=== PATIENT | female | born 1960 | race Caucasian/White ===

== ENCOUNTER 2017-12-23 07:37 | Inpatient (IN) | payer BC ==
[~2017-12-23] VITALS: Ht 172.7 cm; Wt 234.1 kg
[2017-12-23] VITALS (24 sets, daily range): BP systolic 99–158; BP diastolic 46–93
--- NOTE | 2017-12-23 07:40 | NUR ---
AWILDA FROM HOME DT SEVERE RESPIRATORY DISTRESS. PATIENT RECIEVED ON CPAP SATING 95%, PT IS SATING 70S ON ROOM AIR. PATIENT IS AWAKE AND ALERT. SKIN IS WARM TO TOUCH AND NON DIAPHORETIC. PATIENT IS AFEBRILE. MD MOHAN AT BEDSIDE.
[2017-12-23] MEDS ORDERED: FUROSEMIDE 20 MG/2 ML VIAL ONE (07:46)
--- NOTE | 2017-12-23 07:50 | NUR ---
RT NOTE: LATE ENTRY-PATIENT RECEIVED IN ER AND PLACED ON BIPAP PER DR. MOHAN'S ORDERS. SETTINGS NOTED. PATIENT TOLERATING WELL. ALARMS VERIFIED AND AUDIBLE. AMBU BAG AT [facility].
[2017-12-23 07:57] LABS: BASOPHILS # (AUTO) 0.1 /CMM (0.0-0.2); BASOPHILS % (AUTO) 1.2 % (0.0-2.0); EOSINOPHILS % (AUTO) 1.1 % (0.0-6.0); HEMATOCRIT 49 % (33-45); HEMOGLOBIN 15.4 g/dL (11.5-14.8); LYMPHOCYTES # (AUTO) 1.8 /CMM (0.8-4.8); MEAN CORPUSCULAR HGB CONC 32 g/dl (31.0-36.0); MEAN CORPUSCULAR VOLUME 95 fL (82-100); MONOCYTES # (AUTO) 0.8 /CMM (0.1-1.30); MONOCYTES % (AUTO) 6.8 % (2.0-12.0); NEUTROPHILS # (AUTO) 8.2 /CMM (1.8-8.9); NEUTROPHILS % (AUTO) 74.9 % (43.0-81.0); PLATELET COUNT (AUTO) 175 /CMM (150-450); RDW COEFFICIENT OF VARIATION 15.6 (11.5-15.0); RED BLOOD CELL COUNT(AUTO) 5.13 MIL/uL (4.0-5.2); WHITE BLOOD COUNT (AUTO) 11.1 K/uL (4.3-11.0)
[2017-12-23] MEDS ORDERED: FUROSEMIDE 40 MG/4 ML VIAL IV ONE (08:00)
--- NOTE | 2017-12-23 08:03 | NUR ---
URINE SAMPLE COLLECTED AND SENT TO LAB
[2017-12-23 08:07] LABS: INR 0.95 (0.87-1.13)
[2017-12-23 08:10] LABS: TROPONIN I 0.019 ng/mL (0.00-0.056)
[2017-12-23 08:14] LABS: ALBUMIN 3.4 g/dL (3.4-5.0); BILIRUBIN,DIRECT 0.3 mg/dL (0.0-0.2); BILIRUBIN,TOTAL 0.9 mg/dL (0.2-1.0); CALCIUM, SERUM 8.7 mg/dL (8.5-10.1); CREATININE 1.1 mg/dL (0.6-1.3); POTASSIUM 4.5 mmol/L (3.5-5.1); TOTAL PROTEIN, SERUM 7.8 g/dL (6.4-8.2)
[2017-12-23 08:28] LABS: ABG BASE EXCESS 3.8 mmol/L; ABG OXYGEN SATURATION 98.4 % (92.0-98.5); ABG PCO2 62.2 mmHg (35.0-45.0); ABG PH 7.327 (7.350-7.450); ABG PO2 145.3 mmHg (75.0-100.0); AaDO2 505.5 mmHg; COHb 1.8 % (0.5-1.5); MetHb 0.5 % (0.0-1.5); O2Hb 96.1 % (94.0-97.0); SITE, ABG Left Radial; VENT MODE, BG BIPAP 15/5
--- NOTE | 2017-12-23 08:45 | NUR ---
PANEL ON-CALL PAGED
[2017-12-23] MEDS ORDERED: NITROGLYCERIN PACKET 1 GM PACKET ONE (08:58)
[2017-12-23] MEDS ORDERED: MAGNESIUM HYDROXIDE 30 ML UDC PO PRN (09:00)
[2017-12-23] MEDS ORDERED: Z GUARD REMEDY 2 OZ OINT TP PRN (09:00)
[2017-12-23] MEDS ORDERED: ZOLPIDEM TARTRATE 5 MG TABLET PO PRN (09:00)
[2017-12-23] MEDS ORDERED: ONDANSETRON HCL/PF 4 MG/2 ML VIAL IVP PRN (09:00)
[2017-12-23] MEDS ORDERED: NITROGLYCERIN PACKET 1 GM PACKET TD ONE (09:00)
[2017-12-23 11:03] LABS: THYROID STIMULATING HORMONE 0.761 uIU/mL (0.358-3.74)
[2017-12-23] MEDS: FUROSEMIDE 40 MG/4 ML VIAL IV SCH ×3 (12:22→23:58)
[2017-12-23] MEDS: ENOXAPARIN SODIUM 40 MG/0.4 ML DISP.SYRIN SQ SCH (12:23)
--- NOTE | 2017-12-23 12:23 | NUR ---
PATIENT TRANSPORTED TO ICU VIA ACLS PROTOCOL. VSS
--- NOTE | 2017-12-23 15:09 | NUR ---
TEACHER [employer]. ADMISSION. PT BEING ADMITTED IN THE ICU ROOM 262. RESPIRATORY FAILURE, BIPAP SETTING 15/. RATE IS 16, FIO2 80%. SAT 96%. NO ACUTE DISTRESS NOTED. OVERHAULER SHOWING NSR. IV RT WRIST 20G, LT WRIST 20G. SALINE LOCK. FC PATENT HOB ELEVATED. NPO. WILL CONTINUE TO MONITOR VITALS.
[2017-12-23] MEDS ORDERED: DEXTROSE 50%-WATER 50 ML DISP.SYRIN IV PRN (15:30)
--- NOTE | 2017-12-23 15:53 | NUR ---
MUD LOGGER. ,ABG DONE. DR MCCRAY BIPAP SETTINGS CHANGED, 30/08, RATE IS 16, FIO2 80%. REPEAT ABG 1700.
--- NOTE | 2017-12-23 16:00 | NUR ---
RT NOTE: BIPAP CHANGES MADE PER 'S ORDER. MASK READJUSTED AND RESPIRATORY TREATMENT DONE.
[2017-12-23 16:02] LABS: ABG BASE EXCESS 13.2 mmol/L; ABG OXYGEN SATURATION 95.1 % (92.0-98.5); ABG PCO2 102.4 mmHg (35.0-45.0); ABG PH 7.266 (7.350-7.450); ABG PO2 82.9 mmHg (75.0-100.0); COHb 1.1 % (0.5-1.5); MetHb 0.5 % (0.0-1.5); O2Hb 93.6 % (94.0-97.0); SITE, ABG Left Radial; VENT MODE, BG BIPAP 15/5
[2017-12-23] MEDS: IPRATROPIUM NEB FS 0.5 MG/2.5 ML AMPUL.NEB NEB SCH ×3 (16:23→23:41)
[2017-12-23] MEDS: ALBUTEROL HALF STRENGTH 1.25 MG/3 ML VIAL.NEB NEB SCH ×3 (16:23→23:41)
[2017-12-23] MEDS: BLOOD SUGAR DIAGNOSTIC 1 EACH STRIP IN SCH ×2 (17:20→23:58)
[2017-12-23 17:29] LABS: ABG BASE EXCESS 11.7 mmol/L; ABG OXYGEN SATURATION 94.2 % (92.0-98.5); ABG PCO2 86.7 mmHg (35.0-45.0); ABG PH 7.306 (7.350-7.450); ABG PO2 74.2 mmHg (75.0-100.0); AaDO2 331.7 mmHg; MetHb 0.5 % (0.0-1.5); O2Hb 92.8 % (94.0-97.0); SITE, ABG Left Radial; VENT MODE, BG BIPAP 25/5
--- NOTE | 2017-12-23 18:28 | NUR ---
THERAPEUTIC STRATEGY LEAD. DR MCCRAY MADE AWARE 1700 ABG RESULT. REPEAT ABG TOMORROW AM.
--- NOTE | 2017-12-23 18:30 | NUR ---
UG DESIGNER. PM CARE.. ORAL CARE, BED BATH GIVEN. LINEN CHANGED. REMAINING SAME BIPAP SETTINGS TOLERATED WELL. SAT 96%. NO ACUTE DISTRESS NOTED. AUDIOVISUAL LEAD TECHNICIAN SHOWING NSR. IV RT ANDLT HAND 20G. SALINE LOCK. HOB ELEVATED. PT IS NPO. FC PATENT. URINE DRAINING. WILL CONTINUE TO MONITOR VITALS.
--- NOTE | 2017-12-23 19:32 | NUR ---
RCVD PT ON BIPAP 25/5,RATE 16,70%. BIPAP PLUGGED INTO RED OUTLET, ALARMS ON AND AUDIBLE. Q4 BREATHING TX GIVEN ORDERED. NO ADVERSE REACTION NOTED. SKIN INTACT. NO RESPIRATORY DISTRESS NOTED AT THIS TIME. WILL CONTINUE TO MONITOR THE PT.
[2017-12-23] MEDS: ACETAMINOPHEN 325 MG TABLET PO PRN (20:57)
[2017-12-24] VITALS (38 sets, daily range): BP systolic 84–124; BP diastolic 39–95
--- NOTE | 2017-12-24 03:00 | NUR ---
RN NOTE WHITE PLACED WITH GOOD URINE OUTPUT. URINE YELLOW WITH SOME HEMATURIA DUE TO INSERTION OF WHITE. WILL CONTINUE TO MONITOR.
[2017-12-24] MEDS: ALBUTEROL HALF STRENGTH 1.25 MG/3 ML VIAL.NEB NEB SCH ×6 (03:10→23:13)
[2017-12-24] MEDS: IPRATROPIUM NEB FS 0.5 MG/2.5 ML AMPUL.NEB NEB SCH ×6 (03:10→23:13)
[2017-12-24 04:54] LABS: BASOPHILS % (AUTO) 0.2 % (0.0-2.0); EOSINOPHILS % (AUTO) 1.1 % (0.0-6.0); HEMATOCRIT 42 % (33-45); HEMOGLOBIN 13.7 g/dL (11.5-14.8); LYMPHOCYTES # (AUTO) 1.2 /CMM (0.8-4.8); MEAN CORPUSCULAR HGB CONC 33 g/dl (31.0-36.0); MEAN CORPUSCULAR VOLUME 95 fL (82-100); MONOCYTES # (AUTO) 0.5 /CMM (0.1-1.30); MONOCYTES % (AUTO) 6.6 % (2.0-12.0); NEUTROPHILS # (AUTO) 5.5 /CMM (1.8-8.9); NEUTROPHILS % (AUTO) 76.1 % (43.0-81.0); PLATELET COUNT (AUTO) 155 /CMM (150-450); RDW COEFFICIENT OF VARIATION 15.6 (11.5-15.0); RED BLOOD CELL COUNT(AUTO) 4.42 MIL/uL (4.0-5.2); WHITE BLOOD COUNT (AUTO) 7.4 K/uL (4.3-11.0)
[2017-12-24 05:25] LABS: THYROID STIMULATING HORMONE 0.95 uIU/mL (0.358-3.74)
[2017-12-24 05:29] LABS: CALCIUM, SERUM 8.2 mg/dL (8.5-10.1); CREATININE 0.9 mg/dL (0.6-1.3); MAGNESIUM 1.6 mg/dL (1.8-2.4); POTASSIUM 3.6 mmol/L (3.5-5.1)
[2017-12-24] MEDS: FUROSEMIDE 40 MG/4 ML VIAL IV SCH ×3 (06:15→18:26)
[2017-12-24] MEDS: BLOOD SUGAR DIAGNOSTIC 1 EACH STRIP IN SCH ×3 (06:15→18:29)
[2017-12-24] MEDS ORDERED: TELM1TAB2 PO (07:47)
[2017-12-24] MEDS ORDERED: INSU100I14 SQ (07:47)
[2017-12-24] MEDS ORDERED: AMLO2.5T3 PO (07:47)
[2017-12-24] MEDS ORDERED: INSU100V7 SQ (07:47)
[2017-12-24] MEDS ORDERED: acetaZOLAMIDE SODIUM 500 MG/VIAL VIAL IV ONE (09:00)
[2017-12-24 09:13] LABS: ABG BASE EXCESS 16.4 mmol/L; ABG OXYGEN SATURATION 96.8 % (92.0-98.5); ABG PCO2 65.3 mmHg (35.0-45.0); ABG PH 7.447 (7.350-7.450); ABG PO2 85.1 mmHg (75.0-100.0); AaDO2 343.8 mmHg; COHb 0.9 % (0.5-1.5); MetHb 0.3 % (0.0-1.5); O2Hb 95.6 % (94.0-97.0); SITE, ABG Left Radial; VENT MODE, BG IPAP 25/ EPAP 5. PS 20
[2017-12-24] MEDS: Magnesium 1GM/D5W 100ML PREMIX 100 ML IV SCH ×2 (10:09→12:56)
[2017-12-24] MEDS: ENOXAPARIN SODIUM 40 MG/0.4 ML DISP.SYRIN SQ SCH (10:24)
--- NOTE | 2017-12-24 17:12 | NUR ---
Patient alert and oriented, remains on continuous bipap- saturation >95%. Patient removing bipap to have ice chips and oxygen saturation drops down as low as 70's. patient to remain NPO and on Bipap. ABG obtained and improving. Hemodynamically stable. Amaral catheter clogged, flushed a couple times but continued to leak. Attempted to change it twice but no success. Umm Peralta notified. Patient incontinent, frequent incontinent care and linen changes. Skin and safety precautions maintained.
--- NOTE | 2017-12-24 18:24 | NUR ---
RT END OF THE SHIFT REPORT: PT. 57 Y OLD FEMALE REC. @ 0700 AM ALERT AND RESPONSIVE. ON BIPAP WITH NOTED SETTINGS, ALARMS ARE SET AND FUNCTIONAL, B/S DIMINISHED. EQUAL CHEST RISE NOTED. INLINE TX'S GIVEN NO ADVERSE REACTION NOTED. BUT POST TX'S SHE COMPLAIN OF THE MASK SIZE AND REFUSED FOR THE NEXT TREATMENTS DUE TO MEDICINE GOING TO HER EYES. READJUST MASK MANY TIMES AND SHE STILL NOT HAPPY WITH THE MASK. I WENT TO [employer] AND ORDER SPECIAL LARGE BIPAP FOR HER AND WILL BE DELIVER ASHKAN. MORNING (X2 MASKED ORDERED BY MRS. ORTIZ). I TOOK MY TIME TO CUT SOME FOAM TO MINIMIZED THE LEAK AND ALSO ULCER PRESSURE. SOME REDNESS NOTICED ON HER NOSE. ELECTRIC PLATER AT TH BEDSIDE, T/O DAY AND COMPLAIN SHE COULDN'T SLEEP DUE TO HOLDING THE MASK. I HELP AND SEAL THE MASK AND ADJUST HER MASK TO MAKE HER COMFORTABLE. SHE WAS ABLE TO MAINTAIN THE MASK WELL AND TOOK A GOOD SLEEPING, AND REST TIME. BIPAP SETTINGS CHANGES T/O DAY PER ORDER BIPAP PLUGGED INTO RED OUT LET.CONTINUE FOR CARE AND MONITOR. AMBU BAG REMAIN AT THE BEDSIDE,. REPORT WILL PASS TO PM SHIFT. X2 LARGER MASK WILL BE DELIVER IN BY TOMORROW, SO SHE CAN USE IT. Addendum: 12/24/17 at 1833 by REJI DUTTON RT Amended: Links added.
--- NOTE | 2017-12-24 19:30 | NUR ---
RN NOTE RECEIVED PT IN NO ACUTE DISTRESS IN BED. PT IS A/O X 3 AND ABLE TO MAKE NEEDS KNOWN. PT IS ON O2 VIA BIPAP AND TOLERATING WELL. PT NOT C/O ANY SOB, DIFFICULTY BREATHING OR PAIN AT THIS TIME. BED IN LOW LOCK POSITION WITH RIALS UP X 2. CALL LIGHT WITHIN REACH AND ALL SAFET MEASURE ENSURED AND CARRIED OUT. WILL CONTINUE TO MONITOR.
--- NOTE | 2017-12-24 19:53 | NUR ---
pt received on bipap via mask with charted settings. pt alert. alarms set and audible, disconnect alarms checked plugged into red outlet pt receiving breathing tx q6 at this time. pt hob at 30 degrees. Addendum: 12/24/17 at 1955 by MIGUEL PERRY RT Amended: Links added.
[2017-12-24] MEDS: HYDROCODONE/APAP 5/325MG 1 EACH TABLET PO PRN (21:33)
[2017-12-25] VITALS (38 sets, daily range): BP systolic 96–124; BP diastolic 32–65
[2017-12-25] MEDS: BLOOD SUGAR DIAGNOSTIC 1 EACH STRIP IN SCH ×4 (00:43→18:00)
[2017-12-25] MEDS: ALBUTEROL HALF STRENGTH 1.25 MG/3 ML VIAL.NEB NEB SCH ×6 (02:17→23:02)
[2017-12-25] MEDS: IPRATROPIUM NEB FS 0.5 MG/2.5 ML AMPUL.NEB NEB SCH ×6 (02:17→23:02)
[2017-12-25] MEDS: HYDROCODONE/APAP 5/325MG 1 EACH TABLET PO PRN (03:17)
--- NOTE | 2017-12-25 03:30 | NUR ---
RN NOTE REASSESSED URINE. NO HEMATURIA NOTED. URINE YELLOW WITH SOME SEDIMENT. WILL CONTINUE TO MONITOR.
--- NOTE | 2017-12-25 04:41 | NUR ---
RN NOTE BED BATH GIVEN AND PT TOLERATED WELL. WILL CONTINUE TO MONITOR.
--- NOTE | 2017-12-25 07:50 | NUR ---
RT PT RECEIVED TOLERATING BiPAP WELL AT THIS TIME. PT IS AWAKE AND ALERT. CHECKED PT NOSE FOR SKIN INTEGRITY AND NO REDNESS NOTICED OR SKIN BREAKDOWN, MEPILEX IN PLACE. BiPAP ALARMS ARE SET AND AUDIBLE WITH BVM BY BEDSIDE. BiPAP IS PLUGGED INTO RED OUTLET. NO RESPIRATORY DISTRESS NOTED AT THIS TIME, WILL CONTINUE TO MONITOR.
--- NOTE | 2017-12-25 07:50 | NUR ---
RT PT RECEIVED TOLERATING BiPAP WELL AT THIS TIME. PT IS AWAKE AND ALERT. CHECKED PT NOSE FOR SKIN INTEGRITY AND NO REDNESS NOTICED OR SKIN BREAKDOWN, MEPILEX IN PLACE. BiPAP ALARMS ARE SET AND AUDIBLE WITH BVM BY BEDSIDE. HHN TX GIVEN INLINE WITH NO ADVERSE REACTIONS. BiPAP IS PLUGGED INTO RED OUTLET. NO RESPIRATORY DISTRESS NOTED AT THIS TIME, WILL CONTINUE TO MONITOR. Addendum: 12/25/17 at 1019 by STEFANO BOWLES RT Amended: Links added.
[2017-12-25 09:07] LABS: CALCIUM, SERUM 8.4 mg/dL (8.5-10.1); CREATININE 0.9 mg/dL (0.6-1.3); MAGNESIUM 2.1 mg/dL (1.8-2.4); PHOSPHORUS 4.3 mg/dL (2.5-4.9); POTASSIUM 3.4 mmol/L (3.5-5.1)
[2017-12-25 09:20] LABS: ABG BASE EXCESS 18.7 mmol/L; ABG OXYGEN SATURATION 92.8 % (92.0-98.5); ABG PCO2 91.5 mmHg (35.0-45.0); ABG PH 7.352 (7.350-7.450); ABG PO2 70.5 mmHg (75.0-100.0); AaDO2 330.2 mmHg; COHb 0.6 % (0.5-1.5); MetHb 0.7 % (0.0-1.5); O2Hb 91.6 % (94.0-97.0); SITE, ABG Left Radial
[2017-12-25 09:23] LABS: BASOPHILS % (AUTO) 0.4 % (0.0-2.0); EOSINOPHILS % (AUTO) 2.7 % (0.0-6.0); HEMATOCRIT 45 % (33-45); HEMOGLOBIN 13.9 g/dL (11.5-14.8); LYMPHOCYTES # (AUTO) 1.2 /CMM (0.8-4.8); LYMPHOCYTES % (AUTO) 17.8 % (20.0-44.0); MEAN CORPUSCULAR HGB CONC 31 g/dl (31.0-36.0); MEAN CORPUSCULAR VOLUME 96 fL (82-100); MONOCYTES # (AUTO) 0.5 /CMM (0.1-1.30); MONOCYTES % (AUTO) 7.5 % (2.0-12.0); NEUTROPHILS # (AUTO) 4.6 /CMM (1.8-8.9); NEUTROPHILS % (AUTO) 71.6 % (43.0-81.0); PLATELET COUNT (AUTO) 149 /CMM (150-450); RDW COEFFICIENT OF VARIATION 15.9 (11.5-15.0); RED BLOOD CELL COUNT(AUTO) 4.71 MIL/uL (4.0-5.2); WHITE BLOOD COUNT (AUTO) 6.5 K/uL (4.3-11.0)
[2017-12-25] MEDS: FUROSEMIDE 100 MG/10 ML VIAL IV SCH ×3 (10:43→19:28)
[2017-12-25] MEDS: ENOXAPARIN SODIUM 40 MG/0.4 ML DISP.SYRIN SQ SCH (10:44)
--- NOTE | 2017-12-25 17:24 | NUR ---
Patient remains on Bipap- ABG obtained by RT. Weaned Fi02 down to 60%, Oxygen saturation at 92-93%. (at baseline patient on oxygen and cpap). LAsix increased by Dr. Huggins, tolerating well, sbp >90 with map>65. Denies pain, but c/o discomfort from bipap mask. Ok'd to have sips of clear liquids and ice chips per Dr. Stephenson, but no food at this time. Patient remains at high risk of aspiration and with high oxygen requirement. Amaral catheter intact and patent- light vaginal bleed noted, per homecare patient has had vaginal bleed for over a year.
--- NOTE | 2017-12-25 19:00 | NUR ---
RN NOTE RECEIVED PT IN NO ACUTE DISTRESS IN BED. PT IS A/O X 3 AND ABLE TO MAKE NEEDS KNOWN. PT IS ON O2 VIA BIPAP AND TOLERATING WELL. PT NOT C/O ANY SOB, DIFFICULTY BREATHING OR PAIN AT THIS TIME. PT HAS RIGHT WRIST 18G AND LEFT HAND 20G THAT IS CLEAN DRY INTACT AND PATENT WITH SALINE FLUSH. IVS ARE SALINE LOCKED. BED IN LOW LOCK POSITION WITH RIALS UP X 2. CALL LIGHT WITHIN REACH AND ALL SAFETY MEASURE ENSURED AND CARRIED OUT. WILL CONTINUE TO MONITOR.
[2017-12-26] VITALS (33 sets, daily range): BP systolic 91–129; BP diastolic 44–74
[2017-12-26] MEDS: BLOOD SUGAR DIAGNOSTIC 1 EACH STRIP IN SCH ×5 (00:06→23:54)
[2017-12-26] MEDS: HYDROCODONE/APAP 5/325MG 1 EACH TABLET PO PRN ×4 (00:06→22:13)
[2017-12-26] MEDS: ALBUTEROL HALF STRENGTH 1.25 MG/3 ML VIAL.NEB NEB SCH ×5 (03:33→20:22)
[2017-12-26] MEDS: IPRATROPIUM NEB FS 0.5 MG/2.5 ML AMPUL.NEB NEB SCH ×5 (03:33→20:22)
--- NOTE | 2017-12-26 03:55 | NUR ---
RT Pt remains on BiPAP during the night on ordered settings. Pt awake and alert w/ no resp distress noted. svn treatment given via inline. Addendum: 12/26/17 at 0356 by ROSINA BELL RT Amended: Links added.
[2017-12-26 05:07] LABS: BASOPHILS % (AUTO) 0.1 % (0.0-2.0); EOSINOPHILS % (AUTO) 2.3 % (0.0-6.0); LYMPHOCYTES % (AUTO) 16.8 % (20.0-44.0)
[2017-12-26 05:15] LABS: HEMATOCRIT 43 % (33-45); HEMOGLOBIN 13.9 g/dL (11.5-14.8); LYMPHOCYTES # (AUTO) 1.2 /CMM (0.8-4.8); MEAN CORPUSCULAR HGB CONC 32 g/dl (31.0-36.0); MEAN CORPUSCULAR VOLUME 96 fL (82-100); MONOCYTES # (AUTO) 0.5 /CMM (0.1-1.30); MONOCYTES % (AUTO) 7.4 % (2.0-12.0); NEUTROPHILS # (AUTO) 5.3 /CMM (1.8-8.9); NEUTROPHILS % (AUTO) 73.4 % (43.0-81.0); PLATELET COUNT (AUTO) 154 /CMM (150-450); RDW COEFFICIENT OF VARIATION 16.6 (11.5-15.0); RED BLOOD CELL COUNT(AUTO) 4.49 MIL/uL (4.0-5.2); WHITE BLOOD COUNT (AUTO) 7.2 K/uL (4.3-11.0)
[2017-12-26 05:25] LABS: ALBUMIN 2.9 g/dL (3.4-5.0); BILIRUBIN,TOTAL 1.2 mg/dL (0.2-1.0); CALCIUM, SERUM 8.1 mg/dL (8.5-10.1); CREATININE 0.9 mg/dL (0.6-1.3); MAGNESIUM 1.8 mg/dL (1.8-2.4); PHOSPHORUS 3.4 mg/dL (2.5-4.9); POTASSIUM 3.1 mmol/L (3.5-5.1); TOTAL PROTEIN, SERUM 7.1 g/dL (6.4-8.2)
--- NOTE | 2017-12-26 06:51 | NUR ---
RN NOTE PT REMAINS IN NO ACUTE DISTRESS IN BED. PT DID NOT HAVE ANY SIGNIFICANT CHANGE IN CONDITION DURING SHIFT. PT TOLERATING BIPAP SETTING WELL. ALL NEEDS MET, ALL ORDERS CARRIED OUT. WILL ENDORSE CARE TO AM RN FOR CONTINUITY OF CARE.
[2017-12-26] MEDS ORDERED: POTASSIUM CHLORIDE 20 MEQ TAB.PRT.SR PO ONE (09:00)
[2017-12-26] MEDS: POTASSIUM CHLORIDE 20 MEQ TAB.PRT.SR PO SCH ×4 (09:50→14:10)
[2017-12-26] MEDS: ENOXAPARIN SODIUM 40 MG/0.4 ML DISP.SYRIN SQ SCH (09:58)
[2017-12-26 11:01] LABS: ABG OXYGEN SATURATION 94.8 % (92.0-98.5); ABG PCO2 54.5 mmHg (35.0-45.0); ABG PH 7.493 (7.350-7.450); ABG PO2 70.8 mmHg (75.0-100.0); AaDO2 224.4 mmHg; COHb 0.9 % (0.5-1.5); MetHb 0.6 % (0.0-1.5); O2Hb 93.4 % (94.0-97.0); SITE, ABG Right Radial; VENT MODE, BG VENTI MASK
[2017-12-26] MEDS: FUROSEMIDE 100 MG/10 ML VIAL IV SCH ×3 (13:57→21:01)
--- NOTE | 2017-12-26 16:09 | NUR ---
patient alert and oriented, denies sob or discomfort. Weaned off bipap, ABG obtained by RT. Patient on a venti mask at 50% tolerating well. Oxygen saturation at 90-93%. Diet advanced by Dr. Huggins to clear liquids, patient tolerating po intake. Will continue to monitor.
--- NOTE | 2017-12-26 18:35 | NUR ---
RN NOTE: PATIENT CONTINUES W/O DISTRESS-TOLERATING VENTI MASK AT 50% fI02 OXYGEN SATURATION REMAINS AT 91-92%. TOLERATING CLEAR LIQUIDS.
--- NOTE | 2017-12-26 20:00 | NUR ---
Received patient form day shift awake alert and oriented x 4.VS stable.SR per monitor. On 50% Venti mask SPO2 90%-92%.No acute distress noted.Patient with morbid obesity maintained on [facility] [id number] bed.Incontinent of loose stool.Perineal care done.Remedy Z guard oint applied as protective measures.Linens changed.Turned and repositioned offloading pressure points.
--- NOTE | 2017-12-26 22:25 | NUR ---
BIPAP applied by RT,Vee per patient request. Rate 18,20/10,FIO2 50%.SPO2 95%.No acute distress noted.
[2017-12-26] MEDS: INSULIN REGULAR, HUMAN 100 UNIT/ML 3 ML VIAL SQ PRN (23:56)
[2017-12-27] VITALS (25 sets, daily range): BP systolic 89–131; BP diastolic 37–76
--- NOTE | 2017-12-27 | NUR ---
Patient was medicated with [place] for bilateral knee pain with relief.FBS checked with coverage per SS.
[2017-12-27] MEDS: IPRATROPIUM NEB FS 0.5 MG/2.5 ML AMPUL.NEB NEB SCH ×7 (00:19→23:30)
[2017-12-27] MEDS: ALBUTEROL HALF STRENGTH 1.25 MG/3 ML VIAL.NEB NEB SCH ×7 (00:19→23:30)
--- NOTE | 2017-12-27 02:15 | NUR ---
Patient awake vs stable.Bed bath rendered.Complete linens changed.Turned and repositioned.
[2017-12-27 04:33] LABS: BASOPHILS % (AUTO) 0.4 % (0.0-2.0); EOSINOPHILS % (AUTO) 2.9 % (0.0-6.0); HEMATOCRIT 43 % (33-45); HEMOGLOBIN 13.6 g/dL (11.5-14.8); LYMPHOCYTES # (AUTO) 1.1 /CMM (0.8-4.8); LYMPHOCYTES % (AUTO) 16.5 % (20.0-44.0); MEAN CORPUSCULAR HGB CONC 31 g/dl (31.0-36.0); MEAN CORPUSCULAR VOLUME 96 fL (82-100); MONOCYTES # (AUTO) 0.5 /CMM (0.1-1.30); MONOCYTES % (AUTO) 8.4 % (2.0-12.0); NEUTROPHILS # (AUTO) 4.6 /CMM (1.8-8.9); NEUTROPHILS % (AUTO) 71.8 % (43.0-81.0); PLATELET COUNT (AUTO) 168 /CMM (150-450); RDW COEFFICIENT OF VARIATION 16.8 (11.5-15.0); WHITE BLOOD COUNT (AUTO) 6.4 K/uL (4.3-11.0)
[2017-12-27 04:48] LABS: ALBUMIN 2.9 g/dL (3.4-5.0); CREATININE 1.1 mg/dL (0.6-1.3); MAGNESIUM 1.6 mg/dL (1.8-2.4); PHOSPHORUS 3.6 mg/dL (2.5-4.9); POTASSIUM 3.4 mmol/L (3.5-5.1); TOTAL PROTEIN, SERUM 6.9 g/dL (6.4-8.2)
[2017-12-27] MEDS: BLOOD SUGAR DIAGNOSTIC 1 EACH STRIP IN SCH ×3 (05:56→17:36)
[2017-12-27] MEDS: HYDROCODONE/APAP 5/325MG 1 EACH TABLET PO PRN (05:56)
--- NOTE | 2017-12-27 06:38 | NUR ---
Patient resting VS remains stable.Diuresing well from lasix.No significant change noted during the shift. Managed knee pain with [place].All needs anticipated and met.
--- NOTE | 2017-12-27 09:00 | NUR ---
PT PLACED OFF BIPAP ONTO VENTI-MASK
[2017-12-27] MEDS: POTASSIUM CHLORIDE 20 MEQ TAB.PRT.SR PO SCH ×2 (09:07→10:19)
[2017-12-27] MEDS: ENOXAPARIN SODIUM 40 MG/0.4 ML DISP.SYRIN SQ SCH (09:08)
--- NOTE | 2017-12-27 09:33 | NUR ---
LABORATORY AIDE Recieved report from BLAINE Arellano, Pt asleep, VS stables, on bipap sating 97%, no sob noted. will continue monitoring for SOB and will switch to Venti mask when awake fro breakfast.
[2017-12-27] MEDS ORDERED: Magnesium 1GM/D5W 100ML PREMIX PIGGYBACK IV ONE (10:00)
[2017-12-27] MEDS: SIMETHICONE 80 MG TAB.CHEW PO PRN (10:19)
[2017-12-27] MEDS: INSULIN REGULAR, HUMAN 100 UNIT/ML 3 ML VIAL SQ PRN ×2 (12:00→17:41)
[2017-12-27 12:45] LABS: ABG BASE EXCESS 17.9 mmol/L; ABG OXYGEN SATURATION 89.6 % (92.0-98.5); ABG PCO2 76.4 mmHg (35.0-45.0); ABG PH 7.407 (7.350-7.450); ABG PO2 56.4 mmHg (75.0-100.0); AaDO2 140.9 mmHg; COHb 0.8 % (0.5-1.5); MetHb 0.7 % (0.0-1.5); O2Hb 88.3 % (94.0-97.0); SITE, ABG Right Radial
[2017-12-27] MEDS: ACETAMINOPHEN 325 MG TABLET PO PRN (20:37)
--- NOTE | 2017-12-27 20:40 | NUR ---
ICU/SALES COORDINATOR PT COMPLAIN ABOUT BEING UNCOMFORTABLE AND NOT FEELING WELL, OFFERED TYLENOL 650 MG WAS GIVEN PO FOR THIS. CALL LIGHT WITHIN REACH. WILL MONITOR PT'S PAIN
[2017-12-28] VITALS (13 sets, daily range): BP systolic 97–130; BP diastolic 37–80
[2017-12-28] MEDS: SIMETHICONE 80 MG TAB.CHEW PO PRN ×4 (00:30→20:45)
--- NOTE | 2017-12-28 00:30 | NUR ---
ICU/OIL WELL ENGINEER PT COMPLAINED ABOUT PAIN AND GAS, PT WAS OFFERED NORCO 1 TAB FOR THIS. PAIN WAS RATED 7/10. WITH PAIN TO LOWER EXTREMITIES AND GENERALIZED ALL OVER. ALSO PT COMPLAINED ABOUT HAVING GAS PAIN TO ABDOMINAL AREA, MYLICON TAB WAS GIVEN FOR THIS. WILL CONTINUE TO MONITOR PT'S PAIN.
[2017-12-28] MEDS: HYDROCODONE/APAP 5/325MG 1 EACH TABLET PO PRN (00:31)
--- NOTE | 2017-12-28 00:40 | NUR ---
ICU/NOVELTY BALLOON ASSEMBLER AND PACKER PT'S BLOOD SUGAR IS 131, THIS WAS COVERED WITH 2 UNITS REGULAR INSULIN, WILL CONTINUE TO MONITOR PT'S BLOOD SUGAR WAS ORDERED BY .
[2017-12-28] MEDS: BLOOD SUGAR DIAGNOSTIC 1 EACH STRIP IN SCH ×4 (01:00→18:19)
[2017-12-28] MEDS: INSULIN REGULAR, HUMAN 100 UNIT/ML 3 ML VIAL SQ PRN ×3 (01:03→18:19)
--- NOTE | 2017-12-28 01:49 | NUR ---
PT PLACED ON BIPAP PER MD ORDERS. NO RESP DISTRESS OR SOB NOTED. PT ALERT AND AWAKE. NO REDNESS OR SKIN TEAR NOTED. ALARMS ARE SET AND AUDIBLE. VENT PLUGGED INTO RED OUTLET. AMBU BAG BEDSIDE. WILL CONTINUE TO MONITOR. Addendum: 12/28/17 at 0535 by THOMAS BUTTS RT Amended: Links added.
--- NOTE | 2017-12-28 02:05 | NUR ---
ICU/PHYSICIAN OFFICE NURSE PT PLACED ON BIPAP WITH SETTINGS OF 20/10, RATE OF 18, AND FIO2 50%. PT WAS CHANGED OVER FROM EARLIER MASK OF VENTURI. WILL CONTINUE TO MONITOR THIS PT'S SATURATION, WHILE ON BIPAP.
[2017-12-28] MEDS: IPRATROPIUM NEB FS 0.5 MG/2.5 ML AMPUL.NEB NEB SCH ×6 (03:30→23:47)
[2017-12-28] MEDS: ALBUTEROL HALF STRENGTH 1.25 MG/3 ML VIAL.NEB NEB SCH ×6 (03:30→23:47)
--- NOTE | 2017-12-28 04:20 | NUR ---
ICU/TRANSITIONS MANAGER PT REFUSED TO HAVE A BATH, AND ASKED TO SLEEP INSTEAD. PT STATED THAT SHE WAS CLEANED EARLIER IN THE DAY.
[2017-12-28 04:23] LABS: BASOPHILS % (AUTO) 0.3 % (0.0-2.0); EOSINOPHILS % (AUTO) 4.5 % (0.0-6.0); HEMATOCRIT 45 % (33-45); LYMPHOCYTES % (AUTO) 17.8 % (20.0-44.0); MEAN CORPUSCULAR HGB CONC 31 g/dl (31.0-36.0); MEAN CORPUSCULAR VOLUME 96 fL (82-100); MONOCYTES # (AUTO) 0.4 /CMM (0.1-1.30); MONOCYTES % (AUTO) 7.4 % (2.0-12.0); NEUTROPHILS # (AUTO) 3.8 /CMM (1.8-8.9); PLATELET COUNT (AUTO) 170 /CMM (150-450); RDW COEFFICIENT OF VARIATION 16.6 (11.5-15.0); RED BLOOD CELL COUNT(AUTO) 4.69 MIL/uL (4.0-5.2); WHITE BLOOD COUNT (AUTO) 5.4 K/uL (4.3-11.0)
[2017-12-28 04:25] LABS: APPEARANCE,URINE CLOUDY (CLEAR); BILIRUBIN,URINE NEGATIVE (NEGATIVE); BLOOD, URINE 3+ Ery/uL (NEGATIVE); COLOR,URINE AMBER (YELLOW); KETONES,URINE NEGATIVE (NEGATIVE); LEUKOCYTE ESTERASE ,URINE 3+ (NEGATIVE); NITRITE, URINE POSITIVE (NEGATIVE); PROTEIN,URINE 2+ mg/dl (NEGATIVE); UGLUCOSE NEGATIVE (NEGATIVE)
[2017-12-28 04:30] LABS: PH,URINE >9.0 (5.0-8.0)
[2017-12-28 04:37] LABS: BACTERIA,URINE Many /HPF (None Seen); RBC,URINE 21-50 /HPF (0-2); SQUAMOUS EPITHELIAL CELL,UR Few /HPF (None Seen); TRIPLE PHOSPHATE CRYSTAL,UR Moderate /HPF (None Seen); URINE AMORPHOUS PHOSPHATES Many /HPF (None Seen); WBC,URINE 21-50 /HPF (0-3)
[2017-12-28 04:50] LABS: CALCIUM, SERUM 8.4 mg/dL (8.5-10.1); MAGNESIUM 1.9 mg/dL (1.8-2.4); PHOSPHORUS 3.5 mg/dL (2.5-4.9); POTASSIUM 3.6 mmol/L (3.5-5.1)
--- NOTE | 2017-12-28 05:10 | NUR ---
ICU/FOOD MIXER REPAIRER AM LABS DONE AWAIT ANY ABNORMAL RESULTS.
--- NOTE | 2017-12-28 06:45 | NUR ---
ICU/THREAD PULLING MACHINE ATTENDANT BLOOD SUGAR IS 123, THERE IS NO COVERAGE FOR THIS. WILL CONTINUE TO MONITOR PT'S BLOOD SUGAR
--- NOTE | 2017-12-28 07:30 | NUR ---
INITIAL RECEIVED PT ON BIPAP SATURATION 97% NO SOB NOTED ALERT AND ORIENTED X4 WO PIV 20 G IN RIGHT HAND H/L WHITE DRAINS TEA COLORED URINE SR AT 81, Pt aWAKE ASKING TO DRINK WATER. , RT GIVING BREATHING TREATMENT BED IN LOW POSITION LOCKED CALL SAMSON NEXT TO PT WILL CONTINUE TO MONITOR.
[2017-12-28] MEDS: ENOXAPARIN SODIUM 40 MG/0.4 ML DISP.SYRIN SQ SCH (09:15)
[2017-12-28] MEDS: ACETAMINOPHEN 325 MG TABLET PO PRN (10:30)
[2017-12-28] MEDS: FLUTICASONE PROPIONATE 16 GM BOTTLE NS SCH (18:31)
--- NOTE | 2017-12-28 19:15 | NUR ---
TELE - TD/ SUPERINTENDENT GENERATING PLANT RECEIVED PT ACCOMPANIED BY ICU STAFF. PT TRANSFFERED TO ROOM 104. VSS. SPOKE WITH FLORY FINANCIAL SALES PROFESSIONAL REGARDING PT COMPLAINT OF PAINFUL URINATION. NEW ORDERS RECEIVED AND CARRIED OUT. WILL CONTINUE TO MONITOR CLOSELY.
[2017-12-28] MEDS ORDERED: CEFTRIAXONE 1 G VIAL ONE (20:29)
[2017-12-28] MEDS ORDERED: CEFTRIAXONE 1 G in IV D5W 50 ML IV SCH (20:30)
[2017-12-29] VITALS: BP 121/41
[2017-12-29] MEDS: BLOOD SUGAR DIAGNOSTIC 1 EACH STRIP IN SCH ×5 (00:46→23:38)
[2017-12-29] MEDS: HYDROCODONE/APAP 5/325MG 1 EACH TABLET PO PRN (00:47)
[2017-12-29 04:00] VITALS: BP 139/52
[2017-12-29] MEDS: IPRATROPIUM NEB FS 0.5 MG/2.5 ML AMPUL.NEB NEB SCH ×6 (04:10→22:37)
[2017-12-29] MEDS: ALBUTEROL HALF STRENGTH 1.25 MG/3 ML VIAL.NEB NEB SCH ×6 (04:10→22:37)
--- NOTE | 2017-12-29 05:53 | NUR ---
pt removed from bipap per pt request Addendum: 12/29/17 at 0555 by MIGUEL PERRY RT Amended: Links added.
[2017-12-29 06:35] LABS: BASOPHILS % (AUTO) 0.2 % (0.0-2.0); HEMATOCRIT 43 % (33-45); HEMOGLOBIN 13.6 g/dL (11.5-14.8); LYMPHOCYTES # (AUTO) 1.2 /CMM (0.8-4.8); LYMPHOCYTES % (AUTO) 22.1 % (20.0-44.0); MEAN CORPUSCULAR HGB CONC 32 g/dl (31.0-36.0); MEAN CORPUSCULAR VOLUME 96 fL (82-100); MONOCYTES # (AUTO) 0.6 /CMM (0.1-1.30); MONOCYTES % (AUTO) 10.9 % (2.0-12.0); NEUTROPHILS # (AUTO) 3.4 /CMM (1.8-8.9); NEUTROPHILS % (AUTO) 62.8 % (43.0-81.0); PLATELET COUNT (AUTO) 156 /CMM (150-450); RDW COEFFICIENT OF VARIATION 16.2 (11.5-15.0); RED BLOOD CELL COUNT(AUTO) 4.43 MIL/uL (4.0-5.2); WHITE BLOOD COUNT (AUTO) 5.4 K/uL (4.3-11.0)
[2017-12-29] MEDS: SIMETHICONE 80 MG TAB.CHEW PO PRN ×3 (06:46→14:19)
[2017-12-29 07:04] LABS: CALCIUM, SERUM 8.5 mg/dL (8.5-10.1); CREATININE 0.9 mg/dL (0.6-1.3); PHOSPHORUS 2.8 mg/dL (2.5-4.9); POTASSIUM 3.6 mmol/L (3.5-5.1)
--- NOTE | 2017-12-29 07:30 | NUR ---
AISHA RN NOTES RECEIVED PT IN NO ACUTE DISTRESS IN BED. PT IS A/O X 3 AND ABLE TO MAKE NEEDS KNOWN. PT IS ON O2 VIA N/C AND TOLERATING WELL. PT NOT C/O ANY SOB, DIFFICULTY BREATHING OR PAIN AT THIS TIME. LEFT HAND 20G THAT IS CLEAN DRY INTACT AND PATENT WITH SALINE FLUSH. IVS ARE SALINE LOCKED. BED IN LOW LOCK POSITION WITH RIALS UP X 2. CALL LIGHT WITHIN REACH AND ALL SAFETY MEASURE ENSURED AND CARRIED OUT. WILL CONTINUE TO MONITOR.
[2017-12-29] MEDS: ENOXAPARIN SODIUM 40 MG/0.4 ML DISP.SYRIN SQ SCH (09:08)
[2017-12-29] MEDS: FLUTICASONE PROPIONATE 16 GM BOTTLE NS SCH ×2 (09:12→17:38)
[2017-12-29 09:31] VITALS: BP 124/62
[2017-12-29 12:00] VITALS: BP 114/66
[2017-12-29 12:01] LABS: ABG BASE EXCESS 16.9 mmol/L; ABG OXYGEN SATURATION 89.2 % (92.0-98.5); ABG PCO2 76.7 mmHg (35.0-45.0); ABG PH 7.397 (7.350-7.450); ABG PO2 53.7 mmHg (75.0-100.0); AaDO2 121.3 mmHg; COHb 1.1 % (0.5-1.5); MetHb 0.7 % (0.0-1.5); O2Hb 87.6 % (94.0-97.0); SITE, ABG Left Radial; VENT MODE, BG NASAL CANNULA
--- NOTE | 2017-12-29 12:05 | NUR ---
AISHA RN NOTE: RECEIVED THE ABG RESULT FROM RT YOGESH. PER RT YOGESH HE ALREADY SHOWED TO DR. MCCRAY THE ABG RESULT AND MD WITH NO NEW ORDER. PATIENT CURRENTLY ON O2 4L/MIN VIA NC SATURATING 90%. ABG RESULT FILED ON THE PATIENT'S CHART.
[2017-12-29] MEDS: INSULIN REGULAR, HUMAN 100 UNIT/ML 3 ML VIAL SQ PRN ×2 (12:26→23:46)
[2017-12-29] MEDS ORDERED: POLYETHYLENE GLYCOL 3350 17 GM POWD.PACK PO ONE (15:30)
--- NOTE | 2017-12-29 15:31 | NUR ---
AISHA RN NOTE: PATIENT REQUESTED TO GET A MEDICATION TO MAKE HER BOWEL MOVE. DR. CAROLINA WAS INFORMED AND PATIENT HAD HER LAST BOWEL MOVEMENT ON 12/27. MD WITH NEW ORDER, NOTED AND CARRIED OUT. PATIENT MADE AWARE.
--- NOTE | 2017-12-29 17:45 | NUR ---
RT PT PLACED ON 35% VENTURI MASK AT 9L DUE TO DESATURATION. PT SpO2 WAS 83% ON 4L NASAL CANNULA. BLAINE WYNN NOTIFIED AND AWARE. PT SpO2 INCREASED TO 90% MINUTES AFTER PT WAS PLACED ON VENTURI MASK. Addendum: 12/29/17 at 1812 by STEFANO BOWLES RT Amended: Links added.
[2017-12-29 18:03] VITALS: BP 136/66
--- NOTE | 2017-12-29 18:31 | NUR ---
AISHA RN NOTE: INFORMED DR. MCCRAY RE: THE PATIENT BEING PLACED BACK TO VENTURI MASK W/ 35% O2 DUE TO SATURATION OF 83% WITH THE NC 4L/MIN VIA. REQUESTED TO MD FOR A PRN BREATHING TREATMENT, MD WITH NEW ORDER, NOTED AND CARRIED OUT. PATIENT AWARE.
--- NOTE | 2017-12-29 19:25 | NUR ---
BUSINESS BANKING MANAGER CLOSING PATIENT AWAKE IN BED EATING AND TALKING WITH FRIEND. NO NEW EPISODES DESATURATION OR CRAMPS. NO RESULTS FROM MIRALAX REPORT GIVEN TO PM NURSE. ALL NEW ALL ORDERS INDORSED
[2017-12-29 20:00] VITALS: BP 125/72
[2017-12-29] MEDS: ZOSYN IVPB 3.375 G in IV D5W 50ml IV SCH (20:44)
[2017-12-29] MEDS: CEFTRIAXONE 1 G in IV D5W 50 ML IV SCH (21:48)
[2017-12-30] VITALS: BP 140/66
[2017-12-30] MEDS: ZOSYN IVPB 3.375 G in IV D5W 50ml IV SCH ×2 (02:55→08:29)
[2017-12-30] MEDS: ALBUTEROL HALF STRENGTH 1.25 MG/3 ML VIAL.NEB NEB SCH ×6 (03:25→23:05)
[2017-12-30] MEDS: IPRATROPIUM NEB FS 0.5 MG/2.5 ML AMPUL.NEB NEB SCH ×6 (03:25→23:06)
[2017-12-30 04:00] VITALS: BP 117/51
[2017-12-30] MEDS: BLOOD SUGAR DIAGNOSTIC 1 EACH STRIP IN SCH ×4 (05:36→23:36)
[2017-12-30] MEDS: INSULIN REGULAR, HUMAN 100 UNIT/ML 3 ML VIAL SQ PRN ×3 (05:37→23:43)
[2017-12-30 06:39] LABS: BASOPHILS % (AUTO) 0.4 % (0.0-2.0); EOSINOPHILS % (AUTO) 4.3 % (0.0-6.0); HEMATOCRIT 44 % (33-45); HEMOGLOBIN 13.8 g/dL (11.5-14.8); LYMPHOCYTES # (AUTO) 1.2 /CMM (0.8-4.8); LYMPHOCYTES % (AUTO) 21.3 % (20.0-44.0); MEAN CORPUSCULAR HGB CONC 31 g/dl (31.0-36.0); MEAN CORPUSCULAR VOLUME 97 fL (82-100); MONOCYTES # (AUTO) 0.5 /CMM (0.1-1.30); MONOCYTES % (AUTO) 8.8 % (2.0-12.0); NEUTROPHILS # (AUTO) 3.6 /CMM (1.8-8.9); NEUTROPHILS % (AUTO) 65.2 % (43.0-81.0); PLATELET COUNT (AUTO) 166 /CMM (150-450); RDW COEFFICIENT OF VARIATION 16.1 (11.5-15.0); RED BLOOD CELL COUNT(AUTO) 4.56 MIL/uL (4.0-5.2); WHITE BLOOD COUNT (AUTO) 5.6 K/uL (4.3-11.0)
--- NOTE | 2017-12-30 07:00 | NUR ---
RN NOTES RECEIVED PT ON BED, A/Ox4, ON 35% VENTURI MASK , RESPIRATION EVEN AND UNLABORED, ON SOB NOTED, ON TELE SR , HR IN 80'S , WHITE DRINING TO GRAVITY , L HAND IV G 18 AND R WRIST G 20 IV SITES ARE CLEAN, DRY AND INTACT, SR UP x3, CALL LIGHT WITHIN EASY REACH , BED LOCKED AND IN LOWEST POSITION, CONTINUE TO MONITOR .
[2017-12-30 07:09] LABS: CALCIUM, SERUM 8.9 mg/dL (8.5-10.1); CREATININE 0.9 mg/dL (0.6-1.3); MAGNESIUM 2.1 mg/dL (1.8-2.4); POTASSIUM 3.7 mmol/L (3.5-5.1)
[2017-12-30 08:00] VITALS: BP 111/44
[2017-12-30] MEDS: FLUTICASONE PROPIONATE 16 GM BOTTLE NS SCH ×2 (08:29→16:56)
[2017-12-30] MEDS: ENOXAPARIN SODIUM 40 MG/0.4 ML DISP.SYRIN SQ SCH (08:30)
[2017-12-30] MEDS: SIMETHICONE 80 MG TAB.CHEW PO PRN ×2 (09:31→20:46)
[2017-12-30] MEDS: MAG HYDROX/AL HYDROX/SIMETH 30 ML UDC PO PRN ×2 (09:31→18:52)
[2017-12-30 12:00] VITALS: BP_SYST 100; BP_SYST 114; BP_SYST 141; BP_DIAS 44; BP_DIAS 45; BP_DIAS 47
[2017-12-30] MEDS ORDERED: ALBU18HF2 INH (13:05)
[2017-12-30] MEDS ORDERED: AZIT250T PO (13:05)
[2017-12-30 16:00] VITALS: BP 100/47
--- NOTE | 2017-12-30 16:00 | NUR ---
RN NOTES PT ON 5L O2 N/C , O2 SAT %90, CONTINUE TO MONITOR
--- NOTE | 2017-12-30 18:18 | NUR ---
RN NOTES PT STABLE, SUPPORTIVE FAMILY AT THE BEDSIDE, SR UP x3, CALL LIGHT WITHIN EASY REACH, WILL ENDOSE TO CYTOLOGY SUPERVISOR NURSE FOR CONTINUITY OF CARE .
--- NOTE | 2017-12-30 18:52 | NUR ---
RECEIVED AN ORDER FROM DR. SOW TO DOWNGRADE THE PATIENT FROM AISHA TO TELEMETRY. Addendum: 12/30/17 at 1855 by MINE VILLA RN ERROR. WRONG PATIENT.
--- NOTE | 2017-12-30 19:30 | NUR ---
AISHA RN NOTE PT RECEIVED IN BED. A/OX4 AND ABLE TO VERBALIZE NEEDS. ON 5L OF NC AND SATURATING >90%. BREATHING REGULAR AND UNLABORED. NO C/O PAIN OR DISCOMFORT NOTED. PT WANTS BIPAP ON 23OO AND RT AWARE. CALL LIGHT WITHIN REACH. WILL CONTINUE TO MONITOR.
[2017-12-30 20:00] VITALS: BP_SYST 108; BP_SYST 127; BP_DIAS 63; BP_DIAS 68
[2017-12-30] MEDS: CEFTRIAXONE 1 G in IV D5W 50 ML IV SCH (20:46)
--- NOTE | 2017-12-30 23:06 | NUR ---
RCVD PT ON 5L NC. PLACED PT ON NOCTURNAL BIPAP 20/10,RATE 18, 50%, RN LO NOTIFIED. BIPAP PLUGGED INTO RED OUTLET, BIPAP ALARMS ON AND AUDIBLE. Q4 BREATHING TX GIVEN. NO ADVERSE REACTION NOTED. NO SOB OR RESPIRATORY DISTRESS AT THIS TIME. WILL CONTINUE TO MONITOR.
[2017-12-31] VITALS: BP 121/52
--- NOTE | 2017-12-31 | NUR ---
AISHA RN NOTE PT REFUSED BED BATH. EXPLAINED RISKS AND BENEFITS AND PT STILL REFUSED. WILL TRY AGAIN LATER. PT NOW ON NOCTURNAL BIPAP AND SATURATING WELL. WILL MONITOR.
[2017-12-31] MEDS: ALBUTEROL HALF STRENGTH 1.25 MG/3 ML VIAL.NEB NEB SCH ×6 (03:01→23:49)
[2017-12-31] MEDS: IPRATROPIUM NEB FS 0.5 MG/2.5 ML AMPUL.NEB NEB SCH ×6 (03:01→23:49)
[2017-12-31] MEDS: MAG HYDROX/AL HYDROX/SIMETH 30 ML UDC PO PRN ×2 (03:28→14:27)
[2017-12-31 04:00] VITALS: BP 136/55
[2017-12-31] MEDS: BLOOD SUGAR DIAGNOSTIC 1 EACH STRIP IN SCH ×4 (06:15→23:57)
[2017-12-31] MEDS: INSULIN REGULAR, HUMAN 100 UNIT/ML 3 ML VIAL SQ PRN ×4 (06:22→23:48)
--- NOTE | 2017-12-31 06:45 | NUR ---
AISHA RN NOTE PT REMAINED STABLE DURING SHIFT. BIPAP REMAINS ON THE PT. NO ACUTE DISTRESS NOTED. ALL NEEDS ATTENDED TO PROMPTLY. PT STILL REFUSED BED BATH. CALL LIGHT WITHIN REACH. WILL ENDORSE TO NEXT SHIFT FOR CONTINUITY OF CARE.
[2017-12-31] MEDS: SIMETHICONE 80 MG TAB.CHEW PO PRN ×3 (07:55→23:50)
[2017-12-31 08:00] VITALS: BP 133/61
[2017-12-31] MEDS: FLUTICASONE PROPIONATE 16 GM BOTTLE NS SCH ×2 (08:47→17:09)
[2017-12-31] MEDS: ENOXAPARIN SODIUM 40 MG/0.4 ML DISP.SYRIN SQ SCH (08:48)
--- NOTE | 2017-12-31 09:26 | NUR ---
WOUND CARE CONSULT: PT PRESENTS WITH RT THIGH REDNESS AT SKIN FOLD AND RT DISTAL GREAT TOE REDNESS, PRESENT ON ADMISSION. PT AND CAREGIVER STATE THAT RT GREAT TOE REDNESS HAS BEEN THERE FOR A LONG TIME. RECOMMEND DPM CONSULT. WHITE CATH NOTED. RED VAGINAL DRAINAGE NOTED. ALL SKIN PROTECTION RECOMMENDATIONS DISCUSSED WITH NURSING STAFF. PT ON [facility] AIR BED. WILL SEE PRN. BREWSTER IN AGREEMENT WITH PLAN OF CARE. Addendum: 12/31/17 at 09 by ALICJA LALA WNDNU Amended: Links added.
[2017-12-31 12:00] VITALS: BP 127/46
[2017-12-31 16:00] VITALS: BP_SYST 136; BP_SYST 137; BP_DIAS 62; BP_DIAS 81
[2017-12-31 20:00] VITALS: BP 153/61
[2017-12-31] MEDS: CEFTRIAXONE 1 G in IV D5W 50 ML IV SCH (20:05)
--- NOTE | 2017-12-31 20:20 | NUR ---
TELE 1 RN NOTE PT IN BED AWAKE IN SEMIFOWLER POSITION, A/O X 4, NO SOB NOTED. C/O PAIN IN ABD 06/15. MOTRIN 400 MG GIVEN WITH SNACKS. PT REFUSING TO BE REPOSITION, STATES "I WAS ON MY SIDE LAST NIGHT THAT WAS HURTING". WILL RECHECK WITH HER AGAIN. F/C INTACT AND PATENT DRAINING YELLOWISH COLOR URINE. ON TELE MONITOR SR HR 86. ALL NEEDS ATTENDED. SIDE RAILS UP X 2 AND ALL LIGHT WITHINR EACH. VSS. CONTINUE TO MONITOR HER.
[2017-12-31] MEDS: IBUPROFEN 400 MG TABLET PO PRN (20:22)
--- NOTE | 2017-12-31 21:25 | NUR ---
TELE 1 RN NOTE PAIN SUBSIDED 04/17. PT AWAKE AND WATCHING TV. CONTINUE TO MONITOR HER FOR ANY DISTRESS. PT REMAIN REFUSE TO BE REPOSITION.
--- NOTE | 2017-12-31 23:50 | NUR ---
TELE 1 RN NOTE PT IS C/O OF ABD GAS AND ASKING FOR MEDICATION FOR THAT. MYLICON 80 MG PO GIVEN FOR GAS. CONTINUE TO MONITOR HER.
[2018-01-01] VITALS: BP 138/65
--- NOTE | 2018-01-01 01:39 | NUR ---
PT PLACED ON BIPAP PER MD ORDERS. NO SKIN TEAR OR REDNESS. BLAINE ANTHONY AWARE Addendum: 01/01/18 at 0202 by THOMAS BUTTS RT Amended: Links added.
--- NOTE | 2018-01-01 01:50 | NUR ---
TELE 1 RN NOTE PT FALL ASLEEP. AROUSABLE. NO DISTRESS NOTED. PT ON BIPAP AT THIS TIME. CONTINUE TO MONITOR HER.
[2018-01-01] MEDS: IPRATROPIUM NEB FS 0.5 MG/2.5 ML AMPUL.NEB NEB SCH ×6 (03:50→23:52)
[2018-01-01] MEDS: ALBUTEROL HALF STRENGTH 1.25 MG/3 ML VIAL.NEB NEB SCH ×6 (03:51→23:52)
[2018-01-01 04:00] VITALS: BP 116/77
[2018-01-01] MEDS: BLOOD SUGAR DIAGNOSTIC 1 EACH STRIP IN SCH ×4 (05:56→23:40)
[2018-01-01] MEDS: SIMETHICONE 80 MG TAB.CHEW PO PRN ×3 (06:12→23:33)
--- NOTE | 2018-01-01 06:49 | NUR ---
TELE 1 RN NOTE PT IN BED AWAKE. NO DISTRESS OR DISCOMFORT NOTED. INCONTINENCE CARE GIVEN. G ON TELE MONITOR SR HR 80. ALL NEEDS ATTENDED. SIDE RAILS UP X 3 AND CALL LIGHT WITHIN REACH. WILL ENDORSE TO DAY SHIFT NURSE FOR CONTINUE TO CARE.
--- NOTE | 2018-01-01 07:08 | NUR ---
TELE/RN INITIAL NOTES RECEIVED PT IN BED, A/0X4. NO C/O PAIN AT THIS TIME. SR ON TELEMONITOR. ON 5L O2 VIA NC, TOLERATING WELL. NO SOB NOTED. WITH INTACT AND PATENT AND G18 SL. HOB ELEVATED. SAFETY MEASURES IN PLACED. CALL LIGHT WITHIN REACH. WILL CONT TO MONITOR Addendum: 01/01/18 at 0758 by JOHNATHAN YIP RN ADD: F/C INTACT AND IN PLACED. DRAINING CLEAR YELLOW URINE BY GRAVITY.
[2018-01-01 08:00] VITALS: BP 128/63
[2018-01-01] MEDS: ENOXAPARIN SODIUM 40 MG/0.4 ML DISP.SYRIN SQ SCH (09:00)
--- NOTE | 2018-01-01 09:00 | NUR ---
RN NOTES 0900 DUE LOVENOX SQ HELD, PT IS FOR PARTIAL TOE NAIL AVULSION PROCEDURE TODAY. SEEN AND EXAMINED BY DR MCCRAY. WANTS TO FOLLOW UP WITH REYES PLACEMENT/SNF PLACEMENT CHARGE NURSE MADE AWARE, PER CHARGE NURSE, TRAFFIC CLERK WORKING ON IT
[2018-01-01] MEDS: FLUTICASONE PROPIONATE 16 GM BOTTLE NS SCH ×2 (09:19→18:11)
[2018-01-01 12:00] VITALS: BP 128/63
[2018-01-01] MEDS: INSULIN REGULAR, HUMAN 100 UNIT/ML 3 ML VIAL SQ PRN ×3 (13:04→23:42)
[2018-01-01] MEDS: ALBUTEROL HALF STRENGTH 1.25 MG/3 ML VIAL.NEB NEB PRN (13:39)
[2018-01-01] MEDS: MAG HYDROX/AL HYDROX/SIMETH 30 ML UDC PO PRN (14:48)
[2018-01-01] MEDS: IBUPROFEN 400 MG TABLET PO PRN (14:48)
[2018-01-01 16:00] VITALS: BP 128/63
[2018-01-01] MEDS: HYDROCORTISONE SOD SUCCINATE 100 MG/2 ML VIAL IV SCH (17:55)
--- NOTE | 2018-01-01 18:50 | NUR ---
TELE/RN CLOSING NOTES PT IN STABLE CONDITION. NO ACUTE CHANGES NOTED. SAFETY MEASURES OBSERVED AT ALL TIMES. PT IS D/C, CM STILL WORKING FOR PLACEMENT. ALL NEEDS ANTICIPATED. WILL ENDORSED TO PM SHIFT RN FOR MARTINA
[2018-01-01 20:00] VITALS: BP 142/67
[2018-01-01] MEDS: CEFTRIAXONE 1 G in IV D5W 50 ML IV SCH (21:49)
[2018-01-02] VITALS: BP 147/62
--- NOTE | 2018-01-02 02:01 | NUR ---
RT I HAVE ASKED PT WHEN SHE IS READY TO GO P
--- NOTE | 2018-01-02 02:02 | NUR ---
RT PT HAS BEEN REFUSING BIPAP. PT STATES SHE WILL NOTIFY THE NURSE WHEN SHE IS READY TO USE BIPAP. NO SOB OR DISTRESS NOTED.
[2018-01-02 04:00] VITALS: BP 139/73
[2018-01-02] MEDS: ALBUTEROL HALF STRENGTH 1.25 MG/3 ML VIAL.NEB NEB SCH ×6 (04:14→23:38)
[2018-01-02] MEDS: IPRATROPIUM NEB FS 0.5 MG/2.5 ML AMPUL.NEB NEB SCH ×6 (04:14→23:38)
[2018-01-02] MEDS: BLOOD SUGAR DIAGNOSTIC 1 EACH STRIP IN SCH ×3 (05:39→18:05)
[2018-01-02] MEDS: INSULIN REGULAR, HUMAN 100 UNIT/ML 3 ML VIAL SQ PRN ×3 (05:40→18:04)
[2018-01-02 06:45] LABS: CALCIUM, SERUM 8.7 mg/dL (8.5-10.1); CREATININE 0.7 mg/dL (0.6-1.3); PHOSPHORUS 3.9 mg/dL (2.5-4.9); POTASSIUM 3.9 mmol/L (3.5-5.1)
[2018-01-02 07:19] LABS: RED BLOOD CELL COUNT(AUTO) 4.68 MIL/uL (4.0-5.2); WHITE BLOOD COUNT (AUTO) 5.3 K/uL (4.3-11.0)
[2018-01-02 07:20] LABS: HEMATOCRIT 44 % (33-45); HEMOGLOBIN 14.3 g/dL (11.5-14.8); LYMPHOCYTES % (AUTO) 23.2 % (20.0-44.0); MEAN CORPUSCULAR HGB CONC 32 g/dl (31.0-36.0); MEAN CORPUSCULAR VOLUME 94 fL (82-100); NEUTROPHILS % (AUTO) 66.4 % (43.0-81.0); PLATELET COUNT (AUTO) 168 /CMM (150-450); RDW COEFFICIENT OF VARIATION 15.4 (11.5-15.0)
[2018-01-02 07:21] LABS: BASOPHILS % (AUTO) 0.4 % (0.0-2.0); EOSINOPHILS % (AUTO) 2.4 % (0.0-6.0); LYMPHOCYTES # (AUTO) 1.2 /CMM (0.8-4.8); MONOCYTES # (AUTO) 0.4 /CMM (0.1-1.30); MONOCYTES % (AUTO) 7.6 % (2.0-12.0); NEUTROPHILS # (AUTO) 3.5 /CMM (1.8-8.9)
--- NOTE | 2018-01-02 07:51 | NUR ---
PT. IS AWAKE AND ALERT PLACED INTO NASAL CANNULA @ 5LPM O2 FLOW Addendum: 01/02/18 at 0752 by YOGESH SNOW RT Amended: Links added.
[2018-01-02 08:00] VITALS: BP_SYST 121; BP_SYST 134; BP_DIAS 65; BP_DIAS 70
[2018-01-02] MEDS: HYDROCORTISONE SOD SUCCINATE 100 MG/2 ML VIAL IV SCH ×3 (08:33→16:28)
[2018-01-02] MEDS: FLUTICASONE PROPIONATE 16 GM BOTTLE NS SCH ×2 (08:34→16:28)
[2018-01-02] MEDS: ENOXAPARIN SODIUM 40 MG/0.4 ML DISP.SYRIN SQ SCH (08:34)
--- NOTE | 2018-01-02 08:43 | NUR ---
GRAIN DISTRIBUTOR NOTE PATINT IN BED , ALL NEEDS ATENDED ,ON BIPAP ORDERED RT WILL CHANGE TO 5L NC SOON, ALERT ,ORIENTED, ON TELE MONITOR ST 73 ,WITH WHITE CATH TO GRAVITY WITH NATHALY COLOR URINE, LT HAND IV HL INTACT WITH SLIGHT REDNESS NOTED BUT PATENT , TOBACCO BLENDER AT BEDSIDE , WILL CONT TO MONITOR CLOSELY
[2018-01-02] MEDS: SIMETHICONE 80 MG TAB.CHEW PO PRN ×2 (09:28→15:36)
[2018-01-02 12:00] VITALS: BP 128/58
--- NOTE | 2018-01-02 12:30 | NUR ---
STORE SPECIALIST NOTE KEEP CLEAN DRY ,MADE BM. ALL NEEDS ATTENDED
[2018-01-02] MEDS: NITROFURANTOIN/NITROFURAN MAC 100 MG CAPSULE PO SCH ×2 (12:55→20:36)
[2018-01-02] MEDS: IBUPROFEN 400 MG TABLET PO PRN (15:57)
[2018-01-02 16:00] VITALS: BP 113/54
--- NOTE | 2018-01-02 16:22 | NUR ---
OUTSIDE UPHOLSTERER NOTE MOTRIN PO GIVEN FOR PAIN ON BODY , BREATHING TX ORDERED
--- NOTE | 2018-01-02 18:28 | NUR ---
PERSONAL CARE WORKER NOTE FEELS ANXIOUS AND FEAR FOR DISCHARGE TOMORROW. CALLED SHAWN VALLADARES COSMETIC ACCOUNT COORDINATOR WITH ORDER PROPANOL 25 MG TIME ONE WILL. F\U
[2018-01-02] MEDS ORDERED: PROPRANOLOL HCL 10 MG TABLET PO ONE (18:45)
--- NOTE | 2018-01-02 18:56 | NUR ---
TRANSPLANT NURSE PRACTITIONER NOTE BP 129/45 HR 91 PROPRANOLOL 25 MG PO GIVEN ,BRINDA F \U
--- NOTE | 2018-01-02 19:55 | NUR ---
RN TEL INITIAL NOTES RECEIVED PT IN BED, A/0X4. NO C/O PAIN AT THIS TIME. SR ON TELEMONITOR. ON 5L O2 VIA NC, TOLERATING WELL. NO SOB NOTED.W/ 18 G SL, PATENT AND WELL SECURED .W/ NOC BIPAP ORDERED, HOB ELEVATED. SAFETY MEASURES IN PLACED. CALL LIGHT WITHIN REACH. WILL CONT TO MONITOR
[2018-01-02 20:00] VITALS: BP 132/52
[2018-01-02] MEDS ORDERED: *INSULIN REGULAR(HUMULIN R)HUM 100 UNIT/ML VIAL SQ PRN (22:30)
[2018-01-03] VITALS: BP 132/52
[2018-01-03] MEDS: BLOOD SUGAR DIAGNOSTIC 1 EACH STRIP IN SCH ×4 (00:30→17:28)
[2018-01-03] MEDS: ALBUTEROL HALF STRENGTH 1.25 MG/3 ML VIAL.NEB NEB SCH ×6 (03:46→23:20)
[2018-01-03] MEDS: IPRATROPIUM NEB FS 0.5 MG/2.5 ML AMPUL.NEB NEB SCH ×6 (03:46→23:20)
[2018-01-03 04:00] VITALS: BP 123/58
--- NOTE | 2018-01-03 06:55 | NUR ---
RN TEL CLOSING NOTES ENDORSED PT IN BED, A/0X4. NO C/O PAIN AT THIS TIME. SR ON TELEMONITOR. ON 5L O2 VIA NC, TOLERATING WELL. NO SOB NOTED.W/ 18 G SL, PATENT AND WELL SECURED .W/ NOC BIPAP ORDERED, HOB ELEVATED. SAFETY MEASURES IN PLACED. CALL LIGHT WITHIN REACH. WILL CONT TO MONITOR
--- NOTE | 2018-01-03 07:15 | NUR ---
TELE/RN INITIAL NOTES RECEIVED PT IN BED, A/OX4. ON 5L O2 VIA NC/, TOLERATING WELL. NO C/O PAIN AT THIS TIME. WITH INTACT AND IN PLACED F/C, DRAINING YELLOW-COLORED URINE. LHAND G18 SL INTACT AND PATENT. HOB ELEVATED. SAFETY MEASURES IN PLACED. CALL LIGHT WITHIN REACH. WILL CONT TO MONITOR
[2018-01-03 08:00] VITALS: BP 143/57
[2018-01-03] MEDS: NITROFURANTOIN/NITROFURAN MAC 100 MG CAPSULE PO SCH ×2 (08:37→21:58)
[2018-01-03] MEDS: HYDROCORTISONE SOD SUCCINATE 100 MG/2 ML VIAL IV SCH ×2 (08:37→12:35)
[2018-01-03] MEDS: ENOXAPARIN SODIUM 40 MG/0.4 ML DISP.SYRIN SQ SCH (08:37)
[2018-01-03] MEDS: FLUTICASONE PROPIONATE 16 GM BOTTLE NS SCH ×2 (08:50→16:22)
[2018-01-03] MEDS: IBUPROFEN 400 MG TABLET PO PRN (11:21)
[2018-01-03] MEDS: INSULIN REGULAR, HUMAN 100 UNIT/ML 3 ML VIAL SQ PRN ×2 (11:52→17:29)
[2018-01-03 12:00] VITALS: BP 146/62
[2018-01-03] MEDS: FUROSEMIDE 40 MG TABLET PO SCH (15:58)
[2018-01-03 16:00] VITALS: BP 117/52
--- NOTE | 2018-01-03 19:07 | NUR ---
RN NOTES PT IN STABLE CONDITION, NO ACUTE CHANGES THROUGHOUT SHIFT. SAFETY MEASURES OBSERVED AT ALL TIMES. ALL NEEDS ANTICIPATED. ENDORSED TO PM SHIFT RN FOR MARTINA FOR D/C TO [place] TOMORROW
[2018-01-03 19:48] LABS: CALCIUM, SERUM 8.8 mg/dL (8.5-10.1); CREATININE 1.1 mg/dL (0.6-1.3); POTASSIUM 4.3 mmol/L (3.5-5.1)
--- NOTE | 2018-01-03 19:59 | NUR ---
TELE/RN INITIAL NOTES RECEIVED PT IN BED, A/OX4. ON 5L O2 VIA NC/, TOLERATING WELL, W/CL OF CO2 41 TRENDING DOWN. NO C/O PAIN AT THIS TIME. WITH INTACT AND IN PLACED F/C, DRAINING YELLOW-COLORED URINE. LHAND G18 SL INTACT AND PATENT. HOB ELEVATED. SAFETY MEASURES IN PLACED. CALL LIGHT WITHIN REACH. WILL CONT TO MONITOR
[2018-01-03 20:00] VITALS: BP 132/59
[2018-01-03] MEDS: SIMETHICONE 80 MG TAB.CHEW PO PRN (22:17)
[2018-01-03] MEDS: MAG HYDROX/AL HYDROX/SIMETH 30 ML UDC PO PRN (22:17)
[2018-01-04] VITALS: BP 126/56
[2018-01-04] MEDS: BLOOD SUGAR DIAGNOSTIC 1 EACH STRIP IN SCH ×3 (00:15→11:37)
--- NOTE | 2018-01-04 03:00 | NUR ---
LAY OUT MACHINE OPERATOR NOTES RECEIVED PT IN BED, ENDORSED BY BLAINE PAYNE. PT ASLEEP AT THIS TIME, APPEARS COMFORTABLE. AROUSES EASILY. A/O X 4. NO DISTRESS, NO SOB NOTED. RESPIRATION IS EVEN AND UNLABORED. ON SR 80 ON TELE MONITOR. ON BIPAP, RT AT BEDSIDE AT THIS TIME. NO S/S OF PAIN OR DISCOMFORT AT THIS TIME. NO S/S OF HYPO/ HYPERGLYCEMIA NOTED. IV SITE ON LEFT HAND INTACT AND PATENT, NO S/S OF INFILTRATION. DC IS INTACT A ND PATENT DRAINING WELL WITH YELLOW COLORED URINE. NEEDS ANTICIPATED. SAFETY PRECAUTIONS OBSERVED. CALL LIGHT WITHIN REACH. WILL CONT TO MONITOR.
[2018-01-04] MEDS: IPRATROPIUM NEB FS 0.5 MG/2.5 ML AMPUL.NEB NEB SCH ×3 (03:25→11:50)
[2018-01-04] MEDS: ALBUTEROL HALF STRENGTH 1.25 MG/3 ML VIAL.NEB NEB SCH ×3 (03:26→11:50)
--- NOTE | 2018-01-04 03:32 | NUR ---
RT Pt on noc BiPAP and tolerating well. pt appears comfortable w/ no resp distress noted. Addendum: 01/04/18 at 0334 by ROSINA BELL RT Amended: Links added.
[2018-01-04 04:00] VITALS: BP 148/77
--- NOTE | 2018-01-04 06:50 | NUR ---
PICKLE PROCESSOR NOTES PT IN BED, RESTING COMFORTABLY AT THIS TIME, APPEARS COMFORTABLE. AROUSES EASILY. A/O X 4. VERBALLY RESPONSIVE. NO DISTRESS, NO SOB NOTED. RESPIRATION IS EVEN AND UNLABORED. ON SR 80 ON TELE MONITOR. ON BIPAP, RT AT BEDSIDE AT THIS TIME. NO S/S OF PAIN OR DISCOMFORT AT THIS TIME. NO S/S OF HYPO/ HYPERGLYCEMIA NOTED. IV SITE ON LEFT HAND INTACT AND PATENT, NO S/S OF INFILTRATION. DC IS INTACT A ND PATENT DRAINING WELL WITH YELLOW COLORED URINE. NEEDS ANTICIPATED. SAFETY PRECAUTIONS OBSERVED. CALL LIGHT WITHIN REACH. WILL ENDORSE TO NEXT SHIFT aCCORDINGLY FOR MARTINA.
--- NOTE | 2018-01-04 07:10 | NUR ---
TELE/RN INITIAL NOTES RECEIVED PT IN BED, A/OX4. SR ON TELEMONITOR. NO C/O PAIN AT THIS TIME. ON 5L O2 VIA NC, TOLERATING WELL. LHAND G18 SL INTACT AND PATENT. F/C INTACT AND IN PLACED DRAINING YELLOW COLORED URINE BY GRAVITY. HOB ELEVATED. SAFETY MEASURES IN PLACED. CALL LIGHT WITHIN REACH. WILL CONT TO MONITOR Addendum: 01/04/18 at 1418 by JOHNATHAN YIP RN ADD: PM SHIFT NURSE ENDORSED THAT PT WAS NOTED WITH BLOODY VAGINAL DISCHARGE IN SMALL AMOUNT LAST NIGHT, WILL FOLLOW UP WITH
[2018-01-04 08:00] VITALS: BP 116/65
[2018-01-04] MEDS: NITROFURANTOIN/NITROFURAN MAC 100 MG CAPSULE PO SCH (08:48)
[2018-01-04] MEDS: FUROSEMIDE 40 MG TABLET PO SCH (08:48)
[2018-01-04] MEDS: ENOXAPARIN SODIUM 40 MG/0.4 ML DISP.SYRIN SQ SCH (08:49)
[2018-01-04] MEDS ORDERED: HYDROCORTISONE SOD SUCCINATE 100 MG/2 ML VIAL IV SCH (09:00)
--- NOTE | 2018-01-04 09:00 | NUR ---
RN NOTES NOTED PT WITH VAGINAL (BLOOD DISCHARGE), PER PT AND CAREGIVER, SHE'S BEEN HAVING THAT ON AND OFF. CAPACITOR PACK PRESS OPERATOR SHAWN MADE AWARE, PER CAPACITOR PACK PRESS OPERATOR, "STILL OK TO D/C, WILL NEED ONCOLOGY CONSULT PER PMD ONCE D/C."
[2018-01-04] MEDS: IBUPROFEN 400 MG TABLET PO PRN (09:14)
[2018-01-04] MEDS: SIMETHICONE 80 MG TAB.CHEW PO PRN ×2 (09:14→14:09)
[2018-01-04] MEDS: FLUTICASONE PROPIONATE 16 GM BOTTLE NS SCH (09:14)
[2018-01-04] MEDS ORDERED: NITR100C15 PO (10:51)
--- NOTE | 2018-01-04 11:30 | NUR ---
RN NOTES PT WISHES TO F/C ON UPON D/C. SPOKE WITH REPAIRER SASH AND DOOR SHAWN PHAM, PER EBENEZER, OK TO D/C PT WITH CHRISTOPHER
[2018-01-04 12:00] VITALS: BP 141/77
--- NOTE | 2018-01-04 12:04 | NUR ---
RN NOTES REPORT [facility]
[2018-01-04] MEDS ORDERED: ALPRAZOLAM 0.25 MG TABLET PO PRN (12:30)
[2018-01-04] MEDS: INSULIN REGULAR, HUMAN 100 UNIT/ML 3 ML VIAL SQ PRN (12:34)
[2018-01-04] MEDS: ALBUTEROL HALF STRENGTH 1.25 MG/3 ML VIAL.NEB NEB PRN (13:45)
--- NOTE | 2018-01-04 15:54 | NUR ---
RN NOTES D/C PT TO [facility]) IN STABLE CONDITION TRANSPORTED BY AMBULANCE. SAFETY MEASURES OBSERVED. LHAND IV D/C. PLACED PRESSURE DRESSING. NO SIGNS OF BLEEDING NOTED. REPORT GIVEN TO YARD CONDUCTOR. F/C KEPT IN PLACED. ALL NEEDS ANTICIPATED. D/C
== END 2018-01-04 15:49 | DRG 291 ==
LOC: ER 07:40 → ICU 11:23 → TELE-TD 12-28 19:14 → TELE1 12-31 16:37
PROC: 5A09557 Assistance with Respiratory Ventilation, Greater than 96 Consecutive Hours, Continuous Positive Airway Pressure (ICD-10-PCS; principal; 2017-12-23)
DX: I11.0 Hypertensive heart disease with heart failure (principal); J96.21 Acute and chronic respiratory failure with hypoxia; J96.22 Acute and chronic respiratory failure with hypercapnia; J44.0 Chronic obstructive pulmonary disease with (acute) lower respiratory infection; E66.2 Morbid (severe) obesity with alveolar hypoventilation; Z68.45 Body mass index [BMI] 70 or greater, adult; N39.0 Urinary tract infection, site not specified; E87.2 Acidosis; I50.33 Acute on chronic diastolic (congestive) heart failure; E11.65 Type 2 diabetes mellitus with hyperglycemia; L60.0 Ingrowing nail; E11.51 Type 2 diabetes mellitus with diabetic peripheral angiopathy without gangrene; Z87.891 Personal history of nicotine dependence; Z79.4 Long term (current) use of insulin; F41.9 Anxiety disorder, unspecified
CPT/HCPCS: 36415; 36600; 71045-TC; 80048-TC; 80053-TC; 80061-TC; 80076-TC; 81000-TC; 82803-TC; 82962-TC; 83605-TC; 83735-TC; 83880; 84100-TC; 84439-TC; 84443-TC; 84484-TC; 85025-TC; 85730-TC; 87040-TC; 87081-TC; 87086-TC; 87186-TC; 93307-TC; 94760-TC; 94799-TC; 97110-TC; 97530-TC; A4606; A6402; A6403; A7526; J0696; J1120; J1650; J1720; J1815; J1940; J2405; J2543; J3475; J7050; J7060; Z7610

== ENCOUNTER 2018-10-13 19:48 | Inpatient (IN) | payer BC ==
[~2018-10-13] VITALS: Ht 172.7 cm; Wt 217.7 kg
[~2018-10-13 19:48] MED LIST: ALBU18HF2 INH; AMLO2.5T4 PO; INSU100I14 SQ; INSU100V7 SQ; NITR100C15 PO; TELM1TAB2 PO
--- NOTE | 2018-10-13 20:10 | NUR ---
AWILDA FROM HOME. AAOX4. SOB AND DYSPNEIC. SHE HAVE TO CATCH HER BRAETH TO TALK. NON AMBULATORY. C/O SOB AND REPORTS FEELING LOOPY. O2 SAT IN 80'S W/O 02, PLACED ON O2 VIA NC @ 4LPM. REPORTS SHES BEEN ON O2 AT HOME. SATTING @ 93%. DENIES ANY PAIN. TO ER BED 8. MD AT BEDSIDE. AWAITING ORDERS.
[2018-10-13 20:35] LABS: BASOPHILS % (AUTO) 0.3 % (0.0-2.0); HEMATOCRIT 37 % (33-45); HEMOGLOBIN 11.7 g/dL (11.5-14.8); LYMPHOCYTES # (AUTO) 1.1 /CMM (0.8-4.8); LYMPHOCYTES % (AUTO) 16.2 % (20.0-44.0); MEAN CORPUSCULAR HGB CONC 32 g/dl (31.0-36.0); MEAN CORPUSCULAR VOLUME 98 fL (82-100); MONOCYTES # (AUTO) 0.5 /CMM (0.1-1.30); MONOCYTES % (AUTO) 7.8 % (2.0-12.0); NEUTROPHILS % (AUTO) 71.7 % (43.0-81.0); PLATELET COUNT (AUTO) 171 /CMM (150-450); RED BLOOD CELL COUNT(AUTO) 3.74 MIL/uL (4.0-5.2)
[2018-10-13 20:55] LABS: CALCIUM, SERUM 8.9 mg/dL (8.5-10.1); CREATININE 1.5 mg/dL (0.6-1.3)
--- NOTE | 2018-10-13 21:10 | NUR ---
PT PLACED ON BIPAP BY RT PER ORDERED
--- NOTE | 2018-10-13 21:13 | NUR ---
BIPAP 4 15/4 50%
--- NOTE | 2018-10-13 21:34 | NUR ---
ICU 260
--- NOTE | 2018-10-13 21:38 | NUR ---
RT UNABLE TO OBTAIN BLOOD FOR ABG DR OWENS NOTIFIED. PT PLACED ON BIPAP AT THIS TIME PER MD VERBAL ORDER Addendum: 10/13/18 at 2138 by MIGUEL PERRY RT Amended: Links added.
[2018-10-13] MEDS ORDERED: MAG HYDROX/AL HYDROX/SIMETH 30 ML UDC PO PRN (22:30)
[2018-10-13] MEDS ORDERED: ONDANSETRON HCL/PF 4 MG/2 ML VIAL IVP PRN (22:30)
[2018-10-13] MEDS ORDERED: DEXTROSE 50%-WATER 50 ML DISP.SYRIN IV PRN (22:30)
[2018-10-13] MEDS: IPRATROPIUM NEB FS 0.5 MG/2.5 ML AMPUL.NEB NEB SCH (22:30)
[2018-10-13] MEDS: ALBUTEROL FS 2.5 MG/0.5 ML VIAL.NEB NEB SCH (22:30)
[2018-10-13] MEDS ORDERED: Z GUARD REMEDY 2 OZ OINT TP PRN (22:30)
[2018-10-13] MEDS ORDERED: HYDROCODONE/APAP 5/325MG 1 EACH TABLET PO PRN (22:30)
[2018-10-13] MEDS ORDERED: MAGNESIUM HYDROXIDE 30 ML UDC PO PRN (22:30)
[2018-10-13] MEDS ORDERED: hydrALAZINE HCL IV 20 MG VIAL IV PRN (22:30)
--- NOTE | 2018-10-13 22:42 | NUR ---
REPORT GIVEN TO BLAINE MARTINEZ FOR MARTINA. PT GOING TO 260. AWAITING BARIATRIC BED DELIVERY PRIOR TO TRANSPORT TO UNIT
--- NOTE | 2018-10-13 23:55 | NUR ---
pt transported to unit with 2 rn at bedside and emt. acls protocol observed during transport. no noted distress during transport.
[2018-10-14] VITALS (25 sets, daily range): BP systolic 88–143; BP diastolic 27–88
[2018-10-14] MEDS: methylPREDNISolone SOD SUCC 40 MG/ML VIAL IV SCH ×4 (00:13→17:06)
--- NOTE | 2018-10-14 00:15 | NUR ---
ICU/GENERATING STATION MECHANIC RECEIVED REPORT FROM ER, BARIATRIC BED ALREADY IN ROOM. PT WAS TRANSFERRED TO BED WITH ASST. WILL CONTINUE TO MONITOR THIS PT.
[2018-10-14 00:53] LABS: ABG BASE EXCESS 15.2 mmol/L; ABG OXYGEN SATURATION 94.7 % (92.0-98.5); ABG PCO2 102.9 mmHg (35.0-45.0); ABG PH 7.273 (7.350-7.450); ABG PO2 76.9 mmHg (75.0-100.0); AaDO2 163.8 mmHg; COHb 1.3 % (0.5-1.5); MetHb 0.6 % (0.0-1.5); O2Hb 92.9 % (94.0-97.0); SITE, ABG Right Radial
--- NOTE | 2018-10-14 00:59 | NUR ---
RT NOTE ABG RESULTS RELAYED TO CHARGE NURSE LV AND BLAINE MARTINEZ.
--- NOTE | 2018-10-14 01:00 | NUR ---
ICU/TEACHER BALLET ABG WAS DONE, CALLED MANUFACTURING INDUSTRIAL ENGINEER MD LUNA FOR ORDERS FOR BIPAP. AWAIT CALL BACK
--- NOTE | 2018-10-14 01:15 | NUR ---
ICU/APPLIANCE COUNSELOR FIELD IDENTIFICATION SPECIALIST JEREMY CALLED BACK FOR BIPAP AND ABG, PH [phone], PCO2 102.9, PO2 76.9, HCO3 46.5. CURRENT BIPAP SETTINGS ARE 15/5, RATE 4, 50%. ORDER GIVEN TO INCREASE RATE TO 24. NOTIFIED CHARGE NURSE WHO PLACED ORDER FOR THIS. RT NOTIFIED ABOUT THIS, MADE CHANGED. WILL MONITOR THIS PT.
--- NOTE | 2018-10-14 04:10 | NUR ---
ICU/FAN MAIL CLERK AM LABS WERE DONE, AWAIT FOR ANY ABNORMAL RESULTS.
[2018-10-14 04:26] LABS: BASOPHILS % (AUTO) 0.3 % (0.0-2.0); EOSINOPHILS % (AUTO) 1.7 % (0.0-6.0); HEMATOCRIT 37 % (33-45); HEMOGLOBIN 11.8 g/dL (11.5-14.8); LYMPHOCYTES # (AUTO) 0.8 /CMM (0.8-4.8); LYMPHOCYTES % (AUTO) 10.5 % (20.0-44.0); MEAN CORPUSCULAR HGB CONC 32 g/dl (31.0-36.0); MEAN CORPUSCULAR VOLUME 99 fL (82-100); MONOCYTES # (AUTO) 0.2 /CMM (0.1-1.30); MONOCYTES % (AUTO) 2.8 % (2.0-12.0); NEUTROPHILS # (AUTO) 6.7 /CMM (1.8-8.9); NEUTROPHILS % (AUTO) 84.7 % (43.0-81.0); PLATELET COUNT (AUTO) 162 /CMM (150-450); RED BLOOD CELL COUNT(AUTO) 3.71 MIL/uL (4.0-5.2); WHITE BLOOD COUNT (AUTO) 7.9 K/uL (4.3-11.0)
[2018-10-14 04:39] LABS: ALBUMIN 3.4 g/dL (3.4-5.0); BILIRUBIN,TOTAL 0.4 mg/dL (0.2-1.0); CALCIUM, SERUM 9.3 mg/dL (8.5-10.1); CREATININE 1.3 mg/dL (0.6-1.3); PHOSPHORUS 3.9 mg/dL (2.5-4.9); POTASSIUM 5.4 mmol/L (3.5-5.1); TOTAL PROTEIN, SERUM 7.2 g/dL (6.4-8.2)
[2018-10-14 04:56] LABS: THYROID STIMULATING HORMONE 0.767 uIU/mL (0.358-3.74)
[2018-10-14] MEDS: HEPARIN SODIUM, PORCINE 5000 UNITS/1 ML VIAL SQ SCH ×3 (05:26→21:36)
--- NOTE | 2018-10-14 06:10 | NUR ---
ICU/ZIPPER REPAIRER PT HAD TO HAVE A COMPLETE BATH DUE TO PT REFUSED TO HAVE A WHITE CATH. BATH REQUIRED 7 PEOPLE TO TURN THIS PT AND ASSIST WITH BATH. CALL LIGHT WITHIN REACH, NO ACUTE DISTRESS SEEN AT THIS TIME.
--- NOTE | 2018-10-14 07:10 | NUR ---
RN INITIAL NOTES RECEIVED PT AWAKE, A/OX4. ON BIPAPN. HOB ELEVATED. NO RESPIRATORY DISTRESS NOTED. NO SOB NOTED. DENIES ANY PAIN. IV LINE IN PLACE. FLUSHED WITH NS. PT CLEAN AND DRY. BLE ELEVATED. PT FOR ECHO AND WOUND CONSULT. WILL CONTINUE TO MONITOR.
[2018-10-14] MEDS: IPRATROPIUM NEB FS 0.5 MG/2.5 ML AMPUL.NEB NEB SCH ×4 (07:47→20:16)
[2018-10-14] MEDS: ALBUTEROL FS 2.5 MG/0.5 ML VIAL.NEB NEB SCH ×4 (07:47→20:16)
[2018-10-14] MEDS: BLOOD SUGAR DIAGNOSTIC 1 EACH STRIP IN SCH ×4 (08:00→21:37)
[2018-10-14] MEDS: AMLODIPINE BESYLATE 2.5 MG TABLET PO SCH (08:32)
[2018-10-14] MEDS: FUROSEMIDE 40 MG/4 ML VIAL IV SCH (08:51)
[2018-10-14 08:57] LABS: ABG BASE EXCESS 15.7 mmol/L; ABG OXYGEN SATURATION 96.1 % (92.0-98.5); ABG PCO2 79.4 mmHg (35.0-45.0); ABG PH 7.366 (7.350-7.450); ABG PO2 79.8 mmHg (75.0-100.0); AaDO2 187.4 mmHg; COHb 1.3 % (0.5-1.5); MetHb 0.6 % (0.0-1.5); O2Hb 94.3 % (94.0-97.0); SITE, ABG Left Radial
--- NOTE | 2018-10-14 10:02 | NUR ---
WOUND CARE CONSULT: PT PRESENTS WITH RASH AND SKIN DISCOLORATION TO BUTTOCKS AND POSTERIOR THIGHS, PRESENT ON ADMISSION. PT HAS DISCOLORATION TO BILATERAL GREAT TOES WITH SOME TENDERNESS. DPM CONSULT RECOMMENDED. DR MILLS AWARE OF DPM CONSULT REQUEST. PT ON [facility] [place] ETS AIR BED. PT INCONTINENT OF STOOL. CHRISTOPHER CHAKRABORTY NOTED. ALL SKIN PROTECTION RECOMMENDATIONS DISCUSSED WITH NURSING STAFF. WILL SEE PRN. BREWSTER IN AGREEMENT WITH PLAN OF CARE. PT HAS CAREGIVER AT BEDSIDE. CURRENT TAMIKO SCORE IS 16. Addendum: 10/14/18 at 1004 by ALICJA LALA WNDNU Amended: Links added. Addendum: 10/14/18 at 1018 by ALICJA LALA WNDNU CORRECTION TO ABOVE NOTE. TAMIKO SCORE IS CURRENTLY 10.
--- NOTE | 2018-10-14 11:00 | NUR ---
RN NOTES 1030 SEEN AND EXAMINED BY DR SOW. AWARE OF CURRENT LAB VALUES: POTASSIUM 5.4, MAGNESIUM 3 AND IMAGING RESULT. AWAITING FOR ECHO. ORDERED LASIX 40MG AND FC INSERTION. WILL CONTINUE TO MONITOR 1100 SEEN AND EXAMINED BY DR MCCRAY. AWARE OF ABG RESULT. PT ON BIPAP. SETTINGS ADJUSTED. HOB ELEVATED. WILL CONTINUE TO MONITOR.
[2018-10-14 17:06] LABS: APPEARANCE,URINE CLEAR (CLEAR); BILIRUBIN,URINE NEGATIVE (NEGATIVE); BLOOD, URINE 3+ Ery/uL (NEGATIVE); COLOR,URINE YELLOW (YELLOW); KETONES,URINE TRACE (NEGATIVE); LEUKOCYTE ESTERASE ,URINE 3+ (NEGATIVE); NITRITE, URINE NEGATIVE (NEGATIVE); PH,URINE 5.5 (5.0-8.0); PROTEIN,URINE NEGATIVE (NEGATIVE); UGLUCOSE NEGATIVE (NEGATIVE); UROBILINOGEN,URINE 0.2 EU/dL (0.2)
[2018-10-14] MEDS: CLOTRIMAZOLE 1% 15 GM TUBE TP SCH (17:06)
[2018-10-14] MEDS: INSULIN REGULAR, HUMAN 100 UNIT/ML 3 ML VIAL SQ PRN (17:15)
[2018-10-14 17:26] LABS: CREATININE, URINE 42.3 MG/DL (30.0-125.0); URINE TOTAL PROTEIN 15.8 mg/dL (0-11.9)
[2018-10-14 17:30] LABS: BACTERIA,URINE 2+ /HPF (None Seen); RBC,URINE 21-50 /HPF (0-2); SQUAMOUS EPITHELIAL CELL,UR Few /HPF (None Seen); WBC,URINE 51-80 /HPF (0-3)
[2018-10-14 17:46] LABS: EOSINOPHIL,URINE None Seen
--- NOTE | 2018-10-14 18:35 | NUR ---
RN CLOSING NOTES PT REMAINS ON BIPAP. NO SIGNIFICANT CHANGE NOTED. TX PROVIDED ORDERED. KEPT CLEAN AND DRY. ALL NEEDS ATTENDED AND MET. CALL LIGHT WITHIN REACH. WILL ENDORSE FOR CONTINUITY OF CARE.
--- NOTE | 2018-10-14 19:15 | NUR ---
ICU/CARE ATTENDANT RECEIVED REPORT FROM DAY NURSE. SEE FLOWSHEET FOR ASSESSMENT, ALONG WITH SKIN ISSUES THAT PT MAY HAVE ALONG WITH THE INTERVENTIONS TO EACH OF THESE. PT WAS TURNED AND REPOSITIONED FOR COMFORT AND CARE. WILL CONTINUE TO MONITOR THIS PT. NO ACUTE DISTRESS SEEN AT THIS TIME. CALL LIGHT WITHIN REACH.
--- NOTE | 2018-10-14 20:30 | NUR ---
ICU/CALL CENTER RN PT WAS GIVEN PM CARE, ALONG WITH ORAL CARE. PT REMAINS ON CURRENT BIPAP SETTINGS, WITH SATURATION AT 100%. PT WAS TURNED AND REPOSITIONED FOR COMFORT AND CARE. WILL CONTINUE TO MONITOR THIS PT. NO ACUTE DISTRESS SEEN AT THIS TIME
[2018-10-14] MEDS: INSULIN GLARGINE, 100 UNIT/ML CARTRIDGE SQ SCH (21:43)
--- NOTE | 2018-10-14 22:10 | NUR ---
ICU/EMOTIONALLY IMPAIRED TEACHER ACCU CHECK DONE, BLOOD SUGAR IS 195. PT IS CURRENTLY SOLU-MEDROL GIVEN 3XDAILY. THIS IS COVERED WITH LANTUS 40 SQ. WILL CONTINUE TO CHECK BLOOD SUGAR ORDERED BY MD. CALL LIGHT WITHIN REACH.
[2018-10-15] VITALS (24 sets, daily range): BP systolic 92–124; BP diastolic 43–88
--- NOTE | 2018-10-15 01:00 | NUR ---
ICU/QUALITY CONTROLLER PT APPEARS TO BE ASLEEP, NO ACUTE DISTRESS SEEN AT THIS TIME. CALL LIGHT WITHIN REACH. WILL CONTINUE TO MONITOR THIS PT.
--- NOTE | 2018-10-15 03:10 | NUR ---
ICU/YACHT HAND PT WAS GIVEN PM CARE, ALONG WITH ORAL CARE. PT REMAINS ON CURRENT BIPAP SETTINGS, WITH SATURATION AT 100%. PT WAS TURNED AND REPOSITIONED FOR COMFORT AND CARE. WILL CONTINUE TO MONITOR THIS PT. NO ACUTE DISTRESS SEEN AT THIS TIME. CALL LIGHT WITHIN REACH
[2018-10-15 04:54] LABS: BASOPHILS % (AUTO) 0.1 % (0.0-2.0); EOSINOPHILS % (AUTO) 0.1 % (0.0-6.0); HEMATOCRIT 35 % (33-45); HEMOGLOBIN 11.4 g/dL (11.5-14.8); LYMPHOCYTES # (AUTO) 0.7 /CMM (0.8-4.8); LYMPHOCYTES % (AUTO) 13.1 % (20.0-44.0); MEAN CORPUSCULAR HGB CONC 33 g/dl (31.0-36.0); MEAN CORPUSCULAR VOLUME 97 fL (82-100); MONOCYTES # (AUTO) 0.6 /CMM (0.1-1.30); MONOCYTES % (AUTO) 10.5 % (2.0-12.0); NEUTROPHILS # (AUTO) 4.1 /CMM (1.8-8.9); NEUTROPHILS % (AUTO) 76.2 % (43.0-81.0); PLATELET COUNT (AUTO) 180 /CMM (150-450); WHITE BLOOD COUNT (AUTO) 5.4 K/uL (4.3-11.0)
[2018-10-15 05:14] LABS: ALBUMIN 3.3 g/dL (3.4-5.0); BILIRUBIN,TOTAL 0.4 mg/dL (0.2-1.0); CALCIUM, SERUM 9.3 mg/dL (8.5-10.1); CREATININE 0.9 mg/dL (0.6-1.3); PHOSPHORUS 2.8 mg/dL (2.5-4.9); POTASSIUM 4.5 mmol/L (3.5-5.1); TOTAL PROTEIN, SERUM 6.7 g/dL (6.4-8.2)
[2018-10-15] MEDS: BLOOD SUGAR DIAGNOSTIC 1 EACH STRIP IN SCH ×4 (05:52→22:06)
[2018-10-15] MEDS: HEPARIN SODIUM, PORCINE 5000 UNITS/1 ML VIAL SQ SCH ×3 (05:52→21:09)
--- NOTE | 2018-10-15 07:10 | NUR ---
RN INITIAL NOTES RECEIVED PT ASLEEP, EASY TO AROUSE. ON BIPAP. HOB ELEVATED. NO SOB NOTED. NO SIGNS OF PAIN NOTED. IV LINE IN PLACE. FC IN PLACE. PT COMFORTABLE. ON BARIMAXX BED. WILL MONITOR.
[2018-10-15] MEDS ORDERED: acetaZOLAMIDE SODIUM 500 MG/VIAL VIAL IV ONE (07:30)
[2018-10-15] MEDS: ALBUTEROL FS 2.5 MG/0.5 ML VIAL.NEB NEB SCH ×4 (07:56→19:30)
[2018-10-15] MEDS: IPRATROPIUM NEB FS 0.5 MG/2.5 ML AMPUL.NEB NEB SCH ×4 (07:56→19:30)
[2018-10-15] MEDS: CLOTRIMAZOLE 1% 15 GM TUBE TP SCH ×2 (08:27→17:29)
[2018-10-15] MEDS: methylPREDNISolone SOD SUCC 40 MG/ML VIAL IV SCH (08:27)
[2018-10-15] MEDS: FUROSEMIDE 40 MG/4 ML VIAL IV SCH (08:27)
--- NOTE | 2018-10-15 09:00 | NUR ---
RN NOTES SEEN AND EXAMINED BY DR MCCRAY. PT ON VIA NC AT 5LPM. NO SOB NOTED. HOB ELEVATED. AWARE OF ABG RESULT. WILL CONTINUE TO MONITOR
[2018-10-15 09:10] LABS: ABG BASE EXCESS 19.5 mmol/L; ABG OXYGEN SATURATION 90.1 % (92.0-98.5); ABG PCO2 81.8 mmHg (35.0-45.0); ABG PH 7.393 (7.350-7.450); ABG PO2 56.4 mmHg (75.0-100.0); AaDO2 134.7 mmHg; COHb 0.8 % (0.5-1.5); MetHb 0.6 % (0.0-1.5); O2Hb 88.8 % (94.0-97.0); SITE, ABG Right Radial; VENT MODE, BG 5L NASAL CANNULA
[2018-10-15] MEDS: AMLODIPINE BESYLATE 2.5 MG TABLET PO SCH (09:23)
[2018-10-15] MEDS: INSULIN REGULAR, HUMAN 100 UNIT/ML 3 ML VIAL SQ PRN (12:16)
[2018-10-15] MEDS ORDERED: MENTHOL/CETYLPYRD (CEPACOL) 1 LOZ LOZENGE PO ONE (14:00)
--- NOTE | 2018-10-15 14:35 | NUR ---
BLAINE TONY (CONSERVATOR). JACQUIE WILDE NP AWARE. Addendum: 10/15/18 at 1814 by REBECCA DENT RN DISREGARD NOTE... WRONG PT
--- NOTE | 2018-10-15 16:30 | NUR ---
RN NOTES SEEN AND EXAMINED BY DR SOW. AWARE OF LAB VALUES AND IMAGING RESULT. PT ON 02 VIA PR. HOB ELEVATED. NO RESPIRATORY DISTRESS NOTED. OK TO DOWNGRADE TO [facility] PER PULMO. WILL MONITOR.
--- NOTE | 2018-10-15 18:45 | NUR ---
RN CLOSING NOTES PT REMAINS ON 02 VIA KS. NO SOB NOTED. KEPT HOB ELEVATED. NO SIGNIFICANT CHANGE NOTED. TX PROVIDED ORDERED. KEPT CLEAN AND DRY. ALL NEEDS ATTENDED AND MET. CALL LIGHT WITHIN REACH. WILL ENDORSE FOR CONTINUITY OF CARE.
--- NOTE | 2018-10-15 19:49 | NUR ---
RT NOTE PATIENT RECEIVED ON NASAL CANNULA 5LPM. AWAKE/ALERT. BIPAP @ BEDSIDE. TX GIVEN VIA MOUTHPIECE, NO ADVERSE REACTIONS NOTED. PATIENT REFUSED BIPAP AT THIS TIME. NURSE, JULIEN, IN ROOM AND AWARE. WILL CONTINUE TO MONITOR.
[2018-10-15] MEDS: MUPIROCIN OINT 2% 22 GM TUBE SCH (21:09)
[2018-10-15] MEDS: INSULIN GLARGINE, 100 UNIT/ML CARTRIDGE SQ SCH (22:22)
--- NOTE | 2018-10-15 23:12 | NUR ---
RT NOTE PATIENT REFUSED BIPAP AT THIS TIME. NURSE, LUCINDA VICTORIA. PLACED PATIENT ON 3LPM. NO DISTRESS NOTED. WILL MONITOR.
[2018-10-16] VITALS (14 sets, daily range): BP systolic 84–124; BP diastolic 40–68
[2018-10-16 04:45] LABS: BASOPHILS % (AUTO) 0.2 % (0.0-2.0); EOSINOPHILS % (AUTO) 0.8 % (0.0-6.0); HEMATOCRIT 39 % (33-45); HEMOGLOBIN 12.3 g/dL (11.5-14.8); LYMPHOCYTES # (AUTO) 1.7 /CMM (0.8-4.8); MEAN CORPUSCULAR HGB CONC 32 g/dl (31.0-36.0); MEAN CORPUSCULAR VOLUME 98 fL (82-100); MONOCYTES # (AUTO) 0.5 /CMM (0.1-1.30); MONOCYTES % (AUTO) 8.8 % (2.0-12.0); NEUTROPHILS # (AUTO) 3.7 /CMM (1.8-8.9); NEUTROPHILS % (AUTO) 62.2 % (43.0-81.0); PLATELET COUNT (AUTO) 181 /CMM (150-450); RED BLOOD CELL COUNT(AUTO) 3.92 MIL/uL (4.0-5.2)
[2018-10-16 04:58] LABS: ALBUMIN 3.5 g/dL (3.4-5.0); BILIRUBIN,TOTAL 0.5 mg/dL (0.2-1.0); CALCIUM, SERUM 9.7 mg/dL (8.5-10.1); CREATININE 0.9 mg/dL (0.6-1.3); MAGNESIUM 2.5 mg/dL (1.8-2.4); PHOSPHORUS 3.4 mg/dL (2.5-4.9); POTASSIUM 4.2 mmol/L (3.5-5.1); TOTAL PROTEIN, SERUM 7.1 g/dL (6.4-8.2)
[2018-10-16] MEDS: HEPARIN SODIUM, PORCINE 5000 UNITS/1 ML VIAL SQ SCH ×3 (05:21→21:08)
--- NOTE | 2018-10-16 07:12 | NUR ---
GEAR HOBBER OPERATOR INITIAL NOTES PT RECEIVED ON NOCTURNAL BIPAP/ SO SOB OR ACUTE SIGNS OF DISTRESS NOTED. BREATHING EVEN AND UNLABORED. PT A/O X4. SHE DENIES ANY PAIN AT THIS TIME. BIPAP SETTINGS ASSESSED FRO ACCURACY. WILL SWITCH TO NC PT'S CONDITION PERMITS. PERIPHERAL IV TO RIGHT HAND NOTED TO BE PATENT AND INTACT NO REDNESS OR SIGNS OF INFILTRATION NOTED. F/C NOTED TO BE C/D/I AND DRAINING TO GRAVITY. BED IN LOW LOCKED POSITION, SIDE RAILS UP X2, CALL LIGHT WITHIN REACH. CONTACT ISOLATION PRECAUTIONS MAINTAINED. PT'S WEAVER NEEDLE LOOM AT BEDSIDE. WILL CONTINUE TO MONITOR
[2018-10-16] MEDS: ALBUTEROL FS 2.5 MG/0.5 ML VIAL.NEB NEB SCH ×4 (07:23→20:10)
[2018-10-16] MEDS: IPRATROPIUM NEB FS 0.5 MG/2.5 ML AMPUL.NEB NEB SCH ×4 (07:23→20:11)
[2018-10-16] MEDS: BLOOD SUGAR DIAGNOSTIC 1 EACH STRIP IN SCH ×4 (07:40→21:07)
[2018-10-16] MEDS: MUPIROCIN OINT 2% 22 GM TUBE SCH ×2 (08:17→21:11)
[2018-10-16] MEDS: CLOTRIMAZOLE 1% 15 GM TUBE TP SCH ×2 (08:24→17:20)
[2018-10-16] MEDS: methylPREDNISolone SOD SUCC 40 MG/ML VIAL IV SCH (08:25)
[2018-10-16] MEDS: AMLODIPINE BESYLATE 2.5 MG TABLET PO SCH (08:26)
[2018-10-16 08:45] LABS: ABG BASE EXCESS 14.1 mmol/L; ABG OXYGEN SATURATION 87.2 % (92.0-98.5); ABG PCO2 71.7 mmHg (35.0-45.0); ABG PH 7.388 (7.350-7.450); ABG PO2 52.2 mmHg (75.0-100.0); AaDO2 92.1 mmHg; COHb 0.9 % (0.5-1.5); MetHb 0.4 % (0.0-1.5); O2Hb 86.1 % (94.0-97.0); SITE, ABG Left Radial; VENT MODE, BG 3 LPM NC
--- NOTE | 2018-10-16 11:15 | NUR ---
[facility]IS[facility] RN OPENING NOTES REPORT RECEIVED FROM PAGE ENTRY LEVEL ASSISTANT MANAGER.PATIENT IN BED.ON 02 3.5 L VIA NASAL CANULA.SATUARTING 86%.PLACED ON 4L SATURATING 90%. SO SOB OR ACUTE SIGNS OF DISTRESS NOTED. BREATHING EVEN AND UNLABORED. PT A/O X4. SHE DENIES ANY PAIN AT THIS TIME. PERIPHERAL IV TO RIGHT HAND NOTED TO BE PATENT AND INTACT NO REDNESS OR SIGNS OF INFILTRATION NOTED. F/C NOTED TO BE C/D/I AND DRAINING TO GRAVITY. BED IN LOW LOCKED POSITION, SIDE RAILS UP X4. CALL LIGHT WITHIN REACH. CONTACT ISOLATION PRECAUTIONS MAINTAINED. PT'S FIRE PREVENTION BUREAU CAPTAIN AT BEDSIDE. WILL CONTINUE TO MONITOR
--- NOTE | 2018-10-16 11:34 | NUR ---
MANUFACTURING ASSISTANTTOOL AND DIE DESIGNER NOTES PT WAS TRANSFERRED TO [facility] VIA ACLS PROTOCOL WITH ALL BELONGINGS. VSS UPON TRANSFER. BEDSIDE REPORT GIVEN TO DANIKA THE RECEIVING RN FOR MARTINA
[2018-10-16] MEDS: INSULIN REGULAR, HUMAN 100 UNIT/ML 3 ML VIAL SQ PRN ×2 (13:00→17:06)
[2018-10-16] MEDS: MENTHOL/CETYLPYRD (CEPACOL) 1 LOZ LOZENGE PO PRN (15:11)
--- NOTE | 2018-10-16 15:36 | NUR ---
AISHA RN NOTE CALL MADE TO ABOUT PATIENT MEDICATIONS AND REQUEST FOR GLUCERNA .OK TO ADD GABAPENTIN,KEPPRA AND ASPIRIN FROM HOME MEDICATION LIST.PATIENT WANT TO LOOSE WEIGHT AND STAY WITH GLUCERNA INSTEAD OF TAKING MEALS.GOT NEW ORDER FOR DIETARY CONSULT.DIETITIAN MADE AWARE.WILL SEE PATIENT TOMORROW.PATIENT MADE AWARE.FOR OCCASIONAL COUGH AND DARK YELLOW SPUTUM NO MORE TREATMENT NEEDED NOW.WILL CONTINUE TO MONITOR.
[2018-10-16] MEDS: GABAPENTIN 300 MG CAPSULE PO SCH (17:20)
--- NOTE | 2018-10-16 17:30 | NUR ---
AISHA RN NOTE PATIENT REFUSED CHANGE,TOLD THAT SHE GOT CLEANED UP IN ICU BEFORE TRANSFER.WILL DO CHANGE IN NEXT SHIFT AROUND 9-10PM.FAMILY MEMBERS COMING TO VISIT THE PATIENT SO ,SHE REFUSED CHANGING HER.EXPLAINED RISK AND BENEFIT.STILL REFUSING.
--- NOTE | 2018-10-16 18:58 | NUR ---
AISHA RN CLOSING NOTES PATIENT IN BED.ON 3.5 L VIA NASAL CANULA.SATURATING 94. SO SOB OR ACUTE SIGNS OF DISTRESS NOTED. BREATHING EVEN AND UNLABORED. PT A/O X4. SHE DENIES ANY PAIN AT THIS TIME. PERIPHERAL IV TO RIGHT HAND NOTED TO BE PATENT AND INTACT NO REDNESS OR SIGNS OF INFILTRATION NOTED. F/C NOTED TO BE C/D/I AND DRAINING TO GRAVITY. BED IN LOW LOCKED POSITION, SIDE RAILS UP X4. CALL LIGHT WITHIN REACH. CONTACT ISOLATION PRECAUTIONS MAINTAINED. PT'S CRM SYSTEM ADMINISTRATOR AT BEDSIDE WITH FAMILY.TO OBTAIN NOCTURNAL OXY METRY WITH BIPAP.WILL ENDORSE TO PM NURSE FOR MARTINA.
[2018-10-16] MEDS: LEVETIRACETAM (250 MG) 250 MG TABLET PO SCH (21:08)
[2018-10-16] MEDS: INSULIN GLARGINE, 100 UNIT/ML CARTRIDGE SQ SCH (21:24)
[2018-10-17] VITALS: BP 110/60
[2018-10-17 04:00] VITALS: BP 111/71
[2018-10-17] MEDS: HEPARIN SODIUM, PORCINE 5000 UNITS/1 ML VIAL SQ SCH ×3 (05:41→21:04)
[2018-10-17] MEDS: MENTHOL/CETYLPYRD (CEPACOL) 1 LOZ LOZENGE PO PRN (06:26)
--- NOTE | 2018-10-17 07:00 | NUR ---
RN NOTES RECEIVED PT ON BED, A/Ox4, ON BARIATRIC BED, ON 3.5 L O2 N/C , NO SOB NOTED , ON TELE SR HR IN 70'S , WHITE DRINING TO GRAVITY, L HAND IV SITE G 20 CLEAN, DRY AND INTACT , SR UP x3, CALL LIGHT WITHIN EASY REACH BED LOCKED AND IN LOWEST POSITION, CONTINUE TO MONITOR .
[2018-10-17] MEDS: IPRATROPIUM NEB FS 0.5 MG/2.5 ML AMPUL.NEB NEB SCH ×4 (07:30→20:25)
[2018-10-17] MEDS: ALBUTEROL FS 2.5 MG/0.5 ML VIAL.NEB NEB SCH ×4 (07:31→20:26)
--- NOTE | 2018-10-17 07:53 | NUR ---
ECHO REPORT IS DONE AWAITING FOR REPORT TO CROSS OVER TO [facility].
[2018-10-17] MEDS: BLOOD SUGAR DIAGNOSTIC 1 EACH STRIP IN SCH ×4 (07:56→21:13)
[2018-10-17 08:00] VITALS: BP 119/62
[2018-10-17] MEDS: LEVETIRACETAM (250 MG) 250 MG TABLET PO SCH ×2 (08:28→21:03)
[2018-10-17] MEDS: ASPIRIN 81 MG TAB.CHEW PO SCH (08:28)
[2018-10-17] MEDS: GABAPENTIN 300 MG CAPSULE PO SCH ×3 (08:28→16:11)
[2018-10-17] MEDS: AMLODIPINE BESYLATE 2.5 MG TABLET PO SCH (08:29)
[2018-10-17] MEDS: methylPREDNISolone SOD SUCC 40 MG/ML VIAL IV SCH (08:29)
[2018-10-17] MEDS: MUPIROCIN OINT 2% 22 GM TUBE SCH ×2 (08:30→21:06)
[2018-10-17] MEDS: CLOTRIMAZOLE 1% 15 GM TUBE TP SCH ×2 (08:30→16:14)
[2018-10-17 12:00] VITALS: BP 110/66
[2018-10-17] MEDS: INSULIN REGULAR, HUMAN 100 UNIT/ML 3 ML VIAL SQ PRN ×2 (12:26→16:59)
--- NOTE | 2018-10-17 13:00 | NUR ---
RN NOTES BM X1, VSS STABLE, CONTINUE TO MONITOR .
[2018-10-17 16:00] VITALS: BP 117/61
[2018-10-17] MEDS: ACETAMINOPHEN 325 MG TABLET PO PRN (16:11)
--- NOTE | 2018-10-17 18:17 | NUR ---
RN NOTES PT STABLE , NO SIGNIFICANT CHANGES NOTED ON THIS SHIFT, WILL ENDORSE TO SOLUTION DIRECTOR NURSE FOR CONTINUITY OF CARE .
--- NOTE | 2018-10-17 19:10 | NUR ---
AISHA RN OPENING NOTES PATIENT IN BED, ON BARIATRIC BED. PATIENT A/OX4. ON OXYGEN 3.5L VIA NASAL CANULA, SATURATING 91%. ON TELE MONITOR SR WITH HR 80S. NO SOB OR ACUTE SIGNS OF DISTRESS NOTED. BREATHING EVEN AND UNLABORED. DENIES ANY PAIN AT THIS TIME. PERIPHERAL IV TO RIGHT HAND S/L NOTED TO BE PATENT AND INTACT NO REDNESS OR SIGNS OF INFILTRATION NOTED. F/C NOTED TO BE C/D/I AND DRAINING TO GRAVITY. BED IN LOW LOCKED POSITION, SIDE RAILS UP X3. CALL LIGHT WITHIN REACH. CONTACT ISOLATION PRECAUTIONS MAINTAINED. PT'S STEAM CONDITIONING OPERATOR AT BEDSIDE. NOCTURNAL BIPAP AT BEDSIDE. SAFETY MEASURES MAINTAINED. WILL CONT TO MONITOR PT CLOSELY.
[2018-10-17 20:00] VITALS: BP 105/52
[2018-10-17] MEDS ORDERED: DOSING PER PHARMACY-AMIKACI IV XX PRN (20:30)
[2018-10-17 20:40] LABS: *SPE A/G RATIO 1.1 (0.7-1.7); *SPE ALBUMIN 3.3 g/dL (2.9-4.4); *SPE ALPHA-1-GLOBULIN 0.3 g/dL (0.0-0.4); *SPE ALPHA-2-GLOBULIN 0.9 g/dL (0.4-1.0); *SPE BETA GLOBULIN 1.1 g/dL (0.7-1.3); *SPE GLOBULIN, TOTAL 2.9 g/dL (2.2-3.9); *SPE M-SPIKE Not Observed g/dL (Not Observed); *SPEGAMMA GLOBULIN 0.6 g/dL (0.4-1.8); PTH, INTACT 24 pg/mL (15-65)
[2018-10-17] MEDS ORDERED: FEE PK DOSING 1 MIN EA MC ONE (20:58)
[2018-10-17 21:48] LABS: CALCIUM, SERUM 9.6 mg/dL (8.5-10.1); CREATININE 0.9 mg/dL (0.6-1.3); POTASSIUM 4.1 mmol/L (3.5-5.1)
[2018-10-17] MEDS: INSULIN GLARGINE, 100 UNIT/ML CARTRIDGE SQ SCH (22:21)
[2018-10-18] VITALS: BP 99/55
[2018-10-18] MEDS: MENTHOL/CETYLPYRD (CEPACOL) 1 LOZ LOZENGE PO PRN ×3 (00:30→22:22)
--- NOTE | 2018-10-18 01:37 | NUR ---
AISHA RN NOTES CALLED AFTER HOUR PHARMACY FOR PT AMIKACIN DOSE. AWAITING FOR ORDER.
[2018-10-18] MEDS ORDERED: NS 0.9% IV SCH (02:00)
[2018-10-18] MEDS ORDERED: AMIKACIN IV SCH (02:00)
[2018-10-18] MEDS ORDERED: AMIKACIN 250 MG/ML VIAL ONE ×2 (03:28→03:30)
[2018-10-18 04:00] VITALS: BP 117/65
--- NOTE | 2018-10-18 04:03 | NUR ---
PT REC'D ON NASAL CANNULA 3LPM, NO RESP DISTRESS OR SOB NOTED. PT AWAKE AND ALERT. PT PLACED ON BIPAP @ NOC PER MD ORDERS. NO REDNESS OR SKIN TEAR NOTED. BIPAP PLUGGED INTO RED OUTLET. AMBU BAG BEDSIDE. ALARMS ARE SET AND AUDIBLE. WILL CONTINUE TO MONITOR Addendum: 10/18/18 at 0407 by THOMAS BUTTS RT Amended: Links added.
[2018-10-18] MEDS: HEPARIN SODIUM, PORCINE 5000 UNITS/1 ML VIAL SQ SCH ×3 (05:14→22:21)
--- NOTE | 2018-10-18 06:50 | NUR ---
AISHA RN CLOSING NOTES PATIENT AWAKE, A/OX4. OFF NOCTURNAL BIPAP, ON 3L VIA NASAL CANNULA; RR EVEN AND UNLABORED, NO SOB NOTED, SATURATING 94%. PATIENT STABLE, NO SIGNIFICANT CHANGES NOTED ON THIS SHIFT. ALL MD ORDERS ATTENDED. ALL NEEDS ANTICIPATED AND MET. WILL ENDORSE TO AM SHIFT NURSE FOR CONTINUITY OF CARE.
[2018-10-18] MEDS: ALBUTEROL FS 2.5 MG/0.5 ML VIAL.NEB NEB SCH ×4 (07:11→20:22)
[2018-10-18] MEDS: IPRATROPIUM NEB FS 0.5 MG/2.5 ML AMPUL.NEB NEB SCH ×4 (07:11→20:22)
--- NOTE | 2018-10-18 07:20 | NUR ---
AISHA RN OPENING NOTES REPORT RECEIVED FROM PM NURSE.PATIENT IN BED.ON 3.5 L VIA NASAL CANULA. SO SOB OR ACUTE SIGNS OF DISTRESS NOTED. BREATHING EVEN AND UNLABORED. SR HR 72 ON TELE MONITOR.PT A/O X4. SHE DENIES ANY PAIN AT THIS TIME. PERIPHERAL IV TO RIGHT HAND NOTED TO BE PATENT AND INTACT NO REDNESS OR SIGNS OF INFILTRATION NOTED. F/C NOTED TO BE C/D/I AND DRAINING TO GRAVITY. BED IN LOW LOCKED POSITION, SIDE RAILS UP X4. CALL LIGHT WITHIN REACH. CONTACT ISOLATION PRECAUTIONS MAINTAINED. PT'S NAPRAPATH AT BEDSIDE. WILL CONTINUE TO MONITOR
[2018-10-18] MEDS: BLOOD SUGAR DIAGNOSTIC 1 EACH STRIP IN SCH ×4 (07:51→22:21)
[2018-10-18 08:00] VITALS: BP 113/61
[2018-10-18] MEDS: ASPIRIN 81 MG TAB.CHEW PO SCH (08:32)
[2018-10-18] MEDS: GABAPENTIN 300 MG CAPSULE PO SCH ×3 (08:32→16:29)
[2018-10-18] MEDS: LEVETIRACETAM (250 MG) 250 MG TABLET PO SCH ×2 (08:32→22:20)
[2018-10-18] MEDS: methylPREDNISolone SOD SUCC 40 MG/ML VIAL IV SCH (08:32)
[2018-10-18] MEDS: AMLODIPINE BESYLATE 2.5 MG TABLET PO SCH (08:32)
[2018-10-18] MEDS: MUPIROCIN OINT 2% 22 GM TUBE SCH ×2 (08:35→22:19)
[2018-10-18] MEDS: CLOTRIMAZOLE 1% 15 GM TUBE TP SCH ×2 (08:36→16:29)
[2018-10-18] MEDS ORDERED: GLUCERNA SHAKE 237 ML CAN PO SCH (09:00)
--- NOTE | 2018-10-18 10:26 | NUR ---
AIS[facility] RN NOTE SEEN BY .GOT MNEW ORDER TO D/C F/C.WILL CONTINUE TO MONITOR.
[2018-10-18] MEDS: GLUCERNA SHAKE 237 ML CAN PO SCH (12:07)
[2018-10-18] MEDS: INSULIN REGULAR, HUMAN 100 UNIT/ML 3 ML VIAL SQ PRN ×3 (12:21→22:28)
[2018-10-18] MEDS: AMIKACIN 1,000 MG in IV D5W 100 ML IV SCH (14:30)
[2018-10-18 16:00] VITALS: BP 96/53
--- NOTE | 2018-10-18 18:41 | NUR ---
PUBLICATIONS WRITER CLOSING NOTES PATIENT IN BED.ON 3.5 L VIA NASAL CANULA.SATURATING 92. SO SOB OR ACUTE SIGNS OF DISTRESS NOTED. BREATHING EVEN AND UNLABORED. PT A/O X4. SHE DENIES ANY PAIN AT THIS TIME. PERIPHERAL IV TO RIGHT HAND NOTED TO BE PATENT AND INTACT NO REDNESS OR SIGNS OF INFILTRATION NOTED. D/C WHITE CATH.NO URINARY RETENTION.HAS 3 URINE OUTPUT. BED IN LOW LOCKED POSITION, SIDE RAILS UP X4. CALL LIGHT WITHIN REACH. CONTACT ISOLATION PRECAUTIONS MAINTAINED. PT'S REFRIGERATION SERVICE INSPECTOR AT BEDSIDE WITH FAMILY.WILL ENDORSE TO PM NURSE FOR MARTINA.
[2018-10-18 20:00] VITALS: BP 108/65
--- NOTE | 2018-10-18 20:00 | NUR ---
AISHA RN OPENING NOTES BEDSIDE REPORT RECEIVED FROM AM NURSE.PATIENT IN BED, A/OX3, ON 02 3.5 L VIA NASAL CANULA. SO SOB OR ACUTE SIGNS OF DISTRESS NOTED. BREATHING EVEN AND UNLABORED. SR ON TELE MONITOR.SHE DENIES ANY PAIN AT THIS TIME. PERIPHERAL IV TO RIGHT HAND NOTED TO BE PATENT AND INTACT NO REDNESS OR SIGNS OF INFILTRATION NOTED. NO SOB OR DISTRESS NOTED AT THIS TIME. BED IN LOW LOCKED POSITION, SIDE RAILS UP X2, CALL LIGHT WITHIN REACH. CONTACT ISOLATION PRECAUTIONS MAINTAINED. PT'S SERVICE TRANSFORMER REPAIR SUPERVISOR AT BEDSIDE. WILL CONTINUE TO MONITOR
[2018-10-18] MEDS: INSULIN GLARGINE, 100 UNIT/ML CARTRIDGE SQ SCH (22:26)
[2018-10-19] VITALS: BP 102/52
[2018-10-19] MEDS: AMIKACIN 1,000 MG in IV D5W 100 ML IV SCH ×2 (02:42→16:13)
[2018-10-19 04:00] VITALS: BP 105/55
[2018-10-19] MEDS: HEPARIN SODIUM, PORCINE 5000 UNITS/1 ML VIAL SQ SCH ×3 (05:59→20:16)
--- NOTE | 2018-10-19 06:07 | NUR ---
RT NOTES PLACED PATIENT ON BIPAP WITH ORDERED SETTINGS PER MD ORDERS FOR NOC. ALARMS ON AND AUDIBLE. VENT PLUGGED IN TO RED OUTLET. AMBU BAG BY THE BED SIDE. MIPLEX PLACED ON BIPAP MASK. PATIENT TOLERATE WELL. Addendum: 10/19/18 at 0609 by TASNEEM MAY RT Amended: Links added.
[2018-10-19 07:03] LABS: CALCIUM, SERUM 9.4 mg/dL (8.5-10.1); CREATININE 0.8 mg/dL (0.6-1.3); POTASSIUM 3.9 mmol/L (3.5-5.1)
--- NOTE | 2018-10-19 07:30 | NUR ---
INITIAL BEDSIDE REPORT RECEIVED FROM PM NURSE.PATIENT IN BED, A/OX3, ON BIPAP. NO SOB OR ACUTE SIGNS OF DISTRESS NOTED. BREATHING EVEN AND UNLABORED. SR ON TELE MONITOR.SHE DENIES ANY PAIN AT THIS TIME. PERIPHERAL IV TO RIGHT HAND NOTED TO BE PATENT AND INTACT NO REDNESS OR SIGNS OF INFILTRATION NOTED. NO SOB OR DISTRESS NOTED AT THIS TIME. BED IN LOW LOCKED POSITION, SIDE RAILS UP X2, CALL LIGHT WITHIN REACH. CONTACT ISOLATION PRECAUTIONS MAINTAINED. PT'S PUBLIC SPEAKING TEACHER AT BEDSIDE. WILL CONTINUE TO MONITOR
--- NOTE | 2018-10-19 07:52 | NUR ---
RN NOTES PATIENT IS IN BED A/A/O X4, IN STABLE CONDITION. NO CHANGES DURING MY SHIFT. REPORT IS GIVEN TO AM RN FOR OFFLINE CUTTER.
[2018-10-19 08:00] VITALS: BP 124/73
[2018-10-19] MEDS: IPRATROPIUM NEB FS 0.5 MG/2.5 ML AMPUL.NEB NEB SCH ×5 (08:43→20:30)
[2018-10-19] MEDS: ALBUTEROL FS 2.5 MG/0.5 ML VIAL.NEB NEB SCH ×5 (08:43→20:30)
[2018-10-19] MEDS: BLOOD SUGAR DIAGNOSTIC 1 EACH STRIP IN SCH ×4 (09:13→21:41)
[2018-10-19] MEDS: INSULIN REGULAR, HUMAN 100 UNIT/ML 3 ML VIAL SQ PRN ×3 (09:14→17:55)
[2018-10-19] MEDS: ASPIRIN 81 MG TAB.CHEW PO SCH (09:15)
[2018-10-19] MEDS: methylPREDNISolone SOD SUCC 40 MG/ML VIAL IV SCH (09:15)
[2018-10-19] MEDS: AMLODIPINE BESYLATE 2.5 MG TABLET PO SCH (09:16)
[2018-10-19] MEDS: GABAPENTIN 300 MG CAPSULE PO SCH ×3 (09:16→17:56)
[2018-10-19] MEDS: LEVETIRACETAM (250 MG) 250 MG TABLET PO SCH ×2 (09:17→20:16)
[2018-10-19] MEDS: CLOTRIMAZOLE 1% 15 GM TUBE TP SCH ×2 (10:40→17:19)
[2018-10-19] MEDS: MUPIROCIN OINT 2% 22 GM TUBE SCH ×2 (10:40→21:41)
[2018-10-19 12:00] VITALS: BP_SYST 103; BP_SYST 142; BP_DIAS 52; BP_DIAS 59
--- NOTE | 2018-10-19 13:42 | NUR ---
RN NOTE: CALLED AND SPOKE WITH DR. BUCK AND INFORMED HIM THAT THE PATIENT WAS NOT A CANDIDATE FOR MIDLINE PER EDDIE HANKINS/PICC LINE NURSE DUE TO SMALL VENOUS ACCESS. PER DR. BUCK, OK TO INSERT A PICC LINE. ORDER, NOTED AND CARRIED OUT. PRIMARY NURSE Dylan STEWART MADE AWARE.
[2018-10-19] MEDS: GLUCERNA SHAKE 237 ML CAN PO SCH (14:04)
--- NOTE | 2018-10-19 14:51 | NUR ---
ACCESS unable to given Amikacin on time lab unable to draw trough piv in right hand not working pt does not want lab to stick her and piv removed till PICC line in place. PICC nurse came once to place mid-line but unable to do so texted Mihaela for PICC order and obtained pt signed consent . 1450- Currently PICC nurse at bedside for second time to place PICC. Spoke with pharmacy indicating access problems so plan of care is to obtain trough Amikacin level before giving Abx then one hour later obtain peak level. Abx to be reschedule.
[2018-10-19 16:00] VITALS: BP 92/54
[2018-10-19] MEDS ORDERED: AMIKACIN 1,000 MG in IV D5W 100 ML IV SCH (18:00)
--- NOTE | 2018-10-19 18:14 | NUR ---
CLOSING PATIENT IN BED.ON 02 3.5 L VIA NASAL CANULA.SATURATING 92. SO SOB OR ACUTE SIGNS OF DISTRESS NOTED. BREATHING EVEN AND UNLABORED. PT A/O X4. SHE DENIES ANY PAIN AT THIS TIME. PERIPHERAL IV TO RIGHT HAND NOTED TO BE PATENT AND INTACT NO REDNESS OR SIGNS OF INFILTRATION NOTED. BED IN LOW LOCKED POSITION, SIDE RAILS UP X4. CALL LIGHT WITHIN REACH. CONTACT ISOLATION PRECAUTIONS MAINTAINED. PT'S SCRUM PRODUCT OWNER AT BEDSIDE WITH FAMILY.WILL ENDORSE TO PM RN FOR CONTINUITY OF CARE. PT NOW HAS PICC LINE IN JAC AMIKACIN TROUGH AND PEAK DRAWN
--- NOTE | 2018-10-19 19:10 | NUR ---
RECORDS MANAGEMENT ENGINEER NOTE PATIENT IS AOX4, SPEECH CLEAR, ABLE TO MAKE NEEDS KNOWN, CAREGIVER AT BEDSIDE, DENIES PAIN, NO RESPIRATORY OR CARDIAC DISTRESS NOTED ON 3.5L O2 VIA NC, JAC PICC LINE SL, SKIN KEPT CLEAN AND DRY, SAFETY MAINTAINED AT ALL TIMES, BED IN LOW LOCKED POSITION, CALL LIGHT WITHIN REACH, WILL CONTINUE TO MONITOR FOR ANY CHANGES IN CONDITION.
[2018-10-19] MEDS: ACETAMINOPHEN 325 MG TABLET PO PRN (19:27)
[2018-10-19 20:00] VITALS: BP 110/63
[2018-10-19] MEDS: MENTHOL/CETYLPYRD (CEPACOL) 1 LOZ LOZENGE PO PRN (20:16)
[2018-10-19] MEDS: INSULIN GLARGINE, 100 UNIT/ML CARTRIDGE SQ SCH (21:46)
[2018-10-20] VITALS: BP 122/52
--- NOTE | 2018-10-20 00:21 | NUR ---
RIGHT OF WAY CLEARER NOTE CALL FROM DO IN PHARMACY OK TO GIVE NEXT DOSE OF AMIKACIN TO PT AT 0500
[2018-10-20 04:00] VITALS: BP 116/61
[2018-10-20] MEDS: AMIKACIN 1,000 MG in IV D5W 100 ML IV SCH (04:40)
[2018-10-20] MEDS: HEPARIN SODIUM, PORCINE 5000 UNITS/1 ML VIAL SQ SCH ×3 (04:49→21:49)
[2018-10-20] MEDS: ACETAMINOPHEN 325 MG TABLET PO PRN ×3 (06:38→23:45)
[2018-10-20 07:25] LABS: CALCIUM, SERUM 9.1 mg/dL (8.5-10.1); CREATININE 0.8 mg/dL (0.6-1.3); POTASSIUM 4.2 mmol/L (3.5-5.1)
--- NOTE | 2018-10-20 07:30 | NUR ---
RN NOTES. PATIENT IS BEDBOUND WITH PRIMARY CAREGIVER AT BEDSIDE. SHE IS AOX4. SHE IS ON OXYGEN VIA NASAL CANULA 3.5 L. SHE IS NOT IN DISTRESS. BED RAILS WERE RAISED, BED LOWERED TO APPROPRIATE HEIGHT. PATIENT'S CALL IS WITHIN REACH. AM AMLODIPINE WAS HELD BECAUSE OF LOW BLOOD PRESSURE 117/52
[2018-10-20] MEDS: ALBUTEROL FS 2.5 MG/0.5 ML VIAL.NEB NEB SCH ×4 (07:35→19:48)
[2018-10-20] MEDS: IPRATROPIUM NEB FS 0.5 MG/2.5 ML AMPUL.NEB NEB SCH ×4 (07:35→19:48)
[2018-10-20 08:00] VITALS: BP 117/52
[2018-10-20] MEDS: BLOOD SUGAR DIAGNOSTIC 1 EACH STRIP IN SCH ×4 (08:58→21:49)
[2018-10-20] MEDS: GABAPENTIN 300 MG CAPSULE PO SCH ×3 (08:59→17:25)
[2018-10-20] MEDS: methylPREDNISolone SOD SUCC 40 MG/ML VIAL IV SCH (08:59)
[2018-10-20] MEDS: ASPIRIN 81 MG TAB.CHEW PO SCH (08:59)
[2018-10-20] MEDS: LEVETIRACETAM (250 MG) 250 MG TABLET PO SCH ×2 (08:59→21:48)
[2018-10-20] MEDS: AMLODIPINE BESYLATE 2.5 MG TABLET PO SCH (09:00)
[2018-10-20] MEDS: MUPIROCIN OINT 2% 22 GM TUBE SCH ×2 (09:03→21:55)
[2018-10-20] MEDS: CLOTRIMAZOLE 1% 15 GM TUBE TP SCH ×2 (09:16→17:38)
[2018-10-20 12:00] VITALS: BP 129/54
[2018-10-20] MEDS: INSULIN REGULAR, HUMAN 100 UNIT/ML 3 ML VIAL SQ PRN ×2 (13:00→17:39)
[2018-10-20] MEDS: GLUCERNA SHAKE 237 ML CAN PO SCH (13:02)
[2018-10-20 16:00] VITALS: BP_SYST 119; BP_DIAS 54; BP_DIAS 59
--- NOTE | 2018-10-20 17:20 | NUR ---
RN NOTES PAGED DR SOW AND INFORMED HIM ABOUT RAJESH 'S CLAIM THAT SHE BEEN TAKING FUROSEMIDE 40MG PO BID AT HOME AND IS ASKING IF THERE IS ANYWAY THAT SHE CAN CONTINUE TAKING IT. PER MD, HE WILL REVIEW THE PATIENT FILE AND WILL LOOK UNTO IT. PATIENT MADE AWARE
--- NOTE | 2018-10-20 17:57 | NUR ---
RN NOTES PATIENT REPORTED SLIGHT PAIN AND DISCOMFORT NEAR PICC LINE SITE, PRN TYLENOL 650 MG WAS ADMINISTERED AT 1750.
--- NOTE | 2018-10-20 19:10 | NUR ---
RN Notes Patient has been endorsed. No acute changes occurred during my shift. Patient is not in any form of distress at this time. All nursing needs were attended and met. Safety measures were implemented. Patient's call light was within reach.
--- NOTE | 2018-10-20 19:40 | NUR ---
AISHA RN OPENING NOTES BEDSIDE REPORT RECEIVED FROM AM NURSE.PATIENT IN BED, A/OX3, ON 02 3.5 L VIA NASAL CANULA. SO SOB OR ACUTE SIGNS OF DISTRESS NOTED. BREATHING EVEN AND UNLABORED. SR ON TELE MONITOR.SHE DENIES ANY PAIN AT THIS TIME. PICC LINE TO RIGHT UPPER ARM NOTED TO BE PATENT AND INTACT NO REDNESS OR SIGNS OF INFILTRATION NOTED. BED IN LOW LOCKED POSITION, SIDE RAILS UP X2, CALL LIGHT WITHIN REACH. CONTACT ISOLATION PRECAUTIONS MAINTAINED. PT'S TRACK COACH AT BEDSIDE. WILL CONTINUE TO MONITOR PATIENT CLOSELY.
--- NOTE | 2018-10-20 19:50 | NUR ---
RN NOTES PATIENT'S AMIKOCIN PEAK IS 60.1 AND AMIKOCIN TROUGH 7.7. CALLED PHARMACY AND PER PHARMACY WEIGHT FOR NEW LEVEL 0600 10/21/18 AND HOLD THE DOSE IF AMIKOCIN TROUGH IS >5. WILL CONTINUE TO MONITOR PATIENT.
[2018-10-20 20:00] VITALS: BP 99/60
[2018-10-20] MEDS: INSULIN GLARGINE, 100 UNIT/ML CARTRIDGE SQ SCH (21:53)
[2018-10-21] VITALS: BP 109/55
[2018-10-21 04:00] VITALS: BP 111/61
[2018-10-21] MEDS ORDERED: AMIKACIN 750 MG in IV D5W 100 ML IV SCH (06:00)
[2018-10-21 06:27] LABS: CALCIUM, SERUM 9.1 mg/dL (8.5-10.1); CREATININE 0.8 mg/dL (0.6-1.3); POTASSIUM 3.9 mmol/L (3.5-5.1)
--- NOTE | 2018-10-21 06:45 | NUR ---
RN NOTES PATIENT IS IN BED A/A/O X4, IN STABLE CONDITION. NO CHANGES DURING MY SHIFT. REPORT IS GIVEN TO AM RN FOR COTTON FEEDER.
--- NOTE | 2018-10-21 07:25 | NUR ---
RN NOTES RECEIVED PT ON BED , A/OX4, ON 3L O2 N/C , NO SOB NOTED, ON TELE SR HR IN 70'S , R UPPER ARM PICC LINE SITE CLEAN , DRY AND INTACT, SR UP x3, CALL LIGHT WITHIN EASY REACH, BED LOCKED AND IN LOWEST POSITION, CONTINUE TO MONITOR .
[2018-10-21] MEDS: ALBUTEROL FS 2.5 MG/0.5 ML VIAL.NEB NEB SCH ×4 (07:34→19:41)
[2018-10-21] MEDS: IPRATROPIUM NEB FS 0.5 MG/2.5 ML AMPUL.NEB NEB SCH ×4 (07:34→19:41)
[2018-10-21 08:00] VITALS: BP 108/62
[2018-10-21] MEDS: BLOOD SUGAR DIAGNOSTIC 1 EACH STRIP IN SCH ×3 (08:17→17:14)
[2018-10-21] MEDS: methylPREDNISolone SOD SUCC 40 MG/ML VIAL IV SCH (08:46)
[2018-10-21] MEDS: LEVETIRACETAM (250 MG) 250 MG TABLET PO SCH (08:46)
[2018-10-21] MEDS: ASPIRIN 81 MG TAB.CHEW PO SCH (08:47)
[2018-10-21] MEDS: GABAPENTIN 300 MG CAPSULE PO SCH ×3 (08:47→16:54)
[2018-10-21] MEDS: AMLODIPINE BESYLATE 2.5 MG TABLET PO SCH (08:47)
[2018-10-21] MEDS: CLOTRIMAZOLE 1% 15 GM TUBE TP SCH ×2 (08:48→17:01)
[2018-10-21] MEDS: MUPIROCIN OINT 2% 22 GM TUBE SCH (08:48)
[2018-10-21] MEDS: ACETAMINOPHEN 325 MG TABLET PO PRN (09:18)
--- NOTE | 2018-10-21 10:13 | NUR ---
RN NOTES REPORT GIVEN TO MATI VALLADARES FOR CONTINUITY OF CARE .
--- NOTE | 2018-10-21 10:30 | NUR ---
ms rn note received patient in bed alert oriented x3, all needs attended
--- NOTE | 2018-10-21 11:33 | NUR ---
ms rn note spoke with dr deyanira schultz to go home with home health to arrange iv atb and [place] to arrange bypap with disease case manager
--- NOTE | 2018-10-21 12:04 | NUR ---
telephone lines repairer note bladder scanner done less then 41 ml noted
[2018-10-21] MEDS: GLUCERNA SHAKE 237 ML CAN PO SCH (12:52)
[2018-10-21] MEDS: INSULIN REGULAR, HUMAN 100 UNIT/ML 3 ML VIAL SQ PRN ×2 (12:53→18:03)
--- NOTE | 2018-10-21 15:05 | NUR ---
MS RN NOTE SHILPA ADULT EDUCATION INSTRUCTOR STILL WORKING FOR HOME HEALTH FOR IV ATB FOR DISCHARGE PATIENT
[2018-10-21 16:00] VITALS: BP 102/60
--- NOTE | 2018-10-21 18:42 | NUR ---
MS RN NOTES DC INSTRUCTION GIVEN AND UNDERSTOOD, EXPLAINED HOW TO TAKE NEW PRESCRIPTIONS AND OLD HOME MEDS AND POSSIBLE SIDE EFFECTS. BELONGING SIGNED, PICC LINE RIGHT UPPER ARM INTACT AND FLASHED WELL. PER TELEMEDICINE PHYSICIAN HOME HEALTH IS ARRANGED FOR BIPAP AND IV ATB ADMINISTRATION. FAMILY WILL ARRANGE SELF. OVEN DRIER TENDER AT BEDSIDE. WILL AWAIT FOR AMBULANCE. PRESCRIPTION GIVEN.
--- NOTE | 2018-10-21 19:36 | NUR ---
MS RN NOTE ASKED PATIENT TO DO PX UPON DISCHARGER BUT PATIENT REFUSED, STATED I AM NOT GOING TURN OVER AT THIS TIME , PATIENT RIGHT IS RESPECTED
[2018-10-21 20:00] VITALS: BP 112/68
--- NOTE | 2018-10-21 20:17 | NUR ---
RN NOTE PATIENT WAS DISCHARGED HOME WITH HOME HEALTH FOR CONTINUATION OF CARE, PATIENT IS STABLE, VITAL SIGNS STABLE, NO RESPIRATORY DISTRESS NOTED, ON 3L/MIN VIA NASAL CANULA, WAS TRANSFERRED WITH 5 PEOPLE ASSIST SAFELY, RIGHT UPPER PICC LINE, NO SIGNS AND SYMPTOMS OF INFECTION/INFILTRATION NOTED, SENIOR ELECTRONICS TECHNICIAN IS BY BEDSIDE, DISCHARGE PACKAGE WAS PREPARED BY AM NURSE, ALL SAFETY MEASURES TAKEN
== END 2018-10-21 21:20 | disposition home health service (06) | DRG 291 ==
LOC: ER 19:50 → ICU 21:40 → TELE-TD 10-16 11:05 → TELE1 10-18 17:42 → MEDSG1 10-21 10:50
PROVIDERS: ADMIT Nurse Practitioner Acute Care; ATTEND Internal Medicine
PROC: 5A09457 Assistance with Respiratory Ventilation, 24-96 Consecutive Hours, Continuous Positive Airway Pressure (ICD-10-PCS; principal; 2018-10-13)
PROC: B548ZZA Ultrasonography of Superior Vena Cava, Guidance (ICD-10-PCS; 2018-10-19)
PROC: 02HV33Z Insertion of Infusion Device into Superior Vena Cava, Percutaneous Approach (ICD-10-PCS; 2018-10-19)
DX: I13.0 Hypertensive heart and chronic kidney disease with heart failure and stage 1 through stage 4 chronic kidney disease, or unspecified chronic kidney disease (principal); I50.33 Acute on chronic diastolic (congestive) heart failure; J96.21 Acute and chronic respiratory failure with hypoxia; N17.0 Acute kidney failure with tubular necrosis; J96.22 Acute and chronic respiratory failure with hypercapnia; J44.1 Chronic obstructive pulmonary disease with (acute) exacerbation; D68.59 Other primary thrombophilia; N39.0 Urinary tract infection, site not specified; Z68.45 Body mass index [BMI] 70 or greater, adult; E66.2 Morbid (severe) obesity with alveolar hypoventilation; E87.2 Acidosis; J98.11 Atelectasis; E11.22 Type 2 diabetes mellitus with diabetic chronic kidney disease; B35.3 Tinea pedis; B35.1 Tinea unguium; N18.9 Chronic kidney disease, unspecified; I50.9 Heart failure, unspecified; Z79.4 Long term (current) use of insulin; Z99.81 Dependence on supplemental oxygen; Z87.891 Personal history of nicotine dependence; Z79.51 Long term (current) use of inhaled steroids; Z90.49 Acquired absence of other specified parts of digestive tract; Z74.09 Other reduced mobility; E11.42 Type 2 diabetes mellitus with diabetic polyneuropathy; B96.89 Other specified bacterial agents as the cause of diseases classified elsewhere; Z16.24 Resistance to multiple antibiotics; Z22.322 Carrier or suspected carrier of Methicillin resistant Staphylococcus aureus; Z16.12 Extended spectrum beta lactamase (ESBL) resistance
CPT/HCPCS: 36415; 36600; 71045-TC; 80048-TC; 80053-TC; 80061-TC; 80150; 81000-TC; 82550-TC; 82570-TC; 82803-TC; 82962-TC; 83735-TC; 83880; 83970; 84100-TC; 84155; 84155-TC; 84165; 84300-TC; 84443-TC; 85025-TC; 87081-TC; 87086-TC; 87186-TC; 93307-TC; 94003-TC; 94660; 94760-TC; 94799-TC; 99082-TC; G0378; J0278; J1120; J1644; J1815; J1940; J2920; J7030; J7060

== ENCOUNTER 2019-02-17 23:27 | Inpatient (IN) | payer BC ==
[~2019-02-17] VITALS: Ht 170.2 cm; Wt 209.6 kg
[~2019-02-17 23:27] MED LIST changes: -NITR100C15 PO
--- NOTE | 2019-02-17 23:31 | NUR ---
"[id number] FROM HOME C/C SOB GOTTEN WORSE TODAY, 10MG ALBUTEROL GIVEN PER EMS O2 SAT WAS 85% PRIOR TO TX, NOW 100% " PT AROUSABLE, PT ON MONITOR PT TO BED 5, MD ROBIN AT BEDSIDE FOR EVAL
[2019-02-18] VITALS (41 sets, daily range): BP systolic 82–130; BP diastolic 38–84
[2019-02-18] MEDS ORDERED: ALBUTEROL FS 2.5 MG/3 ML VIAL.NEB CONTNEB ONE
[2019-02-18] MEDS ORDERED: DEXAMETHASONE SOD PHOSPHATE 10 MG/ML VIAL IV ONE
[2019-02-18] MEDS ORDERED: DEXAMETHASONE SOD PHOSPHATE 10 MG/ML VIAL ONE (00:04)
[2019-02-18 00:07] LABS: BASOPHILS # (AUTO) 0.1 /CMM (0.0-0.2); BASOPHILS % (AUTO) 0.6 % (0.0-2.0); EOSINOPHILS % (AUTO) 1.2 % (0.0-6.0); HEMATOCRIT 36 % (33-45); HEMOGLOBIN 11.6 g/dL (11.5-14.8); LYMPHOCYTES # (AUTO) 1.8 /CMM (0.8-4.8); LYMPHOCYTES % (AUTO) 15.8 % (20.0-44.0); MEAN CORPUSCULAR HGB CONC 32 g/dl (31.0-36.0); MEAN CORPUSCULAR VOLUME 96 fL (82-100); MONOCYTES # (AUTO) 0.9 /CMM (0.1-1.30); MONOCYTES % (AUTO) 7.8 % (2.0-12.0); NEUTROPHILS # (AUTO) 8.7 /CMM (1.8-8.9); NEUTROPHILS % (AUTO) 74.6 % (43.0-81.0); PLATELET COUNT (AUTO) 236 /CMM (150-450); RED BLOOD CELL COUNT(AUTO) 3.75 MIL/uL (4.0-5.2); WHITE BLOOD COUNT (AUTO) 11.6 K/uL (4.3-11.0)
[2019-02-18 00:19] LABS: CALCIUM, SERUM 9.8 mg/dL (8.5-10.1); CARBON DIOXIDE 38 mmol/L (21-32); CHLORIDE 96 mmol/L (98-107); CREATININE 1.1 mg/dL (0.6-1.3); GLUCOSE 188 mg/dL (74-106); POTASSIUM 5.6 mmol/L (3.5-5.1); SODIUM SERUM 135 mmol/L (136-145); UREA NITROGEN, BLOOD 42 mg/dL (7-18)
[2019-02-18 00:31] LABS: B-TYPE NATRIURETIC PEPTIDE 973 PG/ML (0-125)
[2019-02-18] MEDS ORDERED: ALBUTEROL FS 2.5 MG/3 ML VIAL.NEB ONE (00:31)
[2019-02-18] MEDS ORDERED: FAMO40TA70 PO (01:07)
[2019-02-18] MEDS ORDERED: PIOG15TA8 PO (01:07)
[2019-02-18] MEDS ORDERED: METF-440 PO (01:07)
[2019-02-18] MEDS ORDERED: LEVE500T9 PO (01:07)
[2019-02-18] MEDS ORDERED: GABA-534 PO (01:07)
[2019-02-18] MEDS ORDERED: INSU100V27 SQ (01:07)
[2019-02-18] MEDS ORDERED: TELM40TA2 PO (01:07)
[2019-02-18] MEDS ORDERED: DULO60CA45 PO (01:07)
[2019-02-18] MEDS ORDERED: FURO-144 PO (01:07)
--- NOTE | 2019-02-18 01:20 | NUR ---
REPORT GIVEN TO CINTHYA VALLADARES FOR [facility], PT WILL BE TRANSPORTED TO ICU
[2019-02-18] MEDS ORDERED: ONDANSETRON HCL/PF 4 MG/2 ML VIAL IVP PRN (01:30)
[2019-02-18] MEDS ORDERED: ZOLPIDEM TARTRATE 5 MG TABLET PO PRN (01:30)
[2019-02-18] MEDS ORDERED: HYDROCODONE/APAP 5/325MG 1 EACH TABLET PO PRN (01:30)
[2019-02-18] MEDS ORDERED: MAGNESIUM HYDROXIDE 30 ML UDC PO PRN (01:30)
[2019-02-18] MEDS ORDERED: Z GUARD REMEDY 2 OZ OINT TP PRN (01:30)
[2019-02-18] MEDS ORDERED: MAG HYDROX/AL HYDROX/SIMETH 30 ML UDC PO PRN (01:30)
--- NOTE | 2019-02-18 01:48 | NUR ---
PER DR. COREA ORDER TO TRY AND WEAN PT OFF BIPAP; PT WAS PUT ON SIMPLE MASK 6LPM; PT O2 SAT AROUND 90-93%. PER TO PUT PT ON BIPAP. O2 SAT 100%
--- NOTE | 2019-02-18 01:50 | NUR ---
Per Dr Peralta, ok to keep patient off BiPAP. Simple mask @ 10L applied. Will cont to monitor pt.
[2019-02-18 03:11] LABS: ABG BASE EXCESS 6.5 mmol/L; ABG OXYGEN SATURATION 96.7 % (92.0-98.5); ABG PCO2 96.3 mmHg (35.0-45.0); ABG PO2 98.8 mmHg (75.0-100.0); AaDO2 517.9 mmHg; COHb 1.9 % (0.5-1.5); MetHb 0.5 % (0.0-1.5); O2Hb 94.4 % (94.0-97.0); SITE, ABG Left Radial
[2019-02-18] MEDS: ALBUTEROL FS 2.5 MG/0.5 ML VIAL.NEB NEB SCH ×6 (03:30→23:23)
[2019-02-18] MEDS: IPRATROPIUM NEB FS 0.5 MG/2.5 ML AMPUL.NEB NEB SCH ×6 (03:30→23:23)
--- NOTE | 2019-02-18 03:49 | NUR ---
REPORT GIVEN TO BLAINE AZEVEDO FOR [facility]
[2019-02-18 04:10] LABS: ABG BASE EXCESS 2.1 mmol/L; ABG OXYGEN SATURATION 94.5 % (92.0-98.5); ABG PCO2 76.9 mmHg (35.0-45.0); ABG PH 7.232 (7.350-7.450); ABG PO2 74.8 mmHg (75.0-100.0); AaDO2 268.4 mmHg; COHb 2.1 % (0.5-1.5); MetHb 0.5 % (0.0-1.5); SITE, ABG Right Radial
--- NOTE | 2019-02-18 04:45 | NUR ---
TD RN NOTE: RECEIVED PT FROM ER VIA PILLORCHARIS, CAREGIVER AT BEDSIDE. PT IS ALERT AND ORIENTED X3. ABLE TO MAKE NEEDS KNOWN. ON 8LPM SIMPLE MASL, NO SOB NOTED AT THIS TIME. IV ON LEFT UPPER ARM #22 INTACT AND PATENT, FLUSHING WELL. NOTIFIED DR. CAROLINA REGARDING PATIENT'S REPEAT ABG RESULT, PER MD PUT PT ON BIPAP AND TRANSFER TO ICU. ORDER CARRIED OUT AND DONE. TRANSFERRED PT VIA ACLS PROTOCOL. BEDSIDE REPORT GIVEN TO CASEY, RN FOR CONTINUITY OF CARE.
--- NOTE | 2019-02-18 05:23 | NUR ---
SPA COORDINATOR NOTES RECEIVED PATIENT FROM [facility] ON O2 VIA MASK @ 8LPM, BREATHING SLIGHTLY LABORED, ACCESSORY MUSCLES BEING USED. PATIENT TRANSFERRED TO ICU FOR RESCUE BIPAP. RT MADE AWARE REGARDING BIPAP ORDERS. PATIENT AWAKE, ALERT AND ORIENTED X4, ABLE TO VERBALIZE NEEDS, CAREGIVER AT BEDSIDE. PATIENT ADMITTED FOR RESPIRATORY FAILURE. NAVI #[id number] PATENT AND INTACT, FLUSHED WITH NS, SALINE LOCKED. PLAN OF CARE DISCUSSED WITH PATIENT AND CAREGIVER, WHOM VERBALIZE UNDERSTANDING AND AGREE TO BIPAP. WILL MONITOR CLOSELY
[2019-02-18] MEDS: ACETAMINOPHEN 325 MG TABLET PO PRN (05:36)
--- NOTE | 2019-02-18 06:02 | NUR ---
RECEIVED PT FROM [facility] AWAKE ALERT. PT WAS ON SIMPLE MASK. PT PLACED ON BIPAP 20/5, 18, 50% PER MD ORDER (DR CAROLINA). WILL ENDORSE TO DAY SHIFT RT.
--- NOTE | 2019-02-18 06:45 | NUR ---
BAKERY WORKER CLOSING NOTES PATIENT RESTING COMFORTABLY IN BED AT TIS TIME, REMAINS ON BIPAP, TOLERATING CURRENT SETTINGS, CAREGIVER AT BEDSIDE. WILL ENDORSE THE PATIENT TO THE AM SHIFT NURSE FOR CONTINUITY OF CARE
--- NOTE | 2019-02-18 07:00 | NUR ---
RN NOTES RECEIVED PT ON BED, ON BIPAP ,OPEN EYES TO VERBAL STIMULI AND FOLLOWS COMMAND, O2 SAT WNL, TOLERATING CURRENT BIPAP SETTING WELL, TREE AND SHRUB WORKER AT THE BEDSIDE, ON TELE SR HR IN 90'S , L UPPER ARM IV SITE G 22 , CLEAN ,DRY AND INTACT, SR UPx3, CALL LIGHT WITHIN EASY REACH, BED LOCKED AND IN LOWEST POSITION, CONTINUE TO MONITOR
--- NOTE | 2019-02-18 07:40 | NUR ---
PT. IS AWAKE AND FOLLOW COMMANDS PLACED INTO NASAL CANNULA @ 3 LPM O2 FLOW Addendum: 02/18/19 at 0849 by YOGESH SNOW RT Amended: Links added.
[2019-02-18] MEDS ORDERED: FEE PK DOSING 1 MIN EA MC ONE (08:24)
[2019-02-18] MEDS: methylPREDNISolone SOD SUCC 125 MG/2ML VIAL IV SCH ×3 (08:34→17:22)
[2019-02-18] MEDS: PANTOPRAZOLE 40 MG TABLET.DR PO SCH (08:34)
[2019-02-18] MEDS: FUROSEMIDE 40 MG/4 ML VIAL IV SCH ×3 (08:36→21:42)
[2019-02-18 08:48] LABS: ABG BASE EXCESS 6.4 mmol/L; ABG OXYGEN SATURATION 84.4 % (92.0-98.5); ABG PCO2 80.6 mmHg (35.0-45.0); ABG PH 7.266 (7.350-7.450); ABG PO2 48.9 mmHg (75.0-100.0); COHb 1.4 % (0.5-1.5); MetHb 0.3 % (0.0-1.5); SITE, ABG Left Radial; VENT MODE, BG 3L NC
--- NOTE | 2019-02-18 09:36 | NUR ---
pt. placed back on bipap due to ph 7. 26 and pco2 80, pao2 49 mmHg Addendum: 02/18/19 at 0937 by YOGESH SNOW RT Amended: Links added.
--- NOTE | 2019-02-18 09:54 | NUR ---
WOUND CARE CONSULT: PT PRESENTS WITH RASH TO NECK FOLDS, ABDOMINAL FOLDS, AND BUTTOCKS EXTENDING TO POSTERIOR THIGHS, PRESENT ON ADMISSION. PT ON BIPAP AT THIS TIME. RECOMMENDATIONS MADE FOR SKIN PROTECTION AND SKIN CARE. DISCUSSED WITH NURSING STAFF. [facility] ON ORDER. WILL SEE PRN. BREWSTER IN AGREEMENT WITH PLAN OF CARE. Addendum: 02/18/19 at 0956 by ALICJA LALA WNDNU Amended: Links added.
[2019-02-18] MEDS: CEFEPIME 2 GM in IV D5W 100 ML IV SCH ×2 (10:07→16:01)
--- NOTE | 2019-02-18 10:17 | NUR ---
avaps mode per dr. ashford. target VT 600 epap 12 rate 14 pmax 25 Addendum: 02/18/19 at 1018 by YOGESH SNOW RT Amended: Links added.
[2019-02-18] MEDS: ENOXAPARIN SODIUM 40 MG/0.4 ML DISP.SYRIN SQ SCH (10:18)
[2019-02-18] MEDS ORDERED: DEXTROSE 50%-WATER 50 ML DISP.SYRIN IV PRN (10:30)
[2019-02-18] MEDS: VANCOMYCIN 1.5 GM in IV D5W 500 ML IV SCH ×2 (10:38→17:24)
[2019-02-18] MEDS: INSULIN REGULAR, HUMAN 100 UNIT/ML 3 ML VIAL SQ PRN ×3 (10:40→17:43)
[2019-02-18] MEDS: CLOTRIMAZOLE 1% 15 GM TUBE TP SCH ×2 (11:13→17:23)
[2019-02-18] MEDS: BLOOD SUGAR DIAGNOSTIC 1 EACH STRIP VI SCH ×3 (11:58→21:42)
[2019-02-18] MEDS ORDERED: BLOOD SUGAR DIAGNOSTIC 1 EACH STRIP IN SCH (12:00)
--- NOTE | 2019-02-18 12:00 | NUR ---
RN NOTES VSS STABLE, PT REFUSED TO TURN, CONTINUE TO MONITOR .
--- NOTE | 2019-02-18 14:00 | NUR ---
RN NOTES PT IS NOT A CANDIDATE FOR MIDLINE , ORDER RECEIVED FOR PICC LINE.
--- NOTE | 2019-02-18 15:00 | NUR ---
RN NOTES WHIET INSERTED PER MD ORDER . 400 CC URINE DRAINED TO THE BAG.
--- NOTE | 2019-02-18 18:30 | NUR ---
RN NOTES PT STABLE, SUPPORTIVE FAMILY AT THE BEDSIDE, VSS STABLE, R UPPER ARM PICC LINE SITE CLEAN, DRY AND INTACT , PT ON BARIATRIC BED, SR UP x3, CALL LIGHT WITHIN EASY REACH, BED LOCKED AND IN LOWEST POSITION , WILL ENDOSE TO MANAGER SUPPLY CHAIN PLANNING NURSE FOR CONTINUITY OF CARE .
--- NOTE | 2019-02-18 19:52 | NUR ---
PT RCVD ON AVAP MODE, VT 600, RATE 14, EPAP 12. PT IS AWAKE AND ALERT. BREATHING TX GIVEN , NO ADVERSE REACTION NOTED. NO RESP DISTRESS NOTED AT THIS TIME. WILL MONITOR T/O SHIFT.
[2019-02-18] MEDS: *INSULIN REGULAR(HUMULIN R)HUM 100 UNIT/ML VIAL SQ PRN (21:49)
[2019-02-19] VITALS (31 sets, daily range): BP systolic 90–138; BP diastolic 40–69
[2019-02-19] MEDS: CEFEPIME 2 GM in IV D5W 100 ML IV SCH ×3 (01:10→16:30)
[2019-02-19] MEDS: VANCOMYCIN 1.5 GM in IV D5W 500 ML IV SCH ×2 (01:51→09:00)
[2019-02-19] MEDS: IPRATROPIUM NEB FS 0.5 MG/2.5 ML AMPUL.NEB NEB SCH ×6 (03:04→23:17)
[2019-02-19] MEDS: ALBUTEROL FS 2.5 MG/0.5 ML VIAL.NEB NEB SCH ×6 (03:05→23:17)
[2019-02-19] MEDS: FUROSEMIDE 40 MG/4 ML VIAL IV SCH ×4 (03:38→20:54)
[2019-02-19 04:55] LABS: BASOPHILS % (AUTO) 0.2 % (0.0-2.0); HEMATOCRIT 30 % (33-45); LYMPHOCYTES # (AUTO) 0.7 /CMM (0.8-4.8); LYMPHOCYTES % (AUTO) 9.5 % (20.0-44.0); MEAN CORPUSCULAR HGB CONC 33 g/dl (31.0-36.0); MEAN CORPUSCULAR VOLUME 96 fL (82-100); MONOCYTES # (AUTO) 0.3 /CMM (0.1-1.30); MONOCYTES % (AUTO) 4.7 % (2.0-12.0); NEUTROPHILS # (AUTO) 6.3 /CMM (1.8-8.9); NEUTROPHILS % (AUTO) 85.6 % (43.0-81.0); PLATELET COUNT (AUTO) 208 /CMM (150-450); RED BLOOD CELL COUNT(AUTO) 3.15 MIL/uL (4.0-5.2); WHITE BLOOD COUNT (AUTO) 7.3 K/uL (4.3-11.0)
[2019-02-19 05:04] LABS: CALCIUM, SERUM 9.1 mg/dL (8.5-10.1); CREATININE 1.3 mg/dL (0.6-1.3); MAGNESIUM 2.6 mg/dL (1.8-2.4); PHOSPHORUS 4.3 mg/dL (2.5-4.9); POTASSIUM 5.2 mmol/L (3.5-5.1)
[2019-02-19 05:15] LABS: THYROID STIMULATING HORMONE 0.181 uIU/mL (0.358-3.74)
[2019-02-19] MEDS: BLOOD SUGAR DIAGNOSTIC 1 EACH STRIP VI SCH ×4 (06:36→21:38)
[2019-02-19] MEDS: INSULIN REGULAR, HUMAN 100 UNIT/ML 3 ML VIAL SQ PRN ×3 (06:37→16:53)
[2019-02-19] MEDS: PANTOPRAZOLE 40 MG TABLET.DR PO SCH (06:38)
--- NOTE | 2019-02-19 07:00 | NUR ---
RN NOTES RECEIVED PT ON BED, A/Ox4, ON AVAPS, TOLERATING THE SETTING WELL, NO DISTRESS NOTED, ON TELE SR HR IN 70'S , WHITE DRINING TO GRAVITY, R UPPER ARM PICC LINE SITE CLEAN,DRY AND INTACT, PT ON BARIATRIC BED, INVENTORY ASSISTANT AT THE BEDSIDE, SR UP x3, CALL LIGHT WITHIN EASY REACH, BED LOCKED AND IN LOWEST POSITION, CONTINUE TO MONITOR .
--- NOTE | 2019-02-19 07:17 | NUR ---
PATIENT REMAINS IN NO ACUTE DISTRESS IN BED. PATIENT DID NOT HAVE ANY SIGNIFICANT CHANGE IN CONDITION DURING SHIFT. ALL NEEDS MET, ALL ORDERS CARRIED OUT. PATIENT TOLERATED AVAP SETTING WELL. ENDORSED CARE TO KELLY VALLADARES FOR CONTINUITY OF CARE.
[2019-02-19] MEDS: ENOXAPARIN SODIUM 40 MG/0.4 ML DISP.SYRIN SQ SCH (08:15)
[2019-02-19] MEDS: methylPREDNISolone SOD SUCC 125 MG/2ML VIAL IV SCH ×3 (08:15→16:52)
[2019-02-19] MEDS: CLOTRIMAZOLE 1% 15 GM TUBE TP SCH ×2 (08:18→16:52)
[2019-02-19 08:43] LABS: ABG BASE EXCESS 7.8 mmol/L; ABG OXYGEN SATURATION 95.9 % (92.0-98.5); ABG PCO2 70.6 mmHg (35.0-45.0); ABG PH 7.324 (7.350-7.450); ABG PO2 85.3 mmHg (75.0-100.0); AaDO2 191.8 mmHg; COHb 0.5 % (0.5-1.5); MetHb 0.3 % (0.0-1.5); O2Hb 95.1 % (94.0-97.0); SITE, ABG Right Radial; VENT MODE, BG AVAPS EPAP 12; VT, ABG 600 mL
[2019-02-19] MEDS ORDERED: METFORMIN 500 MG TABLET PO SCH (09:00)
[2019-02-19] MEDS: PIOGLITAZONE HCL 15 MG TABLET PO SCH (09:07)
[2019-02-19] MEDS: FAMOTIDINE (20 MG) 20 MG TABLET PO SCH (09:07)
[2019-02-19] MEDS: LEVETIRACETAM (250 MG) 250 MG TABLET PO SCH (09:07)
[2019-02-19] MEDS: LOSARTAN POTASSIUM 50 MG TABLET PO SCH (09:08)
[2019-02-19] MEDS: GABAPENTIN 300 MG CAPSULE PO SCH ×3 (09:08→16:52)
[2019-02-19] MEDS ORDERED: PANTOPRAZOLE 40 MG TABLET.DR PO STA (09:09)
[2019-02-19] MEDS ORDERED: ENSURE ENLIVE CHOC 237 ML CAN PO SCH (09:30)
--- NOTE | 2019-02-19 10:30 | NUR ---
RN NOTES PT REFUSED TO KEEP HE BP CUFF ON , EDUCATED PT HOW IMPORTANT IS TO GET HER BLOOD PRESSURE. PT STILL REFUSED .
[2019-02-19 11:16] LABS: ABG BASE EXCESS 8.4 mmol/L; ABG OXYGEN SATURATION 91.4 % (92.0-98.5); ABG PCO2 67.2 mmHg (35.0-45.0); ABG PH 7.347 (7.350-7.450); ABG PO2 61.4 mmHg (75.0-100.0); AaDO2 146.5 mmHg; COHb 0.9 % (0.5-1.5); MetHb 0.3 % (0.0-1.5); O2Hb 90.3 % (94.0-97.0); SITE, ABG Left Radial; VENT MODE, BG 5LPM N/C
[2019-02-19] MEDS: GLUCERNA SHAKE 237 ML CAN PO SCH ×2 (11:56→17:00)
--- NOTE | 2019-02-19 14:22 | NUR ---
RN NOTES PT REFUSED BED BATH AND TURNING AND REPOSITIONING , PT STATED SHE FEELS COMFORTABLE. EDUCATED PT HOW IMPORTANT IS TO TURN AND BEING REPOSITIONED , PT STILL REFUSED
[2019-02-19] MEDS: LACTOBACILLUS RHAMNOSUS GG 1 EACH CAP.SPRINK PO SCH (16:52)
[2019-02-19] MEDS: METFORMIN 500 MG TABLET PO SCH (16:52)
[2019-02-19] MEDS: DULOXETINE HCL 30 MG CAPSULE.DR PO SCH (17:07)
--- NOTE | 2019-02-19 18:00 | NUR ---
RN NOTES VSS STABLE, PT ON 5L O2 N/C , O2 SAT WNL, NO DISTRESS NOTED, CHRISTOPHER DRINING TO GRAVITY, R UPPER ARM PICC LINE SITE CLEAN, DRY AND INTACT, WILL ENDORSE TO FIXED INCOME DIRECTOR NURSE FOR CONTINUITY OF CARE.
--- NOTE | 2019-02-19 19:30 | NUR ---
JEWELRY DRILLING MACHINE OPERATOR RCD PT W/DX RESP FAIL; PT IS A/O x4. NSR ON MONITOR. WHITE CATHETER IN PLACE DRAINING LARGE AMOUNT OF YELLOW URINE. MULTIPLE SKIN PROBLEMS W/NEW POSSIBLE ANTIBIOTIC ALLERGY TO BL FOREARMS WITH ORDERS FROM EBENEZER PARRA TO START CLARITIN AND DC ANTIBIOTICS. PT EDUCATED ON CHANGE IN MEDICATION REGIEMEN. PT REFUSES TO BE TURNED OR TO BE PUT ON ROTATION MODE IN HER BED. PT IS VERY SENSITIVE TO TOUCH. EXPLAINED THE NEED FOR TURNING TO PT BUT SHE CONTINUES TO DECLINE. TURBINE MEASUREMENTS ENGINEER AT BEDSIDE.
[2019-02-19] MEDS ORDERED: LORATADINE 10 MG TABLET PO SCH (20:00)
[2019-02-19] MEDS: LORATADINE 10 MG TABLET PO SCH (20:54)
[2019-02-19] MEDS: *INSULIN REGULAR(HUMULIN R)HUM 100 UNIT/ML VIAL SQ PRN (21:41)
--- NOTE | 2019-02-19 22:00 | NUR ---
FLAG SIGNALMAN REPORT GIVEN TO WILLA FOR MARTINA.
[2019-02-20] VITALS (22 sets, daily range): BP systolic 87–124; BP diastolic 41–96
--- NOTE | 2019-02-20 | NUR ---
rn note pts refused to be turned and clean explain risk and benefits ,pts is a/ox3-4, caregiver at bedside.
--- NOTE | 2019-02-20 02:00 | NUR ---
rn notes rt at bedside pts was place to avap setting as tolerated ,sating 96%.no sob no distress noted.
--- NOTE | 2019-02-20 02:43 | NUR ---
agricultural service worker notes received report and tranfer care to ellen rodriguez , pts in bed stable awake no c/o of pain pts on 5 liters of nc of 02 at 5liters sating 94% no sob no distress noted , caregiver at bedside , pts refused to be turned , kept pts clean dry and comfortable. Addendum: 02/20/19 at 0531 by WILLA SEBASTIAN RN received pts with jennifer hughes at 22:00 hrs not 0243 hrs
--- NOTE | 2019-02-20 03:00 | NUR ---
rn notes lasix given as ordered ,pts with no complain of pain , stable ad comfortable in bed.
[2019-02-20] MEDS: FUROSEMIDE 40 MG/4 ML VIAL IV SCH ×3 (03:30→17:29)
--- NOTE | 2019-02-20 04:00 | NUR ---
rn notes pts refused morning care , beverley charge nurse spoke to pts explained risk and benefits verbalized understanding, pt is a/ox3 ,still refusing turning and care. caregiver at bedside
[2019-02-20] MEDS: IPRATROPIUM NEB FS 0.5 MG/2.5 ML AMPUL.NEB NEB SCH ×6 (04:13→23:36)
[2019-02-20] MEDS: ALBUTEROL FS 2.5 MG/0.5 ML VIAL.NEB NEB SCH ×6 (04:13→23:36)
[2019-02-20 04:49] LABS: CALCIUM, SERUM 9.5 mg/dL (8.5-10.1); CREATININE 1.4 mg/dL (0.6-1.3); POTASSIUM 5.2 mmol/L (3.5-5.1)
--- NOTE | 2019-02-20 05:00 | NUR ---
RN NOTES BUN -[address] LANG , PTS ON LASIX WITH NNO AT THIS TIME.
--- NOTE | 2019-02-20 06:00 | NUR ---
RN NOTES PTS REQUEST TO REMOVED AVAP , CHANGE TO 5LITERS NC SATING 94%.
--- NOTE | 2019-02-20 06:52 | NUR ---
RN NOTES PTS WAS ABLE TO TURNED AND REPOSITION.
[2019-02-20] MEDS: PANTOPRAZOLE 40 MG TABLET.DR PO SCH (07:39)
[2019-02-20] MEDS: INSULIN REGULAR, HUMAN 100 UNIT/ML 3 ML VIAL SQ PRN ×3 (07:51→17:26)
[2019-02-20] MEDS: BLOOD SUGAR DIAGNOSTIC 1 EACH STRIP VI SCH ×4 (07:51→21:44)
--- NOTE | 2019-02-20 08:00 | NUR ---
RADAR REPAIRER: pt.is A/Ox4, no c/o now, no pain, on 5L n/c O2, sat. 92-94%, was on AVAP over night, no SOB, SR, SBP over 100, below 150, oriented for POC, repositioned, was in room/updated, see new orders
[2019-02-20] MEDS ORDERED: VANCOMYCIN 1.5 GM in IV D5W 500 ML IV SCH (09:00)
--- NOTE | 2019-02-20 09:00 | NUR ---
WAITER/WAITRESS FIRST CLASS: updated with pt.current condition
[2019-02-20] MEDS: ENOXAPARIN SODIUM 40 MG/0.4 ML DISP.SYRIN SQ SCH (09:01)
[2019-02-20] MEDS: PIOGLITAZONE HCL 15 MG TABLET PO SCH (09:01)
[2019-02-20] MEDS: LACTOBACILLUS RHAMNOSUS GG 1 EACH CAP.SPRINK PO SCH ×2 (09:01→17:24)
[2019-02-20] MEDS: GABAPENTIN 300 MG CAPSULE PO SCH ×3 (09:01→17:25)
[2019-02-20] MEDS: FAMOTIDINE (20 MG) 20 MG TABLET PO SCH (09:02)
[2019-02-20] MEDS: METFORMIN 500 MG TABLET PO SCH ×2 (09:02→17:24)
[2019-02-20] MEDS: LEVETIRACETAM (250 MG) 250 MG TABLET PO SCH (09:02)
[2019-02-20] MEDS: LORATADINE 10 MG TABLET PO SCH (09:03)
[2019-02-20] MEDS: methylPREDNISolone SOD SUCC 125 MG/2ML VIAL IV SCH ×3 (09:03→17:23)
[2019-02-20] MEDS: LOSARTAN POTASSIUM 50 MG TABLET PO SCH (09:03)
[2019-02-20] MEDS: CLOTRIMAZOLE 1% 15 GM TUBE TP SCH ×2 (09:24→17:30)
--- NOTE | 2019-02-20 09:48 | NUR ---
SALES PLANNING MANAGER: called to kitchen to get glucerna
[2019-02-20] MEDS: GLUCERNA SHAKE 237 ML CAN PO SCH ×2 (12:16→17:25)
--- NOTE | 2019-02-20 14:49 | NUR ---
CUSTOMER ACQUISITION SPECIALIST: pt/is A/Ox3, no c/o now, no pain, O2sat. over 92%, no SOB, no c/o coughing now (morning time pt was asking cough syrup, but doesnt want to suppress resp.status and encourage pt to cough up and stip sputum), SR, SBP over 90, good urine out after Lasix, was in room, updated, ordered EKG: SR
--- NOTE | 2019-02-20 16:40 | NUR ---
HOT BALLER: pt.is transferred to [facility]/Tele after full report was given for [facility] RN
[2019-02-20] MEDS: DULOXETINE HCL 30 MG CAPSULE.DR PO SCH (17:24)
--- NOTE | 2019-02-20 19:00 | NUR ---
RN NOTES ENDORSED FOR CONTINUITY OF CARE. NOT ON ANY FORM OF DISTRESS. ALL NEEDS ATTENDED AND MET. CALL LIGHT WITHIN REACH. PRIVATE CAREGIVER AT BEDSIDE.
--- NOTE | 2019-02-20 19:25 | NUR ---
[facility]/RN NOTES PATIENT IN BED, AWAKE, WATCHING TV, ALERT AND ORIENTED X4, IN NO ACUTE DISTRESS, BREATHING EVEN AND UNLABORED. PATIENT ON O2 ORDERED VIA NC, SATURATING 96%. NO SOB NOTED, DENIES ANY PAIN OR DISCOMFORT AT THIS TIME, ON TELE MONITORING WITH SINUS RHYTHM. WHITE CATH IN PLACE, PATENT, DRAINING WELL WITH CLEAR YELLOW URINE. CLEAN AND DRY. SAFETY MAINTAINED, BED AT THE LOWEST LOCKED POSITION, PICC LINE SITE WITH NO S/S OF INFECTION, INFILTRATION. CALL LIGHT WITHIN REACH. CAREGIVER AT BED SIDE. WILL CONTINUE TO MONITOR PER PLAN OF CARE.
--- NOTE | 2019-02-20 19:46 | NUR ---
RT NOTE PT RECEIVED AWAKE/ALERT ON 32% NASAL CANNULA. TX GIVEN VIA MOUTHPIECE, NO ADVERSE REACTIONS NOTED. BIPAP @ BEDSIDE. PT REQUESTED TO BE ON BIPAP AT A LATER TIME. NURSE, EFRAIN, AWARE. WILL CONTINUE TO MONITOR T/O SHIFT.
[2019-02-20] MEDS: *INSULIN REGULAR(HUMULIN R)HUM 100 UNIT/ML VIAL SQ PRN (21:46)
[2019-02-21] VITALS: BP 106/46
[2019-02-21] MEDS: FUROSEMIDE 40 MG/4 ML VIAL IV SCH ×3 (01:00→17:18)
--- NOTE | 2019-02-21 01:34 | NUR ---
HELD LASIX ORDERED DUE TO BLOOD PRESSURE 96/48. WILL CONTINUE TO MONITOR
[2019-02-21] MEDS: IPRATROPIUM NEB FS 0.5 MG/2.5 ML AMPUL.NEB NEB SCH ×6 (03:01→23:06)
[2019-02-21] MEDS: ALBUTEROL FS 2.5 MG/0.5 ML VIAL.NEB NEB SCH ×6 (03:01→23:06)
--- NOTE | 2019-02-21 03:04 | NUR ---
RT NOTE PT PLACED ON AVAPS AT THIS TIME. MACHINE PLUGGED TO RED OUTLET. NOSE MASK SECURED. TX GIVEN, NO ADVERSE REACTIONS NOTED. ALARMS ON AND AUDIBLE. NO SOB NOTED AT THIS TIME. WILL CONTINUE TO MONITOR. CAREGIVER @ BEDSIDE. Addendum: 02/21/19 at 0305 by ARACELIS KING RT Amended: Links added.
[2019-02-21 04:00] VITALS: BP 107/58
--- NOTE | 2019-02-21 06:09 | NUR ---
RT NOTE PT REMOVED FROM BIPAP AT THIS TIME. AWAKE/ALERT. PLACED PT ON 4L NASAL CANNULA. NO SOB NOTED. PT TOLERATED AVAPS MODE WELL.
--- NOTE | 2019-02-21 06:44 | NUR ---
[facility]/RN EXIT NOTES PATIENT REMAINED IN BED, SLEEPING COMFORTABLY, EASILY AROUSABLE, ALERT AND ORIENTED X4, IN NO ACUTE DISTRESS, BREATHING EVEN AND UNLABORED. PATIENT REQUESTED TO TAKE OFF BIPAP AT 6AM, ON NC WITH 5LPM AT THIS TIME, SATURATING 96%. NO SOB NOTED, DENIES ANY PAIN OR DISCOMFORT AT THIS TIME, ON TELE MONITORING WITH SINUS RHYTHM. WHITE CATH IN PLACE, PATENT, DRAINING WELL WITH CLEAR YELLOW URINE, WITH TOTAL OUTPUT 1100. CLEAN AND DRY. SAFETY MAINTAINED, BED AT THE LOWEST LOCKED POSITION, PICC LINE SITE WITH NO S/S OF INFECTION, INFILTRATION. CALL LIGHT WITHIN REACH. CAREGIVER AT BED SIDE. WILL ENDORSE TO AM SHIFT NURSE FOR MARTINA.
--- NOTE | 2019-02-21 07:20 | NUR ---
[facility]/RN OPENING NOTES RECEIVED PATIENT IN BED, AWAKE, ALERT AND WATCHING TV AT THIS TIME. PATIENT IS ALERT AND ORIENTED X4. NO PAIN OR ACUTE DISTRESS AT THIS TIME. RESPIRATION EVEN AND UNLABORED. SKIN IS DRY WARM TO TOUCH. PATIENT ON O2 ORDERED VIA NC, SATURATING 98%. CONTINUES ON TELE MONITORING WITH SINUS RHYTHM. WHITE CATH IN PLACE, PATENT, DRAINING WELL WITH CLEAR YELLOW URINE. ALL NEEDS ANTICIPATED. CALL LIGHT WITHIN REACHED. BED LOCKED AND IN LOWEST POSITION. SAFETY MAINTAINED. CARE GIVERS AT BEDSIDE AT ALL TIMES. WILL CONTINUE TO MONITOR CLOSELY.
[2019-02-21 07:37] LABS: CALCIUM, SERUM 9.3 mg/dL (8.5-10.1); CREATININE 1.3 mg/dL (0.6-1.3); POTASSIUM 4.6 mmol/L (3.5-5.1)
[2019-02-21] MEDS: PANTOPRAZOLE 40 MG TABLET.DR PO SCH (07:46)
[2019-02-21] MEDS: INSULIN REGULAR, HUMAN 100 UNIT/ML 3 ML VIAL SQ PRN ×3 (07:47→17:22)
[2019-02-21] MEDS: BLOOD SUGAR DIAGNOSTIC 1 EACH STRIP VI SCH ×4 (07:48→22:04)
[2019-02-21 08:00] VITALS: BP 98/54
[2019-02-21] MEDS: GLUCERNA SHAKE 237 ML CAN PO SCH ×2 (08:07→17:33)
[2019-02-21] MEDS: LACTOBACILLUS RHAMNOSUS GG 1 EACH CAP.SPRINK PO SCH ×2 (08:39→17:19)
[2019-02-21] MEDS: FAMOTIDINE (20 MG) 20 MG TABLET PO SCH (08:39)
[2019-02-21] MEDS: GABAPENTIN 300 MG CAPSULE PO SCH ×3 (08:39→17:19)
[2019-02-21] MEDS: LORATADINE 10 MG TABLET PO SCH (08:39)
[2019-02-21] MEDS: LEVETIRACETAM (250 MG) 250 MG TABLET PO SCH (08:39)
[2019-02-21] MEDS: LOSARTAN POTASSIUM 50 MG TABLET PO SCH (08:40)
[2019-02-21] MEDS: CLOTRIMAZOLE 1% 15 GM TUBE TP SCH ×2 (08:40→17:20)
[2019-02-21] MEDS: methylPREDNISolone SOD SUCC 125 MG/2ML VIAL IV SCH ×3 (08:40→17:20)
[2019-02-21] MEDS: METFORMIN 500 MG TABLET PO SCH ×2 (08:40→17:19)
[2019-02-21] MEDS: ENOXAPARIN SODIUM 40 MG/0.4 ML DISP.SYRIN SQ SCH (08:42)
--- NOTE | 2019-02-21 08:58 | NUR ---
TELE/RN NOTES MEDICATION LASIX WAS GIVEN EVEN WITH LOW BP PER DR. ROSEN IN THE UNIT. MEDICATION LOSARTAN WAS HELD BP OF 98/54. PATIENT CONTINUES TO REMAIN IN STABLE CONDITION. WILL CONTINUE TO MONITOR CLOSELY.
--- NOTE | 2019-02-21 14:47 | NUR ---
TELE/RN NOTES PER PATIENT, SHE IS EXPERIENCING BURNING SENSATION, WITH FOUL SMELLING URINE. URINE IS CLEAR YELLOW. PAGED AND SPOKE TO DR. BUCK WITH ORDERS TO DO UA. ALL ORDERS NOTED AND CARRIED OUT. WILL CONTINUE TO MONITOR CLOSELY.
[2019-02-21 16:00] VITALS: BP 131/71
[2019-02-21 17:08] LABS: APPEARANCE,URINE CLEAR (CLEAR); BILIRUBIN,URINE NEGATIVE (NEGATIVE); BLOOD, URINE LARGE Ery/uL (NEGATIVE); COLOR,URINE YELLOW (YELLOW); KETONES,URINE NEGATIVE (NEGATIVE); LEUKOCYTE ESTERASE ,URINE NEGATIVE (NEGATIVE); NITRITE, URINE NEGATIVE (NEGATIVE); PH,URINE 5.5 (5.0-8.0); PROTEIN,URINE NEGATIVE (NEGATIVE); UGLUCOSE NEGATIVE (NEGATIVE); UROBILINOGEN,URINE 0.2 EU/dL (0.2)
[2019-02-21] MEDS: DULOXETINE HCL 30 MG CAPSULE.DR PO SCH (17:19)
--- NOTE | 2019-02-21 18:41 | NUR ---
TELE/RN CLOSING NOTES PATIENT CONTINUES TO REMAIN IN STABLE CONDITION THROUGHOUT THE SHIFT. PROVIDED COMFORT AND SAFETY. CAREGIVER AT BEDSIDE AT ALL TIMES. CONTINUES ON TELE MONITORING WITH SINUS RHYTHM. WHITE CATH IN PLACE, PATENT, DRAINING WELL WITH CLEAR YELLOW URINE. URINE WS ALSO SENT TO LAB FOR URINALYSIS. PATIENT ABLE TO TOLERATE MEALS AND MEDS WELL. ALL NEEDS ANTICIPATED. CALL LIGHT WITHIN REACHED. BED LOCKED AND IN LOWEST POSITION. SAFETY MAINTAINED. CARE GIVERS AT BEDSIDE AT ALL TIMES. WILL CONTINUE TO MONITOR CLOSELY. ENDORSED TO PM NURSE FOR MARTINA.
[2019-02-21 20:00] VITALS: BP 119/62
--- NOTE | 2019-02-21 20:00 | NUR ---
RN NOTES RECEIVED PT. AWAKE ON BED, A/OX4, MORBID OBESITY , SR ON TELE MONITOR HR-100/ F/C DRAINING CLEAR YELLOW URINE, DENIES PAIN, NO SOB, CALL LIGHT WITHIN REACH, [id number], CONTINUE TO MONITOR
[2019-02-21] MEDS: ATORVASTATIN 10 MG TABLET PO SCH (22:04)
[2019-02-21] MEDS: *INSULIN REGULAR(HUMULIN R)HUM 100 UNIT/ML VIAL SQ PRN (22:07)
[2019-02-21 22:38] VITALS: BP 119/62
[2019-02-22] VITALS (7 sets, daily range): BP systolic 115–134; BP diastolic 57–68
[2019-02-22] MEDS: FUROSEMIDE 40 MG/4 ML VIAL IV SCH ×3 (01:10→16:18)
[2019-02-22] MEDS: IPRATROPIUM NEB FS 0.5 MG/2.5 ML AMPUL.NEB NEB SCH ×5 (03:46→20:09)
[2019-02-22] MEDS: ALBUTEROL FS 2.5 MG/0.5 ML VIAL.NEB NEB SCH ×5 (03:46→20:09)
--- NOTE | 2019-02-22 05:47 | NUR ---
PATIENT RECEIVED ON 4LNC THEN PLACED ON AVAPS 14, 600 VT, 50% WITH A LARGE ORONASAL MASK. GIVEN HHN AND IN-LINE TREATMENTS WITH NO ADVERSE REACTIONS. AMBU BAG AT BEDSIDE. AVAPS ALARM AUDIBLE AND VISIBLE. Addendum: 02/22/19 at 0551 by WENDI QUIÑONES RT Amended: Links added.
[2019-02-22 06:16] LABS: CALCIUM, SERUM 9.6 mg/dL (8.5-10.1); CREATININE 1.2 mg/dL (0.6-1.3); POTASSIUM 4.5 mmol/L (3.5-5.1)
--- NOTE | 2019-02-22 06:36 | NUR ---
RN NOTES SLEEPING BUT AROUSABLE, CAREGIVER AT BEDSIDE, PICC LINE IN PLACE, NOT IN DISTRESS, NO PAIN NOTED, PT. WANTS TO HAVE HER MORNING CARE AT 0800AM, [id number], PT. NEEDS ATTENDED
--- NOTE | 2019-02-22 07:20 | NUR ---
tele marketing executive notes Pts off avap PER PTS REQUEST , PTS PLACE TO O2 VIA NC AT 5LITERS SATING 96%, TRANSMISSION ASSEMBLER AT BEDSIDE , PTS WITH NO SOB NO DISTRESS NOTED.
--- NOTE | 2019-02-22 07:36 | NUR ---
RN OPENING NOTES RECEIVED PATIENT RESTING COMFORTABLY IN BED WITH CAREGIVER AT BEDSIDE. SHE IS AOX4, VERBAL, AND BEDBOUND. SHE IS ON 2L OF OXYGEN VIA NC AFTER NOCTURNAL BIPAP, TOLERATING WELL. TELE MONITOR SHOWING SR. WHITE CATH IS INTACT, DRAINING CLEAR AND YELLOW URINE. SHE IS ON CARDIAC DIET. MULTIPLE SKIN RASHES, WILL ADDRESS ACCORDING TO WOUND CARE PLAN. JAC PICC LINE IS PATENT AND INTACT. SAFETY MEASURES HAVE BEEN IMPLEMENTED, CALL LIGHT IS WITHIN REACH, SIDE RIALS UP X2, WILL CONTINUE TO MONITOR FOR ANY CHANGES.
[2019-02-22] MEDS: PANTOPRAZOLE 40 MG TABLET.DR PO SCH (07:42)
[2019-02-22] MEDS: GLUCERNA SHAKE 237 ML CAN PO SCH ×2 (07:46→17:42)
[2019-02-22] MEDS: BLOOD SUGAR DIAGNOSTIC 1 EACH STRIP VI SCH ×4 (07:46→22:56)
[2019-02-22] MEDS: *INSULIN REGULAR(HUMULIN R)HUM 100 UNIT/ML VIAL SQ PRN ×3 (07:47→22:57)
[2019-02-22] MEDS: ENOXAPARIN SODIUM 40 MG/0.4 ML DISP.SYRIN SQ SCH (08:52)
[2019-02-22] MEDS: FAMOTIDINE (20 MG) 20 MG TABLET PO SCH (08:54)
[2019-02-22] MEDS: GABAPENTIN 300 MG CAPSULE PO SCH ×3 (08:54→16:18)
[2019-02-22] MEDS: methylPREDNISolone SOD SUCC 125 MG/2ML VIAL IV SCH ×3 (08:55→16:18)
[2019-02-22] MEDS: LACTOBACILLUS RHAMNOSUS GG 1 EACH CAP.SPRINK PO SCH ×2 (08:55→16:18)
[2019-02-22] MEDS: METFORMIN 500 MG TABLET PO SCH ×2 (08:55→16:18)
[2019-02-22] MEDS: LEVETIRACETAM (250 MG) 250 MG TABLET PO SCH (08:56)
[2019-02-22] MEDS: LOSARTAN POTASSIUM 50 MG TABLET PO SCH (08:59)
[2019-02-22] MEDS: LORATADINE 10 MG TABLET PO SCH (08:59)
[2019-02-22] MEDS: CLOTRIMAZOLE 1% 15 GM TUBE TP SCH ×2 (09:09→16:19)
[2019-02-22] MEDS: INSULIN REGULAR, HUMAN 100 UNIT/ML 3 ML VIAL SQ PRN (12:12)
[2019-02-22] MEDS: DULOXETINE HCL 30 MG CAPSULE.DR PO SCH (18:00)
--- NOTE | 2019-02-22 18:46 | NUR ---
RN CLOSING NOTES PATIENT IS RESTING COMFORTABLY IN BED AT THIS TIME WITH PRIVATE CAREGIVERS AT BEDSIDE. PT SHOWS NO S/SX OF DISTRESS. NO ACUTE CHANGES OCCURRED THROUGHOUT THE NIGHT, VITAL SIGNS ARE STABLE, PT NEEDS HAVE BEEN MET. SAFETY MEASURES HAVE BEEN IMPLEMENTED, CALL LIGHT IS WITHIN REACH, BED IS IN LOWEST AND LOCKED POSITION, SIDE RAIL UP X2, WILL ENDORSE TO NIGHTSHIFT RN FOR CONTINUITY OF CARE.
--- NOTE | 2019-02-22 19:30 | NUR ---
TELE/RN NOTES RECEIVED PT. LYING IN BED. PT. IS AWAKE, ALERT AND ORIENTED X4. BREATHING EVEN AND UNLABORED ON 5LPM O2 VIA NC. NO SOB, RESPIRATORY DISTRESS OR COMPLAINTS OF PAIN NOTED AT THIS TIME. PT. WITH EXTERNAL HOOK UP PRESENT AND INTACT, CURRENT RHYTHM = SINUS RHYTHM HR 95. PT. WITH RIGHT UPPER ARM PICC PRESENT, PATENT AND INTACT. PT. WITH WHITE CATHETER PRESENT, PATENT AND INTACT. PT. WITH CAREGIVER PRESENT AT BEDSIDE. BED LOCKED AND IN LOWEST POSITION, SIDE RAILS UP X3, BED ALARM ON, CALL LIGHT WITHIN REACH, WILL CONTINUE TO MONITOR.
[2019-02-22] MEDS: ATORVASTATIN 10 MG TABLET PO SCH (23:09)
[2019-02-23] VITALS: BP 125/65
[2019-02-23] MEDS: IPRATROPIUM NEB FS 0.5 MG/2.5 ML AMPUL.NEB NEB SCH ×6 (00:10→19:46)
[2019-02-23] MEDS: ALBUTEROL FS 2.5 MG/0.5 ML VIAL.NEB NEB SCH ×6 (00:10→19:46)
[2019-02-23 04:00] VITALS: BP 131/66
--- NOTE | 2019-02-23 05:27 | NUR ---
RT NOTE Pt placed on Bipap @ 0320 per pt's request. Pt shows no signs of resp distress or sob. Pt placed on settings as charted per md orders. Alarms are set and audible. vent plugged into red outlet. Ambu bag bedside. will continue to monitor closely. Addendum: 02/23/19 at 0528 by THOMAS BUTTS RT Amended: Links added.
--- NOTE | 2019-02-23 06:57 | NUR ---
TELE/RN NOTES PT. IS LYING IN BED RESTING. BREATHING EVEN AND UNLABORED ON 4LPM O2 VIA NC. NO SOB, RESPIRATORY DISTRESS OR COMPLAINTS OF PAIN NOTED AT THIS TIME AND THROUGHOUT SHIFT. PT. WITH EXTERNAL TIP PRINTER PRESENT AND INTACT, CURRENT RHYTHM = SINUS RHYTHM HR 75. PT. WITH RIGHT UPPER ARM PICC PRESENT, PATENT AND INTACT. PT. WITH WHITE CATHETER PRESENT, PATENT AND INTACT. ALL PT. NEEDS MET. PT. REFUSED PHOTOS TO BE TAKEN, REFUSED BED BATH AND REFUSED TURNING AND REPOSITIONING. PT. WITH CAREGIVER PRESENT AT BEDSIDE. BED LOCKED AND IN LOWEST POSITION, SIDE RAILS UP X3, BED ALARM ON, CALL LIGHT WITHIN REACH, WILL ENDORSE TO DAYSHIFT NURSE FOR CONTINUITY OF CARE.
[2019-02-23 07:11] LABS: BASOPHILS % (AUTO) 0.2 % (0.0-2.0); EOSINOPHILS % (AUTO) 0.3 % (0.0-6.0); HEMATOCRIT 36 % (33-45); HEMOGLOBIN 11.8 g/dL (11.5-14.8); LYMPHOCYTES # (AUTO) 1.1 /CMM (0.8-4.8); LYMPHOCYTES % (AUTO) 14.3 % (20.0-44.0); MEAN CORPUSCULAR HGB CONC 33 g/dl (31.0-36.0); MEAN CORPUSCULAR VOLUME 95 fL (82-100); MONOCYTES # (AUTO) 0.7 /CMM (0.1-1.30); MONOCYTES % (AUTO) 9.7 % (2.0-12.0); NEUTROPHILS # (AUTO) 5.6 /CMM (1.8-8.9); NEUTROPHILS % (AUTO) 75.5 % (43.0-81.0); PLATELET COUNT (AUTO) 244 /CMM (150-450); RED BLOOD CELL COUNT(AUTO) 3.81 MIL/uL (4.0-5.2); WHITE BLOOD COUNT (AUTO) 7.5 K/uL (4.3-11.0)
[2019-02-23 07:35] LABS: CALCIUM, SERUM 9.1 mg/dL (8.5-10.1); CREATININE 1.3 mg/dL (0.6-1.3); MAGNESIUM 2.1 mg/dL (1.8-2.4); PHOSPHORUS 3.2 mg/dL (2.5-4.9); POTASSIUM 4.1 mmol/L (3.5-5.1)
[2019-02-23 08:00] VITALS: BP 149/74
--- NOTE | 2019-02-23 08:00 | NUR ---
RUG WASHER NOTES PATIENT IN BED RESTING NO SOB OR ACUTE DISTRESS NOTED. PATIENT ALERT, ORIENTED X4. PATIENT WITH PICC LINE INTACT PATENT. BED IN LOW LOCKED POSITION. CALL LIGHT WITHIN REACH. WILL CONTINUE TO MONITOR.
[2019-02-23] MEDS: BLOOD SUGAR DIAGNOSTIC 1 EACH STRIP VI SCH ×4 (08:21→21:23)
[2019-02-23] MEDS: LORATADINE 10 MG TABLET PO SCH (08:22)
[2019-02-23] MEDS: PANTOPRAZOLE 40 MG TABLET.DR PO SCH (08:22)
[2019-02-23] MEDS: METFORMIN 500 MG TABLET PO SCH ×2 (08:22→17:33)
[2019-02-23] MEDS: FUROSEMIDE 40 MG/4 ML VIAL IV SCH ×2 (08:22→17:32)
[2019-02-23] MEDS: LEVETIRACETAM (250 MG) 250 MG TABLET PO SCH (08:22)
[2019-02-23] MEDS: GABAPENTIN 300 MG CAPSULE PO SCH ×3 (08:22→17:33)
[2019-02-23] MEDS: methylPREDNISolone SOD SUCC 125 MG/2ML VIAL IV SCH ×2 (08:23→12:11)
[2019-02-23] MEDS: LOSARTAN POTASSIUM 50 MG TABLET PO SCH (08:23)
[2019-02-23] MEDS: FAMOTIDINE (20 MG) 20 MG TABLET PO SCH (08:23)
[2019-02-23] MEDS: LACTOBACILLUS RHAMNOSUS GG 1 EACH CAP.SPRINK PO SCH ×2 (08:23→17:33)
[2019-02-23] MEDS: GLUCERNA SHAKE 237 ML CAN PO SCH ×2 (08:24→17:00)
[2019-02-23] MEDS: CLOTRIMAZOLE 1% 15 GM TUBE TP SCH ×2 (08:25→17:34)
[2019-02-23] MEDS: ENOXAPARIN SODIUM 40 MG/0.4 ML DISP.SYRIN SQ SCH (08:27)
[2019-02-23 08:46] LABS: LYMPHOCYTES % (MANUAL) 21 % (16-48); MONOCYTES % (MANUAL) 8 % (0-11.0); NEUTROPHILS % (MANUAL) 71 (42-76)
[2019-02-23 12:00] VITALS: BP 126/71
[2019-02-23] MEDS: GUAIFENESIN LA 600 MG TABLET.SA PO SCH ×2 (12:06→21:14)
[2019-02-23] MEDS: INSULIN REGULAR, HUMAN 100 UNIT/ML 3 ML VIAL SQ PRN ×2 (12:10→17:41)
[2019-02-23 14:00] LABS: ABG BASE EXCESS 16.4 mmol/L; ABG OXYGEN SATURATION 91.1 % (92.0-98.5); ABG PH 7.377 (7.350-7.450); ABG PO2 59.7 mmHg (75.0-100.0); COHb 0.9 % (0.5-1.5); MetHb 0.4 % (0.0-1.5); O2Hb 89.9 % (94.0-97.0); SITE, ABG Left Radial; VENT MODE, BG Nasal Cannula
--- NOTE | 2019-02-23 14:00 | NUR ---
EDUCATIONAL AIDE NOTES AGB RESULTS OBTAINED DR. MCCRAY MADE AWARE NO NEW ORDERS OBTAINED. WILL CONTINUE TO MONITOR.
[2019-02-23 16:00] VITALS: BP 118/64
[2019-02-23] MEDS: DULOXETINE HCL 30 MG CAPSULE.DR PO SCH (17:33)
--- NOTE | 2019-02-23 19:30 | NUR ---
SHINGLER NOTES, PATIENT RESTING IN BED, A/A X4 ABLE TO VERBALIZED NEEDS AND CONCERNS, ON 4LPM O2 VIA NC, BREATHING EVEN AND UNLABORED, NO SOB/ACUTE DISTRESS NOTED, S/S OF C/O PAIN OR DISCOMFORT NOTED AT THIS TIME, SINUS RHYTHM HR 90S AT THIS TIME, .JAC PICC PRESENT, PATENT AND INTACT, ALL NEEDS PROVIDED, F/C PRESENT PATENCY INTACT, CAREGIVER PRESENT AT BEDSIDE, BED LOCKED AND IN LOWEST POSITION, SIDE RAILS UP X3, BED ALARM ON, CALL LIGHT WITHIN REACH, WILL CONTINUE TO MONITOR CLOSELY.
--- NOTE | 2019-02-23 19:43 | NUR ---
FURNACE TENDER NOTES PATIENT IN BED RESTING NO SOB OR ACUTE DISTRESS NOTED. ALL DUE MEDICATIONS ADMINISTERED. ALL NEEDS MET. ENDORSED CARE TO PM SHIFT. PATIENT REQUESTS PRIVATE CAREGIVERS TO CARE FOR HER PERSONAL CARE AND HYGIENE, CAREGIVERS TUNED AND REPOSITIONED, GAVE A BED BATH. ENDORSED CARE TO PM SHIFT.
[2019-02-23 20:00] VITALS: BP 119/55
[2019-02-23] MEDS: ATORVASTATIN 10 MG TABLET PO SCH (21:15)
[2019-02-23] MEDS: *INSULIN REGULAR(HUMULIN R)HUM 100 UNIT/ML VIAL SQ PRN (21:25)
[2019-02-24] VITALS (7 sets, daily range): BP systolic 99–129; BP diastolic 41–73
[2019-02-24] MEDS: IPRATROPIUM NEB FS 0.5 MG/2.5 ML AMPUL.NEB NEB SCH ×7 (00:11→23:09)
[2019-02-24] MEDS: ALBUTEROL FS 2.5 MG/0.5 ML VIAL.NEB NEB SCH ×7 (00:11→23:09)
--- NOTE | 2019-02-24 06:35 | NUR ---
FINISH OFF OPERATOR NOTES PATIENT IN BED CONT ON NONINVASIVE VENT SINCE 2AM, ALL NEEDS PROVIDED, CAREGIVER AT BEDSIDE, REFUSED CARE THIS MORNING, NO SIGNIFICANT CHANGE IN CONDITION AT THIS TIME, WILL ENDORSE CONTINUITY OF CARE O ONCOMING NURSE.
[2019-02-24 06:36] LABS: BASOPHILS % (AUTO) 0.1 % (0.0-2.0); EOSINOPHILS % (AUTO) 0.8 % (0.0-6.0); HEMATOCRIT 37 % (33-45); HEMOGLOBIN 11.9 g/dL (11.5-14.8); LYMPHOCYTES # (AUTO) 1.5 /CMM (0.8-4.8); MEAN CORPUSCULAR HGB CONC 32 g/dl (31.0-36.0); MEAN CORPUSCULAR VOLUME 96 fL (82-100); MONOCYTES # (AUTO) 0.6 /CMM (0.1-1.30); MONOCYTES % (AUTO) 7.3 % (2.0-12.0); NEUTROPHILS # (AUTO) 5.6 /CMM (1.8-8.9); NEUTROPHILS % (AUTO) 72.8 % (43.0-81.0); PLATELET COUNT (AUTO) 259 /CMM (150-450); RED BLOOD CELL COUNT(AUTO) 3.89 MIL/uL (4.0-5.2); WHITE BLOOD COUNT (AUTO) 7.7 K/uL (4.3-11.0)
[2019-02-24 06:52] LABS: CALCIUM, SERUM 9.5 mg/dL (8.5-10.1); CREATININE 1.2 mg/dL (0.6-1.3)
[2019-02-24] MEDS: PANTOPRAZOLE 40 MG TABLET.DR PO SCH (07:24)
--- NOTE | 2019-02-24 07:30 | NUR ---
TELE/RN OPENING NOTES PATIENT IS AWAKE, ALERT AND ABLE TO MAKE NEEDS KNOWN. PATIENT IS ALERT AND ORIENTED X4. NO PAIN OR ACUTE DISTRESS AT THIS TIME. RESPIRATION EVEN AND UNLABORED. SKIN IS DRY WARM TO TOUCH. PATIENT CONTINUES TO BE IN SINUS RHYTHM HR 85S AT THIS TIME. PATIENT NOTED WITH IV ACCESS ON JAC PICC LINE, PATENT AND INTACT. NO S/S OF INFECTION OR INFILTRATION. ALL NEEDS ANTICIPATED. CALL LIGHT WITHIN REACHED. BED LOCKED AND IN LOWEST POSITION. SAFETY MAINTAINED. CAREGIVER AT BEDSIDE AT ALL TIMES. PLAN OF CARE DISCUSSED. WILL CONTINUE TO MONITOR CLOSELY.
[2019-02-24] MEDS: BLOOD SUGAR DIAGNOSTIC 1 EACH STRIP VI SCH ×4 (07:44→21:19)
[2019-02-24] MEDS: GLUCERNA SHAKE 237 ML CAN PO SCH ×2 (07:46→16:33)
[2019-02-24 07:48] LABS: EOSINOPHILS % (MANUAL) 2 % (0-4); LYMPHOCYTES % (MANUAL) 16 % (16-48); MONOCYTES % (MANUAL) 7 % (0-11.0); NEUTROPHILS % (MANUAL) 75 (42-76)
--- NOTE | 2019-02-24 08:10 | NUR ---
TELE/RN NOTES WHILE DR. MCCRAY WAS MAKING ROUNDS, INFORMED HIM ABOUT THE CRITICAL CO2 LEVEL OF THE PATIENT. NO NEW ORDERS AT THIS TIME. WILL CONTINUE TO MONITOR CLOSELY.
[2019-02-24] MEDS: FUROSEMIDE 40 MG/4 ML VIAL IV SCH (09:10)
[2019-02-24] MEDS: LORATADINE 10 MG TABLET PO SCH (09:11)
[2019-02-24] MEDS: methylPREDNISolone SOD SUCC 125 MG/2ML VIAL IV SCH (09:11)
[2019-02-24] MEDS: LACTOBACILLUS RHAMNOSUS GG 1 EACH CAP.SPRINK PO SCH ×2 (09:11→16:29)
[2019-02-24] MEDS: FAMOTIDINE (20 MG) 20 MG TABLET PO SCH (09:11)
[2019-02-24] MEDS: LEVETIRACETAM (250 MG) 250 MG TABLET PO SCH (09:11)
[2019-02-24] MEDS: GABAPENTIN 300 MG CAPSULE PO SCH ×3 (09:12→16:29)
[2019-02-24] MEDS: CLOTRIMAZOLE 1% 15 GM TUBE TP SCH ×2 (09:12→16:29)
[2019-02-24] MEDS: LOSARTAN POTASSIUM 50 MG TABLET PO SCH (09:12)
[2019-02-24] MEDS: GUAIFENESIN LA 600 MG TABLET.SA PO SCH ×2 (09:12→21:18)
[2019-02-24] MEDS: METFORMIN 500 MG TABLET PO SCH ×2 (09:12→16:29)
[2019-02-24] MEDS: ENOXAPARIN SODIUM 40 MG/0.4 ML DISP.SYRIN SQ SCH (09:15)
[2019-02-24] MEDS: INSULIN REGULAR, HUMAN 100 UNIT/ML 3 ML VIAL SQ PRN ×2 (11:45→17:19)
--- NOTE | 2019-02-24 15:51 | NUR ---
TELE/RN NOTES PATIENT WAS SAYING THAT THE BED KEEPS ON CYCLING THROUGH ALL THE MODES AND SHE JUST WANTS IN ON STATIC MODE. TRIED TO FIX THE PROBLEM BUT THE PUMP MIGHT BE FAULTY. CALLED THE NUMBER ON THE PUMP FOR [employer]. SPOKE TO JOSE AND ACCORDING TO HIM HE WILL SEND THE DRYING SUPERVISOR TECH DESIGNATED TO THE LOCATION OF THE HOSPITAL. AWAITING FOR HIS ARRIVAL.
[2019-02-24] MEDS: DULOXETINE HCL 30 MG CAPSULE.DR PO SCH (17:20)
--- NOTE | 2019-02-24 18:57 | NUR ---
TELE/RN CLOSING NOTES PATIENT CONTINUES TO REMAIN IN STABLE CONDITION THROUGHOUT THE SHIFT. PROVIDED COMFORT AND SAFETY. PATIENT CONTINUES TO BE IN SINUS RHYTHM HR 80S AT THIS TIME. PATIENT NOTED WITH IV ACCESS ON JAC PICC LINE, PATENT AND INTACT. NO S/S OF INFECTION OR INFILTRATION. ALL NEEDS ANTICIPATED. CALL LIGHT WITHIN REACHED. BED LOCKED AND IN LOWEST POSITION. SAFETY MAINTAINED. CAREGIVER AT BEDSIDE AT ALL TIMES. PLAN OF CARE DISCUSSED. WILL CONTINUE TO MONITOR CLOSELY. ENDORSED TO PM NURSE FOR MARTINA.
--- NOTE | 2019-02-24 19:30 | NUR ---
FUSELAGE FRAMER OPENING NOTE PATIENT IN BED WITH NO SIGN OF ANY DISTRESS AT THE MOMENT. PATIENT IS ON 5L OF 02 WITH SAT AT 93%. PATIENT IS NON AMBULATORY WITH A GORE STITCHER AT BEDSIDE. WHITE CATHETER IS PATENT WITH NO OBSTRUCTION. PUA PICC WITH 3 PORTS, AND ONE PORT FLUSHING WELL. PATIENT ON MONITOR SHOWS NSR WITH HR IN THE 90"S. ALL SAFETY PRECAUTIONS HAVE BEEN APPLIED WILL CONTINUE TO MONITOR.
[2019-02-24] MEDS: ATORVASTATIN 10 MG TABLET PO SCH (21:18)
[2019-02-25] VITALS: BP 108/45
[2019-02-25] MEDS: ACETAMINOPHEN 325 MG TABLET PO PRN (00:18)
[2019-02-25] MEDS: MENTHOL/CETYLPYRD (CEPACOL) 1 LOZ LOZENGE PO PRN ×2 (01:08→09:19)
[2019-02-25 04:00] VITALS: BP 89/32
[2019-02-25] MEDS: IPRATROPIUM NEB FS 0.5 MG/2.5 ML AMPUL.NEB NEB SCH ×6 (04:07→23:59)
[2019-02-25] MEDS: ALBUTEROL FS 2.5 MG/0.5 ML VIAL.NEB NEB SCH ×6 (04:07→23:59)
--- NOTE | 2019-02-25 04:35 | NUR ---
DIETICIAN NOTE PATIENT BP DROPPED TO 89/[address] LANGE AND ORDERED NORMAL SALINE @75ML/HR ONE TIME DOSE. PERFORMED READ BACK TO CONFIRM
[2019-02-25] MEDS ORDERED: IV NS 0.9% 1,000 ML IV ONE (05:00)
--- NOTE | 2019-02-25 07:34 | NUR ---
DIRECT SUPPORT WORKER CLOSING NOTES PATIENT IN BED WITH NO SIGN OF ANY DISTRESS. PATIENT CONTINUES TO BE ON O2 WITH 5L WITH OW SAT AT 93%. LOBBY PORTER AT BEDSIDE. PATIENT DOES NO COMPLAIN OF ANY PAIN. WHITE INTACT. ALL SAFETY PRECAUTIONS ARE APPLIED. ENDORSED PATIENT TO MORNING SHIFT NURSE.
--- NOTE | 2019-02-25 07:35 | NUR ---
RATING SPECIALIST NOTES PT IN BED, AWAKE, ALERT AND ORIENTED, NO COMPLAINT OF PAIN, NOT IN DISTRESS, CALL LIGHT WITHIN REACH, CAREGIVER AT BEDSIDE, NEEDS ATTENDED, F/C DRAINING WELL WITH CLEAR, YELLOW URINE.
[2019-02-25 08:00] VITALS: BP 109/50
[2019-02-25] MEDS: PANTOPRAZOLE 40 MG TABLET.DR PO SCH (08:05)
[2019-02-25] MEDS: BLOOD SUGAR DIAGNOSTIC 1 EACH STRIP VI SCH ×4 (08:05→21:15)
[2019-02-25] MEDS: FAMOTIDINE (20 MG) 20 MG TABLET PO SCH (08:05)
[2019-02-25] MEDS: GLUCERNA SHAKE 237 ML CAN PO SCH ×2 (08:09→16:13)
[2019-02-25] MEDS: LOSARTAN POTASSIUM 50 MG TABLET PO SCH (09:00)
[2019-02-25] MEDS: LORATADINE 10 MG TABLET PO SCH ×2 (09:00→09:19)
[2019-02-25] MEDS: FUROSEMIDE 40 MG/4 ML VIAL IV SCH (09:00)
[2019-02-25] MEDS: methylPREDNISolone SOD SUCC 125 MG/2ML VIAL IV SCH (09:18)
[2019-02-25] MEDS: GABAPENTIN 300 MG CAPSULE PO SCH ×3 (09:18→17:53)
[2019-02-25] MEDS: LACTOBACILLUS RHAMNOSUS GG 1 EACH CAP.SPRINK PO SCH ×2 (09:19→17:53)
[2019-02-25] MEDS: GUAIFENESIN LA 600 MG TABLET.SA PO SCH ×2 (09:19→21:16)
[2019-02-25] MEDS: METFORMIN 500 MG TABLET PO SCH ×2 (09:19→17:54)
[2019-02-25] MEDS: LEVETIRACETAM (250 MG) 250 MG TABLET PO SCH (09:19)
[2019-02-25] MEDS: ENOXAPARIN SODIUM 40 MG/0.4 ML DISP.SYRIN SQ SCH (09:38)
[2019-02-25 09:48] LABS: CALCIUM, SERUM 8.6 mg/dL (8.5-10.1); MAGNESIUM 1.8 mg/dL (1.8-2.4); POTASSIUM 4.1 mmol/L (3.5-5.1)
[2019-02-25] MEDS: CLOTRIMAZOLE 1% 15 GM TUBE TP SCH ×2 (10:12→16:13)
[2019-02-25 12:00] VITALS: BP 116/55
[2019-02-25] MEDS: INSULIN REGULAR, HUMAN 100 UNIT/ML 3 ML VIAL SQ PRN ×2 (12:18→17:59)
--- NOTE | 2019-02-25 13:21 | NUR ---
SECURITY OPERATIONS MANAGER NOTES PT IN BED, RESTING, ALERT AND ORIENTED, NO COMPLAINT OF PAIN OR ANY DISCOMFORT, IV FLUIDS INFUSING, SEEN BY DR. LOAIZA, PLAN OF CARE DISCUSSED WITH PT, CALL LIGHT WITHIN REACH, CAREGIVER AT BEDSIDE, ALL NEEDS ATTENDED.
[2019-02-25 16:00] VITALS: BP 114/45
[2019-02-25] MEDS: DULOXETINE HCL 30 MG CAPSULE.DR PO SCH (17:54)
--- NOTE | 2019-02-25 18:10 | NUR ---
OWNER ORAL SURGEON NOTES PT IN BED, AWAKE, ALERT AND ORIENTED, WATCHING TV, NO COMPLAINT OF PAIN OR ANY DISCOMFORT, NO SOB, PM MEDS GIVEN ORDERED, CALL LIGHT WITHIN REACH, ALL NEEDS ATTENDED.
--- NOTE | 2019-02-25 19:25 | NUR ---
TELE/RN NOTES Patient received in bed, awake, A/O x4, in no acute distress, breathing even and unlabored. no SOB noted. Denies any pain or discomfort at this time, Patient on tele monitoring with Sinus rhythm. IV site and PICC line with no S/S of infection infiltration, fluid running as ordered. F/C in place, draining well with clear yellow urine, Safety maintained, bed at the lowest locked position. Call light within reach. Caregiver at bed side. Will continue to monitor as per plan of care.
[2019-02-25 20:00] VITALS: BP 103/51
[2019-02-25] MEDS: ATORVASTATIN 10 MG TABLET PO SCH (21:16)
[2019-02-25] MEDS: *INSULIN REGULAR(HUMULIN R)HUM 100 UNIT/ML VIAL SQ PRN (21:16)
[2019-02-26] VITALS: BP 107/56
[2019-02-26] MEDS: ALBUTEROL FS 2.5 MG/0.5 ML VIAL.NEB NEB SCH ×4 (02:56→16:39)
[2019-02-26] MEDS: IPRATROPIUM NEB FS 0.5 MG/2.5 ML AMPUL.NEB NEB SCH ×4 (02:56→16:38)
[2019-02-26 04:00] VITALS: BP_SYST 108; BP_DIAS 42; BP_DIAS 52
--- NOTE | 2019-02-26 06:57 | NUR ---
TELE/RN NOTES Patient remained in bed, sleeping comfortably at this time, easily arousable, In no acute distress, breathing even and unlabored. no SOB noted. on BIPAP with prescribed settings, Denies any pain or discomfort at this time, Patient on tele monitoring with Sinus rhythm. IV site and PICC line with no S/S of infection infiltration, fluid running as ordered. F/C in place, draining well with clear yellow urine, Safety maintained, bed at the lowest locked position. Call light within reach. Caregiver at bed side. will endorse to am Shift nurse for MARTINA.
--- NOTE | 2019-02-26 07:00 | NUR ---
TRACK DRESSER OPENING NOTE: RECEIVED PATIENT IN BED. AWAKE, ALERT AND ORIENTED X4. ON CONT. O2 VIA NC, TOLERATING WELL. ON CARDIAC MONITORING AND NOTED WITH SINUS RHYTHM AT 76BPM. GENERALIZED EDEMA NOTED. WHITE CATHETER IN PLACE, DRAINING YELLOW URINE. WITH JAC PICC LINE, PATENT. SITE CLEAN, DRY AND INTACT. NO PAIN REPORTED OR NOTED. CALL LIGHT IN REACH, SIDE RAILS UP, BED LOCKED, LOW AND AT SEMI-PATE'S POSITION. WILL CONTINUE TO MONITOR.
[2019-02-26 08:00] VITALS: BP 117/47
[2019-02-26] MEDS: BLOOD SUGAR DIAGNOSTIC 1 EACH STRIP VI SCH ×3 (08:23→17:40)
[2019-02-26] MEDS: PANTOPRAZOLE 40 MG TABLET.DR PO SCH (08:30)
[2019-02-26] MEDS: GLUCERNA SHAKE 237 ML CAN PO SCH ×2 (08:30→17:44)
[2019-02-26] MEDS: LOSARTAN POTASSIUM 50 MG TABLET PO SCH (09:00)
[2019-02-26] MEDS: FUROSEMIDE 40 MG/4 ML VIAL IV SCH (09:23)
[2019-02-26] MEDS: FAMOTIDINE (20 MG) 20 MG TABLET PO SCH (09:36)
[2019-02-26] MEDS: LEVETIRACETAM (250 MG) 250 MG TABLET PO SCH (09:36)
[2019-02-26] MEDS: GUAIFENESIN LA 600 MG TABLET.SA PO SCH (09:36)
[2019-02-26] MEDS: methylPREDNISolone SOD SUCC 125 MG/2ML VIAL IV SCH (09:36)
[2019-02-26] MEDS: LACTOBACILLUS RHAMNOSUS GG 1 EACH CAP.SPRINK PO SCH ×2 (09:37→17:40)
[2019-02-26] MEDS: CLOTRIMAZOLE 1% 15 GM TUBE TP SCH ×2 (09:37→17:40)
[2019-02-26] MEDS: GABAPENTIN 300 MG CAPSULE PO SCH ×3 (09:37→17:40)
[2019-02-26] MEDS: LORATADINE 10 MG TABLET PO SCH (09:37)
[2019-02-26] MEDS: METFORMIN 500 MG TABLET PO SCH ×2 (09:37→17:40)
[2019-02-26] MEDS: ENOXAPARIN SODIUM 40 MG/0.4 ML DISP.SYRIN SQ SCH (09:40)
[2019-02-26] MEDS ORDERED: LORA10TA7 PO (11:52)
[2019-02-26] MEDS ORDERED: AZIT250T PO (11:52)
[2019-02-26] MEDS ORDERED: ALBU2.5V13 NEB (11:52)
[2019-02-26] MEDS ORDERED: CLOT15CR35 TP (11:52)
[2019-02-26] MEDS ORDERED: PRED5TAB48 PO (11:52)
[2019-02-26] MEDS ORDERED: GABA300C PO (11:52)
[2019-02-26] MEDS ORDERED: DULO30CA2 PO (11:52)
[2019-02-26] MEDS ORDERED: ATOR10TA PO (11:52)
[2019-02-26] MEDS ORDERED: LOSA50TA3 PO (11:52)
[2019-02-26] MEDS ORDERED: IPRA0.2S9 NEB (11:52)
[2019-02-26] MEDS ORDERED: PRED20TA PO (11:52)
[2019-02-26] MEDS ORDERED: PANT40TA2 PO (11:52)
[2019-02-26] MEDS ORDERED: LEVE250T2 PO (11:52)
[2019-02-26] MEDS ORDERED: METF-440 PO (11:52)
[2019-02-26 12:00] VITALS: BP 117/48
[2019-02-26] MEDS: *INSULIN REGULAR(HUMULIN R)HUM 100 UNIT/ML VIAL SQ PRN (13:02)
[2019-02-26] MEDS ORDERED: INFLUENZA VACCINE 2019-20 0.5 ML DISP.SYRIN IM ONE (16:56)
[2019-02-26] MEDS ORDERED: PNEUMOCOCCAL 23-VAL P-SAC VAC 0.5 ML VIAL SQ ONE (16:56)
[2019-02-26] MEDS: DULOXETINE HCL 30 MG CAPSULE.DR PO SCH (17:40)
[2019-02-26] MEDS: INSULIN REGULAR, HUMAN 100 UNIT/ML 3 ML VIAL SQ PRN (17:50)
--- NOTE | 2019-02-26 18:32 | NUR ---
BAR HELPERRN POOL NOTE: PATIENT PICKED UP BY EMT FOR DISCHARGE TO HOME. WAS SEEN BY ROSALINDA LOAIZA DNP EARLIER FOR CONSULTATION, DISCHARGED INSTRUCTIONS WERE GIVEN, PATIENT VERBALIZED UNDERSTANDING.. PATIENT IN STABLE IN CONDITION, ON CONT. O2 VIA NC, TOLERATING WELL. WHITE CATHETER AND PICC LINE DISCONTINUED. PNEUMOVACCINE AND FLU VACCINE GIVEN PER PATIENT'S REQUEST. EXIT SKIN ASSESSMENT WITH PICTURES DECLINED BY PATIENT ALL THOSE THAT WERE PRESENT "HAVE CLEARED UP" ALREADY. DISCHARGE AND BELONGINGS FORM SIGNED.
== END 2019-02-26 18:38 | disposition home or self-care (01) | DRG 291 ==
LOC: ER 23:28 → ICU 02-18 01:04 → TELE-TD 02-18 03:01 → ICU 02-18 05:21 → TELE-TD 02-20 17:07 → TELE1 02-21 10:06
PROVIDERS: ADMIT Internal Medicine; ATTEND Nurse Practitioner Acute Care
DX: I13.0 Hypertensive heart and chronic kidney disease with heart failure and stage 1 through stage 4 chronic kidney disease, or unspecified chronic kidney disease (principal); E43 Unspecified severe protein-calorie malnutrition; N17.0 Acute kidney failure with tubular necrosis; I50.33 Acute on chronic diastolic (congestive) heart failure; J15.9 Unspecified bacterial pneumonia; J96.21 Acute and chronic respiratory failure with hypoxia; J96.22 Acute and chronic respiratory failure with hypercapnia; E87.1 Hypo-osmolality and hyponatremia; G93.40 Encephalopathy, unspecified; E87.4 Mixed disorder of acid-base balance; D68.59 Other primary thrombophilia; E66.2 Morbid (severe) obesity with alveolar hypoventilation; J44.0 Chronic obstructive pulmonary disease with (acute) lower respiratory infection; J44.1 Chronic obstructive pulmonary disease with (acute) exacerbation; Z68.45 Body mass index [BMI] 70 or greater, adult; N18.9 Chronic kidney disease, unspecified; D64.9 Anemia, unspecified; E78.5 Hyperlipidemia, unspecified; E87.5 Hyperkalemia; E11.22 Type 2 diabetes mellitus with diabetic chronic kidney disease; Z98.84 Bariatric surgery status; Z87.891 Personal history of nicotine dependence; Z79.4 Long term (current) use of insulin; Z99.81 Dependence on supplemental oxygen; Z74.01 Bed confinement status; Z79.84 Long term (current) use of oral hypoglycemic drugs; Z79.899 Other long term (current) drug therapy; Z79.51 Long term (current) use of inhaled steroids
CPT/HCPCS: 36415; 36600; 71045-TC; 80048-TC; 80061-TC; 80202-TC; 81000-TC; 82803-TC; 82962-TC; 83735-TC; 83880; 84100-TC; 84443-TC; 84484-TC; 85025-TC; 87040-TC; 87081-TC; 87086-TC; 90732; 93307-TC; 94760-TC; 94762-TC; 94799-TC; C1751; G0378; J0692; J1100; J1650; J1815; J1940; J2930; J3370; J7030; J7050; J7060; Q2036

== ENCOUNTER 2019-12-26 21:06 | Inpatient (IN) | payer BC ==
[~2019-12-26] VITALS: Ht 165.1 cm; Wt 220.9 kg
[~2019-12-26 21:06] MED LIST changes: -ALBU18HF2 INH; +ALBU2.5V13 NEB; -AMLO2.5T4 PO; +ATOR10TA PO; +AZIT250T PO; +CLOT15CR35 TP; +DULO30CA2 PO; +DULO60CA45 PO; +FAMO40TA70 PO; +FURO-144 PO; +GABA-534 PO; +GABA300C PO; -INSU100I14 SQ; +INSU100V27 SQ; -INSU100V7 SQ; +IPRA0.2S9 NEB; +LEVE250T2 PO; +LEVE500T9 PO; +LORA10TA7 PO; +LOSA50TA3 PO; +METF-440 PO; +PANT40TA2 PO; +PIOG15TA8 PO; +PRED20TA PO; +PRED5TAB48 PO; -TELM1TAB2 PO; +TELM40TA2 PO
--- NOTE | 2019-12-26 21:22 | NUR ---
BIB EMS C/O SOB X1 DAY. PT ON HOME O2@2L/NC NORMAL SAT 88-90%, TODAY O2SAT ON 2L/NC 78-80%. NOW PT ON 4L/NC O2SAT 88-91%. PT AAOX3, DENIES CP, DIZZINESS, N/V AT THIS TIME. PLACED ON CAMPUS SECURITY DIRECTOR, SR. PT SEEN & EVAL'D BY DR. CA[place]. WILL CONT TO MONITOR.
[2019-12-26 21:33] LABS: BASOPHILS % (AUTO) 0.2 % (0.0-2.0); EOSINOPHILS % (AUTO) 1.8 % (0.0-6.0); HEMATOCRIT 40 % (33-45); HEMOGLOBIN 12.4 g/dL (11.5-14.8); LYMPHOCYTES # (AUTO) 0.9 /CMM (0.8-4.8); MEAN CORPUSCULAR HGB CONC 31 g/dl (31.0-36.0); MEAN CORPUSCULAR VOLUME 97 fL (82-100); MONOCYTES # (AUTO) 0.6 /CMM (0.1-1.30); PLATELET COUNT (AUTO) 177 /CMM (150-450); RED BLOOD CELL COUNT(AUTO) 4.08 MIL/uL (4.0-5.2); WHITE BLOOD COUNT (AUTO) 8.6 K/uL (4.3-11.0)
[2019-12-26 21:52] LABS: ALANINE AMINOTRANSFERASE 28 U/L (12-78); ALBUMIN 3.1 g/dL (3.4-5.0); ALKALINE PHOSPHATASE 117 U/L (46-116); ASPARTATE AMINOTRANSFERASE 28 U/L (15-37); B-TYPE NATRIURETIC PEPTIDE 193 PG/ML (0-125); BILIRUBIN,DIRECT 0.2 mg/dL (0.0-0.2); BILIRUBIN,TOTAL 0.6 mg/dL (0.2-1.0); CALCIUM, SERUM 9.4 mg/dL (8.5-10.1); CHLORIDE 99 mmol/L (98-107); CREATININE 1.1 mg/dL (0.6-1.3); GLUCOSE 258 mg/dL (74-106); POTASSIUM 5.3 mmol/L (3.5-5.1); SODIUM SERUM 140 mmol/L (136-145); TOTAL PROTEIN, SERUM 8.1 g/dL (6.4-8.2); UREA NITROGEN, BLOOD 39 mg/dL (7-18)
[2019-12-26 22:01] LABS: CARBON DIOXIDE 41 mmol/L (21-32)
[2019-12-26] MEDS ORDERED: methylPREDNISolone SOD SUCC 125 MG/2ML VIAL ONE (22:24)
[2019-12-26] MEDS ORDERED: IPRATROPIUM NEB FS 0.5 MG/2.5 ML AMPUL.NEB ONE (22:26)
[2019-12-26] MEDS ORDERED: ALBUTEROL FS 2.5 MG/3 ML VIAL.NEB ONE (22:26)
--- NOTE | 2019-12-26 22:28 | NUR ---
MEDICATED PER ERMD ORDER, PT MAGDALENA WELL. PT PLACED ON BIPAP PER ERMD ORDER, NO RESP DISTRESS NOTED @ THIS TIME. PT MAGDALENA WELL. WILL CONT TO MONITOR
[2019-12-26] MEDS ORDERED: ALBUTEROL FS 2.5 MG/3 ML VIAL.NEB CONTNEB ONE (22:30)
[2019-12-26] MEDS ORDERED: IPRATROPIUM NEB FS 0.5 MG/2.5 ML AMPUL.NEB NEB ONE (22:30)
[2019-12-26] MEDS ORDERED: AZITHROMYCIN 500 MG in IV D5W 250 ML IV ONE (22:30)
[2019-12-26] MEDS ORDERED: methylPREDNISolone SOD SUCC 125 MG/2ML VIAL IV ONE (22:30)
[2019-12-26] MEDS ORDERED: LEVOFLOXACIN 750 MG /D5W 150ML PIGGYBACK IV ONE (22:30)
--- NOTE | 2019-12-26 22:45 | NUR ---
CALLED NURSING SUP FOR BED
[2019-12-26] MEDS ORDERED: ENOXAPARIN SODIUM 30 MG/0.3 ML DISP.SYRIN SQ ONE (23:00)
[2019-12-26] MEDS ORDERED: ENOXAPARIN SODIUM 100 MG/ML DISP.SYRIN SQ ONE (23:04)
[2019-12-26] MEDS ORDERED: AZITHROMYCIN 500 MG VIAL ONE (23:05)
[2019-12-26] MEDS ORDERED: LEVOFLOXACIN 750 MG /D5W 150ML 150 ML IV ONE (23:05)
--- NOTE | 2019-12-26 23:34 | NUR ---
COVID TEST DONE & SENT TO LAB.
[2019-12-26 23:46] LABS: ABG BASE EXCESS 11.6 mmol/L; ABG OXYGEN SATURATION 94.5 % (92.0-98.5); ABG PCO2 105.9 mmHg (35.0-45.0); ABG PO2 78.9 mmHg (75.0-100.0); AaDO2 158.5 mmHg; COHb 1.7 % (0.5-1.5); MetHb 0.5 % (0.0-1.5); O2Hb 92.4 % (94.0-97.0); PEEP,BG 5 cm H2O; SITE, ABG Right Radial; VENT MODE, BG ST 20/5 R14 50%
[2019-12-27] VITALS (21 sets, daily range): BP systolic 90–148; BP diastolic 26–113
[2019-12-27] MEDS ORDERED: ONDANSETRON HCL/PF 4 MG/2 ML VIAL IVP PRN
[2019-12-27] MEDS ORDERED: CEFTRIAXONE 1 G in IV D5W 50 ML IV SCH ×2
[2019-12-27] MEDS ORDERED: DEXTROSE 50%-WATER 50 ML DISP.SYRIN IV PRN
[2019-12-27] MEDS ORDERED: ACETAMINOPHEN 650 MG/SUPP.RECT RC PRN
--- NOTE | 2019-12-27 02:00 | NUR ---
ICU/WEAVER HAND RECEIVED REPORT FROM ER NURSE. WILL CONTINUE CARE
--- NOTE | 2019-12-27 02:03 | NUR ---
REPORT GIVEN TO TUSHAR MARTINEZ FOR [facility]
--- NOTE | 2019-12-27 02:22 | NUR ---
PT TRANSFERRED PER [facility] [employer]
[2019-12-27] MEDS: ALBUTEROL FS 2.5 MG/0.5 ML VIAL.NEB NEB SCH ×7 (02:28→23:30)
[2019-12-27] MEDS: IPRATROPIUM NEB FS 0.5 MG/2.5 ML AMPUL.NEB NEB SCH ×7 (02:28→23:30)
--- NOTE | 2019-12-27 02:30 | NUR ---
ICU/WAREHOUSE LEAD PT TRANSFERRED TO BED FROM [facility] WITHOUT ANY INCIDENT. BIPAP APPLIED TO PT. WILL TAKE OFF ADMITTING ORDERS.
[2019-12-27 02:42] LABS: C-REACTIVE PROTEIN 3.6 mg/dL (0.0-0.9)
--- NOTE | 2019-12-27 03:02 | NUR ---
ICU/VISION MIXER WHITE CATH INSERTED, THEN PT WAS REPOSITIONED FOR COMFORT. PT REFUSED TO BE FULLY TURNED DUE TO LEFT SHOULDER PAIN FROM PREVIOUS CAREGIVERS.
--- NOTE | 2019-12-27 03:24 | NUR ---
HHN tx held. HHN tx recently administered. RN aware. Addendum: 12/27/19 at 0325 by CLAUDE PATTERSON RT Amended: Links added.
[2019-12-27] MEDS ORDERED: CEFTRIAXONE 1 G VIAL ONE (04:03)
[2019-12-27] MEDS: BLOOD SUGAR DIAGNOSTIC 1 EACH STRIP IN SCH ×5 (04:04→23:51)
[2019-12-27] MEDS: INSULIN REGULAR, HUMAN 100 UNIT/ML 3 ML VIAL SQ PRN ×3 (04:07→11:13)
--- NOTE | 2019-12-27 05:10 | NUR ---
ICU/PAN PULLER RT DECREASED FIO2 DOWN TO 50% FROM 60. WILL MONITOR THIS PT AND HER SATURATION.
[2019-12-27 05:12] LABS: EOSINOPHILS % (AUTO) 0.5 % (0.0-6.0); HEMATOCRIT 37 % (33-45); HEMOGLOBIN 11.7 g/dL (11.5-14.8); LYMPHOCYTES # (AUTO) 0.5 /CMM (0.8-4.8); LYMPHOCYTES % (AUTO) 6.8 % (20.0-44.0); MEAN CORPUSCULAR HGB CONC 31 g/dl (31.0-36.0); MEAN CORPUSCULAR VOLUME 96 fL (82-100); MONOCYTES # (AUTO) 0.2 /CMM (0.1-1.30); MONOCYTES % (AUTO) 3.3 % (2.0-12.0); NEUTROPHILS # (AUTO) 6.6 /CMM (1.8-8.9); NEUTROPHILS % (AUTO) 89.4 % (43.0-81.0); PLATELET COUNT (AUTO) 167 /CMM (150-450); RED BLOOD CELL COUNT(AUTO) 3.88 MIL/uL (4.0-5.2); WHITE BLOOD COUNT (AUTO) 7.3 K/uL (4.3-11.0)
[2019-12-27 05:39] LABS: THYROID STIMULATING HORMONE 0.546 uIU/mL (0.358-3.74)
[2019-12-27 05:40] LABS: ALBUMIN 2.8 g/dL (3.4-5.0); BILIRUBIN,TOTAL 0.5 mg/dL (0.2-1.0); CALCIUM, SERUM 9.2 mg/dL (8.5-10.1); CREATININE 1.2 mg/dL (0.6-1.3); MAGNESIUM 2.3 mg/dL (1.8-2.4); PHOSPHORUS 3.2 mg/dL (2.5-4.9); TOTAL PROTEIN, SERUM 7.7 g/dL (6.4-8.2)
[2019-12-27 06:05] LABS: POTASSIUM 6.2 mmol/L (3.5-5.1)
--- NOTE | 2019-12-27 06:30 | NUR ---
ICU/STONE RIGGER CRITICAL LAB RESULTS OF POT 6.2, CHLORIDE 95, AND GLUCOSE 325 WERE CALLED ON, ORDERS WERE RECEIVED. CHARGE NURSE MADE AWARE.
--- NOTE | 2019-12-27 07:00 | NUR ---
DAIRY BAR MANAGER - OPENING PATIENT BI PAP 20/ RATE 20 FIO2 60% . PATIENT ON EXTERNAL MONITOR BEDSIDE. PATIENT ST/SR. PATIENT ON BIPAP TOLERATING WELL. PATIENT ALERT X4 . EASILY WOKEN WITH NAME AND TOUCH . PATIENT HAS WHITE CATH INSERTED 12/26/19 ON ADMISSION. WITH 700ML OUT THIS AM. PATIENT IS CURRENTLY NPO . PATIENT HAS A DISCOLORATION TO THE BACK . LHAND 20G FLUSHED AND PATIENT NO SIGNS OF INFILTRATION OR SIGNS OF INFECTION. 20 G R ARM 20 R ARM FLUSHED AND PATIENT NO SIGNS OF INFILTRATION OR SIGNS OF INFECTION. BED LOCKED LOWEST POSITION CALL LIGHT WITH IN REACH ALL SAFETY MEASURE IMPLEMENTED PER HOSPITAL POLICY . 2 X RAILS UP
[2019-12-27] MEDS ORDERED: DEXTROSE 50%-WATER 50 ML DISP.SYRIN IVP ONE (07:30)
[2019-12-27] MEDS ORDERED: INSULIN REGULAR, HUMAN 100 UNIT/ML 3 ML VIAL IV ONE (07:30)
--- NOTE | 2019-12-27 07:34 | NUR ---
ICU/RAIL TRANSPORTATION TABELER GAVE REPORT TO DAY NURSE JOVANY, MADE HIM AWARE OF THE CRITICAL LAB VALUES ON THE BMP THIS MORNING POTASSIUM-6.2, CHLORIDE-95, GLUCOSE-325 THE ORDERS TO GIVE 10UNITS IVP AND DEXTROSE 50% AMP TO CORRECT THIS.
--- NOTE | 2019-12-27 08:16 | NUR ---
RT Pt received awake and alert on BiPAP with noted settings. Pt taken off BiPAP and placed on 3L nasal cannula with SpO2 88-92%. HHN tx not given at this time due to pending COVID results. No SOB or respiratory distress noted at this time. Addendum: 12/27/19 at 0819 by STEFANO BOWLES RT Amended: Links added.
[2019-12-27] MEDS ORDERED: FAMOTIDINE 40 MG TABLET PO SCH ×2 (09:00)
[2019-12-27] MEDS ORDERED: CLOTRIMAZOLE 1% 15 GM TUBE TP SCH (09:00)
[2019-12-27] MEDS ORDERED: LOSARTAN POTASSIUM 50 MG TABLET PO SCH ×2 (09:00)
[2019-12-27] MEDS ORDERED: SODIUM POLYSTYRENE SULFONATE 15 G/60 ML BOTTLE PO ONE (09:00)
[2019-12-27] MEDS: methylPREDNISolone SOD SUCC 40 MG/ML VIAL IV SCH ×2 (09:27→21:48)
[2019-12-27] MEDS: FUROSEMIDE 40 MG/4 ML VIAL IV SCH ×2 (09:27→17:27)
[2019-12-27] MEDS: GABAPENTIN 300 MG CAPSULE PO SCH ×3 (09:27→17:28)
[2019-12-27] MEDS: PANTOPRAZOLE 40 MG VIAL IV SCH (09:27)
[2019-12-27] MEDS: PIOGLITAZONE HCL 15 MG TABLET PO SCH (09:27)
[2019-12-27] MEDS: LEVETIRACETAM (250 MG) 250 MG TABLET PO SCH (09:27)
[2019-12-27] MEDS: LORATADINE 10 MG TABLET PO SCH (09:27)
[2019-12-27 09:31] LABS: ABG BASE EXCESS 13.8 mmol/L; ABG OXYGEN SATURATION 84.9 % (92.0-98.5); ABG PCO2 90.2 mmHg (35.0-45.0); ABG PH 7.307 (7.350-7.450); ABG PO2 48.8 mmHg (75.0-100.0); AaDO2 73.8 mmHg; COHb 1.3 % (0.5-1.5); O2Hb 83.8 % (94.0-97.0); SITE, ABG Right Radial; VENT MODE, BG Nasal Cannula
[2019-12-27] MEDS: METFORMIN 500 MG TABLET PO SCH ×3 (09:36→18:00)
[2019-12-27] MEDS: CLOTRIMAZOLE 1% 15 GM TUBE TP SCH ×2 (09:36→18:14)
--- NOTE | 2019-12-27 13:30 | NUR ---
NNP - DR WILEY VISITED PATIENT
[2019-12-27 15:08] LABS: CALCIUM, SERUM 9.5 mg/dL (8.5-10.1); CREATININE 1.2 mg/dL (0.6-1.3); POTASSIUM 5.2 mmol/L (3.5-5.1)
--- NOTE | 2019-12-27 17:04 | NUR ---
AIRPORT PLANNER - REPORT GIVEN TO WILLIAM RN
[2019-12-27] MEDS: DULOXETINE HCL 30 MG CAPSULE.DR PO SCH (17:28)
[2019-12-27] MEDS ORDERED: Medication Not On Formulary EA (Duloxetine Hcl (Cymbalta) 60 MG) PO SCH (18:00)
--- NOTE | 2019-12-27 18:00 | NUR ---
rn notes patient complained of pain, with order for prn Tylenol suppository but patient refused. paged dr. elder and asked i jane to switch order to po, awaiting response
--- NOTE | 2019-12-27 19:00 | NUR ---
rn notes endorsed for antoinette. no acute changes since take over of care. specifically mentioned to incoming nurse to follow up on pain medication order.
--- NOTE | 2019-12-27 19:20 | NUR ---
APARTMENT PROPERTY MANAGER NOTE RECEIVED PATIENT IN BED RESTING, WATCHING TV. AWAKE, ALERT, ORIENTED X4. PATIENT IS DNI CODE STATUS. COVID RAPID IS NEGATIVE, PCR IS PENDING. PATIENT IS ON BIPAP, BREATHING IS EVEN AND UNLABORED. O2 SAT IS 96% AT THIS TIME. ON WHITE CATH, URINE IS YELLOW WITH SEDIMENTS NOTED. IV SITE ON LEFT HAND GAUGE 20 AND JAC GAUGE 20 ARE CLEAN, DRY, FLUSHED, AND PATENT. NO FLUIDS RUNNING. PATIENT IS NPO PER REPORT FROM AM SHIFT RN. PATIENT IS MORBIDLY OBESE, CURRENT WEIGHT IS 504 LBS. AWAITING FOR BARIATRIC BED. NOTED PINK/RED/PURPLE DISCOLORATION ON BACK. SKIN IS DRY AND WARM TO TOUCH. IN NO APPARENT DISTRESS NOTED AT THIS TIME. CALL LIGHT IS WITHIN EASY REACH. WILL CONTINUE TO MONITOR.
[2019-12-27] MEDS: ATORVASTATIN 10 MG TABLET PO SCH (21:49)
[2019-12-27] MEDS: ENOXAPARIN SODIUM 40 MG/0.4 ML DISP.SYRIN SQ SCH (21:49)
[2019-12-27] MEDS: CEFTRIAXONE 2 G in IV D5W 100 ML IV SCH (22:02)
--- NOTE | 2019-12-27 22:25 | NUR ---
SENIOR DIRECTOR CREATIVE SERVICES NOTE PATIENT COMPLAINED OF 6/10 BACK PAIN. OFFERED TYLENOL SUPPOSITORY ORDERED, PATIENT REFUSED. ASKED SHAWN PHAM NP FOR IV PAIN MED. RECEIVED ORDER FOR TORADOL 15 MG IVP X1. ORDER NOTED AND CARRIED OUT. WILL CONTINUE TO MONITOR.
[2019-12-27] MEDS ORDERED: KETOROLAC TROMETHAMINE INJ 30 MG/ML VIAL IV ONE (22:30)
[2019-12-28] VITALS (24 sets, daily range): BP systolic 94–150; BP diastolic 39–110
[2019-12-28] MEDS: INSULIN REGULAR, HUMAN 100 UNIT/ML 3 ML VIAL SQ PRN ×3 (00:01→18:05)
--- NOTE | 2019-12-28 03:00 | NUR ---
COGNOS NOTE PATIENT TOLERATED BED BATH WELL. NO BM NOTED. PATIENT KEPT CLEAN AND DRY. WILL CONTINUE TO MONITOR.
[2019-12-28] MEDS: IPRATROPIUM NEB FS 0.5 MG/2.5 ML AMPUL.NEB NEB SCH ×6 (03:30→23:44)
[2019-12-28] MEDS: ALBUTEROL FS 2.5 MG/0.5 ML VIAL.NEB NEB SCH ×6 (03:30→23:43)
[2019-12-28] MEDS ORDERED: CEFTRIAXONE 1 G in IV D5W 50 ML IV SCH (04:00)
[2019-12-28 04:58] LABS: BASOPHILS % (AUTO) 0.1 % (0.0-2.0); HEMATOCRIT 38 % (33-45); HEMOGLOBIN 11.8 g/dL (11.5-14.8); LYMPHOCYTES # (AUTO) 0.6 /CMM (0.8-4.8); LYMPHOCYTES % (AUTO) 10.4 % (20.0-44.0); MEAN CORPUSCULAR HGB CONC 31 g/dl (31.0-36.0); MEAN CORPUSCULAR VOLUME 96 fL (82-100); MONOCYTES # (AUTO) 0.2 /CMM (0.1-1.30); MONOCYTES % (AUTO) 3.7 % (2.0-12.0); NEUTROPHILS # (AUTO) 5.3 /CMM (1.8-8.9); NEUTROPHILS % (AUTO) 85.8 % (43.0-81.0); PLATELET COUNT (AUTO) 180 /CMM (150-450); RED BLOOD CELL COUNT(AUTO) 3.93 MIL/uL (4.0-5.2); WHITE BLOOD COUNT (AUTO) 6.2 K/uL (4.3-11.0)
[2019-12-28 05:20] LABS: BILIRUBIN,TOTAL 0.3 mg/dL (0.2-1.0); CALCIUM, SERUM 9.7 mg/dL (8.5-10.1); CREATININE 1.5 mg/dL (0.6-1.3); MAGNESIUM 2.5 mg/dL (1.8-2.4); PHOSPHORUS 4.9 mg/dL (2.5-4.9); POTASSIUM 5.4 mmol/L (3.5-5.1); TOTAL PROTEIN, SERUM 8.1 g/dL (6.4-8.2)
[2019-12-28] MEDS: BLOOD SUGAR DIAGNOSTIC 1 EACH STRIP IN SCH ×3 (06:19→18:05)
--- NOTE | 2019-12-28 07:19 | NUR ---
AQUATIC CENTRE MANAGER NOTE PATIENT REMAINED STABLE THROUGHOUT THE NIGHT. NO SIGNIFICANT CHANGES NOTED. KEPT ON BIPAP THROUGHOUT THE NIGHT. ALL DUE MEDS GIVEN AND TOLERATED WELL. PATIENT REFUSED REPOSITIONING. KEPT PATIENT NPO. ALL NEEDS ATTENDED AND MET. PATIENT IS KEPT CLEAN, DRY, AND COMFORTABLE. CALL LIGHT IS WITHIN EASY REACH. ENDORSED TO AM SHIFT FLORENCIA FOR CONTINUATION OF CARE.
--- NOTE | 2019-12-28 09:45 | NUR ---
RECEIVED REPORT FROM BLAINE MCGREGOR FOR CONTINUITY. WILL CONTINUE TO MONITOR PATIENT FOR CHANGES.
[2019-12-28] MEDS: FUROSEMIDE 40 MG/4 ML VIAL IV SCH (09:47)
[2019-12-28] MEDS: PANTOPRAZOLE 40 MG VIAL IV SCH (09:48)
[2019-12-28] MEDS: methylPREDNISolone SOD SUCC 40 MG/ML VIAL IV SCH ×2 (09:49→21:08)
[2019-12-28] MEDS: GABAPENTIN 300 MG CAPSULE PO SCH ×3 (09:50→17:25)
[2019-12-28] MEDS: PIOGLITAZONE HCL 15 MG TABLET PO SCH (09:50)
[2019-12-28] MEDS: LEVETIRACETAM (250 MG) 250 MG TABLET PO SCH (09:50)
[2019-12-28] MEDS: LORATADINE 10 MG TABLET PO SCH (09:50)
[2019-12-28] MEDS: CLOTRIMAZOLE 1% 15 GM TUBE TP SCH (09:51)
[2019-12-28] MEDS: METFORMIN 500 MG TABLET PO SCH (09:51)
--- NOTE | 2019-12-28 10:00 | NUR ---
transfer of care note Report given to Mamie VALLADARES for MARTINA. Patient remains A/Ox4, on 5L via nasal cannula SPO2 91%, no SOB noted. Respirations 17, shallow, even, unlabored. Endorsed patients reports of sputum/wheezing, burning in vaginal area (carrillo draining cloudy/sediment urine) & cough drops. Oral care provided per patient request. Pulled up, HOB >30 degrees, aspiration precautions, suction setup at bedside. Call light within reach
--- NOTE | 2019-12-28 10:24 | NUR ---
INCREASED PATIENT'S O2 TO 6L/MIN VIA NC DUE TO PATIENT DESATURATING. PATIENT IS REQUESTING COUGH DROPS AND POWDER FOR HER ABDOMINAL FOLDS RATHER THAN Z GUARD. WILL INFORM . DR MCCRAY AWARE OF PATIENT'S O2 SAT. AWAITING ABG.
[2019-12-28 11:08] LABS: ABG BASE EXCESS 13.4 mmol/L; ABG OXYGEN SATURATION 91.2 % (92.0-98.5); ABG PCO2 90.1 mmHg (35.0-45.0); ABG PH 7.302 (7.350-7.450); ABG PO2 60.7 mmHg (75.0-100.0); AaDO2 120.9 mmHg; COHb 1.1 % (0.5-1.5); MetHb 0.2 % (0.0-1.5); SITE, ABG Right Radial; VENT MODE, BG NC 6 L
--- NOTE | 2019-12-28 11:27 | NUR ---
UPDATED VINNY, CVG ABOUT PATIENT. PER PATIENT, OK TO GIVE CGV INFORMATION.
[2019-12-28] MEDS ORDERED: FUROSEMIDE 20 MG/2 ML VIAL IV ONE (12:00)
[2019-12-28] MEDS ORDERED: SODIUM POLYSTYRENE SULFONATE 15 G/60 ML BOTTLE PO ONE (12:00)
[2019-12-28] MEDS: ACETAMINOPHEN 325 MG TABLET PO PRN ×2 (14:10→21:08)
[2019-12-28] MEDS: MENTHOL/CETYLPYRD (CEPACOL) 1 LOZ LOZENGE PO PRN ×3 (15:01→22:09)
--- NOTE | 2019-12-28 15:29 | NUR ---
URINE COLLECTED, GIVEN TO DUMPLING MACHINE OPERATOR FOR URINE CULTURE
--- NOTE | 2019-12-28 15:46 | NUR ---
PER DR MCCRAY, PLACE PATIENT ON DIET & PLACE PATIENT ON NOCTURNAL BIPAP WITH REPEAT ABG IN THE MORNING
[2019-12-28 16:35] LABS: CALCIUM, SERUM 9.4 mg/dL (8.5-10.1); CREATININE 1.4 mg/dL (0.6-1.3); POTASSIUM 4.9 mmol/L (3.5-5.1)
[2019-12-28 16:45] LABS: APPEARANCE,URINE SL CLOUDY (CLEAR); BILIRUBIN,URINE NEGATIVE (NEGATIVE); BLOOD, URINE LARGE Ery/uL (NEGATIVE); COLOR,URINE YELLOW (YELLOW); KETONES,URINE NEGATIVE (NEGATIVE); LEUKOCYTE ESTERASE ,URINE SMALL (NEGATIVE); NITRITE, URINE NEGATIVE (NEGATIVE); PH,URINE 5.5 (5.0-8.0); PROTEIN,URINE TRACE mg/dl (NEGATIVE); UGLUCOSE NEGATIVE (NEGATIVE); UROBILINOGEN,URINE 0.2 EU/dL (0.2)
[2019-12-28 16:53] LABS: URINE TOTAL PROTEIN 29.5 mg/dL (0-11.9)
[2019-12-28 17:09] LABS: BACTERIA,URINE 1+ /HPF (None Seen); RBC,URINE TOO NUMEROUS TO COUN /HPF (0-2); SQUAMOUS EPITHELIAL CELL,UR Few /HPF (None Seen); WBC,URINE 21-50 /HPF (0-3)
[2019-12-28 17:14] LABS: EOSINOPHIL,URINE None Seen
[2019-12-28] MEDS: DULOXETINE HCL 30 MG CAPSULE.DR PO SCH (17:25)
[2019-12-28] MEDS: NYSTATIN TOP POWDER 15 GM BOTTLE TP SCH (17:25)
--- NOTE | 2019-12-28 18:25 | NUR ---
LAB CALLED INFORMING THAT COVID IS NEGATIVE. ALSO, INFORMED THEM THAT SPUTUM CULTURE IS READY FOR JUNIOR ART DIRECTOR
--- NOTE | 2019-12-28 18:52 | NUR ---
RN CLOSING NOTE: PATIENT REMAINS IN BED. NO SIGNS OF ACUTE DISTRESS NOTED AT THIS TIME. ST IN THE 110S NOTED ON BEDSIDE MONITOR. SAFETY MEASURES IMPLEMENTED, BED IN LOWEST POSITION, LOCKED, SIDE RAILS UP, CALL LIGHT WITHIN REACH. WILL ENDORSE TO ONCOMING SHIFT RN FOR CONTINUITY OF CARE.
--- NOTE | 2019-12-28 19:01 | NUR ---
PER DR WILEY, KEEP O2 RUNNING AT 4L/MIN VIA NC
--- NOTE | 2019-12-28 20:00 | NUR ---
RN OPENING NOTE PT RECEIVED IN BED. A/A/O X4. PT IS ON 4 L VIA NC SATING 80% to 82%. NO SOB NOTED. PT ON MONITOR SHOWING SINUS TACH HR IN 100s. SAFETY MEASURES IN PLACE, HOB ELEVATED, SIDE RAILS UP X2, BED AT LOWEST POSITION, LOCKED. WILL CONTINUE TO MONITOR.
[2019-12-28] MEDS: ATORVASTATIN 10 MG TABLET PO SCH (21:08)
[2019-12-28] MEDS: ENOXAPARIN SODIUM 40 MG/0.4 ML DISP.SYRIN SQ SCH (21:13)
--- NOTE | 2019-12-28 21:13 | NUR ---
NURSING NOTE LOVENOX NON ADMINISTERED D/T NOSE BLEEDING . SHAWN TOP LOADER MADE AWARE AND IT IS OK TO HOLD IT PER TOP LOADER.
--- NOTE | 2019-12-28 22:00 | NUR ---
RN NOTE PT REFUSED TO BE REPOSITIONED.
[2019-12-28] MEDS: CEFTRIAXONE 2 G in IV D5W 100 ML IV SCH (23:06)
[2019-12-29] VITALS (24 sets, daily range): BP systolic 93–132; BP diastolic 41–106
--- NOTE | 2019-12-29 | NUR ---
RN NOTE PT REFUSES TO BE REPOSITIONED. THOUGHT RISKS OF NOT BEING REPOSITIONED.
[2019-12-29] MEDS: INSULIN REGULAR, HUMAN 100 UNIT/ML 3 ML VIAL SQ PRN ×6 (00:16→21:20)
[2019-12-29] MEDS: BLOOD SUGAR DIAGNOSTIC 1 EACH STRIP IN SCH ×6 (00:17→21:19)
[2019-12-29] MEDS: ALBUTEROL FS 2.5 MG/0.5 ML VIAL.NEB NEB SCH ×6 (03:13→23:08)
[2019-12-29] MEDS: IPRATROPIUM NEB FS 0.5 MG/2.5 ML AMPUL.NEB NEB SCH ×6 (03:13→23:08)
[2019-12-29 04:31] LABS: BASOPHILS % (AUTO) 0.1 % (0.0-2.0); EOSINOPHILS % (AUTO) 0.1 % (0.0-6.0); HEMATOCRIT 39 % (33-45); HEMOGLOBIN 12.2 g/dL (11.5-14.8); LYMPHOCYTES # (AUTO) 0.8 /CMM (0.8-4.8); MEAN CORPUSCULAR HGB CONC 31 g/dl (31.0-36.0); MEAN CORPUSCULAR VOLUME 96 fL (82-100); MONOCYTES # (AUTO) 0.3 /CMM (0.1-1.30); MONOCYTES % (AUTO) 4.2 % (2.0-12.0); NEUTROPHILS # (AUTO) 6.5 /CMM (1.8-8.9); NEUTROPHILS % (AUTO) 85.6 % (43.0-81.0); PLATELET COUNT (AUTO) 200 /CMM (150-450); RED BLOOD CELL COUNT(AUTO) 4.09 MIL/uL (4.0-5.2); WHITE BLOOD COUNT (AUTO) 7.6 K/uL (4.3-11.0)
[2019-12-29 04:59] LABS: MAGNESIUM 2.6 mg/dL (1.8-2.4); PHOSPHORUS 5.3 mg/dL (2.5-4.9)
--- NOTE | 2019-12-29 05:34 | NUR ---
PT REQUESTED TO BE OFF BIPAP. PLACED ON 4L NC. RN NOTIFIED.
--- NOTE | 2019-12-29 06:49 | NUR ---
RN NOTE DURING WHOLE SHIFT PT REFUSED TO BE REPOSITIONED. CHARGE NURSE MADE AWARE. TAUGHT PT RISKS OF NOT BEING REPOSITIONED.
--- NOTE | 2019-12-29 07:39 | NUR ---
RN CLOSING NOTE PT REMAINED STABLE DURING MY SHIFT. REPORT GIVEN TO INCOMING SHIFT FOR MARTINA.
[2019-12-29 08:22] LABS: ABG BASE EXCESS 16.4 mmol/L; ABG OXYGEN SATURATION 89.7 % (92.0-98.5); ABG PCO2 96.9 mmHg (35.0-45.0); ABG PH 7.303 (7.350-7.450); ABG PO2 58.2 mmHg (75.0-100.0); AaDO2 27.1 mmHg; COHb 1.3 % (0.5-1.5); O2Hb 88.5 % (94.0-97.0); SITE, ABG Right Radial; VENT MODE, BG 2L NC
--- NOTE | 2019-12-29 08:25 | NUR ---
WOUND CARE CONSULT: PT REFUSED TO TURN FOR FULL SKIN ASSESSMENT. SOME REDNESS NOTED TO ABDOMINAL/GROIN FOLDS AND BREASTFOLDS, PRESENT ON ADMISSION. RECOMMENDATIONS MADE FOR SKIN PROTECTION. DISCUSSED WITH NURSING STAFF. [facility] ORDERED. WILL SEE PRN. BREWSTER IN AGREEMENT WITH PLAN OF CARE. Addendum: 12/29/19 at 0834 by ALICJA LALA WNDNU PT STATES THAT SHE PREFERS ANTIFUNGAL POWDER TO CREAM. ANTIFUNGAL POWDER PREVIOUSLY ORDERED.
[2019-12-29] MEDS ORDERED: DEXTROSE 50%-WATER 50 ML DISP.SYRIN IV PRN (08:30)
[2019-12-29] MEDS: MENTHOL/CETYLPYRD (CEPACOL) 1 LOZ LOZENGE PO PRN ×3 (09:53→17:13)
[2019-12-29] MEDS: PIOGLITAZONE HCL 15 MG TABLET PO SCH (10:51)
[2019-12-29] MEDS: GABAPENTIN 300 MG CAPSULE PO SCH ×3 (10:51→17:28)
[2019-12-29] MEDS: LORATADINE 10 MG TABLET PO SCH (10:51)
[2019-12-29] MEDS: PANTOPRAZOLE 40 MG VIAL IV SCH (10:52)
[2019-12-29] MEDS: methylPREDNISolone SOD SUCC 40 MG/ML VIAL IV SCH ×2 (10:52→21:03)
[2019-12-29] MEDS: LEVETIRACETAM (250 MG) 250 MG TABLET PO SCH (10:52)
[2019-12-29] MEDS: LINAGLIPTIN 5 MG TABLET PO SCH (11:03)
[2019-12-29] MEDS: NYSTATIN TOP POWDER 15 GM BOTTLE TP SCH ×2 (11:03→17:28)
[2019-12-29] MEDS: Z GUARD REMEDY 2 OZ OINT TP SCH (11:18)
[2019-12-29] MEDS: ACETAMINOPHEN 325 MG TABLET PO PRN (13:17)
[2019-12-29] MEDS: DULOXETINE HCL 30 MG CAPSULE.DR PO SCH (17:27)
--- NOTE | 2019-12-29 19:10 | NUR ---
RN OPENING NOTES RECEIVED PT ON BED AWAKE ON 5L O2 VIA NC SPO2 84% ACCORDING TO AM SHIFT NURSES SHES RUNNING THIS KIND OF SPO2 AND MD WAS AWARE, HAVE AN ORDER FOR NOC BIPAP, PT IS A/O X4, ON BEDSIDE MONITOR WITH READING SINUS TACHY 90'S ON WHITE CATHETER DRAINING YELLOW URINE VIA GRAVITY, WITH JAC # 20 AND LHAND # 20 IV PATENT AND FLUSHED NO REDNESS OR PHLEBITIS NOTED, ON BARIATRIC BED ON AUTO TURNING MODE, SAFETY MEASURE MAINTAINED BED ON LOWEST POSITION AND LOCKED SIDE RAILS UP CALL LIGHT WITHIN REACH PT ON CONSISTENT CARB DIET ABLE TO SWALLOW
--- NOTE | 2019-12-29 19:30 | NUR ---
END OF SHIFT NOTE: PT HAD A FAIRLY UNEVENTFUL SHIFT. PT AGREED TO BE PUT ON BARIATRIC BED. PT PUT ON BARIATRIC BED AT 1600, WITH AUTO TURN MODE ON. RN EXPLAINED HOW THE BED WORKS TO THE PATIENT, PATIENT STATED UNDERSTANDING. BED WAS ZEROES PRIOR TO PUTTING PATIENT IN BED. PT'S SAT'S FREQUENTLY DROP BELOW 88%, RT AWARE. BIPAP PUT ON PATIENT FROM 1120 TO 1200 TO HELP BOOST SATS, OTHERWISE PT WAS ON 5L NC THE REST OF THE SHIFT. PT CHECKED ON HOURLY AND PRN BY NURSING STAFF.
--- NOTE | 2019-12-29 21:00 | NUR ---
RN NOTES REPORTED TO RT THAT PT SPO2 STILL ON 80'S AND REQUESTED IF THEY CAN PUT PT ON BIPAP EARLY
[2019-12-29] MEDS: MUPIROCIN OINT 2% 22 GM TUBE SCH (21:03)
[2019-12-29] MEDS: ATORVASTATIN 10 MG TABLET PO SCH (21:04)
--- NOTE | 2019-12-29 21:12 | NUR ---
PT PLACED ON NOC BIPAP. RN NOTIFIED. WILL CONTINUE TO MONITOR.
[2019-12-29] MEDS: CEFTRIAXONE 2 G in IV D5W 100 ML IV SCH (22:17)
[2019-12-30] VITALS (24 sets, daily range): BP systolic 82–139; BP diastolic 48–90
[2019-12-30] MEDS: IPRATROPIUM NEB FS 0.5 MG/2.5 ML AMPUL.NEB NEB SCH ×6 (02:52→22:54)
[2019-12-30] MEDS: ALBUTEROL FS 2.5 MG/0.5 ML VIAL.NEB NEB SCH ×6 (02:52→22:54)
[2019-12-30 04:38] LABS: BASOPHILS % (AUTO) 0.1 % (0.0-2.0); EOSINOPHILS % (AUTO) 0.1 % (0.0-6.0); HEMATOCRIT 35 % (33-45); HEMOGLOBIN 10.7 g/dL (11.5-14.8); LYMPHOCYTES # (AUTO) 0.6 /CMM (0.8-4.8); LYMPHOCYTES % (AUTO) 9.2 % (20.0-44.0); MEAN CORPUSCULAR HGB CONC 31 g/dl (31.0-36.0); MEAN CORPUSCULAR VOLUME 95 fL (82-100); MONOCYTES # (AUTO) 0.4 /CMM (0.1-1.30); MONOCYTES % (AUTO) 5.5 % (2.0-12.0); NEUTROPHILS % (AUTO) 85.1 % (43.0-81.0); PLATELET COUNT (AUTO) 192 /CMM (150-450); RED BLOOD CELL COUNT(AUTO) 3.63 MIL/uL (4.0-5.2)
[2019-12-30 04:39] LABS: CALCIUM, SERUM 9.2 mg/dL (8.5-10.1); CREATININE 1.2 mg/dL (0.6-1.3); POTASSIUM 4.6 mmol/L (3.5-5.1)
--- NOTE | 2019-12-30 05:45 | NUR ---
RN NOTES PT REQUESTED TO BE OFF ON BIPAP NOW, OFF TO BIPAP AND PUT ON O2 4L VIA NC SPO2 88% RT MADE AWARE WILL CONT TO MONITOR
--- NOTE | 2019-12-30 06:05 | NUR ---
RN NOTES PT SPO2 GOES DOWN TO 80'S TELL PT SHE NEED TO BE PUT ON BIPAP AGAIN, PT AGREED, BIPAP WAS PUT ON RT MADE AWARE, WILL CONT TO MONITOR
[2019-12-30] MEDS: Z GUARD REMEDY 2 OZ OINT TP PRN (06:27)
--- NOTE | 2019-12-30 06:52 | NUR ---
RN CLOSING NOTES PT ON BED ASLEEP WAKE UP EASILY STILL ON BIPAP SETTING ORDERED WITH ,SPO2 91%, NO SIGNIFICANT CHANGES ON CONDITION NOTED ALL NEEDS ATTENDED, BEDSIDE MONITOR READS SINUS RHYTHM 90'S , SAFETY MEASURE MAINTAINED BED ON LOWEST POSITION AND LOCKED CALL LIGHT WITHIN REACH WILL ENDORSED TO AM SHIFT NURSE
[2019-12-30] MEDS: BLOOD SUGAR DIAGNOSTIC 1 EACH STRIP IN SCH ×4 (07:45→21:23)
[2019-12-30] MEDS: INSULIN REGULAR, HUMAN 100 UNIT/ML 3 ML VIAL SQ PRN ×4 (08:05→21:25)
--- NOTE | 2019-12-30 08:05 | NUR ---
WOUND CARE CONSULT: PT REFUSED TO TURN FOR FULL SKIN ASSESSMENT. PT IS ON [facility] AIR BED AND STATES SHE FEELS MORE COMFORTABLE ON THE NEW BED. WILL SEE PRN. DISCUSSED SKIN PROTECTION WITH NURSING STAFF.
[2019-12-30] MEDS: PANTOPRAZOLE 40 MG VIAL IV SCH (08:11)
[2019-12-30] MEDS: LORATADINE 10 MG TABLET PO SCH (08:12)
[2019-12-30] MEDS: LEVETIRACETAM (250 MG) 250 MG TABLET PO SCH (08:12)
[2019-12-30] MEDS: methylPREDNISolone SOD SUCC 40 MG/ML VIAL IV SCH ×2 (08:12→21:05)
[2019-12-30] MEDS: GABAPENTIN 300 MG CAPSULE PO SCH ×3 (08:12→17:13)
[2019-12-30] MEDS: PIOGLITAZONE HCL 15 MG TABLET PO SCH (08:12)
[2019-12-30] MEDS: LINAGLIPTIN 5 MG TABLET PO SCH (08:34)
--- NOTE | 2019-12-30 08:53 | NUR ---
WOUND CARE: PT ALLOWED SKIN ASSESSMENT. PT NOTED TO HAVE SLIGHT RASH WITH SKIN DISCOLORATION TO BUTTOCKS, SKIN FOLDS AND POSTERIOR THIGHS. ANTIFUNGAL POWDER IN USE PER PT REQUEST. WILL SEE PRN. IN AGREEMENT WITH PLAN OF CARE.
[2019-12-30] MEDS: NYSTATIN TOP POWDER 15 GM BOTTLE TP SCH ×2 (09:23→17:14)
[2019-12-30] MEDS: Z GUARD REMEDY 2 OZ OINT TP SCH (09:23)
[2019-12-30] MEDS: MUPIROCIN OINT 2% 22 GM TUBE SCH ×2 (09:23→21:06)
[2019-12-30] MEDS: ACETAMINOPHEN 325 MG TABLET PO PRN (11:01)
[2019-12-30] MEDS: MENTHOL/CETYLPYRD (CEPACOL) 1 LOZ LOZENGE PO PRN ×2 (15:32→19:27)
[2019-12-30] MEDS: DULOXETINE HCL 30 MG CAPSULE.DR PO SCH (17:13)
--- NOTE | 2019-12-30 19:15 | NUR ---
RN OPENING NOTES RECEIVED PT ON BED AWAKE ON 4L O2 VIA NC SPO2 STILL ON 80'S% RESCUE BIPA DONE TWICE ON AM,MD IS AWARE OF PT HAVING SPO2 OF 80'S IN NC, HAVE AN ORDER FOR NOC BIPAP, PT IS A/O X4, ON BEDSIDE MONITOR WITH READING SINUS TACHY 90'S ON WHITE CATHETER DRAINING YELLOW URINE VIA GRAVITY, WITH JAC # 20 AND LHAND # 20 IV PATENT AND FLUSHED NO REDNESS OR PHLEBITIS NOTED, ON BARIATRIC BED ON AUTO TURNING MODE, SAFETY MEASURE MAINTAINED BED ON LOWEST POSITION AND LOCKED SIDE RAILS UP CALL LIGHT WITHIN REACH PT ON CONSISTENT CARB DIET ABLE TO SWALLOW
--- NOTE | 2019-12-30 19:30 | NUR ---
END OF SHIFT NOTE: PT HAD A FAIRLY UNEVENTFUL SHIFT. PT WAS ON 4L NASAL CANNULA MOST OF THE SHIFT WITH BRIEF TIMES WHEN BIPAP WAS NEEDED. PT WAS ON BIPAP FROM 1315 TO 1435 AND FROM [phone]. PT HAD 1 VERY LARGE SOFT BROWN BM. PT CHECKED ON HOURLY AND PRN BY NURSING STAFF.
[2019-12-30] MEDS: ENOXAPARIN SODIUM 40 MG/0.4 ML DISP.SYRIN SQ SCH (21:06)
[2019-12-30] MEDS: ATORVASTATIN 10 MG TABLET PO SCH (21:07)
--- NOTE | 2019-12-30 22:05 | NUR ---
RN NOTES PT REQUESTED TO BE PUT ON BIPAP, RT MADE AWARE THEY WILL COME TO PUT BIPAP ON THE PT WILL CONT TO MONITOR
--- NOTE | 2019-12-30 22:45 | NUR ---
RN NOTES BIPAP WAS PUT ON TO THE PATIENT BY RT WITH SETTING OF 20/10 RATE OF 12, PATIENT SPO2 94% WILL CONT TO MONITOR
[2019-12-30] MEDS: CEFTRIAXONE 2 G in IV D5W 100 ML IV SCH (22:55)
--- NOTE | 2019-12-30 23:58 | NUR ---
RN NOTES PT REMOVED HER BIPAP, SHE TOLD ME SHE WANT TO BE ON NASAL CANNULA FOR 30 MINUTES, PUT HER ON NASAL CANNULA 4L RT MADE AWARE WILL MONITOR THE PT
[2019-12-31] VITALS (24 sets, daily range): BP systolic 107–145; BP diastolic 55–87
--- NOTE | 2019-12-31 00:15 | NUR ---
RN NOTES PT IS PUT BACK TO BIPAP BY RT SETTING ORDERED SPO2 90% WILL CONT TO MONITOR
--- NOTE | 2019-12-31 01:05 | NUR ---
BLAINE NOTES PT REMOVED HER BIPAP, SHE SAID IT KEEPS ON BEEPING AND SHE WANT O2 VIA CANNULA FOR NOW AND SHE WILL CALL IF SHE WANT TO PUT THE BIPAP BACK, WILL CONT TO MONITOR THE PT Addendum: 12/31/19 at 0106 by SYLVESTER PUHG RN RT MADE AWARE
[2019-12-31] MEDS: MENTHOL/CETYLPYRD (CEPACOL) 1 LOZ LOZENGE PO PRN ×3 (01:07→19:47)
--- NOTE | 2019-12-31 01:48 | NUR ---
RN NOTES PT WAS BACK ON BIPAP BY AN RT, SPO2 @ 89% WILL CONT TO MONITOR
--- NOTE | 2019-12-31 04:00 | NUR ---
RN NOTES PT REMOVED HER BIPAP AND TELL SHE WANTS TO BE ON NASAL CANNULA FOR NOW, PUT ON NASAL CANNULA 4L SPO2 90% RT MADE AWARE WILL CONT TO MONITOR
[2019-12-31] MEDS: ALBUTEROL FS 2.5 MG/0.5 ML VIAL.NEB NEB SCH ×6 (04:11→23:39)
[2019-12-31] MEDS: IPRATROPIUM NEB FS 0.5 MG/2.5 ML AMPUL.NEB NEB SCH ×6 (04:12→23:39)
[2019-12-31] MEDS: Z GUARD REMEDY 2 OZ OINT TP PRN (04:48)
--- NOTE | 2019-12-31 06:51 | NUR ---
RN CLOSING NOTES PT ON BED ASLEEP WAKE UP EASILY ON O2 VIA NC @4L ,SPO2 89%, NO SIGNIFICANT CHANGES ON CONDITION NOTED ALL NEEDS ATTENDED, BEDSIDE MONITOR READS SINUS RHYTHM 90'S , SAFETY MEASURE MAINTAINED BED ON LOWEST POSITION AND LOCKED CALL LIGHT WITHIN REACH WILL ENDORSED TO AM SHIFT NURSE
--- NOTE | 2019-12-31 07:00 | NUR ---
RN NOTES RECEIVED PT ON BED A/Ox4, ON 4L O2 N/C, O2 SAT 92-93%, ON TELE SR, HR IN 90'S , NO DISTRESS NOTED, PT IS ON BARIATRIC BED, WHITE CATHETER DRAINING YELLOW URINE VIA GRAVITY, WITH JAC # 20 AND L HAND # 20 IV PATENT AND FLUSHED NO REDNESS OR PHLEBITIS NOTED, SAFETY MEASURE MAINTAINED BED ON LOWEST POSITION AND LOCKED SIDE RAILS UPx3, CALL LIGHT WITHIN EASY REACH , WILL CONTINUE TO MONITOR .
[2019-12-31] MEDS: INSULIN REGULAR, HUMAN 100 UNIT/ML 3 ML VIAL SQ PRN ×4 (07:35→22:28)
[2019-12-31] MEDS: BLOOD SUGAR DIAGNOSTIC 1 EACH STRIP IN SCH ×4 (07:37→22:24)
--- NOTE | 2019-12-31 07:45 | NUR ---
RT PATIENT WANTED TO EAT BREAKFAST INSTEAD OF REC HER BREATHING TX. NO SOB NOTED, NO DISTRESS.
[2019-12-31] MEDS: LINAGLIPTIN 5 MG TABLET PO SCH (08:16)
[2019-12-31] MEDS: PIOGLITAZONE HCL 15 MG TABLET PO SCH (08:16)
[2019-12-31] MEDS: methylPREDNISolone SOD SUCC 40 MG/ML VIAL IV SCH ×2 (08:16→20:54)
[2019-12-31] MEDS: LEVETIRACETAM (250 MG) 250 MG TABLET PO SCH (08:17)
[2019-12-31] MEDS: GABAPENTIN 300 MG CAPSULE PO SCH ×3 (08:17→16:42)
[2019-12-31] MEDS: PANTOPRAZOLE 40 MG TABLET.DR PO SCH (08:17)
[2019-12-31] MEDS: LORATADINE 10 MG TABLET PO SCH (08:17)
[2019-12-31] MEDS: Z GUARD REMEDY 2 OZ OINT TP SCH (08:18)
[2019-12-31] MEDS: NYSTATIN TOP POWDER 15 GM BOTTLE TP SCH ×2 (08:18→16:58)
[2019-12-31] MEDS: MUPIROCIN OINT 2% 22 GM TUBE SCH ×2 (08:22→21:10)
[2019-12-31] MEDS: ACETAMINOPHEN 325 MG TABLET PO PRN (08:35)
[2019-12-31 10:22] LABS: ABG BASE EXCESS 17.1 mmol/L; ABG OXYGEN SATURATION 86.6 % (92.0-98.5); ABG PH 7.278 (7.350-7.450); ABG PO2 55.5 mmHg (75.0-100.0); AaDO2 85.6 mmHg; COHb 1.5 % (0.5-1.5); MetHb 0.2 % (0.0-1.5); O2Hb 85.1 % (94.0-97.0); SITE, ABG Right Radial; VENT MODE, BG 4L N/C
--- NOTE | 2019-12-31 10:29 | NUR ---
RN NOTES DR MCCRAY NOTIFED REGARDING ABG RESULTS, PT PLACED ON BIPAP PER MD ORDER .
--- NOTE | 2019-12-31 10:40 | NUR ---
RT POST ABG PATIENT PLACED ON BIPAP. PER DR MCCRAY PATIENT SHOULD STAY ON BIPAP LONG SHE IS COMPLAINT. PATIENT CONSTANTLY REQUESTS FOR BIPAP TO BE TAKEN OFF. Addendum: 12/31/19 at 1201 by PIPER MONTAÑO RT Amended: Links added.
--- NOTE | 2019-12-31 11:00 | NUR ---
RN NOTES PT REFUSED AM BATH , STATED TOOK BED BATH SHIPYARD PAINTER HELPER .
--- NOTE | 2019-12-31 11:39 | NUR ---
PATIENT REQUESTED TO HAVE BIPAP REMOVED TO EAT. PLACED ON 4L N/C. Addendum: 12/31/19 at 1201 by PIPER MONTAÑO RT Amended: Links added.
--- NOTE | 2019-12-31 12:00 | NUR ---
RN NOTES PT TOOK OFF HER BIPAP AND STATED WANTS TO EAT . PLACED PT ON 4L O2 N/C , NO SOB NOTED, CONTINUE TO MONITOR .
--- NOTE | 2019-12-31 13:00 | NUR ---
RN NOTES PT BACK ON BIPAP BIPAP PER HER REQUEST . NO DISTRESS NOTED .
--- NOTE | 2019-12-31 14:28 | NUR ---
RN NOTE PT REFUSED TURNING AND BED BATH.
--- NOTE | 2019-12-31 16:00 | NUR ---
RN NOTES PT IS ON BIPAP FIO2 AT 40%, O2 SAT 92=93, CONTINUE TO MONITOR .
[2019-12-31] MEDS: DULOXETINE HCL 30 MG CAPSULE.DR PO SCH (17:19)
--- NOTE | 2019-12-31 18:20 | NUR ---
RN NOTES NO SIGNIFICANT CHANGES NOTED ON THIS SHIFT , PT OFF BIPAP AT THIS TIME , ON 4L O2 N/C , O2 SAT 88-92%, NO RESPIRATORY DISTRESS NOTED , WILL ENDOSE TO KILN FIREMAN NURSE FOR CONTINUITY OF CARE
--- NOTE | 2019-12-31 19:45 | NUR ---
COMMUNICATIONS EQUIPMENT OPERATOR OPENING NOTES, RECEIVED PATIENT ON BED AWAKE ON 4L O2 VIA NC SPO2 ON 91'S%. PATIENT KEEP CHANGING BETWEEN BIPA AND NASAL CANULA DURING DAYS SHIFT. PER MD'S ORDER FIO2 OD 88%-92% IS ACCEPTABLE FOR PATIENT. PATIENT IS A/O X4, ON BEDSIDE MONITOR WITH READING SINUS TACHY 90'S. NO SOB OR ACUTE DISTRESS NOTED. WHITE CATHETER DRAINING CLEAR/YELLOW URINE VIA GRAVITY, WITH JAC # 20 AND LHAND # 20 IV, PATENT AND FLUSHED NO S/S OF INFILTRATION NOTED, ON BARIATRIC BED ON AUTO TURNING MODE, SAFETY MEASURE MAINTAINED BED ON LOWE/LOCKED POSITION. SIDE RAILS UP X3, CALL LIGHT WITHIN REACH. WILL CONTINUE TO MONITOR.
[2019-12-31] MEDS: ENOXAPARIN SODIUM 40 MG/0.4 ML DISP.SYRIN SQ SCH (20:56)
[2019-12-31] MEDS: ATORVASTATIN 10 MG TABLET PO SCH (22:12)
[2019-12-31] MEDS: CEFTRIAXONE 2 G in IV D5W 100 ML IV SCH (23:16)
[2020-01-01] VITALS (24 sets, daily range): BP systolic 92–153; BP diastolic 50–106
[2020-01-01] MEDS: ALBUTEROL FS 2.5 MG/0.5 ML VIAL.NEB NEB SCH ×6 (03:53→23:52)
[2020-01-01] MEDS: IPRATROPIUM NEB FS 0.5 MG/2.5 ML AMPUL.NEB NEB SCH ×6 (03:53→23:52)
--- NOTE | 2020-01-01 07:12 | NUR ---
STOCK PATCH SAWYER CLOSING NOTES, PATIENT ON BED AWAKE ON 4L O2 VIA NC SPO2 ON 91'S%. PATIENTWAS ON BIPAP FROM 2300 TO 0500. ON NASAL CANULA NOW. PER MD'S ORDER FIO2 OD 88%-92% IS ACCEPTABLE FOR PATIENT. PATIENT IS A/O X4, ON BEDSIDE MONITOR WITH READING SINUS TACHY 90'S. NO SOB OR ACUTE DISTRESS NOTED. WHITE CATHETER DRAINING CLEAR/YELLOW URINE VIA GRAVITY, WITH JAC # 20 AND LHAND # 20 IV, PATENT AND FLUSHED NO S/S OF INFILTRATION NOTED, ON BARIATRIC BED ON AUTO TURNING MODE, SAFETY MEASURE MAINTAINED BED ON LOWE/LOCKED POSITION. SIDE RAILS UP X3, CALL LIGHT WITHIN REACH. ENDORSED THE PATIENT TO AM RN FOR MARTINA.
[2020-01-01] MEDS: BLOOD SUGAR DIAGNOSTIC 1 EACH STRIP IN SCH ×4 (07:37→21:48)
[2020-01-01] MEDS: INSULIN REGULAR, HUMAN 100 UNIT/ML 3 ML VIAL SQ PRN ×4 (07:38→21:38)
[2020-01-01] MEDS: PANTOPRAZOLE 40 MG TABLET.DR PO SCH (07:44)
[2020-01-01 08:01] LABS: ABG BASE EXCESS 18.3 mmol/L; ABG OXYGEN SATURATION 89.4 % (92.0-98.5); ABG PCO2 80.7 mmHg (35.0-45.0); ABG PH 7.385 (7.350-7.450); ABG PO2 56.7 mmHg (75.0-100.0); COHb 1.3 % (0.5-1.5); MetHb 0.2 % (0.0-1.5); O2Hb 88.1 % (94.0-97.0); SITE, ABG Right Radial; VENT MODE, BG nasal cannula
[2020-01-01] MEDS: GABAPENTIN 300 MG CAPSULE PO SCH ×3 (08:05→16:52)
[2020-01-01] MEDS: methylPREDNISolone SOD SUCC 40 MG/ML VIAL IV SCH ×2 (08:05→21:15)
[2020-01-01] MEDS: LINAGLIPTIN 5 MG TABLET PO SCH (08:05)
[2020-01-01] MEDS: LORATADINE 10 MG TABLET PO SCH (08:05)
[2020-01-01] MEDS: MUPIROCIN OINT 2% 22 GM TUBE SCH ×2 (08:05→21:43)
[2020-01-01] MEDS: LEVETIRACETAM (250 MG) 250 MG TABLET PO SCH (08:05)
[2020-01-01] MEDS: PIOGLITAZONE HCL 15 MG TABLET PO SCH (08:05)
[2020-01-01] MEDS: NYSTATIN TOP POWDER 15 GM BOTTLE TP SCH ×2 (08:06→16:52)
[2020-01-01] MEDS: Z GUARD REMEDY 2 OZ OINT TP SCH (08:06)
--- NOTE | 2020-01-01 09:33 | NUR ---
RN NOTE 0715: Received patietn awake, A/Ox4. On 4LPM of O2 via NC. 88% and above sat. PIV intact. With Amaral cath intact, noted with clear yellow urine drained to BSD. On Barimaxx. SR 90's on the monitor. 0830: Able to tolerate diet but needed assistance for feeding. 0900: S/E by Dr. Frank, discussed re: the POC. 0930: No significant changes noted.
[2020-01-01] MEDS: DULOXETINE HCL 30 MG CAPSULE.DR PO SCH (17:04)
--- NOTE | 2020-01-01 17:08 | NUR ---
RT NOTE PATIENT ON 4.5L NASAL CANNULA, TOLERATING WELL. MAINTAIN CURRENT ORDERS OF NOC BIPAP PER DR. MCCRAY. MONITOR THROUGHOUT SHIFT.
--- NOTE | 2020-01-01 18:05 | NUR ---
RN NOTE No any significant changes noted. Remained on 4 LPM O2 via NC, does not want to have the Bipap on at this time. Agreed to be on Bipap during night time. Still refused to be cleaned, only pulled up from bed.
[2020-01-01] MEDS: MENTHOL/CETYLPYRD (CEPACOL) 1 LOZ LOZENGE PO PRN ×2 (19:05→21:40)
[2020-01-01] MEDS: ATORVASTATIN 10 MG TABLET PO SCH (21:15)
[2020-01-01] MEDS: ENOXAPARIN SODIUM 40 MG/0.4 ML DISP.SYRIN SQ SCH (21:18)
[2020-01-01] MEDS: ACETAMINOPHEN 325 MG TABLET PO PRN (21:41)
[2020-01-01] MEDS: CEFTRIAXONE 2 G in IV D5W 100 ML IV SCH (23:30)
[2020-01-02] VITALS (25 sets, daily range): BP systolic 78–132; BP diastolic 50–80
[2020-01-02] MEDS: ALBUTEROL FS 2.5 MG/0.5 ML VIAL.NEB NEB SCH ×5 (02:57→19:22)
[2020-01-02] MEDS: IPRATROPIUM NEB FS 0.5 MG/2.5 ML AMPUL.NEB NEB SCH ×5 (02:57→19:22)
--- NOTE | 2020-01-02 03:26 | NUR ---
The client is being placed on BIpap. WIll monitor for saturation.
--- NOTE | 2020-01-02 06:30 | NUR ---
AIR TECHNICIAN: REMAINED A/O X3. PT. WAS ON BIPAP STARTING MID-NIGHT AND TOLERATED WELL. HAD ONE EPISODE OF LARGE BOWEL MOVEMENT (SOFT FORMED AND BROWN STOOLS). GOOD PERINEUM/SKIN CARE RENDERED. AGREED TO BE TURNED AND REPOSITIONED ONLY ONE TIME DURING THE SHIFT. REFUSED BED BATH. EXPLAINED RISKS AND BENEFITS. REQUESTED TYLENOL FOR GENERALIZED PAIN (/10) AND VERBALIZED RELIEF AFTER AN HOUR. SAFETY PRECAUTION NOTED AT ALL TIMES. CALL LIGHT KEPT WITHIN REACH.
[2020-01-02] MEDS: BLOOD SUGAR DIAGNOSTIC 1 EACH STRIP IN SCH ×4 (07:27→21:38)
[2020-01-02] MEDS: INSULIN REGULAR, HUMAN 100 UNIT/ML 3 ML VIAL SQ PRN ×4 (07:28→21:54)
[2020-01-02] MEDS: PANTOPRAZOLE 40 MG TABLET.DR PO SCH (07:34)
--- NOTE | 2020-01-02 07:42 | NUR ---
pt. received on 4 lpm O2 flow via nasal cannula spo2 88% no sob noted Addendum: 01/02/20 at 0744 by YOGESH SNOW RT Amended: Links added.
[2020-01-02] MEDS: PIOGLITAZONE HCL 15 MG TABLET PO SCH (08:14)
[2020-01-02] MEDS: GABAPENTIN 300 MG CAPSULE PO SCH ×3 (08:14→17:19)
[2020-01-02] MEDS: methylPREDNISolone SOD SUCC 40 MG/ML VIAL IV SCH ×2 (08:14→20:47)
[2020-01-02] MEDS: LEVETIRACETAM (250 MG) 250 MG TABLET PO SCH (08:15)
[2020-01-02] MEDS: LINAGLIPTIN 5 MG TABLET PO SCH (08:15)
[2020-01-02] MEDS: LORATADINE 10 MG TABLET PO SCH (08:15)
[2020-01-02] MEDS: NYSTATIN TOP POWDER 15 GM BOTTLE TP SCH ×2 (08:15→17:19)
[2020-01-02] MEDS: Z GUARD REMEDY 2 OZ OINT TP SCH (08:15)
[2020-01-02] MEDS: MUPIROCIN OINT 2% 22 GM TUBE SCH ×2 (08:15→21:23)
[2020-01-02] MEDS: MENTHOL/CETYLPYRD (CEPACOL) 1 LOZ LOZENGE PO PRN ×4 (08:16→23:03)
[2020-01-02 09:29] LABS: ABG BASE EXCESS 18.4 mmol/L; ABG OXYGEN SATURATION 88.1 % (92.0-98.5); ABG PCO2 85.1 mmHg (35.0-45.0); ABG PH 7.368 (7.350-7.450); ABG PO2 54.2 mmHg (75.0-100.0); AaDO2 111.1 mmHg; MetHb 0.3 % (0.0-1.5); SITE, ABG Right Radial; VENT MODE, BG nasal cannula
--- NOTE | 2020-01-02 09:35 | NUR ---
RN NOTE 0715: Received patient awake, A/Ox4. On Bipap, placed on 4LPM via NC at this time. Will monitor sat and breathing. PIV intact. Amaral cath intact, noted with clear yellow urine drained to BSD. On Barimaxx but does not want to do rotation of her bed and does not want to be turned. 0820: Tolerated diet. 0900: S/E by Dr. Bran, no new order at this time. 0930: No any significant changes noted at this time. ABG resulted. Awaiting Pulmo rounds. Needs attended. Will continue to monitor.
[2020-01-02] MEDS: DULOXETINE HCL 30 MG CAPSULE.DR PO SCH (17:19)
--- NOTE | 2020-01-02 18:32 | NUR ---
RN NOTE No any significant changes noted. remained comfortable in 4LPM of O2 via NC. Agreed for Bipap tonight.
[2020-01-02] MEDS: ACETAMINOPHEN 325 MG TABLET PO PRN (19:17)
--- NOTE | 2020-01-02 19:30 | NUR ---
client is resting in bed, A/O x4. No s/s of distress or pain, the client denies pain. The client is telemonitor, SR, HR 90's. O2 sat at 88% on 4L NC. FC noted. Client remains on special matres. All safety mechanisms in place, comfort measures provided, will continue to monitor.
[2020-01-02] MEDS: ENOXAPARIN SODIUM 40 MG/0.4 ML DISP.SYRIN SQ SCH (20:50)
[2020-01-02] MEDS: ATORVASTATIN 10 MG TABLET PO SCH (21:22)
[2020-01-02] MEDS: CEFTRIAXONE 2 G in IV D5W 100 ML IV SCH (23:02)
--- NOTE | 2020-01-02 23:50 | NUR ---
THE CLIENT HAS REFUSED BEDBATH AT THIS TIME. CLIENT STATES NOT TO FEEL LIKE GETTING A BED BATH AT THIS TIME. PILLOW CASES AND PARTIAL LINNEN CHANGE WILL BE DONE.
[2020-01-03] VITALS (25 sets, daily range): BP systolic 96–141; BP diastolic 36–112
[2020-01-03] MEDS: ALBUTEROL FS 2.5 MG/0.5 ML VIAL.NEB NEB SCH ×6 (00:10→19:38)
[2020-01-03] MEDS: IPRATROPIUM NEB FS 0.5 MG/2.5 ML AMPUL.NEB NEB SCH ×6 (00:10→19:38)
--- NOTE | 2020-01-03 03:14 | NUR ---
the client remains stable with no change of condition at thsi time. The client is currently on BIPAP. O2 saturation at 95%.
--- NOTE | 2020-01-03 03:29 | NUR ---
PATIENT RECEIVED ON 4LNC THEN PLACED ON NOC BIPAP 20/, RR 12, 60%. GIVEN HHN TREATMENTS WITH NO ADVERSE REACTIONS. AMBU BAG AT BEDSIDE. BIPAP ALARMS AUDIBLE AND VISIBLE. Addendum: 01/03/20 at 0330 by WENDI QUIÑONES RT Amended: Links added.
--- NOTE | 2020-01-03 06:53 | NUR ---
RN CLOSING NOTES No change of condition during the shift. The client remains in stable conditions. VS WNL. No s/s of distress nor pain at this time, the client denies pain. All safety measures in place, comfort measures provided.
[2020-01-03] MEDS: BLOOD SUGAR DIAGNOSTIC 1 EACH STRIP IN SCH ×4 (07:25→22:00)
[2020-01-03] MEDS: PANTOPRAZOLE 40 MG TABLET.DR PO SCH (07:25)
[2020-01-03] MEDS: INSULIN REGULAR, HUMAN 100 UNIT/ML 3 ML VIAL SQ PRN ×4 (07:26→22:08)
[2020-01-03 08:35] LABS: BASOPHILS % (AUTO) 0.1 % (0.0-2.0); EOSINOPHILS % (AUTO) 0.9 % (0.0-6.0); HEMATOCRIT 37 % (33-45); HEMOGLOBIN 11.4 g/dL (11.5-14.8); LYMPHOCYTES # (AUTO) 1.1 /CMM (0.8-4.8); LYMPHOCYTES % (AUTO) 16.4 % (20.0-44.0); MEAN CORPUSCULAR HGB CONC 31 g/dl (31.0-36.0); MEAN CORPUSCULAR VOLUME 96 fL (82-100); MONOCYTES # (AUTO) 0.4 /CMM (0.1-1.30); MONOCYTES % (AUTO) 6.2 % (2.0-12.0); NEUTROPHILS # (AUTO) 5.1 /CMM (1.8-8.9); NEUTROPHILS % (AUTO) 76.4 % (43.0-81.0); PLATELET COUNT (AUTO) 208 /CMM (150-450); RED BLOOD CELL COUNT(AUTO) 3.85 MIL/uL (4.0-5.2); WHITE BLOOD COUNT (AUTO) 6.7 K/uL (4.3-11.0)
[2020-01-03 08:59] LABS: CALCIUM, SERUM 9.6 mg/dL (8.5-10.1); CREATININE 0.9 mg/dL (0.6-1.3); MAGNESIUM 2.4 mg/dL (1.8-2.4); PHOSPHORUS 4.4 mg/dL (2.5-4.9); POTASSIUM 4.9 mmol/L (3.5-5.1)
[2020-01-03] MEDS ORDERED: CARBOXYMETHYLCELLULOSE SODIUM 0.4 ML DROPERETTE EACHEYE PRN (09:00)
[2020-01-03] MEDS: LEVETIRACETAM (250 MG) 250 MG TABLET PO SCH (09:05)
[2020-01-03] MEDS: LORATADINE 10 MG TABLET PO SCH (09:05)
[2020-01-03] MEDS: PIOGLITAZONE HCL 15 MG TABLET PO SCH (09:05)
[2020-01-03] MEDS: methylPREDNISolone SOD SUCC 40 MG/ML VIAL IV SCH ×2 (09:05→20:18)
[2020-01-03] MEDS: LINAGLIPTIN 5 MG TABLET PO SCH (09:05)
[2020-01-03] MEDS: GABAPENTIN 300 MG CAPSULE PO SCH ×3 (09:05→16:54)
[2020-01-03] MEDS: MUPIROCIN OINT 2% 22 GM TUBE SCH ×2 (09:05→20:18)
[2020-01-03] MEDS: NYSTATIN TOP POWDER 15 GM BOTTLE TP SCH ×2 (09:05→16:54)
[2020-01-03] MEDS: Z GUARD REMEDY 2 OZ OINT TP SCH (09:06)
[2020-01-03] MEDS: MENTHOL/CETYLPYRD (CEPACOL) 1 LOZ LOZENGE PO PRN (09:57)
[2020-01-03 10:08] LABS: EOSINOPHILS % (MANUAL) 1 % (0-4); LYMPHOCYTES % (MANUAL) 13 % (16-48); MONOCYTES % (MANUAL) 6 % (0-11.0); MYELOCYTES % 2 % (0-0); NEUTROPHILS % (MANUAL) 78 (42-76)
[2020-01-03 10:37] LABS: ABG BASE EXCESS 15.9 mmol/L; ABG OXYGEN SATURATION 85.7 % (92.0-98.5); ABG PCO2 78.8 mmHg (35.0-45.0); ABG PH 7.377 (7.350-7.450); ABG PO2 48.5 mmHg (75.0-100.0); AaDO2 94.8 mmHg; COHb 1.5 % (0.5-1.5); MetHb 0.2 % (0.0-1.5); O2Hb 84.2 % (94.0-97.0); SITE, ABG Right Radial; VENT MODE, BG NASAL CANNULA
[2020-01-03] MEDS: DULOXETINE HCL 30 MG CAPSULE.DR PO SCH (16:54)
--- NOTE | 2020-01-03 18:35 | NUR ---
pt. requested to placed back on bipap with settings below: ipap 20 epap 10 f 12 fio2 60% Addendum: 01/03/20 at 1836 by YOGESH SNOW RT Amended: Links added.
--- NOTE | 2020-01-03 19:30 | NUR ---
RN NOTES RECEIVED PATIENT IN BED AOX4, BREATHING NORMAL NO SOB NOTED, RESPIRATION EVEN NON LABORED. ON 4L OXYGEN VIA NC SATURATING WELL. TELE MONITOR READING ST HR IN 90'S. NO S/S OF ACUTE DISTRESS NOTED. IV SITE JAC #20G, RT HAND #20G INTACT PATENT FLUSHES WELL. F/C INTACT DARNING YELLOW URINE TO GRAVITY. SAFETY MEASURES IN PLACE, SIDE RAILS UP, BED IN LOW AND LOCKED POSITION, CALL LIGHT WITHIN REACH. WILL CONT TO MONITOR FOR MARTINA.
[2020-01-03] MEDS: ENOXAPARIN SODIUM 40 MG/0.4 ML DISP.SYRIN SQ SCH (20:19)
[2020-01-03] MEDS: ATORVASTATIN 10 MG TABLET PO SCH (22:31)
[2020-01-03] MEDS: CEFTRIAXONE 2 G in IV D5W 100 ML IV SCH (23:59)
[2020-01-04] VITALS (8 sets, daily range): BP systolic 114–139; BP diastolic 58–121
[2020-01-04] MEDS: ALBUTEROL FS 2.5 MG/0.5 ML VIAL.NEB NEB SCH ×7 (00:01→23:46)
[2020-01-04] MEDS: IPRATROPIUM NEB FS 0.5 MG/2.5 ML AMPUL.NEB NEB SCH ×7 (00:01→23:46)
--- NOTE | 2020-01-04 02:55 | NUR ---
TRANSFERRED PATIENT TO [facility] WITH ACLS PROTOCOL WITH BARIATRIC BED ACCOMPANIED BY 2 RN'S 3 RT'S TO ROOM 107. PATIENT IS AOX4 NO S/S OF DISTRESS NOTED.
--- NOTE | 2020-01-04 02:55 | NUR ---
0255 RECEIVED FROM ICU VIA BARIATRIC BED FOR TRANSFER OF CARE ACCOMPANIED BY RN AND 3 RTS. PLACED IN ROOM 107. PATIENT AWAKE AND VERBALLY RESPONSIVE. NO SIGNS OF DISTRESS. O2 SATURATION 86% ON NASAL CANNULA DURING TRANSPORT. PLACED IMMEDIATELY ON BIPAP ORDERED. O2 SATURATION WENT UP TO 97%. PATIENT REFUSED TO BE TURNED FOR SKIN CHECK. NOTED WITH BLOOD SOAKED DRESSING ON LEFT ARM DUE TO PUNCTURE SITE. DRESSING CHANGED. REFUSED TO BE CLEANED AT THIS TIME STATING SHE WANTS TO SLEEP. HOB ELEVATED FOR MAXIMUM OXYGENATION. CALL LIGHT PLACED WITHIN REACH AND INSTRUCTED TO CALL FOR ASSISTANCE. Addendum: 01/04/20 at 0359 by DAVID ELAM RN 0255 RECEIVED FROM ICU VIA BARIATRIC BED FOR TRANSFER OF CARE ACCOMPANIED BY RN AND 3 RTS. PLACED IN ROOM 107. PATIENT AWAKE AND VERBALLY RESPONSIVE. NO SIGNS OF DISTRESS. O2 SATURATION 86% ON NASAL CANNULA DURING TRANSPORT. PLACED IMMEDIATELY ON BIPAP ORDERED. O2 SATURATION WENT UP TO 97%. PATIENT REFUSED TO BE TURNED FOR SKIN CHECK. NOTED WITH BLOOD SOAKED DRESSING ON LEFT ARM DUE TO PUNCTURE SITE. DRESSING CHANGED. REFUSED TO BE CLEANED AT THIS TIME STATING SHE WANTS TO SLEEP. HOB ELEVATED FOR MAXIMUM OXYGENATION. CALL LIGHT PLACED WITHIN REACH AND INSTRUCTED TO CALL FOR ASSISTANCE.
--- NOTE | 2020-01-04 06:15 | NUR ---
RN [facility] NOTE OFFERED TO CLEAN PT AND CHANGE LINEN BUT PT PREFERRED TO BE CLEANED UNTIL AFTER BREAKFAST.
--- NOTE | 2020-01-04 06:46 | NUR ---
RN [facility]IS[facility] CLOSING NOTE PT IN BED AWAKE. A/O X3. BREATHING EVEN AND UNLABORED ON 4L OF 02 VIA NC 02 SATURATION AT 97%. SR ON MONITOR. DENIES ANY PAIN AT THE MOMENT. CALL LIGHT WITHIN REACH. BED IN LOWEST POSITION. ALL NEEDS RENDERED. PT REFUSED TO BE CHANGED OR CLEANED. STATED SHE WOULD LIKE TO WAIT UNTIL AFTER BREAKFAST.RESPECTED PT'S RIGHT. WILL ENDORSE TO AM NURSE FOR CONTINUITY OF CARE.
--- NOTE | 2020-01-04 06:47 | NUR ---
CALL [facility] AND LEFT A VOICE MESSAGE ABOUT PATIENT'S TRANSFER TO [facility],
--- NOTE | 2020-01-04 07:40 | NUR ---
AISHA/RN OPENING NOTES RECEIVED PATIENT ON BED. NO APPARENT RESPIRATORY DISTRESS NOTED. NO COMPLAINED OF PAIN. PATIENT TELE MONITOR IN PLACE SR 88 BPM. WILL CONTINUE TO MONITOR.
[2020-01-04] MEDS: BLOOD SUGAR DIAGNOSTIC 1 EACH STRIP IN SCH ×4 (07:54→22:03)
[2020-01-04] MEDS: PANTOPRAZOLE 40 MG TABLET.DR PO SCH (07:55)
[2020-01-04] MEDS: PIOGLITAZONE HCL 15 MG TABLET PO SCH (08:39)
[2020-01-04] MEDS: methylPREDNISolone SOD SUCC 40 MG/ML VIAL IV SCH ×2 (08:39→21:59)
[2020-01-04] MEDS: LORATADINE 10 MG TABLET PO SCH (08:39)
[2020-01-04] MEDS: LEVETIRACETAM (250 MG) 250 MG TABLET PO SCH (08:39)
[2020-01-04] MEDS: GABAPENTIN 300 MG CAPSULE PO SCH ×3 (08:39→17:27)
[2020-01-04] MEDS: LINAGLIPTIN 5 MG TABLET PO SCH (08:39)
[2020-01-04] MEDS: INSULIN REGULAR, HUMAN 100 UNIT/ML 3 ML VIAL SQ PRN ×4 (08:42→22:05)
[2020-01-04] MEDS: Z GUARD REMEDY 2 OZ OINT TP SCH (08:51)
[2020-01-04] MEDS: MUPIROCIN OINT 2% 22 GM TUBE SCH ×2 (08:51→22:01)
[2020-01-04] MEDS: NYSTATIN TOP POWDER 15 GM BOTTLE TP SCH ×2 (08:51→17:26)
[2020-01-04] MEDS: ACETAMINOPHEN 325 MG TABLET PO PRN (11:38)
--- NOTE | 2020-01-04 11:38 | NUR ---
[facility]/RN NOTES PATIENT COMPLAINED OF HEADACHE, TYLENOL 650MG 1 TAB PO WAS GIVEN, WILL CONTINUE TO MONITOR.
[2020-01-04] MEDS: DULOXETINE HCL 30 MG CAPSULE.DR PO SCH (17:27)
[2020-01-04] MEDS: MENTHOL/CETYLPYRD (CEPACOL) 1 LOZ LOZENGE PO PRN ×2 (17:27)
--- NOTE | 2020-01-04 18:51 | NUR ---
AISHA/RN CLOSING NOTES PATIENT IS ON BED, ALERT AND ORIENTED X4. PATIENT DENIES PAIN AT THIS TIME. PATIENT IN APPARENT RESPIRATORY DISTRESS NOTED. IV ACCESS AT RIGHT UPPER ARM MIDLINE #20 G AND LEFT UPPER ARM MIDLINE # 18G PATENT AND INTACT. TELE MONITOR IN PLACED READING SR 90 BPM. SEEN AND EXAMINED BY MD WITH ORDERS MADE AND CARRIED OUT. ALL DUE MEDICATION WAS GIVEN. SAFETY PRECAUTIONS WAS IN PLACED. BED IN LOWEST POSITION AND LOCKED. SIDE RAILS UP X 2. CALL LIGHT WITHIN REACH. WILL ENDORSED TO DEBT COLLECTOR FOR [place].
--- NOTE | 2020-01-04 19:30 | NUR ---
RN AISHA NOTES, PATIENT IS ON BED, ALERT AND ORIENTED X4, ASLEEP AROUSABLE TO VERBAL STIMULI, BREATHING EVEN AND UNLABORED, N O S/S OF ANY APPARENT RESPIRATORY DISTRESS/PAIN OR DISCOMFORT NOTED, IV ACCESS AT RIGHT UPPER ARM MIDLINE #20 G AND LEFT UPPER ARM MIDLINE # 18G BOTH PATENT AND INTACT, SR IN TELE MONITOR WITH HR 80S-90S BP AT THIS TIME, ALL SAFETY PRECAUTIONS IN PLACED, SIDE RAILS UP X 2, BED LOCKED AND IN LOWEST POSITION, CALL LIGHT WITHIN REACH, WILL CONTINUE TO MONITOR CLOSELY..
[2020-01-04] MEDS: ATORVASTATIN 10 MG TABLET PO SCH (21:59)
[2020-01-04] MEDS: ENOXAPARIN SODIUM 40 MG/0.4 ML DISP.SYRIN SQ SCH (22:00)
[2020-01-04] MEDS: CEFTRIAXONE 2 G in IV D5W 100 ML IV SCH (23:57)
[2020-01-05] VITALS: BP 137/74
[2020-01-05] MEDS: IPRATROPIUM NEB FS 0.5 MG/2.5 ML AMPUL.NEB NEB SCH ×6 (03:50→23:06)
[2020-01-05] MEDS: ALBUTEROL FS 2.5 MG/0.5 ML VIAL.NEB NEB SCH ×6 (03:51→23:06)
[2020-01-05 04:00] VITALS: BP 117/64
[2020-01-05 06:45] LABS: BASOPHILS % (AUTO) 0.1 % (0.0-2.0); EOSINOPHILS % (AUTO) 0.3 % (0.0-6.0); HEMATOCRIT 36 % (33-45); LYMPHOCYTES # (AUTO) 0.6 /CMM (0.8-4.8); LYMPHOCYTES % (AUTO) 9.7 % (20.0-44.0); MEAN CORPUSCULAR HGB CONC 31 g/dl (31.0-36.0); MEAN CORPUSCULAR VOLUME 95 fL (82-100); MONOCYTES # (AUTO) 0.2 /CMM (0.1-1.30); MONOCYTES % (AUTO) 3.9 % (2.0-12.0); NEUTROPHILS # (AUTO) 5.1 /CMM (1.8-8.9); PLATELET COUNT (AUTO) 189 /CMM (150-450); RED BLOOD CELL COUNT(AUTO) 3.76 MIL/uL (4.0-5.2); WHITE BLOOD COUNT (AUTO) 5.9 K/uL (4.3-11.0)
--- NOTE | 2020-01-05 06:46 | NUR ---
AISHA RN NOTE PT IN BED. AWAKE A/O X4. BREATHING EVEN AND LABORED ON BIPAP 60L 02 SATURATION 90%. DENIES ANY PAIN OR DISCOMFORT. NAVI MIDLINE PATENT AND INTACT. NAVI IV SITE PATENT AND INTACT. WHITE IN PLACE. YELLOW CLEAR URINE NOTED. ALL NEEDS RENDERED. KEPT CLEAN AND DRY.CALL LIGHT WITHIN REACH. BED IN LOWEST POSITION. WILL ENDORSE TO AM NURSE FOR CONTINUITY OF CARE. .
--- NOTE | 2020-01-05 07:20 | NUR ---
ms rn received on bed, awake,alert,oriented x4,not in any form of distress,patient is bedbound, obese patient, monitoring saturation at 88%,md aware.no distress noted,denies pain at this time,all needs attended.
--- NOTE | 2020-01-05 07:20 | NUR ---
ms jennifer cleaned patient w/ stripper printed circuit boards.
[2020-01-05 07:25] LABS: CALCIUM, SERUM 9.2 mg/dL (8.5-10.1); CREATININE 0.8 mg/dL (0.6-1.3)
[2020-01-05 08:00] VITALS: BP 138/51
[2020-01-05] MEDS: PIOGLITAZONE HCL 15 MG TABLET PO SCH (08:51)
[2020-01-05] MEDS: LORATADINE 10 MG TABLET PO SCH (08:51)
[2020-01-05] MEDS: METFORMIN 850 MG TABLET PO SCH ×2 (08:51→17:45)
[2020-01-05] MEDS: LINAGLIPTIN 5 MG TABLET PO SCH (08:51)
[2020-01-05] MEDS: LEVETIRACETAM (250 MG) 250 MG TABLET PO SCH (08:51)
[2020-01-05] MEDS: GABAPENTIN 300 MG CAPSULE PO SCH ×3 (08:51→17:45)
[2020-01-05] MEDS: BLOOD SUGAR DIAGNOSTIC 1 EACH STRIP IN SCH ×4 (08:51→21:05)
[2020-01-05] MEDS: methylPREDNISolone SOD SUCC 40 MG/ML VIAL IV SCH (08:52)
[2020-01-05] MEDS: MUPIROCIN OINT 2% 22 GM TUBE SCH ×2 (08:52→20:38)
[2020-01-05] MEDS: PANTOPRAZOLE 40 MG TABLET.DR PO SCH (08:54)
[2020-01-05] MEDS: INSULIN REGULAR, HUMAN 100 UNIT/ML 3 ML VIAL SQ PRN ×4 (08:55→21:07)
[2020-01-05] MEDS: NYSTATIN TOP POWDER 15 GM BOTTLE TP SCH ×2 (09:00→17:46)
[2020-01-05] MEDS: Z GUARD REMEDY 2 OZ OINT TP SCH (09:00)
--- NOTE | 2020-01-05 09:00 | NUR ---
ms rodriguez breakfast served,due meds given,tolerated well.
[2020-01-05 12:00] VITALS: BP 138/74
[2020-01-05] MEDS: ACETAMINOPHEN 325 MG TABLET PO PRN (12:24)
[2020-01-05] MEDS: MENTHOL/CETYLPYRD (CEPACOL) 1 LOZ LOZENGE PO PRN ×2 (12:24→21:44)
[2020-01-05] MEDS: Z GUARD REMEDY 2 OZ OINT TP PRN (12:27)
[2020-01-05 14:04] LABS: LYMPHOCYTES % (MANUAL) 5 % (16-48); MONOCYTES % (MANUAL) 4 % (0-11.0); NEUTROPHILS % (MANUAL) 91 (42-76)
--- NOTE | 2020-01-05 15:44 | NUR ---
ms rn on bed, all needs attended.
[2020-01-05 16:00] VITALS: BP 138/62
[2020-01-05] MEDS: DULOXETINE HCL 30 MG CAPSULE.DR PO SCH (17:45)
--- NOTE | 2020-01-05 19:00 | NUR ---
ms rn endorsed to fast food shift lead for [employer].
[2020-01-05 20:00] VITALS: BP 133/66
--- NOTE | 2020-01-05 20:00 | NUR ---
CIGAR HEAD STRINGER INITIAL NOTES, PATIENT IN BED, ALERT AND ORIENTED X4, AWAKE AT THIS TIME, BREATHING EVEN AND UNLABORED, REPOSITIONED PATIENT AT THIS TIME AND ASKING FOR BREATHING TREATMENT O2 NOTED LOWS 80S BEFORE REPOSITIONED, AFTER BREATHING TREATMENT O2 INCREASE >94%SR IN TELE MONITOR WITH HR 80S-90S BP AT THIS TIME, IV ACCESS AT RIGHT UPPER ARM MIDLINE #20 G AND LEFT UPPER ARM MIDLINE # 18G BOTH PATENT AND INTACT, ALL SAFETY PRECAUTIONS IN PLACED, SIDE RAILS UP X 2, BED LOCKED AND IN LOWEST POSITION, CALL LIGHT WITHIN REACH, WILL CONTINUE TO MONITOR CLOSELY..
[2020-01-05] MEDS: ENOXAPARIN SODIUM 40 MG/0.4 ML DISP.SYRIN SQ SCH (21:05)
[2020-01-05] MEDS: ATORVASTATIN 10 MG TABLET PO SCH (21:05)
[2020-01-06] VITALS (7 sets, daily range): BP systolic 111–130; BP diastolic 58–70
[2020-01-06] MEDS: ACETAMINOPHEN 325 MG TABLET PO PRN ×2 (03:10→10:44)
[2020-01-06] MEDS: ALBUTEROL FS 2.5 MG/0.5 ML VIAL.NEB NEB SCH ×6 (03:25→22:33)
[2020-01-06] MEDS: IPRATROPIUM NEB FS 0.5 MG/2.5 ML AMPUL.NEB NEB SCH ×6 (03:25→22:33)
--- NOTE | 2020-01-06 06:38 | NUR ---
CIGAR PACKER AND SHADER CLOSING NOTE PT IN BED. AWAKE A/O X4. BREATHING EVEN AND UNLABORED ON 4L OF 02 VIA NC. TOLERATING WELL 02 SATURATION 88%. HR 85. DENIES ANY PAIN OR DISCOMFORT. JAC #18 SL PATENT AND INTACT. NAVI MIDLINE PATENT AND INTACT. ALL NEEDS RENDERED. KEPT CLEAN AND DRY. CALL LIGHT WITHIN REACH. EXTREMITIES OFFLOADED. REPOSITIONED EVERY 2HRS. WILL ENDORSE TO AM NURSE FOR CONTINUITY OF CARE.
[2020-01-06 06:41] LABS: BASOPHILS % (AUTO) 0.1 % (0.0-2.0); EOSINOPHILS % (AUTO) 1.9 % (0.0-6.0); HEMATOCRIT 34 % (33-45); HEMOGLOBIN 10.7 g/dL (11.5-14.8); LYMPHOCYTES # (AUTO) 1.4 /CMM (0.8-4.8); MEAN CORPUSCULAR HGB CONC 31 g/dl (31.0-36.0); MEAN CORPUSCULAR VOLUME 95 fL (82-100); MONOCYTES # (AUTO) 0.5 /CMM (0.1-1.30); MONOCYTES % (AUTO) 7.4 % (2.0-12.0); NEUTROPHILS # (AUTO) 4.5 /CMM (1.8-8.9); NEUTROPHILS % (AUTO) 68.6 % (43.0-81.0); PLATELET COUNT (AUTO) 191 /CMM (150-450); RED BLOOD CELL COUNT(AUTO) 3.62 MIL/uL (4.0-5.2); WHITE BLOOD COUNT (AUTO) 6.5 K/uL (4.3-11.0)
[2020-01-06 07:22] LABS: CALCIUM, SERUM 9.1 mg/dL (8.5-10.1); CREATININE 0.9 mg/dL (0.6-1.3); MAGNESIUM 2.1 mg/dL (1.8-2.4); POTASSIUM 4.1 mmol/L (3.5-5.1)
--- NOTE | 2020-01-06 07:33 | NUR ---
RN OPENING NOTES PATIENT PRESENT IN BED, a/oX4, ON BARIATRIC BED ,ON NC RECEIVING O2 AT 4L, SPO2 IS 91%, RECEIVING BERATING TREATMENT, TOLERATING WELL, SR ON TELEMONITOR, 88-90, IV LINE NOTED JAC AND NAVI, BOTH INTACT AND PATENT, FLUSHED WELL, REGULAR DIET NOTED,WITH FEEDER ASSISTANCE, SAFETY MEASURES IMPLEMENTED, CALL LIGHT IN REACH, BED IS LOCKED,HOB ELEVATED, WILL CONT TO MONITOR CLOSELY
[2020-01-06] MEDS: PANTOPRAZOLE 40 MG TABLET.DR PO SCH (08:03)
[2020-01-06] MEDS: BLOOD SUGAR DIAGNOSTIC 1 EACH STRIP IN SCH ×4 (08:03→21:12)
[2020-01-06] MEDS: INSULIN REGULAR, HUMAN 100 UNIT/ML 3 ML VIAL SQ PRN ×4 (08:14→21:45)
[2020-01-06 08:42] LABS: EOSINOPHILS % (MANUAL) 1 % (0-4); LYMPHOCYTES % (MANUAL) 18 % (16-48); MONOCYTES % (MANUAL) 10 % (0-11.0); MYELOCYTES % 1 % (0-0); NEUTROPHILS % (MANUAL) 70 (42-76)
[2020-01-06] MEDS: LINAGLIPTIN 5 MG TABLET PO SCH (08:43)
[2020-01-06] MEDS: PIOGLITAZONE HCL 15 MG TABLET PO SCH (08:43)
[2020-01-06] MEDS: GABAPENTIN 300 MG CAPSULE PO SCH ×3 (08:43→17:13)
[2020-01-06] MEDS: methylPREDNISolone SOD SUCC 40 MG/ML VIAL IV SCH (08:43)
[2020-01-06] MEDS: LORATADINE 10 MG TABLET PO SCH (08:44)
[2020-01-06] MEDS: LEVETIRACETAM (250 MG) 250 MG TABLET PO SCH (08:44)
[2020-01-06] MEDS: METFORMIN 850 MG TABLET PO SCH ×2 (08:50→17:13)
[2020-01-06] MEDS: NYSTATIN TOP POWDER 15 GM BOTTLE TP SCH ×2 (09:00→17:15)
[2020-01-06] MEDS: Z GUARD REMEDY 2 OZ OINT TP SCH (09:01)
[2020-01-06] MEDS: Z GUARD REMEDY 2 OZ OINT TP PRN (09:01)
[2020-01-06] MEDS: MUPIROCIN OINT 2% 22 GM TUBE SCH ×2 (09:01→21:11)
[2020-01-06] MEDS: MENTHOL/CETYLPYRD (CEPACOL) 1 LOZ LOZENGE PO PRN ×2 (09:03→13:30)
--- NOTE | 2020-01-06 10:10 | NUR ---
DURING BE BATH, PATIENT DESATURATE TO 65%, CALLED RT, RECEIVED TREATMENT, SPO2 BACK TO 89%
--- NOTE | 2020-01-06 10:38 | NUR ---
Patient has mild fever 99.2 will administer PRN Tylenol
--- NOTE | 2020-01-06 11:30 | NUR ---
TEMP 98.4
[2020-01-06] MEDS: DULOXETINE HCL 30 MG CAPSULE.DR PO SCH (17:14)
--- NOTE | 2020-01-06 19:30 | NUR ---
RN OPENING NOTE RECEIVED PT IN BED, AO X 4, NO S/SX OF ACUTE DISTRESS AT THIS TIME. PATIENT'S BREATHING IS EVEN AND UNLABORED. PATIENT IS ON 4 L OF OXYGEN VIA NC, SATURATING AT 89%, ENCOURAGED PURSED LIP BREATHING. PATIENT ON TELE MONITOR READING SR, HR IS 97. NOTED JAC MIDLINE G18, AND NAVI MIDLINE G20, BOTH PATENT AND FLUSHING WELL.NO S/S OF INFECTION. WHITE CATHETER CONNECTED TO URINE BAG IN PLACE DRAINING TO A CLEAR, YELLOWISH URINE OUTPUT. SAFETY MEASURES IMPLEMENTED PER PROTOCOL. PATIENT BED ALARM IS ON. HEAD OF BED ELEVATED. BED IS LOCKED, IN LOWEST POSITION AND SIDE RAILS UP. CALL LIGHT WITHIN REACH OF THE PATIENT. WILL CONTINUE TO MONITOR AND REASSESS FOR ANY CHANGES.
--- NOTE | 2020-01-06 19:39 | NUR ---
RN CLOSING NOTES PATIENT REMAINS IN BED, HOB SLIGHTLY ELEVATED, TOLERATING IV HYDRATION AND O2 THERAPY WELL, NO SOB, DISTRESS NOTED, HOWEVER PATIENT'S SPO2 WAS DROPPING TO 83-91 THROUGH ALL DAY, RT IS AWARE, DR MCCRAY IS AWARE. BLOOD GLUCOSE LEVEL MONITORED AND PROTOCOL INITIATED. ALL MEDS ARE GIVEN, COMFORT NEEDS PROVIDED, FEEDER ASSISTED WITH MEALS X3, SAFETY MEASURES IN PLACE, BED IS LOCKED, IN LOWEST POSITION, PILLOWS ON PATIENT'S SIDE, WILL ENDORSE TO PM SHIFT RN FOR MARTINA
[2020-01-06] MEDS: ATORVASTATIN 10 MG TABLET PO SCH (21:12)
[2020-01-06] MEDS: ENOXAPARIN SODIUM 40 MG/0.4 ML DISP.SYRIN SQ SCH (21:16)
--- NOTE | 2020-01-06 22:32 | NUR ---
RT NOTES PT PLACED ON NOC BIPAP. RN NOTIFIED. WILL CONTINUE TO MONITOR.
[2020-01-07] VITALS: BP 122/60
[2020-01-07] MEDS: IPRATROPIUM NEB FS 0.5 MG/2.5 ML AMPUL.NEB NEB SCH ×4 (03:30→19:59)
[2020-01-07] MEDS: ALBUTEROL FS 2.5 MG/0.5 ML VIAL.NEB NEB SCH ×4 (03:30→19:59)
[2020-01-07 04:00] VITALS: BP 129/71
[2020-01-07 07:05] LABS: BASOPHILS % (AUTO) 0.1 % (0.0-2.0); EOSINOPHILS % (AUTO) 1.6 % (0.0-6.0); HEMATOCRIT 36 % (33-45); HEMOGLOBIN 10.9 g/dL (11.5-14.8); LYMPHOCYTES # (AUTO) 1.4 /CMM (0.8-4.8); LYMPHOCYTES % (AUTO) 17.3 % (20.0-44.0); MEAN CORPUSCULAR HGB CONC 31 g/dl (31.0-36.0); MEAN CORPUSCULAR VOLUME 95 fL (82-100); MONOCYTES # (AUTO) 0.6 /CMM (0.1-1.30); MONOCYTES % (AUTO) 7.7 % (2.0-12.0); NEUTROPHILS % (AUTO) 73.3 % (43.0-81.0); PLATELET COUNT (AUTO) 189 /CMM (150-450); RED BLOOD CELL COUNT(AUTO) 3.73 MIL/uL (4.0-5.2); WHITE BLOOD COUNT (AUTO) 8.2 K/uL (4.3-11.0)
[2020-01-07 07:13] LABS: CREATININE 0.8 mg/dL (0.6-1.3); POTASSIUM 4.1 mmol/L (3.5-5.1)
--- NOTE | 2020-01-07 07:14 | NUR ---
RN CLOSING NOTE PATIENT REMAINS IN ROOM. NO SIGNS OF ACUTE DISTRESS, SR ON THE MONITOR. PATIENT PLACED BACK BY TO OXYGEN VIA NC AT 4 LPM FROM NOC BIPAP. FC IN PLACE, TOTAL URINE DURING THE SHIFT IS 410 ML. ASPIRATION PRECAUTIONS OBSERVED. SAFETY MEASURES IMPLEMENTED PER PROTOCOL. ALL NEEDS AND ORDERS ADDRESSED DURING THE SHIFT. ALL DUE MEDS GIVEN ORDERED & SCHEDULED. PATIENT KEPT CLEAN AND COMFORTABLE WITHIN THE SHIFT. ENDORSED TO MARITZA VALLADARES FOR CONTINUATION OF CARE.
[2020-01-07] MEDS: BLOOD SUGAR DIAGNOSTIC 1 EACH STRIP IN SCH ×4 (07:21→21:40)
--- NOTE | 2020-01-07 07:30 | NUR ---
RN OPENING NOTE Patient presents in bed, A/Ox 4, on bariatric bed, on $ l of O2 via NC, SPO2 is 92% at this moment, no SOB, no resp distress noted at this time. Telemonitor readings is SR heart rate 85-89, Midlines noted on both Right and Left arms, both intact, patent and flushed well. Amaral cath in place, draining yellow clear urine by gravity, Denies pain or discomfort at this time. Regular diet status noted. Safety precaution in place, call light in reach, bed in lowest position, will cont to monitor
[2020-01-07] MEDS: PANTOPRAZOLE 40 MG TABLET.DR PO SCH (07:54)
[2020-01-07 08:00] VITALS: BP 132/67
[2020-01-07] MEDS: methylPREDNISolone SOD SUCC 40 MG/ML VIAL IV SCH ×2 (09:00→17:17)
[2020-01-07] MEDS: METFORMIN 850 MG TABLET PO SCH ×2 (09:01→17:16)
[2020-01-07] MEDS: PIOGLITAZONE HCL 15 MG TABLET PO SCH (09:01)
[2020-01-07] MEDS: LINAGLIPTIN 5 MG TABLET PO SCH (09:01)
[2020-01-07] MEDS: GABAPENTIN 300 MG CAPSULE PO SCH ×3 (09:01→17:16)
[2020-01-07] MEDS: LEVETIRACETAM (250 MG) 250 MG TABLET PO SCH (09:01)
[2020-01-07] MEDS: LORATADINE 10 MG TABLET PO SCH (09:01)
[2020-01-07] MEDS: NYSTATIN TOP POWDER 15 GM BOTTLE TP SCH ×2 (09:02→17:16)
[2020-01-07] MEDS: MUPIROCIN OINT 2% 22 GM TUBE SCH ×2 (09:02→21:30)
[2020-01-07] MEDS: Z GUARD REMEDY 2 OZ OINT TP SCH (09:02)
[2020-01-07 10:52] LABS: ABG OXYGEN SATURATION 77.9 % (92.0-98.5); ABG PCO2 91.3 mmHg (35.0-45.0); ABG PH 7.272 (7.350-7.450); ABG PO2 44.3 mmHg (75.0-100.0); COHb 1.7 % (0.5-1.5); MetHb 0.5 % (0.0-1.5); O2Hb 76.2 % (94.0-97.0); SITE, ABG Left Radial; VENT MODE, BG 4L NC- VENOUS SAMPLE
[2020-01-07] MEDS: MENTHOL/CETYLPYRD (CEPACOL) 1 LOZ LOZENGE PO PRN ×2 (11:57→18:57)
[2020-01-07 12:00] VITALS: BP 132/59
[2020-01-07] MEDS: INSULIN REGULAR, HUMAN 100 UNIT/ML 3 ML VIAL SQ PRN ×3 (12:17→21:39)
--- NOTE | 2020-01-07 12:30 | NUR ---
Complaining of feeling hot, temp is 98.4, provided with ice pack and fluids
[2020-01-07 16:00] VITALS: BP 128/68
[2020-01-07] MEDS: DULOXETINE HCL 30 MG CAPSULE.DR PO SCH (17:16)
--- NOTE | 2020-01-07 19:28 | NUR ---
RN CLOSING NOTES Patient remains in bed, cleaned and repositioned, A/Ox4, on NC @ 4L, tolerating well SPO2 is 89%, all medications is given comfort needs met, safety measures in pace, bed in lowest position, locked, will endorse to PM RN for MARTINA
[2020-01-07 20:00] VITALS: BP 122/75
[2020-01-07] MEDS: ENOXAPARIN SODIUM 40 MG/0.4 ML DISP.SYRIN SQ SCH (21:31)
[2020-01-07] MEDS: ATORVASTATIN 10 MG TABLET PO SCH (21:32)
[2020-01-08] VITALS: BP 123/76
[2020-01-08] MEDS: ALBUTEROL FS 2.5 MG/0.5 ML VIAL.NEB NEB SCH ×7 (00:16→23:41)
[2020-01-08] MEDS: IPRATROPIUM NEB FS 0.5 MG/2.5 ML AMPUL.NEB NEB SCH ×7 (00:16→23:41)
[2020-01-08] MEDS: methylPREDNISolone SOD SUCC 40 MG/ML VIAL IV SCH ×4 (03:09→22:10)
[2020-01-08 04:00] VITALS: BP 123/56
--- NOTE | 2020-01-08 04:52 | NUR ---
RN notes Resting comfortably in bed with no distress noted, breathing even and unlabored. O2 at 4lpm via nasal cannula and nocturnal bipap tolerating well. Alert and oriented, verbally able to communicate needs. No complaint of pain or discomfort. Needs attended, meds given. Kept clean and dry. Will endorse to next shift for continuity of care.
[2020-01-08 06:43] LABS: BASOPHILS % (AUTO) 0.1 % (0.0-2.0); HEMATOCRIT 35 % (33-45); HEMOGLOBIN 10.9 g/dL (11.5-14.8); LYMPHOCYTES # (AUTO) 0.5 /CMM (0.8-4.8); LYMPHOCYTES % (AUTO) 6.9 % (20.0-44.0); MEAN CORPUSCULAR HGB CONC 32 g/dl (31.0-36.0); MEAN CORPUSCULAR VOLUME 95 fL (82-100); MONOCYTES # (AUTO) 0.2 /CMM (0.1-1.30); NEUTROPHILS # (AUTO) 6.2 /CMM (1.8-8.9); PLATELET COUNT (AUTO) 178 /CMM (150-450); RED BLOOD CELL COUNT(AUTO) 3.66 MIL/uL (4.0-5.2); WHITE BLOOD COUNT (AUTO) 6.9 K/uL (4.3-11.0)
[2020-01-08 06:54] LABS: CALCIUM, SERUM 9.2 mg/dL (8.5-10.1); CREATININE 0.8 mg/dL (0.6-1.3); POTASSIUM 5.2 mmol/L (3.5-5.1)
--- NOTE | 2020-01-08 07:30 | NUR ---
RECEIVED PATIENT IN BED. NO ACUTE DISTRESS NOTED. PATIENT ALERT & ORIENTED X4. PATIENT ON LOADING MACHINE TOOL SETTER, NORMAL SINUS RHTHYM NOTED. PATIENT ON 4L OXYGEN VIA NASAL CANULA, SATURATING BETWEEN 84-88% (DR. MCCRAY NOTIFIED AND OKAY WITH OXYGEN SATURATION IN THAT RANGE). PATIENT RIGHT UPPER ARM AND LEFT UPPER ARM MIDLINES IN PLACE- INTACT, PATENT, FLUSHED WELL. PATIENT WHITE CATHETER IN PLACE, INTACT, DRAINING TO GRAVITY. PATIENT SAFETY MEASURES MAINTAINED. CALL LIGHT WITHIN REACH. WILL CONTINUE TO MONITOR
--- NOTE | 2020-01-08 07:48 | NUR ---
LAB REPORTED CRITICAL ABG VALUES (PO2 44, PCO2 91, O2 SAT. 77.9) THIS MORNING. DR. MCCRAY NOTIFIED. REPEAT ABG THIS MORNING ORDERED. ORDER INPUT. WILL CONTINUE TO MONITOR
[2020-01-08 07:53] LABS: ABG BASE EXCESS 15.8 mmol/L; ABG OXYGEN SATURATION 82.9 % (92.0-98.5); ABG PCO2 90.6 mmHg (35.0-45.0); ABG PH 7.322 (7.350-7.450); ABG PO2 45.9 mmHg (75.0-100.0); AaDO2 105.7 mmHg; COHb 1.7 % (0.5-1.5); MetHb 0.2 % (0.0-1.5); O2Hb 81.3 % (94.0-97.0); SITE, ABG Left Radial; VENT MODE, BG Nasal Cannula
[2020-01-08 08:00] VITALS: BP 140/68
[2020-01-08] MEDS ORDERED: SODIUM POLYSTYRENE SULFONATE 15 G/60 ML BOTTLE PO ONE ×2 (08:00→11:00)
[2020-01-08] MEDS: PANTOPRAZOLE 40 MG TABLET.DR PO SCH (08:16)
[2020-01-08] MEDS: BLOOD SUGAR DIAGNOSTIC 1 EACH STRIP IN SCH ×4 (08:16→22:12)
[2020-01-08] MEDS: GABAPENTIN 300 MG CAPSULE PO SCH ×3 (08:16→17:20)
[2020-01-08] MEDS: LORATADINE 10 MG TABLET PO SCH (08:16)
[2020-01-08] MEDS: METFORMIN 850 MG TABLET PO SCH ×2 (08:16→17:20)
[2020-01-08] MEDS: LEVETIRACETAM (250 MG) 250 MG TABLET PO SCH (08:17)
[2020-01-08] MEDS: PIOGLITAZONE HCL 15 MG TABLET PO SCH (08:17)
[2020-01-08] MEDS: LINAGLIPTIN 5 MG TABLET PO SCH (08:17)
[2020-01-08] MEDS: MUPIROCIN OINT 2% 22 GM TUBE SCH (08:20)
[2020-01-08] MEDS: Z GUARD REMEDY 2 OZ OINT TP SCH (08:20)
[2020-01-08] MEDS: NYSTATIN TOP POWDER 15 GM BOTTLE TP SCH ×2 (08:20→17:20)
[2020-01-08 08:21] LABS: LYMPHOCYTES % (MANUAL) 7 % (16-48); MONOCYTES % (MANUAL) 7 % (0-11.0); NEUTROPHILS % (MANUAL) 86 (42-76)
[2020-01-08] MEDS: INSULIN REGULAR, HUMAN 100 UNIT/ML 3 ML VIAL SQ PRN ×4 (08:42→22:21)
[2020-01-08] MEDS: MENTHOL/CETYLPYRD (CEPACOL) 1 LOZ LOZENGE PO PRN ×2 (09:32→13:27)
[2020-01-08] MEDS: ACETAMINOPHEN 325 MG TABLET PO PRN ×2 (09:32→13:27)
[2020-01-08 12:00] VITALS: BP 114/59
[2020-01-08 16:00] VITALS: BP 119/61
[2020-01-08] MEDS: DULOXETINE HCL 30 MG CAPSULE.DR PO SCH (17:20)
--- NOTE | 2020-01-08 18:00 | NUR ---
RT 0752 RECEIVED PT ON NC 4L SP02 84-85%. OBTAINED AN STAT ABG PER MD ORDER. RESULTS RELAYED TO MD. PER MD PLACE PT ON 6L NC KEEP SP02 87%-90% PT SPO2 ON 6L NC 88-89% [address] MCCRAY, INCREASE SETTING NOC BIPAP OF IPAP TO 25. AND PLACED PT ON VENTURI MASK DUE TO LOW SP02. 1200 PT REF VENTURI MASK, SAID SHE CANT EAT AND UNCOMFORTABLE. MONITORED PT ON 6L NC, SP02 BETWEEN 88-89%. 1700 PT ON 6L NC, PT NOT COMPLAINING OF SOB OR RESP DISTRESS. WILL ENDORSE TO INCOMING SHIFT OF MARTINA.
--- NOTE | 2020-01-08 18:23 | NUR ---
PATIENT IN BED. NO ACUTE DISTRESS NOTED. PATIENT ALERT & ORIENTED X4. NO COMPLAINTS OF PAIN AT THIS TIME. PATIENT ON FOREST RESOURCE SPECIALIST, NORMAL SINUS RHTHYM NOTED. PATIENT ON 4L OXYGEN VIA NASAL CANULA, SATURATING BETWEEN 88-90% (OKAY DR. MCCRAY IS AWARE AND PATIENT HAS HISTORY OF COPD). PATIENT RIGHT UPPER ARM AND LEFT UPPER ARM MIDLINES IN PLACE- INTACT, PATENT, FLUSHED WELL. PATIENT WHITE CATHETER IN PLACE, INTACT, DRAINING TO GRAVITY. PATIENT SAFETY MEASURES MAINTAINED. CALL LIGHT WITHIN REACH. WILL ENDORSE PLAN OF CARE TO ONCOMING SHIFT FOR CONTINUITY OF CARE
[2020-01-08 20:00] VITALS: BP 128/69
--- NOTE | 2020-01-08 20:26 | NUR ---
Report received from Deo VALLADARES
[2020-01-08] MEDS: ATORVASTATIN 10 MG TABLET PO SCH (22:09)
[2020-01-08] MEDS: ENOXAPARIN SODIUM 40 MG/0.4 ML DISP.SYRIN SQ SCH (22:19)
--- NOTE | 2020-01-08 23:40 | NUR ---
PT PLACE ON BIPAP
[2020-01-09] VITALS (8 sets, daily range): BP systolic 122–151; BP diastolic 63–87
[2020-01-09] MEDS: ALBUTEROL FS 2.5 MG/0.5 ML VIAL.NEB NEB SCH ×6 (03:51→23:53)
[2020-01-09] MEDS: IPRATROPIUM NEB FS 0.5 MG/2.5 ML AMPUL.NEB NEB SCH ×6 (03:51→23:53)
--- NOTE | 2020-01-09 05:23 | NUR ---
PT TAKEN OFF BIPAP BY RT PER PT REQUEST
[2020-01-09] MEDS: methylPREDNISolone SOD SUCC 40 MG/ML VIAL IV SCH ×3 (05:55→22:18)
--- NOTE | 2020-01-09 06:40 | NUR ---
TELE/RN CLOSING NOTES PT AWAKE, RESTING COMFORTABLE IN BED. ON 6L NC, BREATHING EVEN AND UNLABORED. SATTING BETWEEN 88-93%. ON FENDER MECHANIC APPRENTICE SHOWING NSR. NAVI MIDLINE PATENT AND INTACT. PIV TO RIGHT ARM PATENT AND INTACT. NO C/O PAIN AT THIS TIME. HOB ELEVATED. WHITE IN PLACE AND DRAINING TO GRAVITY. ALL NEEDS MET AND ATTENDED. NO SIGNIFICANT CHANGES OVERNIGHT. BED IN LOW/LOCKED POSITION WITH CALL LIGHT IN REACH. SIDE RAILS UP. WILL ENDORSE TO DAY SHIFT RN MARTINA.
--- NOTE | 2020-01-09 07:10 | NUR ---
PT LYING IN BED WITH HOB ELEVATED. NS ON RUNNING AT 6 L/MIN. PT TOLERATING WELL. REPORTS MILD SOB. DENIES PAIN. ALERT AND ORIENTED X4. HUMIDIFIER ON PRESCRIBED. MONITOR ON TELE READING SR. GENERALIZED EDEMA NOTED THROUGHOUT BODY. WHITE CATHETER INTACT. DRAINING WELL. MIDLINE IN NAVI INTACT AND DRESSING DRY AND INTACT. AJC IV INTACT AND DRESSING DRY AND INTACT. ALL HOSPITAL POLICY SAFETY PRECAUTIONS INTACT. WILL CONTINUE TO MONITOR VS AND O2 AND SOB THROUGHOUT THE SHIFT.
[2020-01-09] MEDS: PANTOPRAZOLE 40 MG TABLET.DR PO SCH (07:47)
[2020-01-09] MEDS: INSULIN REGULAR, HUMAN 100 UNIT/ML 3 ML VIAL SQ PRN ×4 (07:47→22:12)
[2020-01-09] MEDS: BLOOD SUGAR DIAGNOSTIC 1 EACH STRIP IN SCH ×4 (07:48→22:09)
[2020-01-09 08:13] LABS: ABG BASE EXCESS 16.1 mmol/L; ABG OXYGEN SATURATION 89.5 % (92.0-98.5); ABG PCO2 80.2 mmHg (35.0-45.0); ABG PH 7.366 (7.350-7.450); AaDO2 173.6 mmHg; MetHb 0.5 % (0.0-1.5); O2Hb 88.2 % (94.0-97.0); SITE, ABG Left Radial; VENT MODE, BG nasal cannula
[2020-01-09] MEDS: LORATADINE 10 MG TABLET PO SCH (08:44)
[2020-01-09] MEDS: LINAGLIPTIN 5 MG TABLET PO SCH (08:44)
[2020-01-09] MEDS: GABAPENTIN 300 MG CAPSULE PO SCH ×3 (08:44→16:30)
[2020-01-09] MEDS: METFORMIN 850 MG TABLET PO SCH ×2 (08:44→16:30)
[2020-01-09] MEDS: PIOGLITAZONE HCL 15 MG TABLET PO SCH (08:44)
[2020-01-09] MEDS: LEVETIRACETAM (250 MG) 250 MG TABLET PO SCH (08:44)
[2020-01-09] MEDS: NYSTATIN TOP POWDER 15 GM BOTTLE TP SCH ×2 (08:45→16:30)
[2020-01-09] MEDS: Z GUARD REMEDY 2 OZ OINT TP SCH (08:45)
[2020-01-09] MEDS: MENTHOL/CETYLPYRD (CEPACOL) 1 LOZ LOZENGE PO PRN ×2 (10:36→23:43)
--- NOTE | 2020-01-09 13:00 | NUR ---
INFORMED MD OF MOST RECENT ABG LEVELS AT 1130. DR MCCRAY ORDERED NO CHANGE IN OXYGEN SUPPLEMENTATION. FOLLOWING ORDERED. WILL CONTINUE TO MONITOR RESPONSE.
[2020-01-09] MEDS: ENSURE ENLIVE CHOC 237 ML CAN PO SCH (17:15)
[2020-01-09] MEDS: MAGNESIUM HYDROXIDE 30 ML UDC PO PRN (17:24)
[2020-01-09] MEDS: DULOXETINE HCL 30 MG CAPSULE.DR PO SCH (17:24)
--- NOTE | 2020-01-09 17:30 | NUR ---
PATIENT COMPLAINED OF STOMACH PAIN AND NO APPETITE. PATIENT THINK IT IS DUE TO THE CONSTIPATION. OFFERED ENSURE AND MILK OF MAGNESIA. INFORMED DR ALLAN. ORDERED MAGNESIUM CITRATE. ORDER NOTED AND CARRIED OUT.
[2020-01-09] MEDS ORDERED: MAGNESIUM CITRATE 296 ML BOTTLE PO ONE (18:00)
--- NOTE | 2020-01-09 18:33 | NUR ---
RN CLOSING NOTE Patient in bed awake. Calm and relaxed. No signs of distress, On NC 6L tolerating well O@ sat 92%. Patient is AO x4 no co pain. Tele monitor reading ST 104.Patient is bed bound kept turned q2h. JAC Midline intact and patent. NAVI Midline intact and patent. Blood sugar within normal limits due to SoluMedrol. All due meds given no signsof adverse reaction to medications. Patient is pending SNF placement in [place]. Milk of Magnesium and Magnesium Citrate given for bowel movement. Safety measures maintained. Bed locked and on lowest position. Will endorse to insurance producer nurse for antoinette.
--- NOTE | 2020-01-09 19:25 | NUR ---
MAINTENANCE SHOP TECHNICIAN: RECEIVED PATIENT Patient in bed, awake, A/O x4. On O2 5L NC tolerating well, denies shortness of breathe. Amaral cath to gravity. Patient refused to be repositioned. Per report patient refusing turning every 2 hours. Sinus Tach in the Tele monitor. Contact precaution for MRSA Nares.
--- NOTE | 2020-01-09 20:27 | NUR ---
VS VS entered by mistake under BLAINE Mullen account.
[2020-01-09] MEDS: ENOXAPARIN SODIUM 40 MG/0.4 ML DISP.SYRIN SQ SCH (22:13)
--- NOTE | 2020-01-09 22:14 | NUR ---
ANTICOAGULANT H/H 10. PLT 178 No bleeding. Lovenox injection given, co-signed by BLAINE Doan
[2020-01-09] MEDS: ATORVASTATIN 10 MG TABLET PO SCH (22:16)
[2020-01-10 00:06] VITALS: BP 122/73
[2020-01-10] MEDS: ALBUTEROL FS 2.5 MG/0.5 ML VIAL.NEB NEB SCH ×6 (03:42→23:27)
[2020-01-10] MEDS: IPRATROPIUM NEB FS 0.5 MG/2.5 ML AMPUL.NEB NEB SCH ×6 (03:42→23:26)
[2020-01-10 04:55] VITALS: BP 118/49
[2020-01-10] MEDS: methylPREDNISolone SOD SUCC 40 MG/ML VIAL IV SCH ×3 (05:22→22:17)
--- NOTE | 2020-01-10 06:20 | NUR ---
MEDICAL OFFICE SECRETARY: END OF SHIFT REPORT Patient in bed, sleeping, arouses easily. BIPAP in place, tolerating well. O2 sat on low 90's denies shortness of breath, patient with Hx. COPD. Sinus rhythm in the Tele monitor. NAVI MIDLINE intact. Had BM this shift, carrillo cath with good output. Plan for continue hospitalization, awaiting placement. Will endorse to oncoming RN.
--- NOTE | 2020-01-10 07:10 | NUR ---
RN OPENING NOTE Received patient awake in bed appears calm and relaxed no signs of distress. On NC 5L cont pulse ox reading 88%. AO X4 able to communicate needs verbally. Tele reading SR 90s. Amaral catheter in place draining cloudy yellow by gravity. JAC Midline in place flushes well. NAVI Midline flushes well. Patient is noted with multiple discoloration or bruising on r upper arm. No signs of swelling or infection. Safety measures maintained. Call light within reach. Bed locked and on lowest position. Will cont to monitor.
[2020-01-10 07:19] LABS: BASOPHILS % (AUTO) 0.2 % (0.0-2.0); HEMATOCRIT 34 % (33-45); HEMOGLOBIN 10.7 g/dL (11.5-14.8); LYMPHOCYTES # (AUTO) 0.7 /CMM (0.8-4.8); LYMPHOCYTES % (AUTO) 8.2 % (20.0-44.0); MEAN CORPUSCULAR HGB CONC 32 g/dl (31.0-36.0); MEAN CORPUSCULAR VOLUME 94 fL (82-100); MONOCYTES # (AUTO) 0.4 /CMM (0.1-1.30); MONOCYTES % (AUTO) 4.7 % (2.0-12.0); NEUTROPHILS # (AUTO) 7.6 /CMM (1.8-8.9); NEUTROPHILS % (AUTO) 86.9 % (43.0-81.0); PLATELET COUNT (AUTO) 181 /CMM (150-450); RED BLOOD CELL COUNT(AUTO) 3.57 MIL/uL (4.0-5.2); WHITE BLOOD COUNT (AUTO) 8.8 K/uL (4.3-11.0)
[2020-01-10] MEDS: BLOOD SUGAR DIAGNOSTIC 1 EACH STRIP IN SCH ×4 (07:55→22:23)
[2020-01-10] MEDS: PANTOPRAZOLE 40 MG TABLET.DR PO SCH (07:59)
[2020-01-10 08:00] VITALS: BP 141/88
[2020-01-10] MEDS: INSULIN REGULAR, HUMAN 100 UNIT/ML 3 ML VIAL SQ PRN ×4 (08:00→22:25)
[2020-01-10] MEDS: LEVETIRACETAM (250 MG) 250 MG TABLET PO SCH (08:45)
[2020-01-10] MEDS: METFORMIN 850 MG TABLET PO SCH ×2 (08:46→17:00)
[2020-01-10] MEDS: ENSURE ENLIVE CHOC 237 ML CAN PO SCH (08:46)
[2020-01-10] MEDS: GABAPENTIN 300 MG CAPSULE PO SCH ×3 (08:46→17:00)
[2020-01-10] MEDS: PIOGLITAZONE HCL 15 MG TABLET PO SCH (08:46)
[2020-01-10] MEDS: LINAGLIPTIN 5 MG TABLET PO SCH (08:46)
[2020-01-10] MEDS: NYSTATIN TOP POWDER 15 GM BOTTLE TP SCH ×2 (08:47→17:00)
[2020-01-10] MEDS: Z GUARD REMEDY 2 OZ OINT TP SCH (08:47)
[2020-01-10] MEDS: LORATADINE 10 MG TABLET PO SCH (08:47)
[2020-01-10 09:02] LABS: CALCIUM, SERUM 9.3 mg/dL (8.5-10.1); CREATININE 0.9 mg/dL (0.6-1.3); POTASSIUM 5.2 mmol/L (3.5-5.1)
--- NOTE | 2020-01-10 10:00 | NUR ---
ABG RESULTS CO2 IN 40S. NO NEW ORDER OR CHANGES. TRENDING DOWN. Addendum: 01/10/20 at 1632 by RON FINCH RN NOT ABG. MORNING LAB DRAW.
[2020-01-10] MEDS: MENTHOL/CETYLPYRD (CEPACOL) 1 LOZ LOZENGE PO PRN (10:57)
[2020-01-10 12:00] VITALS: BP 134/75
[2020-01-10] MEDS ORDERED: GUAIFENESIN/D-METHORPHAN HB 5 ML UDC PO PRN (13:30)
[2020-01-10 16:00] VITALS: BP 134/76
--- NOTE | 2020-01-10 16:00 | NUR ---
PATIENT REFUSED TO BE TURNED. OFFERED 3X. EXPLAINED RISK AND BENEFITS. MD AWARE WITH NNO.
--- NOTE | 2020-01-10 16:18 | NUR ---
PATIENT WAS FOUND SHORT OF BREATH. CONT PULSE OX READING 76-80%. INFORMED MD AND ORDERED STAT ABG. Addendum: 01/10/20 at 1627 by RON FINCH RN WITH RIGHT SIDE OF THE FACE RED AND WARM TO TOUCH.
--- NOTE | 2020-01-10 16:22 | NUR ---
PATIENT WAS PUT ON NON REBREATHER MASK 15L AT THE MOMENT.
[2020-01-10 16:28] LABS: ABG BASE EXCESS 19.8 mmol/L; ABG OXYGEN SATURATION 96.4 % (92.0-98.5); ABG PCO2 117.4 mmHg (35.0-45.0); ABG PH 7.265 (7.350-7.450); ABG PO2 92.1 mmHg (75.0-100.0); AaDO2 503.5 mmHg; COHb 1.3 % (0.5-1.5); MetHb 0.2 % (0.0-1.5); SITE, ABG Left Radial
--- NOTE | 2020-01-10 16:32 | NUR ---
CO2 IS 117. PATIENT IS PLACED BACK IN BIPAP. PATIENT REFUSED TO BE TRANSFERRED TO ICU,
--- NOTE | 2020-01-10 16:50 | NUR ---
PATIENT WILL KEEP IN AISHA PER CODE STATUS DNI AND PATIENT REFUSED ICU,DR. ALLAN MADE AWARE AND OK WITH PLAN OF CARE. WILL CONTINUE TO MONITOR.
[2020-01-10] MEDS: DULOXETINE HCL 30 MG CAPSULE.DR PO SCH (17:03)
--- NOTE | 2020-01-10 17:06 | NUR ---
HOLD DOSE OF AFTERNOON MEDS PATIENT ON BIPAP.
--- NOTE | 2020-01-10 17:30 | NUR ---
INSULIN NON ADMINISTERED PATIENT IS ON BIPAP AND WILL NOT BE ABLE TO EAT.
--- NOTE | 2020-01-10 18:56 | NUR ---
RN CLOSING NOTE Patient awake in bed asleep. On rescue BIPAP cont pulse ox reading 88%. Tele reading SR 70s. Amaral catheter in place draining cloudy yellow by gravity. JAC Midline in place flushes well. NAVI Midline flushes well. FC draining by gravity output 1000ml. Safety measures maintained. Call light within reach. Bed locked and on lowest position. Will endorse the assistant professor of anthropology nurse for antoinette..
--- NOTE | 2020-01-10 19:20 | NUR ---
RN TD OPENING NOTE, Patient asleep in bed arouses to verbal stimuli, on rescue bipap at this time, with o2 saturation 90% at this time, will have ABGs at 1999, will f/u with results, RT David aware, SR 80s in tele monitor at this time, JAC Midline in place and NAVI Midline both patent and intact, FC catheter in place draining yellow urine by gravity, patentcy intact, safety measures maintained, call light within reach, bed locked and lowest position. will continue to monitor patient closely.
[2020-01-10 20:00] VITALS: BP 130/74
[2020-01-10 21:15] LABS: ABG BASE EXCESS 15.8 mmol/L; ABG OXYGEN SATURATION 93.3 % (92.0-98.5); ABG PO2 69.5 mmHg (75.0-100.0); COHb 0.8 % (0.5-1.5); MetHb 0.3 % (0.0-1.5); O2Hb 92.3 % (94.0-97.0); SITE, ABG Right Radial
--- NOTE | 2020-01-10 21:45 | NUR ---
RN TD NOTES, REPORTED ABG RESULT T O LUIS CRESPO NEIGHBORHOOD COORDINATOR, AWAITING FOR NEW ORDERS.
--- NOTE | 2020-01-10 22:10 | NUR ---
RN TD NOTES, LUIS CRESPO REPLIED WITH NEW ORDER FOR LASIX 40MG IVP ONCE, NOTED AND CARRIED OUT.
[2020-01-10] MEDS: ATORVASTATIN 10 MG TABLET PO SCH (22:18)
[2020-01-10] MEDS: ENOXAPARIN SODIUM 40 MG/0.4 ML DISP.SYRIN SQ SCH (22:20)
[2020-01-10] MEDS ORDERED: FUROSEMIDE 40 MG/4 ML VIAL IV ONE (22:30)
[2020-01-11] VITALS: BP 136/68
[2020-01-11] MEDS: ALBUTEROL FS 2.5 MG/0.5 ML VIAL.NEB NEB SCH ×6 (03:48→23:13)
[2020-01-11] MEDS: IPRATROPIUM NEB FS 0.5 MG/2.5 ML AMPUL.NEB NEB SCH ×6 (03:48→23:13)
[2020-01-11 04:00] VITALS: BP 121/66
--- NOTE | 2020-01-11 05:30 | NUR ---
RN TD NOTE UNABLE TO TAKE WOUND PICTURES FOR PT DUE TO STATED "IT WOULD BE HARD FOR ME TO TURN WITH THIS BIPAP ON MY FACE." UNABLE TO REMOVE MASK DUE TO 02 SATURATION IS NOT STABLE.
[2020-01-11] MEDS: methylPREDNISolone SOD SUCC 40 MG/ML VIAL IV SCH ×3 (05:49→20:15)
--- NOTE | 2020-01-11 06:35 | NUR ---
RN TD CLOSING NOTE PT IN BED AWAKE A/OX4. BREATHING EVEN AND UNLABORED ON BIPAP AT THIS TIME .O2 SATURATION AT 89%. DENIES ANY PAIN OR DISCOMFORT. NAVI AND JAC MIDLINE PATENT. WHITE CATHETHER PATENT AND DRAINING YELLOW CLEAR URINE. 2500ML OUTPUT NOTED. SRX2 UP. CALL LIGHT WITHIN REACH. BED IN LOWEST POSITION. ALL NEEDS RENDERED. WILL ENDORSE TO AM NURSE FOR CONTINUITY OF CARE.
[2020-01-11 06:39] LABS: BASOPHILS % (AUTO) 0.2 % (0.0-2.0); HEMATOCRIT 33 % (33-45); HEMOGLOBIN 10.6 g/dL (11.5-14.8); LYMPHOCYTES # (AUTO) 0.6 /CMM (0.8-4.8); LYMPHOCYTES % (AUTO) 9.1 % (20.0-44.0); MEAN CORPUSCULAR HGB CONC 32 g/dl (31.0-36.0); MEAN CORPUSCULAR VOLUME 94 fL (82-100); MONOCYTES # (AUTO) 0.4 /CMM (0.1-1.30); MONOCYTES % (AUTO) 5.5 % (2.0-12.0); NEUTROPHILS # (AUTO) 5.6 /CMM (1.8-8.9); NEUTROPHILS % (AUTO) 85.2 % (43.0-81.0); PLATELET COUNT (AUTO) 169 /CMM (150-450); RED BLOOD CELL COUNT(AUTO) 3.55 MIL/uL (4.0-5.2); WHITE BLOOD COUNT (AUTO) 6.5 K/uL (4.3-11.0)
[2020-01-11 07:13] LABS: CALCIUM, SERUM 9.3 mg/dL (8.5-10.1); CREATININE 1.1 mg/dL (0.6-1.3); MAGNESIUM 2.3 mg/dL (1.8-2.4); PHOSPHORUS 3.7 mg/dL (2.5-4.9); POTASSIUM 4.7 mmol/L (3.5-5.1)
[2020-01-11 08:00] VITALS: BP 130/53
[2020-01-11] MEDS: BLOOD SUGAR DIAGNOSTIC 1 EACH STRIP IN SCH ×4 (08:00→21:22)
[2020-01-11] MEDS: INSULIN REGULAR, HUMAN 100 UNIT/ML 3 ML VIAL SQ PRN ×5 (08:01→21:24)
--- NOTE | 2020-01-11 08:06 | NUR ---
Hold insulin since patient haven't eat since yesterday on cont Bipap therapy
[2020-01-11 08:12] LABS: LYMPHOCYTES % (MANUAL) 8 % (16-48); MONOCYTES % (MANUAL) 8 % (0-11.0); NEUTROPHILS % (MANUAL) 84 (42-76)
--- NOTE | 2020-01-11 08:20 | NUR ---
RN OPENING NOTES RECEIVED REPORT WITH PT IN BED. RT AT BEDSIDE. PT CURRENTLY ON BIPAP CONTINUOUS. SATURATING 83-87. PT IS SPEAKING AND CONSCIOUS AND VERBALIZES FEELINGS OF BEING OKAY AT THIS TIME. PT ON TELE MONITOR NSR OF 76. DNI NOTED. IV SITE PATENT AND FLUSHED. BED IS LOCKED IN LOWEST POSITION. WITH ALARM ON. CALL LIGHT WITHIN REACH. WILL CONTINUE TO MONITOR.
--- NOTE | 2020-01-11 09:30 | NUR ---
RECHECKED BGS 214. PT IS OKAY TO EAT BREAKFAST. INSULIN ADMINISTERED PER SLIDING SCALE AC
[2020-01-11] MEDS: PANTOPRAZOLE 40 MG TABLET.DR PO SCH (09:35)
[2020-01-11] MEDS: PIOGLITAZONE HCL 15 MG TABLET PO SCH (09:36)
[2020-01-11] MEDS: GABAPENTIN 300 MG CAPSULE PO SCH ×3 (09:37→16:51)
[2020-01-11] MEDS: LEVETIRACETAM (250 MG) 250 MG TABLET PO SCH (09:37)
[2020-01-11] MEDS: LINAGLIPTIN 5 MG TABLET PO SCH (09:37)
[2020-01-11] MEDS: Z GUARD REMEDY 2 OZ OINT TP SCH (09:39)
[2020-01-11] MEDS: METFORMIN 850 MG TABLET PO SCH ×2 (09:42→16:51)
[2020-01-11] MEDS: LORATADINE 10 MG TABLET PO SCH (09:42)
[2020-01-11] MEDS: ENSURE ENLIVE CHOC 237 ML CAN PO SCH (09:49)
[2020-01-11 10:31] LABS: ABG BASE EXCESS 21.7 mmol/L; ABG OXYGEN SATURATION 91.7 % (92.0-98.5); ABG PCO2 61.2 mmHg (35.0-45.0); ABG PH 7.512 (7.350-7.450); ABG PO2 54.1 mmHg (75.0-100.0); AaDO2 233.6 mmHg; COHb 1.1 % (0.5-1.5); MetHb 0.1 % (0.0-1.5); O2Hb 90.6 % (94.0-97.0); SITE, ABG Right Radial; VENT MODE, BG HI FLO NC 60 L 50%
--- NOTE | 2020-01-11 11:20 | NUR ---
PT IS CURRENTLY TOLERATING THE HIGH FLOW WITH RT AT BEDSIDE SATURATING 89 Addendum: 01/11/20 at 1318 by CASS BRYAN RN NO SIGNS OF SOB OR RESPIRATORY DISTRESS NOTED AT THIS TIME. BREATHING IS EVEN AND UNLABORED.
--- NOTE | 2020-01-11 11:45 | NUR ---
Received patient from Coleen RN, patient is tolerating high flow @ 60% O2 settings well, SPO2 is 89-91%, denies pain or discomfort,Amaral cath in place, call light in reach, bariatric bed is locked, both IV lines intact and patent will cont to monitor
--- NOTE | 2020-01-11 11:48 | NUR ---
GAVE REPORT TO MARITZA FOR CONTINUATION OF CARE.
[2020-01-11 12:00] VITALS: BP 101/50
[2020-01-11] MEDS: NYSTATIN TOP POWDER 15 GM BOTTLE TP SCH ×2 (13:00→16:51)
--- NOTE | 2020-01-11 13:21 | NUR ---
patient still requires high O2 spo2 89% with fio2 50% and cont with BIPAP @ night. Per Bill at [facility] [phone]- case was denied due to no insurance authorization.Left message to Elizabeth ALY @ [facility] [phone] with verbal clinicals and inquiry to the LTAC authorization. Addendum: 01/11/20 at 1321 by BAO MURRAY RN Amended: Links added.
[2020-01-11 13:39] LABS: ABG BASE EXCESS 17.7 mmol/L; ABG OXYGEN SATURATION 95.6 % (92.0-98.5); ABG PCO2 55.3 mmHg (35.0-45.0); ABG PH 7.512 (7.350-7.450); ABG PO2 70.8 mmHg (75.0-100.0); AaDO2 296.2 mmHg; COHb 0.6 % (0.5-1.5); MetHb 0.2 % (0.0-1.5); O2Hb 94.8 % (94.0-97.0); SITE, ABG Right Femoral; VENT MODE, BG HI FLO NC 60 L 60%
--- NOTE | 2020-01-11 15:00 | NUR ---
Cleaned and reposition patient, comfort needs attended
[2020-01-11 16:00] VITALS: BP 114/54
[2020-01-11] MEDS: MENTHOL/CETYLPYRD (CEPACOL) 1 LOZ LOZENGE PO PRN ×2 (16:18→20:18)
[2020-01-11] MEDS: DULOXETINE HCL 30 MG CAPSULE.DR PO SCH (17:48)
[2020-01-11] MEDS ORDERED: SULFAMETH/TRIMETH 800/160 MG 1 UDTAB TABLET PO SCH (18:00)
[2020-01-11] MEDS: AMOX/CLAVULANATE 875 MG TABLET PO SCH (18:34)
--- NOTE | 2020-01-11 19:31 | NUR ---
RN CLOSING NOTES Patient remains in bed, tolerating NC high flow well, no distress or SOB noted, SPO2 between 87-91% at this time, denies pain or discomfort. Patient and cleaned and repositioned during the shift, comfort needs attended, call light in reach, assisted with feeding,and hygiene. Bed locked in lowest position, call light in reach,will endorse to PM RN for MARTINA
--- NOTE | 2020-01-11 19:40 | NUR ---
RN TD NOTES, Received patient from Coleen VALLADARES, patient laying on bed, high flow @ 60% O2 settings well, SPO2 is 90-91% at this time, breathing even and unlabored, no s/s of any respiratory distress no sob pain or discomfort, JAC PIV line and NAIV midline in placed, both patent and intact, nsr in tele monitor with HR 80s at this time, Amaral cath in place, call light within reach, bed locked and low position, 2 1/2 s/r of bed up fo reposition, will continue to monitor closely.
[2020-01-11 20:00] VITALS: BP 114/51
[2020-01-11] MEDS: ENOXAPARIN SODIUM 40 MG/0.4 ML DISP.SYRIN SQ SCH (20:18)
[2020-01-11] MEDS: ACETAMINOPHEN 325 MG TABLET PO PRN (20:18)
[2020-01-11] MEDS: ATORVASTATIN 10 MG TABLET PO SCH (21:23)
[2020-01-12] VITALS: BP 131/71
[2020-01-12] MEDS: ALBUTEROL FS 2.5 MG/0.5 ML VIAL.NEB NEB SCH ×6 (03:33→23:42)
[2020-01-12] MEDS: IPRATROPIUM NEB FS 0.5 MG/2.5 ML AMPUL.NEB NEB SCH ×6 (03:33→23:42)
[2020-01-12 04:00] VITALS: BP 135/79
[2020-01-12] MEDS: methylPREDNISolone SOD SUCC 40 MG/ML VIAL IV SCH ×3 (04:22→21:36)
--- NOTE | 2020-01-12 06:21 | NUR ---
AISHA RN CLOSING NOTE PT IN BED. AWAKE A/O X4. BREATHING EVEN AND UNLABORED ON HIGH FLOW 02 AT 60L. SP02 89%. NO SOB OR ACUTE DISTRESS NOTED. DENIES ANY PAIN OR DISCOMFORT. NAVI MIDLINE PATENT AND INTACT. JAC IV LINE INTACT AND PATENT. WHITE CATHETER PATENT. DRAINING YELLOW CLEAR URINE . OUTPUT OF 1450ML. KEPT CLEAN AND DRY. REPOSITIONED Q2. SRX2 UP. CALL LIGHT WITHIN REACH. ALL NEEDS RENDERED. WILL ENDORSE TO AM NURSE FOR CONTINUITY OF CARE.
[2020-01-12 06:41] LABS: CALCIUM, SERUM 9.6 mg/dL (8.5-10.1); CREATININE 0.9 mg/dL (0.6-1.3); POTASSIUM 4.8 mmol/L (3.5-5.1)
[2020-01-12 06:50] LABS: BASOPHILS % (AUTO) 0.1 % (0.0-2.0); HEMATOCRIT 35 % (33-45); LYMPHOCYTES # (AUTO) 0.7 /CMM (0.8-4.8); LYMPHOCYTES % (AUTO) 9.1 % (20.0-44.0); MEAN CORPUSCULAR HGB CONC 32 g/dl (31.0-36.0); MEAN CORPUSCULAR VOLUME 94 fL (82-100); MONOCYTES # (AUTO) 0.4 /CMM (0.1-1.30); MONOCYTES % (AUTO) 4.4 % (2.0-12.0); NEUTROPHILS # (AUTO) 7.1 /CMM (1.8-8.9); NEUTROPHILS % (AUTO) 86.4 % (43.0-81.0); PLATELET COUNT (AUTO) 169 /CMM (150-450); RED BLOOD CELL COUNT(AUTO) 3.69 MIL/uL (4.0-5.2); WHITE BLOOD COUNT (AUTO) 8.2 K/uL (4.3-11.0)
[2020-01-12 08:00] VITALS: BP 134/68
--- NOTE | 2020-01-12 08:00 | NUR ---
EXTRUDER OPERATOR OPENING NOTE: PT IN BED. A/O X4. ON HI FLOW OXYGEN 60L/MIN, BREATHING EVEN AND UNLABORED, NO RESPIRATORY DISTRESS. SPO2 91%. NAVI MIDLINE INTACT AND PATENT. WHITE CATHETER INTACT AND PATENT, DRAINING YELLOW CLEAR URINE. CALL LIGHT WITHIN REACH. BED IN LOWEST AND LOCKED POSITION. WILL CONTINUE TO MONITOR CLOSELY.
[2020-01-12] MEDS: LEVETIRACETAM (250 MG) 250 MG TABLET PO SCH (08:17)
[2020-01-12] MEDS: PANTOPRAZOLE 40 MG TABLET.DR PO SCH (08:17)
[2020-01-12] MEDS: PIOGLITAZONE HCL 15 MG TABLET PO SCH (08:17)
[2020-01-12] MEDS: METFORMIN 850 MG TABLET PO SCH ×2 (08:18→17:05)
[2020-01-12] MEDS: GABAPENTIN 300 MG CAPSULE PO SCH ×3 (08:18→17:06)
[2020-01-12] MEDS: AMOX/CLAVULANATE 875 MG TABLET PO SCH ×2 (08:18→21:37)
[2020-01-12] MEDS: LORATADINE 10 MG TABLET PO SCH (08:18)
[2020-01-12] MEDS: LINAGLIPTIN 5 MG TABLET PO SCH (08:18)
[2020-01-12] MEDS: BLOOD SUGAR DIAGNOSTIC 1 EACH STRIP IN SCH ×4 (08:19→21:38)
[2020-01-12] MEDS: NYSTATIN TOP POWDER 15 GM BOTTLE TP SCH ×2 (08:33→17:08)
[2020-01-12] MEDS: INSULIN REGULAR, HUMAN 100 UNIT/ML 3 ML VIAL SQ PRN ×4 (08:45→21:51)
--- NOTE | 2020-01-12 09:00 | NUR ---
SUPERINTENDENT STEVEDORING NOTE: LAB CALLED TO INFORM PT CO2 LEVEL 49. TRANSITION OF CARE REPORT GIVEN TO BLAINE MASSEY
--- NOTE | 2020-01-12 09:38 | NUR ---
RN NOTES RECEIVED REPORT FROM YAJAIRA VALLADARES FOR MARTINA
[2020-01-12] MEDS: ACETAMINOPHEN 325 MG TABLET PO PRN ×2 (10:27→21:37)
[2020-01-12] MEDS: MENTHOL/CETYLPYRD (CEPACOL) 1 LOZ LOZENGE PO PRN ×3 (10:27→21:37)
[2020-01-12] MEDS: Z GUARD REMEDY 2 OZ OINT TP SCH (10:33)
[2020-01-12 12:00] VITALS: BP 125/66
[2020-01-12] MEDS: ENSURE ENLIVE CHOC 237 ML CAN PO SCH (12:15)
[2020-01-12 16:00] VITALS: BP 142/55
[2020-01-12] MEDS: DULOXETINE HCL 30 MG CAPSULE.DR PO SCH (17:04)
--- NOTE | 2020-01-12 18:25 | NUR ---
AISHA RN CLOSING NOTE: PT IN BED. RESTING, A/O X4. ON HI FLOW OXYGEN 60L/MIN, BREATHING EVEN AND UNLABORED, NO RESPIRATORY DISTRESS. SPO2 94%. NAVI MIDLINE INTACT AND PATENT. WHITE CATHETER INTACT AND PATENT, DRAINING YELLOW CLEAR URINE. WITH 1300 ML OUTPUT. MEDICATION COMPLIANT, DOES NOT WANT TO BE MOVED OR CHANGED, PER HER SHE ALREADY GOT CLEANED THIS MORNING AND THAT IS ENOUGH. ASSISTED WITH MEALS. ACCUCHECK DONE AND GIVEN SLIDING SCALE ORDERED. CALL LIGHT WITHIN REACH. BED IN LOWEST AND LOCKED POSITION. ALL NEEDS MET. NO OTHER SIGNIFICANT CHANGE IN CONDITION. WILL ENDORSE TO NEXT SHIFT FOR MARTINA.
--- NOTE | 2020-01-12 19:11 | NUR ---
DNI; Nocturnal BIPAP and cont high flow 60L Fio2 60% saturating in the low 90s,initiated on Augmentin for tracheobronchitis. Elizabeth NOLANEver @ [facility] [phone] has not returned call regarding LTAC approval. Derek at [facility] also contacted [facility] special education case manager. Called saeid at [facility] [phone] opt6 but self service is not available at this time. Spoke with Derek at [facility] - he will contact saeid dept at [facility] to open a case. Faxed updated clinicals per Bill request. Addendum: 01/12/20 at 1910 by BAO MURRAY RN Amended: Links added.
[2020-01-12 20:00] VITALS: BP 133/79
[2020-01-12] MEDS: ENOXAPARIN SODIUM 40 MG/0.4 ML DISP.SYRIN SQ SCH (21:00)
--- NOTE | 2020-01-12 21:00 | NUR ---
TELE-TD/PRESCHOOL TEACHER PT REFUSING LOVENOX AT THIS TIME BECAUSE SHE SAYS SHE IS BLEEDING TOO EASILY AND RECENTLY HAD A NOSEBLEED THAT WAS DIFFICULT TO STOP. PT ALSO NOTED WITH LARGE BRUISES ON HER RIGHT UPPER EXTREMITY BUT SHE SAYS SHE HAS LOTS OF BRUISES. WILL CONTINUE TO MONITOR.
[2020-01-12] MEDS: ATORVASTATIN 10 MG TABLET PO SCH (21:38)
[2020-01-13] VITALS: BP 141/74
[2020-01-13] MEDS: IPRATROPIUM NEB FS 0.5 MG/2.5 ML AMPUL.NEB NEB SCH ×5 (03:58→20:02)
[2020-01-13] MEDS: ALBUTEROL FS 2.5 MG/0.5 ML VIAL.NEB NEB SCH ×5 (03:58→20:01)
[2020-01-13 04:00] VITALS: BP 149/74
[2020-01-13] MEDS: methylPREDNISolone SOD SUCC 40 MG/ML VIAL IV SCH ×3 (04:53→20:41)
--- NOTE | 2020-01-13 05:49 | NUR ---
TELE-TD/MERCHANDISER SEASONAL FULL BED BATH GIVEN. PT TOLERATED WELL.
[2020-01-13 06:22] LABS: BASOPHILS % (AUTO) 0.2 % (0.0-2.0); EOSINOPHILS % (AUTO) 0.1 % (0.0-6.0); HEMATOCRIT 34 % (33-45); HEMOGLOBIN 10.7 g/dL (11.5-14.8); LYMPHOCYTES # (AUTO) 0.6 /CMM (0.8-4.8); LYMPHOCYTES % (AUTO) 7.9 % (20.0-44.0); MEAN CORPUSCULAR HGB CONC 32 g/dl (31.0-36.0); MEAN CORPUSCULAR VOLUME 93 fL (82-100); MONOCYTES # (AUTO) 0.3 /CMM (0.1-1.30); MONOCYTES % (AUTO) 4.3 % (2.0-12.0); NEUTROPHILS # (AUTO) 6.2 /CMM (1.8-8.9); NEUTROPHILS % (AUTO) 87.5 % (43.0-81.0); PLATELET COUNT (AUTO) 152 /CMM (150-450); RED BLOOD CELL COUNT(AUTO) 3.61 MIL/uL (4.0-5.2)
--- NOTE | 2020-01-13 07:30 | NUR ---
VALLEZ FILTER OPERATOR INITIAL NOTE RECEIVED PATIENT AWAKE, ALERT AND ORIENTED. ABLE TO MAKE NEEDS KNOWN. NO RESPIRATORY DISTRESS NOTED. SKIN WARM AND DRY TO TOUCH. PATIENT REFUSES TO BE REPOSITIONED AT THIS TIME. ON TELE MONITOR SINUS TACH. ON HI FLOW 60L 60%. HOB ELEVATED. SIDE RAILS UP AND LOCKED. BED KEPT AT LOWEST POSITION. CALL LIGHT IN HAND. WILL CONTINUE TO MONITOR.
[2020-01-13 07:44] LABS: CALCIUM, SERUM 8.9 mg/dL (8.5-10.1); CREATININE 1.1 mg/dL (0.6-1.3); POTASSIUM 4.7 mmol/L (3.5-5.1)
--- NOTE | 2020-01-13 07:58 | NUR ---
RT Pt received awake and alert on high flow nasal cannula. Pt was unable to maintain targeted SpO2 with 50 flow and 50% FiO2, pt is however tolerating 55 flow and 55% FiO2 with SpO2 88-90%. No SOB or respiratory distress noted at this time. Addendum: 01/13/20 at 0820 by STEFANO BOWLES RT Amended: Links added.
[2020-01-13 08:00] VITALS: BP 146/70
[2020-01-13] MEDS: BLOOD SUGAR DIAGNOSTIC 1 EACH STRIP IN SCH ×4 (08:35→21:52)
[2020-01-13 08:36] LABS: LYMPHOCYTES % (MANUAL) 6 % (16-48); MONOCYTES % (MANUAL) 2 % (0-11.0); NEUTROPHILS % (MANUAL) 92 (42-76)
[2020-01-13] MEDS: INSULIN REGULAR, HUMAN 100 UNIT/ML 3 ML VIAL SQ PRN ×4 (09:18→21:58)
[2020-01-13] MEDS: METFORMIN 850 MG TABLET PO SCH ×2 (09:19→17:26)
[2020-01-13] MEDS: LEVETIRACETAM (250 MG) 250 MG TABLET PO SCH (09:19)
[2020-01-13] MEDS: LORATADINE 10 MG TABLET PO SCH (09:19)
[2020-01-13] MEDS: PIOGLITAZONE HCL 15 MG TABLET PO SCH (09:19)
[2020-01-13] MEDS: GABAPENTIN 300 MG CAPSULE PO SCH ×3 (09:19→17:26)
[2020-01-13] MEDS: PANTOPRAZOLE 40 MG TABLET.DR PO SCH (09:19)
[2020-01-13] MEDS: AMOX/CLAVULANATE 875 MG TABLET PO SCH ×2 (09:19→20:41)
[2020-01-13] MEDS: ENSURE ENLIVE CHOC 237 ML CAN PO SCH (09:20)
[2020-01-13] MEDS: LINAGLIPTIN 5 MG TABLET PO SCH (09:22)
[2020-01-13] MEDS: Z GUARD REMEDY 2 OZ OINT TP SCH (09:23)
[2020-01-13] MEDS: NYSTATIN TOP POWDER 15 GM BOTTLE TP SCH ×2 (09:23→17:26)
[2020-01-13] MEDS: MENTHOL/CETYLPYRD (CEPACOL) 1 LOZ LOZENGE PO PRN ×4 (09:33→19:27)
[2020-01-13] MEDS ORDERED: BUMETANIDE INJ 4 MG in IV D5W 24 ML IV ONE (10:30)
--- NOTE | 2020-01-13 11:50 | NUR ---
BONDING AND COMPOSITE FABRICATOR NOTE SPOKE WITH YUNIER IN CASE MANAGEMENT FROM [facility]. UPDATES GIVEN
[2020-01-13 12:00] VITALS: BP 139/64
[2020-01-13 16:00] VITALS: BP 121/65
[2020-01-13] MEDS: DULOXETINE HCL 30 MG CAPSULE.DR PO SCH (17:26)
--- NOTE | 2020-01-13 19:33 | NUR ---
RN OPENING NOTE RECEIVED PATIENT IN SEMI FOWLERS POSITION. PATIENT A/O X 4, ON TELE MONITOR SR. NAVI MIDLINE PATENT INTACT AND FLUSHING WELL. WHITE CATH PATENT, DRAINING BY GRAVITY. DENIES PAIN AT THIS TIME. ON HI FLOW 60L/MIN. SIDE RAILS UP X 2 BED LOCKED AND IN LOWEST POSITION. CALL LIGHT WITHIN REACH. WILL CONTINUE TO MONITOR PATIENT.
--- NOTE | 2020-01-13 19:35 | NUR ---
ADVANCED PRACTICE PSYCHIATRIC NURSE CLOSING NOTE NO SIGNIFICANT CHANGES. ALL DUE MEDS GIVEN. PATIENT REFUSED BED BATH AND TURNING AND REPOSITIONING, DESPITE PATIENT EDUCATION ON TURNING AND REPOSITIONING. ON TELE MONITOR SR. F/C PATENT, DRAINING BY GRAVITY. HOB ELEVATED. ON HI FLOW 50L 50%. SIDE RAILS UP AND LOCKED. CALL LIGHT IN HAND. PATIENT WITH GREAT APPETITE. CONTINUITY OF CARE ENDORSED TO PM NURSE.
[2020-01-13 20:00] VITALS: BP 109/61
[2020-01-13] MEDS: ENOXAPARIN SODIUM 40 MG/0.4 ML DISP.SYRIN SQ SCH (20:45)
[2020-01-13] MEDS: ATORVASTATIN 10 MG TABLET PO SCH (21:45)
[2020-01-14] VITALS: BP 129/69
[2020-01-14] MEDS: IPRATROPIUM NEB FS 0.5 MG/2.5 ML AMPUL.NEB NEB SCH ×7 (00:04→23:40)
[2020-01-14] MEDS: ALBUTEROL FS 2.5 MG/0.5 ML VIAL.NEB NEB SCH ×7 (00:04→23:40)
--- NOTE | 2020-01-14 00:10 | NUR ---
RT NOTE PLACED PT ON BIPAP AT THIS TIME. PT HAS UNDER THE NOSE MASK. MASK SECURED. ALARMS ON AND AUDIBLE. NO DISTRESS NOTED. WILL CONTINUE TO MONITOR CLOSELY.
[2020-01-14 04:00] VITALS: BP 132/72
[2020-01-14] MEDS: methylPREDNISolone SOD SUCC 40 MG/ML VIAL IV SCH ×3 (04:31→21:33)
[2020-01-14 06:48] LABS: CALCIUM, SERUM 8.9 mg/dL (8.5-10.1); CREATININE 1.1 mg/dL (0.6-1.3); POTASSIUM 4.2 mmol/L (3.5-5.1)
--- NOTE | 2020-01-14 07:30 | NUR ---
QUALITY CONTROL SUPERVISOR OPENING NOTES RECEIVED PATIENT IN SEMI FOWLERS POSITION. PATIENT A/O X 4, ON TELE MONITOR SR. NAVI MIDLINE PATENT INTACT AND FLUSHING WELL. WHITE CATH PATENT, DRAINING BY GRAVITY. DENIES PAIN AT THIS TIME. ON HI FLOW 60L/MIN. SIDE RAILS UP X 2 BED LOCKED AND IN LOWEST POSITION. CALL LIGHT WITHIN REACH. SAFETY PRECAUTION OBSERVED. WILL CONTINUE TO MONITOR.
[2020-01-14 08:00] VITALS: BP 132/63
[2020-01-14] MEDS: BLOOD SUGAR DIAGNOSTIC 1 EACH STRIP IN SCH ×4 (08:03→21:43)
[2020-01-14] MEDS: INSULIN REGULAR, HUMAN 100 UNIT/ML 3 ML VIAL SQ PRN ×4 (08:10→21:48)
[2020-01-14] MEDS: LORATADINE 10 MG TABLET PO SCH (09:26)
[2020-01-14] MEDS: PIOGLITAZONE HCL 15 MG TABLET PO SCH (09:26)
[2020-01-14] MEDS: GABAPENTIN 300 MG CAPSULE PO SCH ×3 (09:26→17:07)
[2020-01-14] MEDS: AMOX/CLAVULANATE 875 MG TABLET PO SCH ×2 (09:26→21:33)
[2020-01-14] MEDS: LEVETIRACETAM (250 MG) 250 MG TABLET PO SCH (09:27)
[2020-01-14] MEDS: PANTOPRAZOLE 40 MG TABLET.DR PO SCH (09:27)
[2020-01-14] MEDS: LINAGLIPTIN 5 MG TABLET PO SCH (09:27)
[2020-01-14] MEDS: Z GUARD REMEDY 2 OZ OINT TP SCH (09:31)
[2020-01-14] MEDS: NYSTATIN TOP POWDER 15 GM BOTTLE TP SCH ×2 (09:35→17:19)
[2020-01-14] MEDS: ENSURE ENLIVE CHOC 237 ML CAN PO SCH (09:41)
[2020-01-14] MEDS: METFORMIN 850 MG TABLET PO SCH ×2 (09:43→17:07)
[2020-01-14 12:00] VITALS: BP_SYST 130; BP_SYST 132; BP_DIAS 63; BP_DIAS 65
[2020-01-14] MEDS ORDERED: BUMETANIDE INJ 6 MG in IV D5W 36 ML IV ONE (12:00)
[2020-01-14 16:00] VITALS: BP 127/59
[2020-01-14] MEDS: DULOXETINE HCL 30 MG CAPSULE.DR PO SCH (17:07)
[2020-01-14] MEDS: ACETAMINOPHEN 325 MG TABLET PO PRN (17:14)
--- NOTE | 2020-01-14 19:00 | NUR ---
FOLLOW UP REP CLOSING NOTES PT REMAINS ALERT / ORIENTED X3. NO SIGNIFICANT CHANGES. ALL DUE MEDS GIVEN. WITH ONE BM NOTED DURING THE SHIFT. ON TELE MONITOR SR. F/C PATENT, DRAINING BY GRAVITY. HOB ELEVATED. ON HI FLOW 50L 50%. SIDE RAILS UP AND LOCKED. CALL LIGHT IN HAND. PATIENT WITH GREAT APPETITE. WILL ENDORSE TO NEXT SHIFT FOR MARTINA.
--- NOTE | 2020-01-14 19:20 | NUR ---
RN OPENING NOTES: RECEIVED PT A/OX4; PT IN BED RESTING COMFORTABLY. PATIENT IN NO S/SX OF ACUTE DISTRESS AT THIS TIME. NO SOB NOTED. PATIENT'S BREATHING IS EVEN AND UNLABORED. PATIENT IS ON NOCTURALNAL BIPAP @50% FIO2; TOLERATING WELL.PATIENT ON TELE MONITORING READING SINUS RHYTHM HR IS @96 AT THE TIME OF RECEIVED. PT ON CCHO DIET. NOTED IV SITE ON R UA #20 AND L UA MIDLINE ; BOTH PATENT, INTACT AND FLUSHING WELL NO S/S OF INFECTION OR INFILTRATION. NO RUNNING IV FLUID AT THIS TIME. WHITE CATH IN PLACE,MODERATE URINE OUTPUT NOTED SAFETY MEASURES HAVE BEEN PROVIDED AND IMPLEMENTED. PATIENT BED ALARM IS ON. HEAD OF BED ELEVATED. BED IS LOCKED, IN LOWEST POSITION AND SIDE RAILS UP. CALL LIGHT WITHIN REACH OF THE PATIENT. ISOLATION PRECAUTIONS IN PLACE. WILL CONTINUE TO MONITOR AND REASSESS FOR ANY CHANGES.
[2020-01-14 20:00] VITALS: BP 127/70
[2020-01-14] MEDS: ATORVASTATIN 10 MG TABLET PO SCH (21:33)
[2020-01-14] MEDS: ENOXAPARIN SODIUM 40 MG/0.4 ML DISP.SYRIN SQ SCH (21:48)
--- NOTE | 2020-01-14 22:00 | NUR ---
RN NOTES NO NOTED CHANGES TO PATIENT CONDITION/STATUS. CHAIN TENDER MADE AWARE. WILL CONTINUE TO MONITOR AND REASSESS FOR ANY CHANGES THROUGHOUT THE SHIFT.
[2020-01-15] VITALS: BP 136/71
--- NOTE | 2020-01-15 02:00 | NUR ---
RN NOTES NO NOTED CHANGES TO PATIENT CONDITION/STATUS. AUTO ACCESSORIES INSTALLER MADE AWARE. WILL CONTINUE TO MONITOR AND REASSESS FOR ANY CHANGES THROUGHOUT THE SHIFT.
--- NOTE | 2020-01-15 02:00 | NUR ---
RN NOTES RN AND SCHOOL CLEANER TRIED TO CLEAN PT PART OF TOTAL CARE, BUT PATIENT REFUSED. EXPLAINED RISK AND BENEFITS BUT PT REFUSED. WILL ATTEMPT AGAIN LATER. CHARGE NURSE MADE AWARE.
[2020-01-15] MEDS: IPRATROPIUM NEB FS 0.5 MG/2.5 ML AMPUL.NEB NEB SCH ×6 (02:26→23:50)
[2020-01-15] MEDS: ALBUTEROL FS 2.5 MG/0.5 ML VIAL.NEB NEB SCH ×6 (02:26→23:50)
[2020-01-15 04:00] VITALS: BP 136/71
--- NOTE | 2020-01-15 04:00 | NUR ---
RN NOTES NO NOTED CHANGES TO PATIENT CONDITION/STATUS. ANIMAL TAXONOMIST MADE AWARE. WILL CONTINUE TO MONITOR AND REASSESS FOR ANY CHANGES UNTIL THE END OF THE SHIFT.
[2020-01-15] MEDS: methylPREDNISolone SOD SUCC 40 MG/ML VIAL IV SCH ×3 (04:27→21:39)
--- NOTE | 2020-01-15 06:28 | NUR ---
RN CLOSING NOTE: PATIENT REMAINS IN ROOM. NO SIGNS OF RESPIRATORY DISTRESS. SAFETY MEASURES IMPLEMENTED, BED IN LOWEST POSITION, LOCKED, SIDE RAILS UP, CALL LIGHT WITHIN REACH. ALL NEEDS AND ORDERS ADDRESSED DURING THE SHIFT. ALL DUE MEDS GIVEN ORDERED & SCHEDULED ; PATIENT TOLERATED WELL.PATIENT KEPT CLEAN AND COMFORTABLE WITHIN THE SHIFT. ENDORSED TO INCOMING SHIFT RN FOR CONTINUITY OF CARE.
[2020-01-15 06:31] LABS: BASOPHILS % (AUTO) 0.1 % (0.0-2.0); EOSINOPHILS % (AUTO) 0.1 % (0.0-6.0); HEMATOCRIT 36 % (33-45); HEMOGLOBIN 11.4 g/dL (11.5-14.8); LYMPHOCYTES # (AUTO) 0.6 /CMM (0.8-4.8); LYMPHOCYTES % (AUTO) 8.3 % (20.0-44.0); MEAN CORPUSCULAR HGB CONC 32 g/dl (31.0-36.0); MEAN CORPUSCULAR VOLUME 93 fL (82-100); MONOCYTES # (AUTO) 0.2 /CMM (0.1-1.30); MONOCYTES % (AUTO) 3.3 % (2.0-12.0); NEUTROPHILS # (AUTO) 6.6 /CMM (1.8-8.9); NEUTROPHILS % (AUTO) 88.2 % (43.0-81.0); PLATELET COUNT (AUTO) 135 /CMM (150-450); RED BLOOD CELL COUNT(AUTO) 3.84 MIL/uL (4.0-5.2); WHITE BLOOD COUNT (AUTO) 7.4 K/uL (4.3-11.0)
--- NOTE | 2020-01-15 07:00 | NUR ---
RN OPENING NOTES: RECEIVED PT A/OX4; PT IN BED RESTING COMFORTABLY. PATIENT IN NO S/SX OF ACUTE DISTRESS AT THIS TIME. NO SOB NOTED. PATIENT'S BREATHING IS EVEN AND UNLABORED. PATIENT IS ON NOCTURALNAL BIPAP @50% FIO2; TOLERATING WELL.PATIENT ON TELE MONITORING READING SINUS RHYTHM HR IS @70S AT THE TIME OF RECEIVED. PT ON CCHO DIET. NOTED IV SITE ON R UA #20 AND L UA MIDLINE ; BOTH PATENT, INTACT AND FLUSHING WELL NO S/S OF INFECTION OR INFILTRATION. NO RUNNING IV FLUID AT THIS TIME. WHITE CATH IN PLACE,MODERATE URINE OUTPUT NOTED SAFETY MEASURES HAVE BEEN PROVIDED AND IMPLEMENTED. PATIENT BED ALARM IS ON. HEAD OF BED ELEVATED. BED IS LOCKED, IN LOWEST POSITION AND SIDE RAILS UP. ALL SAFETY MEASURES IMPLEMENTED PER HOSPITAL POLICY.
[2020-01-15 07:02] LABS: POTASSIUM 3.9 mmol/L (3.5-5.1)
[2020-01-15 08:00] VITALS: BP 127/70
[2020-01-15 09:47] LABS: ABG BASE EXCESS 17.6 mmol/L; ABG OXYGEN SATURATION 88.8 % (92.0-98.5); ABG PCO2 71.7 mmHg (35.0-45.0); ABG PH 7.422 (7.350-7.450); ABG PO2 55.6 mmHg (75.0-100.0); AaDO2 220.2 mmHg; COHb 0.9 % (0.5-1.5); MetHb 0.2 % (0.0-1.5); O2Hb 87.8 % (94.0-97.0); SITE, ABG Right Radial; VENT MODE, BG HI FLO NC 50L 50%
[2020-01-15] MEDS: BLOOD SUGAR DIAGNOSTIC 1 EACH STRIP IN SCH ×4 (10:08→22:12)
[2020-01-15] MEDS: PIOGLITAZONE HCL 15 MG TABLET PO SCH (10:08)
[2020-01-15] MEDS: GABAPENTIN 300 MG CAPSULE PO SCH ×3 (10:08→16:50)
[2020-01-15] MEDS: LORATADINE 10 MG TABLET PO SCH (10:08)
[2020-01-15] MEDS: METFORMIN 850 MG TABLET PO SCH ×2 (10:09→16:44)
[2020-01-15] MEDS: LINAGLIPTIN 5 MG TABLET PO SCH (10:09)
[2020-01-15] MEDS: LEVETIRACETAM (250 MG) 250 MG TABLET PO SCH (10:09)
[2020-01-15] MEDS: Z GUARD REMEDY 2 OZ OINT TP SCH (10:09)
[2020-01-15] MEDS: AMOX/CLAVULANATE 875 MG TABLET PO SCH ×2 (10:09→21:32)
[2020-01-15] MEDS: NYSTATIN TOP POWDER 15 GM BOTTLE TP SCH ×2 (10:09→16:45)
[2020-01-15] MEDS: ENSURE ENLIVE CHOC 237 ML CAN PO SCH (10:10)
[2020-01-15] MEDS: PANTOPRAZOLE 40 MG TABLET.DR PO SCH (10:10)
[2020-01-15] MEDS: INSULIN REGULAR, HUMAN 100 UNIT/ML 3 ML VIAL SQ PRN ×4 (10:17→22:13)
[2020-01-15 12:00] VITALS: BP 136/71
[2020-01-15] MEDS: MENTHOL/CETYLPYRD (CEPACOL) 1 LOZ LOZENGE PO PRN (13:18)
[2020-01-15 16:00] VITALS: BP 148/72
[2020-01-15] MEDS: DULOXETINE HCL 30 MG CAPSULE.DR PO SCH (18:07)
--- NOTE | 2020-01-15 19:20 | NUR ---
RN OPENING NOTES: RECEIVED PT A/OX4; PT IN BED SLEEPING. PATIENT IN NO S/SX OF ACUTE DISTRESS AT THIS TIME. NO SOB NOTED. PATIENT'S BREATHING IS EVEN AND UNLABORED. PATIENT IS ON NOCTURNAL BIPAP @50% FIO2; TOLERATING WELL. PATIENT ON TELE MONITORING READING SINUS RHYTHM HR IS @67 AT THE TIME OF RECEIVED. PT ON CCHO DIET; TOLERATING WELL. NOTED IV SITE ON R UA #20 AND L UA MIDLINE ; BOTH PATENT, INTACT AND FLUSHING WELL NO S/S OF INFECTION OR INFILTRATION. NO RUNNING IV FLUID AT THIS TIME. WHITE CATH IN PLACE, MODERATE URINE OUTPUT NOTED SAFETY MEASURES HAVE BEEN PROVIDED AND IMPLEMENTED. PATIENT BED ALARM IS ON. HEAD OF BED ELEVATED. BED IS LOCKED, IN LOWEST POSITION AND SIDE RAILS UP. CALL LIGHT WITHIN REACH OF THE PATIENT. ISOLATION PRECAUTIONS IN PLACE. WILL CONTINUE TO MONITOR AND REASSESS FOR ANY CHANGES AND REASSESS FOR ANY CHANGES AND WILL CARRY OUT ANY ONGOING AND ACTIVE MD ORDER.
--- NOTE | 2020-01-15 19:41 | NUR ---
RN TELE1 NO CHANGE IN PATIENT CONDITION AT THIS TIME PATIENT VITALS STABLE, NO SIGNS OF ACUTE RESPIRATORY DISTRESS. AT THIS TIME. R UPPER ARM 20 AND NAVI MIDLINE . NO SIGNS OF INFECTION, NO SIGNS OF INFILTRATION. PATIENT AND INTACT. OUTPUT 1600 ML / HR WOUND TX COMPLETE MEDICATION COMPLETED . BED LOCKED LOWEST POSITION CALL LIGHT WITH IN REACH ALL SAFETY MEASURES IMPLEMENTED PER HOSPITAL POLICY.
[2020-01-15 20:00] VITALS: BP 111/65
[2020-01-15] MEDS: ACETAMINOPHEN 325 MG TABLET PO PRN (21:32)
[2020-01-15] MEDS: ATORVASTATIN 10 MG TABLET PO SCH (21:32)
[2020-01-15] MEDS: ENOXAPARIN SODIUM 40 MG/0.4 ML DISP.SYRIN SQ SCH (21:36)
--- NOTE | 2020-01-15 22:00 | NUR ---
RN NOTES NO CHANGE IN PATIENT CONDITION AT THIS TIME PATIENT VITALS STABLE, NO SIGNS OF ACUTE RESPIRATORY DISTRESS. BUILDING CONSTRUCTION FOREMAN MADE AWARE. WILL CONTINUE TO MONITOR AND REASSESS FOR ANY CHANGES THROUGHOUT THE SHIFT.
[2020-01-16] VITALS: BP 118/68
--- NOTE | 2020-01-16 02:00 | NUR ---
RN NOTES NO CHANGE IN PATIENT CONDITION AT THIS TIME PATIENT VITALS STABLE, NO SIGNS OF ACUTE RESPIRATORY DISTRESS. PEGGER MADE AWARE. WILL CONTINUE TO MONITOR AND REASSESS FOR ANY CHANGES THROUGHOUT THE SHIFT.
[2020-01-16] MEDS: ALBUTEROL FS 2.5 MG/0.5 ML VIAL.NEB NEB SCH ×6 (02:30→23:37)
[2020-01-16] MEDS: IPRATROPIUM NEB FS 0.5 MG/2.5 ML AMPUL.NEB NEB SCH ×6 (02:30→23:37)
--- NOTE | 2020-01-16 02:45 | NUR ---
RN NOTES RN AND EVP MARKETING TRIED TO CLEAN PT PART OF TOTAL CARE, BUT PATIENT REFUSED. EXPLAINED RISK AND BENEFITS BUT PT REFUSED. WILL ATTEMPT AGAIN LATER. CHARGE NURSE MADE AWARE.
[2020-01-16 04:00] VITALS: BP 139/75
[2020-01-16] MEDS: methylPREDNISolone SOD SUCC 40 MG/ML VIAL IV SCH ×3 (04:57→20:26)
--- NOTE | 2020-01-16 05:15 | NUR ---
RN NOTES RN AND CONSULTING BUSINESS DEVELOPER TRIED TO CLEAN PT FOR THE 2ND TIME, BUT PATIENT REFUSED. CHARGE NURSE MADE AWARE. WILL ENDORSE TO AM RN
[2020-01-16 07:07] LABS: BASOPHILS % (AUTO) 0.1 % (0.0-2.0); EOSINOPHILS % (AUTO) 0.5 % (0.0-6.0); HEMATOCRIT 37 % (33-45); HEMOGLOBIN 11.5 g/dL (11.5-14.8); LYMPHOCYTES # (AUTO) 0.7 /CMM (0.8-4.8); LYMPHOCYTES % (AUTO) 10.2 % (20.0-44.0); MEAN CORPUSCULAR HGB CONC 31 g/dl (31.0-36.0); MEAN CORPUSCULAR VOLUME 94 fL (82-100); MONOCYTES # (AUTO) 0.3 /CMM (0.1-1.30); MONOCYTES % (AUTO) 4.4 % (2.0-12.0); NEUTROPHILS # (AUTO) 6.1 /CMM (1.8-8.9); NEUTROPHILS % (AUTO) 84.8 % (43.0-81.0); PLATELET COUNT (AUTO) 132 /CMM (150-450); WHITE BLOOD COUNT (AUTO) 7.1 K/uL (4.3-11.0)
[2020-01-16 07:20] LABS: CALCIUM, SERUM 8.9 mg/dL (8.5-10.1); POTASSIUM 3.8 mmol/L (3.5-5.1)
[2020-01-16 08:00] VITALS: BP 138/81
--- NOTE | 2020-01-16 08:00 | NUR ---
RN OPENING NOTE: DR LANGE MADE AWARE REGARDING CO2-44 AND BLOODY SPUTUM. NO NEW ORDERS AT THIS TIME. PATIENT REMAINS IN ROOM. NO SIGNS OF RESPIRATORY DISTRESS. SAFETY MEASURES IMPLEMENTED, BED IN LOWEST POSITION, LOCKED, SIDE RAILS UP, CALL LIGHT WITHIN REACH.WHITE DRAINING WITH YELLOW URINE. BREAKFAST TAKEN WITH GOOD APPETITE.NO S/S OF HYPO/HYPERGLYCEMIA NOTED. PATIENT HAD A LARGE BM AND CHANGED IN BED. PATIENT TOLERATED WELL.PATIENT CLEAN AND COMFORTABLE . WILL CONT TO MONITOR
[2020-01-16] MEDS: BLOOD SUGAR DIAGNOSTIC 1 EACH STRIP IN SCH ×4 (08:08→21:28)
[2020-01-16] MEDS: INSULIN REGULAR, HUMAN 100 UNIT/ML 3 ML VIAL SQ PRN ×4 (08:31→21:30)
[2020-01-16] MEDS: NYSTATIN TOP POWDER 15 GM BOTTLE TP SCH ×2 (08:43→17:14)
[2020-01-16] MEDS: Z GUARD REMEDY 2 OZ OINT TP SCH (08:45)
[2020-01-16] MEDS: PANTOPRAZOLE 40 MG TABLET.DR PO SCH (09:09)
[2020-01-16] MEDS: PIOGLITAZONE HCL 15 MG TABLET PO SCH (09:10)
[2020-01-16] MEDS: AMOX/CLAVULANATE 875 MG TABLET PO SCH ×2 (09:10→20:26)
[2020-01-16] MEDS: LORATADINE 10 MG TABLET PO SCH (09:10)
[2020-01-16] MEDS: METFORMIN 850 MG TABLET PO SCH ×2 (09:10→17:15)
[2020-01-16] MEDS: GABAPENTIN 300 MG CAPSULE PO SCH ×3 (09:11→17:14)
[2020-01-16] MEDS: LINAGLIPTIN 5 MG TABLET PO SCH (09:11)
[2020-01-16] MEDS: LEVETIRACETAM (250 MG) 250 MG TABLET PO SCH (09:11)
[2020-01-16] MEDS: ENSURE ENLIVE CHOC 237 ML CAN PO SCH (09:43)
[2020-01-16 12:00] VITALS: BP 138/81
[2020-01-16] MEDS: MENTHOL/CETYLPYRD (CEPACOL) 1 LOZ LOZENGE PO PRN ×2 (15:27→21:14)
[2020-01-16] MEDS: ACETAMINOPHEN 325 MG TABLET PO PRN (15:35)
[2020-01-16 16:00] VITALS: BP 127/63
[2020-01-16] MEDS: DULOXETINE HCL 30 MG CAPSULE.DR PO SCH (17:15)
--- NOTE | 2020-01-16 19:20 | NUR ---
RN NOTES RECEIVED PT A/OX4; PT IN BED RESTING COMFORTABLY. PATIENT IN NO S/SX OF ACUTE DISTRESS AT THIS TIME. NO SOB NOTED. PATIENT'S BREATHING IS EVEN AND UNLABORED. PATIENT IS ON HIGH FLOW AT TIME OF RECEIVED; TOLERATING SETTINGS ORDERED. PATIENT WILL TRANSITION TO NOCTURNAL BIPAP @50% FIO2 ORDERED TONIGHT. PATIENT ON TELE MONITORING READING SINUS RHYTHM HR IS @89 AT THE TIME OF RECEIVED. PT ON CCHO DIET; TOLERATING WELL. NOTED IV SITE ON R UA #20 AND L UA MIDLINE ; BOTH PATENT, INTACT AND FLUSHING WELL NO S/S OF INFECTION OR INFILTRATION. NO RUNNING IV FLUID AT THIS TIME. WHITE CATH IN PLACE, MODERATE URINE OUTPUT NOTED SAFETY MEASURES HAVE BEEN PROVIDED AND IMPLEMENTED. PATIENT BED ALARM IS ON. HEAD OF BED ELEVATED. BED IS LOCKED, IN LOWEST POSITION AND SIDE RAILS UP. CALL LIGHT WITHIN REACH OF THE PATIENT. ISOLATION PRECAUTIONS IN PLACE. WILL CONTINUE TO MONITOR AND REASSESS FOR ANY CHANGES AND REASSESS FOR ANY CHANGES AND WILL CARRY OUT ANY ONGOING AND ACTIVE MD ORDER.
[2020-01-16 20:00] VITALS: BP 128/66
[2020-01-16] MEDS: ATORVASTATIN 10 MG TABLET PO SCH (21:13)
[2020-01-16] MEDS: ENOXAPARIN SODIUM 40 MG/0.4 ML DISP.SYRIN SQ SCH (21:15)
--- NOTE | 2020-01-16 22:00 | NUR ---
RN NOTES NO CHANGE IN PATIENT CONDITION AT THIS TIME PATIENT VITALS STABLE, NO SIGNS OF ACUTE RESPIRATORY DISTRESS. AIR HOIST OPERATOR MADE AWARE. WILL CONTINUE TO MONITOR AND REASSESS FOR ANY CHANGES THROUGHOUT THE SHIFT.
[2020-01-17] VITALS: BP 141/67
--- NOTE | 2020-01-17 01:00 | NUR ---
RN NOTES NO NOTED CHANGES TO PATIENT CONDITION/STATUS. LARGE SHEETFED PRESS OPERATOR MADE AWARE. WILL CONTINUE TO MONITOR AND REASSESS FOR ANY CHANGES THROUGHOUT THE SHIFT.
[2020-01-17] MEDS: ALBUTEROL FS 2.5 MG/0.5 ML VIAL.NEB NEB SCH ×6 (03:18→23:50)
[2020-01-17] MEDS: IPRATROPIUM NEB FS 0.5 MG/2.5 ML AMPUL.NEB NEB SCH ×6 (03:18→23:50)
[2020-01-17 04:00] VITALS: BP 148/58
--- NOTE | 2020-01-17 04:00 | NUR ---
RN NOTES PATIENT REFUSED AM CARE/BEDBATH. VEHICLE DELIVERY WORKER MADE AWARE.
[2020-01-17] MEDS: methylPREDNISolone SOD SUCC 40 MG/ML VIAL IV SCH ×3 (04:20→22:05)
--- NOTE | 2020-01-17 07:30 | NUR ---
RN OPENING NOTE: PATIENT REMAINS IN BED. BREATHING EVEN,NO SIGNS OF RESPIRATORY DISTRESS. DENIES ANY PAIN OR DISCOMFORT. NO S/S OF HYPO/HYPERGLYCEMIA NOTED.SAFETY MEASURES IMPLEMENTED, BED IN LOWEST POSITION, LOCKED, SIDE RAILS UP, CALL LIGHT WITHIN REACH. PATIENT KEPT CLEAN AND COMFORTABLE. WILL CONT TO MONITOR
[2020-01-17] MEDS: INSULIN REGULAR, HUMAN 100 UNIT/ML 3 ML VIAL SQ PRN ×4 (07:33→22:19)
[2020-01-17] MEDS: BLOOD SUGAR DIAGNOSTIC 1 EACH STRIP IN SCH ×4 (07:37→22:19)
[2020-01-17 07:40] LABS: EOSINOPHILS % (AUTO) 0.4 % (0.0-6.0); HEMATOCRIT 35 % (33-45); LYMPHOCYTES # (AUTO) 0.5 /CMM (0.8-4.8); LYMPHOCYTES % (AUTO) 7.8 % (20.0-44.0); MEAN CORPUSCULAR HGB CONC 32 g/dl (31.0-36.0); MEAN CORPUSCULAR VOLUME 93 fL (82-100); MONOCYTES # (AUTO) 0.3 /CMM (0.1-1.30); MONOCYTES % (AUTO) 4.1 % (2.0-12.0); NEUTROPHILS % (AUTO) 87.7 % (43.0-81.0); PLATELET COUNT (AUTO) 122 /CMM (150-450); RED BLOOD CELL COUNT(AUTO) 3.72 MIL/uL (4.0-5.2); WHITE BLOOD COUNT (AUTO) 6.8 K/uL (4.3-11.0)
[2020-01-17] MEDS: PANTOPRAZOLE 40 MG TABLET.DR PO SCH (07:50)
[2020-01-17] MEDS: AMOX/CLAVULANATE 875 MG TABLET PO SCH ×2 (07:51→22:07)
[2020-01-17] MEDS: LORATADINE 10 MG TABLET PO SCH (07:51)
[2020-01-17] MEDS: METFORMIN 850 MG TABLET PO SCH ×2 (07:52→17:32)
[2020-01-17] MEDS: GABAPENTIN 300 MG CAPSULE PO SCH ×3 (07:53→17:32)
[2020-01-17] MEDS: LEVETIRACETAM (250 MG) 250 MG TABLET PO SCH (07:53)
[2020-01-17] MEDS: LINAGLIPTIN 5 MG TABLET PO SCH (07:53)
[2020-01-17] MEDS: Z GUARD REMEDY 2 OZ OINT TP SCH (07:54)
[2020-01-17] MEDS: NYSTATIN TOP POWDER 15 GM BOTTLE TP SCH ×2 (07:54→17:33)
[2020-01-17] MEDS: PIOGLITAZONE HCL 15 MG TABLET PO SCH (07:55)
[2020-01-17] MEDS: ENSURE ENLIVE CHOC 237 ML CAN PO SCH (07:55)
[2020-01-17 08:00] VITALS: BP 134/73
[2020-01-17 08:00] LABS: CREATININE 0.9 mg/dL (0.6-1.3); POTASSIUM 3.8 mmol/L (3.5-5.1)
[2020-01-17] MEDS ORDERED: ENSURE ENLIVE CHOC 237 ML CAN PO SCH (10:00)
[2020-01-17 12:00] VITALS: BP 121/65
[2020-01-17 16:00] VITALS: BP 115/65
[2020-01-17] MEDS: DULOXETINE HCL 30 MG CAPSULE.DR PO SCH (17:32)
--- NOTE | 2020-01-17 19:30 | NUR ---
RN CLOSING NOTE: PATIENT REMAINS IN ROOM. NO SIGNS OF RESPIRATORY DISTRESS. MEALS TAKEN WITH GOOD APPETITE. NO S/S OF HYPO/HYPERGLYCEMIA NOTED. SAFETY MEASURES IMPLEMENTED, BED IN LOWEST POSITION, LOCKED, SIDE RAILS UP, CALL LIGHT WITHIN REACH. ALL NEEDS AND ORDERS ADDRESSED DURING THE SHIFT. ALL DUE MEDS GIVEN ORDERED & SCHEDULED ; PATIENT KEPT CLEAN AND COMFORTABLE WITHIN THE SHIFT. ENDORSED TO INCOMING SHIFT RN JOANNA FOR CONTINUITY OF CARE.
[2020-01-17 20:00] VITALS: BP 130/65
[2020-01-17] MEDS: ENOXAPARIN SODIUM 40 MG/0.4 ML DISP.SYRIN SQ SCH (22:07)
[2020-01-17] MEDS: ATORVASTATIN 10 MG TABLET PO SCH (22:08)
[2020-01-18] VITALS: BP 125/67
[2020-01-18] MEDS: ALBUTEROL FS 2.5 MG/0.5 ML VIAL.NEB NEB SCH ×6 (03:52→23:30)
[2020-01-18] MEDS: IPRATROPIUM NEB FS 0.5 MG/2.5 ML AMPUL.NEB NEB SCH ×6 (03:52→23:30)
[2020-01-18 04:00] VITALS: BP 135/74
--- NOTE | 2020-01-18 04:40 | NUR ---
RN notes In bed resting comfortably watching TV with no distress noted. Breathing even and unlabored. On High flow 60% O2 and was later changed to BIPA 50% O2, tolerating well. Alert and oriented, verbally able to communicate needs. No complaint of pain or discomfort. Refused bed bath and picture taking of skin discoloration at the posterior thigh. Needs attended. Kept clean and dry. Will endorse to next shift for continuity of care.
[2020-01-18] MEDS: methylPREDNISolone SOD SUCC 40 MG/ML VIAL IV SCH ×3 (05:56→21:11)
[2020-01-18 06:49] LABS: BASOPHILS % (AUTO) 0.1 % (0.0-2.0); EOSINOPHILS % (AUTO) 0.1 % (0.0-6.0); HEMATOCRIT 35 % (33-45); HEMOGLOBIN 11.1 g/dL (11.5-14.8); LYMPHOCYTES # (AUTO) 0.5 /CMM (0.8-4.8); LYMPHOCYTES % (AUTO) 7.6 % (20.0-44.0); MEAN CORPUSCULAR HGB CONC 32 g/dl (31.0-36.0); MEAN CORPUSCULAR VOLUME 93 fL (82-100); MONOCYTES # (AUTO) 0.2 /CMM (0.1-1.30); MONOCYTES % (AUTO) 3.4 % (2.0-12.0); NEUTROPHILS # (AUTO) 6.3 /CMM (1.8-8.9); NEUTROPHILS % (AUTO) 88.8 % (43.0-81.0); PLATELET COUNT (AUTO) 141 /CMM (150-450); RED BLOOD CELL COUNT(AUTO) 3.76 MIL/uL (4.0-5.2); WHITE BLOOD COUNT (AUTO) 7.1 K/uL (4.3-11.0)
--- NOTE | 2020-01-18 07:00 | NUR ---
PORTABLE PINCH RIVETER NOTE: PT RECEIVED IN BED, AWAKE, A/OX4. PT ON BIPAP PRESCRIBED BY MD, TOLERATING WELL. PT O2 SATURATION 90%. PT HAS NO RESPIRATORY DISTRESS, NO SOB AT THIS TIME. PT HAS JAC #20, NAVI MIDLINE. ALL LINES FLUSHED AND PATENT, NO SIGNS OF INFILTRATION, INFECTION. PT HAS WILL CONTINUE TO MAINTAIN HI-FLOW OXYGENATION AND ANTIBIOTICS PRESCRIBED BY MD. BED IN LOCKED LOWEST POSITION. ALL SAFETY MEASURES IN PLACE. CALL LIGHT WITHIN REACH. WILL CONTINUE TO MONITOR CLOSELY.
[2020-01-18 07:34] LABS: CALCIUM, SERUM 9.1 mg/dL (8.5-10.1); CREATININE 0.9 mg/dL (0.6-1.3); POTASSIUM 4.1 mmol/L (3.5-5.1)
[2020-01-18 08:00] VITALS: BP 130/82
[2020-01-18] MEDS: LORATADINE 10 MG TABLET PO SCH (08:09)
[2020-01-18] MEDS: LINAGLIPTIN 5 MG TABLET PO SCH (08:09)
[2020-01-18] MEDS: PIOGLITAZONE HCL 15 MG TABLET PO SCH (08:10)
[2020-01-18] MEDS: METFORMIN 850 MG TABLET PO SCH (08:10)
[2020-01-18] MEDS: LEVETIRACETAM (250 MG) 250 MG TABLET PO SCH (08:10)
[2020-01-18] MEDS: GABAPENTIN 300 MG CAPSULE PO SCH ×3 (08:10→17:04)
[2020-01-18] MEDS: PANTOPRAZOLE 40 MG TABLET.DR PO SCH (08:11)
[2020-01-18] MEDS: AMOX/CLAVULANATE 875 MG TABLET PO SCH ×2 (08:11→21:11)
[2020-01-18] MEDS: BLOOD SUGAR DIAGNOSTIC 1 EACH STRIP IN SCH ×4 (08:11→21:25)
[2020-01-18] MEDS: NYSTATIN TOP POWDER 15 GM BOTTLE TP SCH ×2 (08:11→17:05)
[2020-01-18] MEDS: Z GUARD REMEDY 2 OZ OINT TP SCH (08:12)
[2020-01-18] MEDS: INSULIN REGULAR, HUMAN 100 UNIT/ML 3 ML VIAL SQ PRN ×4 (08:29→21:26)
[2020-01-18] MEDS: ENSURE ENLIVE CHOC 237 ML CAN PO SCH (08:30)
--- NOTE | 2020-01-18 08:30 | NUR ---
BIOLOGY LABORATORY ASSISTANT NOTE: PT COMPLAINS OF DARK RED BLOOD IN SPUTUM. PER PATIENT, HAS EXPERIENCED BLOOD IN SPUTUM FOR ONE WEEK, WITH BLOOD BRIGHTER TODAY THAN BEFORE. PT DENIES SOB, NO RESPIRATORY DISTRESS NOTED. EXPIRATORY WHEEZE NOTED. WILL NOTIFY .
--- NOTE | 2020-01-18 10:38 | NUR ---
SUPERVISOR TOY ASSEMBLY NOTE: RT NOTIFIED OF PT COMPLAINT OF BLOOD IN SPUTUM.
[2020-01-18 12:13] VITALS: BP 133/76
--- NOTE | 2020-01-18 12:26 | NUR ---
AVIATION ELECTRONIC WARFARE OPERATOR NOTE: DID NOT COMPLETE INTERVENTION OF CHANGING PT'S HIGH-FLOW O2 TO VENTURI MASK. NO ORDER FROM MD MCCRAY. EARILER TODAY, DR. MCCRAY STATED TO KEEP THE HIGH-FLOW SETTINGS IS, AT 55 L/MIN, AND 55% FIO2. INTERVENTION TO CHANGE TO VENTURI MASK CHANGED FROM "ACTIVE" TO "COMPLETE". RT AWARE.
[2020-01-18] MEDS: MENTHOL/CETYLPYRD (CEPACOL) 1 LOZ LOZENGE PO PRN ×2 (15:56→18:41)
[2020-01-18] MEDS ORDERED: METFORMIN 850 MG TABLET PO SCH (17:00)
[2020-01-18] MEDS: DULOXETINE HCL 30 MG CAPSULE.DR PO SCH (17:04)
[2020-01-18] MEDS: METFORMIN 500 MG TABLET PO SCH (17:04)
[2020-01-18 18:36] VITALS: BP 128/86
--- NOTE | 2020-01-18 19:10 | NUR ---
RN NOTE RECEIVED PATIENT IN BED RESTING, WATCHING TV, AWAKE, ALERT, ORIENTED X3. ABLE TO MAKE NEEDS KNOWN. PATIENT IS 59 Y/O FEMALE WITH DX OF ACUTE RESPIRATORY FAILURE. BREATHING IS EVEN AND UNLABORED. NO SOB NOTED AT THIS TIME. ON 55 LITERS O2 HIGH FLOW, O2 SAT IS > 90%. PATIENT IS MORBIDLY OBESE, INCONTINENT OF BOWEL AND BLADDER. IV SITE ON NAVI AND JAC ARE IS CLEAN, DRY, AND PATENT. NO COMPLAINS OF ANY PAIN AT THIS TIME. CALL LIGHT IS WITHIN EASY REACH. BED IS LOWERED TO LOW POSITION FOR SAFETY. WILL CONTINUE TO MONITOR.
--- NOTE | 2020-01-18 19:24 | NUR ---
ALLERGIST/PEDIATRIC PULMONOLOGIST NOTE: PT A/OX4, IN BED AND AWAKE. PT ON PRESCRIBED HIGH-FLOW O2, 55 L/MIN, FIO2 55%, PRESCRIBED BY MD. PT ON MONITOR SHOWING SR IN 60S. PT HAS LEFT PERIANAL, L BUTTOCK, L THIGH RASHES. PT REFUSE TO BE CLEANED, EDUCATION GIVEN 3X TIMES, WILL ENDORSE TO NEXT RN. PT OTHERWISE COOPERATIVE WITH CARE. PT HAS JAC PIV #20 AND NAVI MIDLINE, BOTH FLUSHED AND INTACT, NO SIGNS OF INFECTION OR INFILTRATION. VITAL SIGNS, LABS WNL. BED IN LOCKED LOWEST POSITION. CALL LIGHT WITHIN REACH. ALL SAFETY MEASURES IN PLACE. REPORT GIVEN TO ONCOMING RN FOR MARTINA.
[2020-01-18 20:00] VITALS: BP 131/72
[2020-01-18] MEDS: ATORVASTATIN 10 MG TABLET PO SCH (21:11)
[2020-01-19] VITALS: BP 141/72
--- NOTE | 2020-01-19 00:48 | NUR ---
PLACED PT ON NOC BIPAP. RN NOTIFIED. Addendum: 01/19/20 at 0049 by JOSE ASTUDILLO RT Amended: Links added.
--- NOTE | 2020-01-19 02:00 | NUR ---
RN NOTE PATIENT REFUSED BED BATH AT THIS TIME. PATIENT IS A/O X4. WILL CONTINUE TO MONITOR.
[2020-01-19] MEDS: ALBUTEROL FS 2.5 MG/0.5 ML VIAL.NEB NEB SCH ×6 (03:30→23:24)
[2020-01-19] MEDS: IPRATROPIUM NEB FS 0.5 MG/2.5 ML AMPUL.NEB NEB SCH ×6 (03:30→23:24)
[2020-01-19 04:00] VITALS: BP 138/71
[2020-01-19] MEDS: methylPREDNISolone SOD SUCC 40 MG/ML VIAL IV SCH ×3 (04:52→21:40)
[2020-01-19 06:48] LABS: BASOPHILS % (AUTO) 0.1 % (0.0-2.0); HEMATOCRIT 34 % (33-45); LYMPHOCYTES # (AUTO) 0.6 /CMM (0.8-4.8); LYMPHOCYTES % (AUTO) 7.9 % (20.0-44.0); MEAN CORPUSCULAR HGB CONC 32 g/dl (31.0-36.0); MEAN CORPUSCULAR VOLUME 92 fL (82-100); MONOCYTES # (AUTO) 0.3 /CMM (0.1-1.30); MONOCYTES % (AUTO) 3.5 % (2.0-12.0); NEUTROPHILS # (AUTO) 6.9 /CMM (1.8-8.9); NEUTROPHILS % (AUTO) 88.5 % (43.0-81.0); PLATELET COUNT (AUTO) 136 /CMM (150-450); RED BLOOD CELL COUNT(AUTO) 3.69 MIL/uL (4.0-5.2); WHITE BLOOD COUNT (AUTO) 7.8 K/uL (4.3-11.0)
[2020-01-19 06:58] LABS: CALCIUM, SERUM 8.9 mg/dL (8.5-10.1); CREATININE 0.9 mg/dL (0.6-1.3); POTASSIUM 4.2 mmol/L (3.5-5.1)
--- NOTE | 2020-01-19 07:03 | NUR ---
RN NOTE PATIENT REMAINED STABLE THROUGHOUT THE NIGHT. NO SIGNIFICANT CHANGES NOTED. DUE MEDS GIVEN ORDERED AND TOLERATED WELL. PATIENT REFUSED BED BATH MULTIPLE TIMES THROUGHOUT THE NIGHT. WILL ENDORSE TO SHIFT RN FOR CONTINUATION OF CARE.
--- NOTE | 2020-01-19 07:05 | NUR ---
RN NOTE RECEIVED PATIENT ON BED, A/OX3, ON BIPAP AT THIS TIME, O2 SAT WNL, BREATHING IS EVEN AND UNLABORED. NO SOB NOTED AT THIS TIME. ON TELE SR HR IN 70'S, IV SITE R UPPER ARM AND L UPPER ARM MIDLINE INTACT , SITES , CLEAN AND DRY , SR UP X3, CALL LIGHT WITHIN EASY REACH. BED LOCKED AND IN LOWEST POSITION, WILL CONTINUE TO MONITOR.
[2020-01-19] MEDS: INSULIN REGULAR, HUMAN 100 UNIT/ML 3 ML VIAL SQ PRN ×4 (07:58→21:52)
[2020-01-19] MEDS: BLOOD SUGAR DIAGNOSTIC 1 EACH STRIP IN SCH ×4 (07:59→22:09)
[2020-01-19 08:00] VITALS: BP 145/91
[2020-01-19] MEDS: LORATADINE 10 MG TABLET PO SCH (08:15)
[2020-01-19] MEDS: LEVETIRACETAM (250 MG) 250 MG TABLET PO SCH (08:16)
[2020-01-19] MEDS: GABAPENTIN 300 MG CAPSULE PO SCH ×3 (08:16→16:08)
[2020-01-19] MEDS: LINAGLIPTIN 5 MG TABLET PO SCH (08:16)
[2020-01-19] MEDS: PANTOPRAZOLE 40 MG TABLET.DR PO SCH (08:16)
[2020-01-19] MEDS: PIOGLITAZONE HCL 15 MG TABLET PO SCH (08:16)
[2020-01-19] MEDS: AMOX/CLAVULANATE 875 MG TABLET PO SCH ×2 (08:16→21:40)
[2020-01-19] MEDS: METFORMIN 500 MG TABLET PO SCH ×2 (08:16→16:08)
[2020-01-19] MEDS: NYSTATIN TOP POWDER 15 GM BOTTLE TP SCH ×2 (08:17→17:00)
[2020-01-19] MEDS: Z GUARD REMEDY 2 OZ OINT TP SCH (08:18)
[2020-01-19] MEDS: ENSURE ENLIVE CHOC 237 ML CAN PO SCH (08:19)
[2020-01-19 12:00] VITALS: BP 126/69
--- NOTE | 2020-01-19 12:00 | NUR ---
RN NOTES PT REFUSED BED BATH .
[2020-01-19 16:00] VITALS: BP 131/65
[2020-01-19] MEDS: ACETAMINOPHEN 325 MG TABLET PO PRN (16:08)
[2020-01-19] MEDS: MENTHOL/CETYLPYRD (CEPACOL) 1 LOZ LOZENGE PO PRN (16:09)
[2020-01-19] MEDS: DULOXETINE HCL 30 MG CAPSULE.DR PO SCH (17:16)
--- NOTE | 2020-01-19 18:17 | NUR ---
RN NOTE PATIENT REMAINED STABLE THROUGHOUT THIS SHIFT. ON HIGH FLOW O2 , NO SOB NOTED, NO SIGNIFICANT CHANGES NOTED. DUE MEDS GIVEN ORDERED AND TOLERATED WELL. PATIENT REFUSED BED BATH MULTIPLE TIMES THROUGHOUT THE SHIFT. WILL ENDORSE TO CULLED FRUIT PACKER NURSE FOR CONTINUITY OF CARE .
--- NOTE | 2020-01-19 19:30 | NUR ---
RN OPENING NOTE RECEIVED PATIENT ON BED IN SEMI-FOWLERS POSITION. PT A/O X4, ON HIGH FLOW O2 55 L/MIN WITH 50% FIO2, BREATHING IS EVEN AND UNLABORED, NO SOB NOTED AT THIS TIME O2 SAT AT 91%. ON TELE SR ON MONITOR. IV SITE R UPPER ARM AND L UPPER ARM MIDLINE PATENT INTACT BOTH SITES CLEAN AND DRY. SIDE RAIL UP X3, CALL LIGHT WITHIN REACH, BED IS LOCKED AND IN LOWEST POSITION. WILL CONTINUE TO MONITOR PATIENT.
[2020-01-19 20:00] VITALS: BP 130/68
[2020-01-19] MEDS: ATORVASTATIN 10 MG TABLET PO SCH (21:40)
[2020-01-20] VITALS: BP 131/75
--- NOTE | 2020-01-20 00:19 | NUR ---
PT PLACED ON NOC BIPAP. RN NOTIFIED. Addendum: 01/20/20 at 0020 by JOSE ASTUDILLO RT Amended: Links added.
--- NOTE | 2020-01-20 00:25 | NUR ---
RN NOTE PT CURRENTLY ON NOC BIPAP O2 SAT 92% WILL CONTINUE TO MONITOR PT.
[2020-01-20] MEDS: IPRATROPIUM NEB FS 0.5 MG/2.5 ML AMPUL.NEB NEB SCH ×5 (03:15→20:43)
[2020-01-20] MEDS: ALBUTEROL FS 2.5 MG/0.5 ML VIAL.NEB NEB SCH ×5 (03:15→20:43)
[2020-01-20 04:00] VITALS: BP 145/79
[2020-01-20] MEDS: methylPREDNISolone SOD SUCC 40 MG/ML VIAL IV SCH ×3 (04:37→21:17)
--- NOTE | 2020-01-20 07:00 | NUR ---
RN CLOSING NOTE PT REMAINS STABLE CURRENTLY ON BIPAP O2 SAT 90-92% THROUGH OUT THE SHIFT. JAC IV AND NAVI MIDLINE PATENT AND INTACT, FLUSHING WELL. WHITE CATH DRAINING URINE BY GRAVITY, PT REFUSED BED BATH, AND LINEN CHANGE DURING SHIFT. ENDORSED TO AM RN FOR MARTINA.
--- NOTE | 2020-01-20 07:30 | NUR ---
RECEIVED PATIENT IN BED. NO ACUTE DISTRESS NOTED. PATIENT ALERT & ORIENTED X4. PATIENT ON BIPAP FOR SLEEP, HIGH FLOW OXYGEN WHEN AWAKE, PATIENT SATURATING WELL AT 93-94%. PATIENT ON HELIARC WELDER SINUS RHYTHM NOTED. PATIENT WHITE CATHETER IN PLACE, INTACT, DRAINING TO GRAVITY. PATIENT LEFT UPPER ARM MIDLINE IN PLACE, INTACT, FLUSHED WELL. PATIENT SAFETY MEASURES MAINTAINED. CALL LIGHT WITHIN REACH. WILL CONTINUE TO MONITOR.
--- NOTE | 2020-01-20 07:55 | NUR ---
WOUND CARE FOLLOW UP: ATTEMPTED TO SEE PT FOR SKIN RE-EVALUATION BUT PT REFUSED. REVIEWED CHART AND NURSING DOCUMENTATION WHICH INDICATES SKIN DISCOLORATION TO BUTTOCKS AND SKIN FOLDS, PRESENT ON ADMISSION. PT PREFERS ANTIFUNGAL POWDER (IN USE). ALL SKIN PROTECTION MEASURES IN PLACE AND DISCUSSED WITH NURSING STAFF. PT IS ON [place] ETS AIR BED. WILL SEE PRN.
[2020-01-20 08:00] VITALS: BP 149/82
[2020-01-20] MEDS: PIOGLITAZONE HCL 15 MG TABLET PO SCH (08:12)
[2020-01-20] MEDS: AMOX/CLAVULANATE 875 MG TABLET PO SCH ×2 (08:12→21:17)
[2020-01-20] MEDS: LINAGLIPTIN 5 MG TABLET PO SCH (08:12)
[2020-01-20] MEDS: LEVETIRACETAM (250 MG) 250 MG TABLET PO SCH (08:12)
[2020-01-20] MEDS: NYSTATIN TOP POWDER 15 GM BOTTLE TP SCH ×2 (08:13→16:29)
[2020-01-20] MEDS: ENSURE ENLIVE CHOC 237 ML CAN PO SCH (08:13)
[2020-01-20] MEDS: GABAPENTIN 300 MG CAPSULE PO SCH ×3 (08:13→16:29)
[2020-01-20] MEDS: METFORMIN 500 MG TABLET PO SCH ×2 (08:13→16:29)
[2020-01-20] MEDS: LORATADINE 10 MG TABLET PO SCH (08:13)
[2020-01-20] MEDS: PANTOPRAZOLE 40 MG TABLET.DR PO SCH (08:13)
[2020-01-20] MEDS: BLOOD SUGAR DIAGNOSTIC 1 EACH STRIP IN SCH ×4 (08:13→21:59)
[2020-01-20] MEDS: Z GUARD REMEDY 2 OZ OINT TP SCH (08:14)
[2020-01-20] MEDS: INSULIN REGULAR, HUMAN 100 UNIT/ML 3 ML VIAL SQ PRN ×4 (08:21→22:01)
[2020-01-20 12:00] VITALS: BP 133/72
[2020-01-20] MEDS ORDERED: BUMETANIDE INJ 6 MG in IV D5W 36 ML IV ONE (13:30)
[2020-01-20 16:14] VITALS: BP 132/66
[2020-01-20] MEDS: DULOXETINE HCL 30 MG CAPSULE.DR PO SCH (17:21)
--- NOTE | 2020-01-20 18:05 | NUR ---
PATIENT IN BED. NO ACUTE DISTRESS NOTED. PATIENT ALERT & ORIENTED X4. PATIENT ON BIPAP FOR SLEEP, HIGH FLOW OXYGEN WHEN AWAKE, PATIENT SATURATING WELL AT 88-90%. PATIENT ON MEDICAL REVIEW SPECIALIST SINUS RHYTHM NOTED. PATIENT WHITE CATHETER IN PLACE, INTACT, DRAINING TO GRAVITY. PATIENT LEFT UPPER ARM MIDLINE IN PLACE, INTACT, FLUSHED WELL. PATIENT SAFETY MEASURES MAINTAINED. CALL LIGHT WITHIN REACH. WILL ENDORSE PLAN OF CARE TO ONCOMING SHIFT FOR CONTINUITY OF CARE
--- NOTE | 2020-01-20 19:20 | NUR ---
RN OPENING NOTES RECEIVED PT A/OX4; PT IN BED RESTING COMFORTABLY. PATIENT IN NO S/SX OF ACUTE DISTRESS AT THIS TIME. NO SOB NOTED. PATIENT'S BREATHING IS EVEN AND UNLABORED. PATIENT IS ON HIGH FLOW AT TIME OF RECEIVED; TOLERATING SETTINGS ORDERED. PATIENT WILL TRANSITION TO NOCTURNAL BIPAP @50% FIO2 ORDERED TONIGHT BY RT. PATIENT ON TELE MONITORING READING SINUS RHYTHM HR IS @90S AT THE TIME OF RECEIVED. PT ON CCHO DIET; TOLERATING WELL. NOTED IV SITE ON R UA #20 AND L UA MIDLINE ; BOTH PATENT, INTACT AND FLUSHING WELL NO S/S OF INFECTION OR INFILTRATION. NO RUNNING IV FLUID AT THIS TIME. WHITE CATH IN PLACE, MODERATE URINE OUTPUT NOTED SAFETY MEASURES HAVE BEEN PROVIDED AND IMPLEMENTED. PATIENT BED ALARM IS ON. HEAD OF BED ELEVATED. BED IS LOCKED, IN LOWEST POSITION AND SIDE RAILS UP. CALL LIGHT WITHIN REACH OF THE PATIENT. ISOLATION PRECAUTIONS IN PLACE. WILL CONTINUE TO MONITOR AND REASSESS FOR ANY CHANGES AND REASSESS FOR ANY CHANGES AND WILL CARRY OUT ANY ONGOING AND ACTIVE MD ORDER.
[2020-01-20 20:00] VITALS: BP 124/67
[2020-01-20] MEDS: MENTHOL/CETYLPYRD (CEPACOL) 1 LOZ LOZENGE PO PRN (21:17)
[2020-01-20] MEDS: ATORVASTATIN 10 MG TABLET PO SCH (21:17)
--- NOTE | 2020-01-20 22:00 | NUR ---
RN NOTES NO NOTED CHANGES TO PATIENT CONDITION/STATUS. INSERTING PRESS OPERATOR MADE AWARE. WILL CONTINUE TO MONITOR AND REASSESS FOR ANY CHANGES THROUGHOUT THE SHIFT.
--- NOTE | 2020-01-20 23:50 | NUR ---
RN NOTES RN WAS INFORMED BED RT THAT PT WAS HOOKED TO NOCTURNAL BIPAP FROM [facility] @2350 SCHEDULED. NETWORK DEVELOPMENT COORDINATOR MADE AWARE. WILL CONTINUE TO MONITOR AND REASSESS FOR ANY CHANGES THROUGHOUT THE SHIFT.
[2020-01-21] VITALS: BP 136/77
[2020-01-21] MEDS: IPRATROPIUM NEB FS 0.5 MG/2.5 ML AMPUL.NEB NEB SCH ×7 (00:01→23:19)
[2020-01-21] MEDS: ALBUTEROL FS 2.5 MG/0.5 ML VIAL.NEB NEB SCH ×7 (00:01→23:19)
--- NOTE | 2020-01-21 00:01 | NUR ---
Pt rcvd on Highflow N.C @55lpm on 50%. Pt awake and alert. Placed on BiPap @2350hrs.Nose mask secure with minimal leak noted. No signs of resp distress noted.Will continue to monitior Q shift Addendum: 01/21/20 at 0418 by WILLIAM RODRIGUEZ RT Amended: Links added.
[2020-01-21 04:00] VITALS: BP 129/60
[2020-01-21] MEDS: methylPREDNISolone SOD SUCC 40 MG/ML VIAL IV SCH ×3 (04:11→21:00)
--- NOTE | 2020-01-21 04:30 | NUR ---
RN NOTES PATIENT REFUSED MORNING CARE, ATTEMPTED SEVERAL TIMES BUT PT REFUSED. MECHANICAL EXPERT MADE AWARE.
--- NOTE | 2020-01-21 06:48 | NUR ---
RN NOTES PATIENT REMAINS IN ROOM IN NO SIGNS OF RESPIRATORY DISTRESS. PATIENT SATURATING 92% OF 02. VITAL SIGNS WNL. IV LINE MAINTAINED, INTACT, PATENT AND FLUSHING, NO SITE REDNESS OR INFILTRATION. SAFETY PRECAUTIONS IN PLACE AND COMFORT MEASURES RENDERED. BED IN LOWEST POSITION, CALL LIGHT WITHIN REACH, BREAKS ON, SIDE RAILS UP. ALL NEEDS ATTENDED, MEDICATIONS GIVEN SCHEDULED AND ORDERED ; SHIFT ASSESSMENT/BEDBATH/SKIN CARE DONE. PATIENT KEPT CLEAN AND DRY. WILL ENDORSE TO INCOMING SHIFT FOR MARTINA WITH ALL PERTINENT INFO REGARDING PATIENT STATUS.
[2020-01-21 07:52] LABS: CALCIUM, SERUM 9.1 mg/dL (8.5-10.1)
[2020-01-21 08:00] VITALS: BP 138/73
--- NOTE | 2020-01-21 08:00 | NUR ---
FIRE PROTECTION EQUIPMENT TECHNICIAN NOTE PATIENT IN BED AWAKE, ALERT OX4, ON BIPAP ORDERED, O2 SATU: 92%. TELE MONITOR HR 78. FOLLEY CATHETER TO GRAVITY, YELLOW COLOR URINE. MEDICAL TECHNICIAN AT BEDSIDE FEEDING PATIENT. NIRAJ ARM #20, NAVI MIDLINE IN PLACE. BLOOD SUGAR CHECKED 258 MG\DL WILL GIVE COVERAGE ORDERED. DR. PAREDES AT BEDSIDE, AWARE PT STILL BLEEDING WHEN SHE COUGHS. ALL NEEDS ATTENDED, BED LOWEST POSITION, CALL LIGHT WITHIN REACH, SIDE RAILS UP. WILL CONTINUE TO MONITOR.
--- NOTE | 2020-01-21 08:30 | NUR ---
DISBURSEMENT CLERK NOTE RT AT BEDSIDE. CHANGED TO HIGH FLOW OXYGEN SETTING 55/50.
[2020-01-21] MEDS: INSULIN REGULAR, HUMAN 100 UNIT/ML 3 ML VIAL SQ PRN ×4 (08:44→21:55)
[2020-01-21] MEDS: GABAPENTIN 300 MG CAPSULE PO SCH ×3 (08:49→16:16)
[2020-01-21] MEDS: LORATADINE 10 MG TABLET PO SCH (08:49)
[2020-01-21] MEDS: PIOGLITAZONE HCL 15 MG TABLET PO SCH (08:50)
[2020-01-21] MEDS: AMOX/CLAVULANATE 875 MG TABLET PO SCH (08:51)
[2020-01-21] MEDS: METFORMIN 500 MG TABLET PO SCH ×2 (08:52→16:16)
[2020-01-21] MEDS: LINAGLIPTIN 5 MG TABLET PO SCH (08:52)
[2020-01-21] MEDS: LEVETIRACETAM (250 MG) 250 MG TABLET PO SCH (08:52)
[2020-01-21] MEDS: PANTOPRAZOLE 40 MG TABLET.DR PO SCH (08:52)
[2020-01-21] MEDS: ENSURE ENLIVE CHOC 237 ML CAN PO SCH (08:53)
[2020-01-21] MEDS: Z GUARD REMEDY 2 OZ OINT TP SCH (08:54)
[2020-01-21] MEDS: NYSTATIN TOP POWDER 15 GM BOTTLE TP SCH ×2 (08:54→16:17)
[2020-01-21] MEDS: BLOOD SUGAR DIAGNOSTIC 1 EACH STRIP IN SCH ×4 (08:55→21:53)
--- NOTE | 2020-01-21 09:51 | NUR ---
AGRICULTURAL LENDER NOTE DR. MCCRAY AT BEDSIDE. AWARE OF PT CONDITION. WILL CONTINUE TO FOLLOW ORDERS.
[2020-01-21 12:00] VITALS: BP 133/68
--- NOTE | 2020-01-21 12:00 | NUR ---
PIT MANAGER NOTE PATIENT REFUSED TO DO REPOSITION EVERY 2 HOURS. EXPLAINED RISKS AND BENEFITS BUT STILL REFUSED, WILL CONTINUE TO ENCOURAGED OF REPOSITIONING.
[2020-01-21] MEDS: MAGNESIUM HYDROXIDE 30 ML UDC PO PRN (12:25)
[2020-01-21] MEDS: ACETAMINOPHEN 325 MG TABLET PO PRN (12:31)
--- NOTE | 2020-01-21 15:00 | NUR ---
telegraph installer note , all needs attended, not in distress
[2020-01-21] MEDS ORDERED: BUMETANIDE INJ 6 MG in IV D5W 36 ML IV ONE (15:30)
[2020-01-21 16:00] VITALS: BP 126/68
[2020-01-21] MEDS: MENTHOL/CETYLPYRD (CEPACOL) 1 LOZ LOZENGE PO PRN (16:19)
--- NOTE | 2020-01-21 16:20 | NUR ---
EMBEDDED SOFTWARE DEVELOPMENT ENGINEER NOTE C\O SORE THROAT CEPACOL PO GIVEN ORDERED. STILL REFUSED TO DO REPOSITION .WILL MONITOR
[2020-01-21] MEDS: DULOXETINE HCL 30 MG CAPSULE.DR PO SCH (17:17)
--- NOTE | 2020-01-21 18:30 | NUR ---
mental telepathist note cont on high flow o2 as ordered ,saturation 88% at this time , having dinner , fed by bottle labeler , on tele monitor sr , on bumex drip as ordered, bed in lowest and locked portion will cont to monitor
[2020-01-21 20:00] VITALS: BP 124/68
[2020-01-21] MEDS: ATORVASTATIN 10 MG TABLET PO SCH (21:02)
--- NOTE | 2020-01-21 22:00 | NUR ---
RN NOTES NO CHANGE IN PATIENT CONDITION AT THIS TIME PATIENT VITALS STABLE, NO SIGNS OF ACUTE RESPIRATORY DISTRESS. MOLD MECHANIC MADE AWARE. WILL CONTINUE TO MONITOR AND REASSESS FOR ANY CHANGES THROUGHOUT THE SHIFT.
[2020-01-22] VITALS: BP 113/60
--- NOTE | 2020-01-22 01:00 | NUR ---
RN NOTES NO CHANGE IN PATIENT CONDITION AT THIS TIME PATIENT VITALS STABLE, NO SIGNS OF ACUTE RESPIRATORY DISTRESS. DRIP MOLDER MADE AWARE. WILL CONTINUE TO MONITOR AND REASSESS FOR ANY CHANGES THROUGHOUT THE SHIFT.
[2020-01-22] MEDS: IPRATROPIUM NEB FS 0.5 MG/2.5 ML AMPUL.NEB NEB SCH ×6 (02:29→23:58)
[2020-01-22] MEDS: ALBUTEROL FS 2.5 MG/0.5 ML VIAL.NEB NEB SCH ×6 (02:29→23:58)
[2020-01-22 04:00] VITALS: BP 119/71
--- NOTE | 2020-01-22 04:00 | NUR ---
RN NOTES NO CHANGE IN PATIENT CONDITION AT THIS TIME PATIENT VITALS STABLE, NO SIGNS OF ACUTE RESPIRATORY DISTRESS. RUG REPAIRER MADE AWARE. WILL CONTINUE TO MONITOR AND REASSESS FOR ANY CHANGES THROUGHOUT THE SHIFT.
[2020-01-22] MEDS: methylPREDNISolone SOD SUCC 40 MG/ML VIAL IV SCH ×3 (05:34→21:44)
[2020-01-22 06:34] LABS: CREATININE 1.2 mg/dL (0.6-1.3); POTASSIUM 3.7 mmol/L (3.5-5.1)
--- NOTE | 2020-01-22 06:44 | NUR ---
RN CLOSING NOTES PATIENT REMAINS IN ROOM IN NO SIGNS OF RESPIRATORY DISTRESS. PATIENT SATURATING 92% OF 02. VITAL SIGNS WNL. IV LINE MAINTAINED, INTACT, PATENT AND FLUSHING, NO SITE REDNESS OR INFILTRATION. SAFETY PRECAUTIONS IN PLACE AND COMFORT MEASURES RENDERED. BED IN LOWEST POSITION, CALL LIGHT WITHIN REACH, BREAKS ON, SIDE RAILS UP. ALL NEEDS ATTENDED, MEDICATIONS GIVEN SCHEDULED AND ORDERED ; SHIFT ASSESSMENT/BEDBATH/SKIN CARE DONE. PATIENT KEPT CLEAN AND DRY. WILL ENDORSE TO INCOMING SHIFT FOR MARITNA WITH ALL PERTINENT INFO REGARDING PATIENT STATUS.
--- NOTE | 2020-01-22 07:30 | NUR ---
INSURANCE OFFICE SUPERVISOR OPENING NOTES RECEIVED PATIENT PT A/O X4, ON HIGH FLOW O2 55 L/MIN WITH 50% FIO2, BREATHING IS EVEN AND UNLABORED, NO SOB NOTED AT THIS TIME O2 SAT AT 91%. ON TELE SR ON MONITOR. IV SITE R UPPER ARM AND L UPPER ARM MIDLINE PATENT INTACT BOTH SITES CLEAN AND DRY. SIDE RAIL UP X3, CALL LIGHT WITHIN REACH, BED IS LOCKED AND IN LOWEST POSITION. WILL CONTINUE TO MONITOR PATIENT
[2020-01-22] MEDS: BLOOD SUGAR DIAGNOSTIC 1 EACH STRIP IN SCH ×7 (07:57→21:48)
[2020-01-22] MEDS: INSULIN REGULAR, HUMAN 100 UNIT/ML 3 ML VIAL SQ PRN ×3 (07:58→21:47)
[2020-01-22 08:00] VITALS: BP 124/76
[2020-01-22] MEDS: PANTOPRAZOLE 40 MG TABLET.DR PO SCH (08:49)
[2020-01-22] MEDS: LEVETIRACETAM (250 MG) 250 MG TABLET PO SCH (08:49)
[2020-01-22] MEDS: GABAPENTIN 300 MG CAPSULE PO SCH ×3 (08:49→17:54)
[2020-01-22] MEDS: PIOGLITAZONE HCL 15 MG TABLET PO SCH (08:49)
[2020-01-22] MEDS: METFORMIN 500 MG TABLET PO SCH ×2 (08:49→17:54)
[2020-01-22] MEDS: LINAGLIPTIN 5 MG TABLET PO SCH (08:49)
[2020-01-22] MEDS: LORATADINE 10 MG TABLET PO SCH (08:49)
[2020-01-22] MEDS: ENSURE ENLIVE CHOC 237 ML CAN PO SCH (08:50)
[2020-01-22] MEDS: NYSTATIN TOP POWDER 15 GM BOTTLE TP SCH ×2 (08:52→17:55)
[2020-01-22] MEDS: Z GUARD REMEDY 2 OZ OINT TP SCH (08:53)
[2020-01-22] MEDS ORDERED: DEXTROSE 50%-WATER 50 ML DISP.SYRIN IV PRN (09:30)
--- NOTE | 2020-01-22 12:45 | NUR ---
RUFFLING HEMMER AUTOMATIC: pt.is A/Ox3, no pain, no c/o now, on NC high O2flow, 40L/55%, O2sat. 91-93% now, no SOB, SR, SBP WNL, L.ua midline blood return+, R.ua PIVL#20 patent, urinated well by report, last BG 157/ISS covered, no hemoptysis by report, skin care done/skin redness, no wound by report, oriented for POC
[2020-01-22 13:28] VITALS: BP 119/66
[2020-01-22 16:00] VITALS: BP 119/66
[2020-01-22] MEDS: DULOXETINE HCL 30 MG CAPSULE.DR PO SCH (17:54)
[2020-01-22] MEDS: MENTHOL/CETYLPYRD (CEPACOL) 1 LOZ LOZENGE PO PRN (17:58)
[2020-01-22] MEDS: MAGNESIUM HYDROXIDE 30 ML UDC PO PRN (18:02)
--- NOTE | 2020-01-22 19:20 | NUR ---
RN OPENING NOTES: Rec'd pt awake in bed, A&Ox4. On highflow O2 40LPM at 55% tolerating well. No SOB or resp distress noted. Breathing even and unlabored. SR on tele monitor. JAC #20 patent and fluished. NAVI midline patent and flushed. Dressings c/d/i. Amaral catheter in place patent and draining urine. Safety measures in place. Will continue to monitor.
--- NOTE | 2020-01-22 19:30 | NUR ---
DIRECTOR INDUSTRIAL RELATIONS CLOSING NOTES PATIENT REMAINS IN ROOM, WITH NO DISTRESS. PATIENT SATURATING 97% OF 02. IV LINE MAINTAINED, INTACT, PATENT AND FLUSHING, NO SITE REDNESS OR INFILTRATION. SAFETY PRECAUTIONS OBSERVED. ALL NEEDS ATTENDED, MEDICATIONS GIVEN SCHEDULED AND ORDERED. SHIFT ASSESSMENT/BEDBATH/SKIN CARE DONE. PATIENT KEPT CLEAN AND DRY. WILL ENDORSE TO INCOMING SHIFT FOR MARTINA.
[2020-01-22 20:00] VITALS: BP 127/61
--- NOTE | 2020-01-22 20:00 | NUR ---
RN NOTE: Asked pt w/ BIOINFORMATICS ASSISTANT when she would like bed bath and pt refused. Pt covered her ears, shook her head and stated "no no no no no." Explained importance of hygiene and continued to refuse.
[2020-01-22] MEDS: ATORVASTATIN 10 MG TABLET PO SCH (21:44)
[2020-01-23] VITALS: BP 107/66
--- NOTE | 2020-01-23 00:10 | NUR ---
RN NOTE: Pt placed on bipap by RT. Will continue to monitor.
--- NOTE | 2020-01-23 01:17 | NUR ---
RN NOTE: REGIONAL SALES EXECUTIVE asked pt again if she'd like a bed bath and pt again covered her ears, shook her head and stated "no no no". Explained to pt importance of hygiene and continued to refuse.
[2020-01-23] MEDS: IPRATROPIUM NEB FS 0.5 MG/2.5 ML AMPUL.NEB NEB SCH ×6 (03:31→23:51)
[2020-01-23] MEDS: ALBUTEROL FS 2.5 MG/0.5 ML VIAL.NEB NEB SCH ×6 (03:31→23:51)
[2020-01-23 04:00] VITALS: BP 131/74
[2020-01-23] MEDS: methylPREDNISolone SOD SUCC 40 MG/ML VIAL IV SCH ×3 (05:27→21:24)
--- NOTE | 2020-01-23 06:56 | NUR ---
RN CLOSING NOTES: No acute changes noted throughout shift. Pt remains on bipap. No SOB or resp distress noted throughout shift. No acute changes noted throughout shift. SR on tele monitor. JAC #20 and NAVI midline patent and flushed. Dressings c/d/i. Amaral in place patent and draining urine. Pt refused bed bath and linen change during this shift. All due meds given as ordered. Safety measures in place. Will endorse to oncoming nurse for MARTINA.
[2020-01-23 07:01] LABS: CREATININE 1.1 mg/dL (0.6-1.3); POTASSIUM 3.9 mmol/L (3.5-5.1)
--- NOTE | 2020-01-23 07:30 | NUR ---
TRIMMER PRESS CLIPPINGS OPENING NOTES RECEIVED PT ALERT AND ORIENTED X4. WITH NO ACUTE DISTRESS AT THIS TIME. ON HIGH FLOW O2 AT 40 LPM AT 55% WITH GOOD TOLERANCE. RESPIRATION IS EVEN AND EASY WITH NO SOB. RIGHT UPPER ARM IV#2O,AND NAVI MIDLINE INTACT AND FLUSHING WELL. IV SIT DRESSING CHANGED NEEDED. WHITE CATHETER IN PLACE DRAWING WELL TO GRAVITY AND DRAINING YELLOW COLORED URINE. SAFETY PRECAUTIONS OBSERVED AT ALL TIMES. WILL CONTINUE TO MONITOR.
[2020-01-23] MEDS: PANTOPRAZOLE 40 MG TABLET.DR PO SCH (07:44)
--- NOTE | 2020-01-23 07:55 | NUR ---
RT PATIENT REMOVED FROM BIPAP AND PLACED ON HFNC 40L 40% MAGDALENA WELL. PATIENT AWAKE ALERT, ZERO SOB
[2020-01-23] MEDS: INSULIN REGULAR, HUMAN 100 UNIT/ML 3 ML VIAL SQ PRN ×3 (07:58→17:35)
[2020-01-23 08:00] VITALS: BP 142/61
[2020-01-23] MEDS: BLOOD SUGAR DIAGNOSTIC 1 EACH STRIP IN SCH ×5 (08:00→21:33)
[2020-01-23] MEDS: ENSURE ENLIVE CHOC 237 ML CAN PO SCH (08:00)
[2020-01-23] MEDS: Z GUARD REMEDY 2 OZ OINT TP SCH (08:01)
[2020-01-23] MEDS: NYSTATIN TOP POWDER 15 GM BOTTLE TP SCH ×2 (08:01→17:33)
[2020-01-23] MEDS: LEVETIRACETAM (250 MG) 250 MG TABLET PO SCH (08:05)
[2020-01-23] MEDS: LORATADINE 10 MG TABLET PO SCH (08:05)
[2020-01-23] MEDS: LINAGLIPTIN 5 MG TABLET PO SCH (08:05)
[2020-01-23] MEDS: PIOGLITAZONE HCL 15 MG TABLET PO SCH (08:05)
[2020-01-23] MEDS: METFORMIN 500 MG TABLET PO SCH ×2 (08:05→17:38)
[2020-01-23] MEDS: GABAPENTIN 300 MG CAPSULE PO SCH ×3 (08:05→17:38)
[2020-01-23 08:37] LABS: BASOPHILS % (AUTO) 0.1 % (0.0-2.0); EOSINOPHILS % (AUTO) 0.2 % (0.0-6.0); HEMATOCRIT 39 % (33-45); HEMOGLOBIN 12.3 g/dL (11.5-14.8); LYMPHOCYTES # (AUTO) 0.5 /CMM (0.8-4.8); LYMPHOCYTES % (AUTO) 6.2 % (20.0-44.0); MEAN CORPUSCULAR HGB CONC 31 g/dl (31.0-36.0); MEAN CORPUSCULAR VOLUME 94 fL (82-100); MONOCYTES # (AUTO) 0.2 /CMM (0.1-1.30); MONOCYTES % (AUTO) 2.6 % (2.0-12.0); NEUTROPHILS # (AUTO) 7.2 /CMM (1.8-8.9); NEUTROPHILS % (AUTO) 90.9 % (43.0-81.0); PLATELET COUNT (AUTO) 172 /CMM (150-450); RED BLOOD CELL COUNT(AUTO) 4.17 MIL/uL (4.0-5.2); WHITE BLOOD COUNT (AUTO) 7.9 K/uL (4.3-11.0)
[2020-01-23 12:41] VITALS: BP 112/60
[2020-01-23] MEDS: MENTHOL/CETYLPYRD (CEPACOL) 1 LOZ LOZENGE PO PRN ×2 (13:51→22:14)
[2020-01-23 16:00] VITALS: BP 119/64
[2020-01-23] MEDS: DULOXETINE HCL 30 MG CAPSULE.DR PO SCH (17:38)
--- NOTE | 2020-01-23 18:53 | NUR ---
ASSISTANT ANALYST CLOSING Pt remains alert and oriented x4. No acute distress noted during the shift. On tele monitor with reading of Normal Sinus Rythm, with HR in the 80s. JAC #20 and NAVI midline intact and flushed. Amaral in place patent and draining urine. Pt refused bed bath and linen change during this shift. All due meds given as ordered. Safety measures in place. Will endorse to oncoming nurse for MARTINA.
--- NOTE | 2020-01-23 19:30 | NUR ---
RN OPENING NOTES: Rec'd pt in bed, A&Ox4. On high flow O2 40LPM at 55% tolerating well. No SOB or resp distress noted. Breathing even and unlabored. ST w/ HR 105 on tele monitor. JAC #20 patent and flushed. NAVI midline paten and flushed. Dressings c/d/i. Amaral cath in place patent and draining urine via gravity. Safety measures in place. Will continue to monitor.
[2020-01-23 20:00] VITALS: BP 133/68
--- NOTE | 2020-01-23 21:20 | NUR ---
RN NOTES: Pt refused bed bath and linen change for tonight. Also refusing to be turned/repositioned. Stated "if I change my mind I will let you know".
[2020-01-23] MEDS: ATORVASTATIN 10 MG TABLET PO SCH (21:24)
[2020-01-23] MEDS: *INSULIN REGULAR(HUMULIN R)HUM 100 UNIT/ML VIAL SQ PRN (21:36)
[2020-01-24] VITALS: BP 125/75
[2020-01-24] MEDS: ALBUTEROL FS 2.5 MG/0.5 ML VIAL.NEB NEB SCH ×5 (03:25→20:20)
[2020-01-24] MEDS: IPRATROPIUM NEB FS 0.5 MG/2.5 ML AMPUL.NEB NEB SCH ×5 (03:25→20:20)
[2020-01-24 04:00] VITALS: BP 145/75
[2020-01-24] MEDS: methylPREDNISolone SOD SUCC 40 MG/ML VIAL IV SCH ×3 (04:15→22:02)
--- NOTE | 2020-01-24 06:41 | NUR ---
RN CLOSING NOTES: No acute changes noted throughout shift. Pt remains on bipap at this time. No SOB or resp distress noted throughout shift. ST/SR on tele monitor. JAC #20 and NAVI midline intact. Dressing c/d/i. Amaral in place, patent and draining urine. Pt refused bed bath and linen change during this shift. All due meds given as ordered. Safety measures in place. Will endorse to oncoming nurse for MARTINA.
--- NOTE | 2020-01-24 07:30 | NUR ---
RN OPENING NOTES: Received patient in bed, asleep, easily awaken by verbal stimuli. A&Ox4. On high flow O2 40LPM at 40%fio2 tolerating well. No SOB or resp distress noted. Breathing even and unlabored. sating 1t 92%. sinus rhythm on the monitor with HR on the 80s. iv access on JAC g20 and NAVI midline: both patent and flushing good, dressings c/d/i. Amaral cath in place draining well via gravity to clear yellow urine. patient encourage to call for help/ assistance, encourage to verbalize feelings and concerns measures in place. safety measures observed and maintained. call light placed within reach. Will continue to monitor patient accordingly.
[2020-01-24] MEDS: BLOOD SUGAR DIAGNOSTIC 1 EACH STRIP IN SCH ×4 (07:56→22:15)
[2020-01-24] MEDS: INSULIN REGULAR, HUMAN 100 UNIT/ML 3 ML VIAL SQ PRN ×4 (07:57→22:15)
[2020-01-24] MEDS: PANTOPRAZOLE 40 MG TABLET.DR PO SCH (07:59)
[2020-01-24 08:00] VITALS: BP 142/77
[2020-01-24] MEDS: LINAGLIPTIN 5 MG TABLET PO SCH (09:35)
[2020-01-24] MEDS: GABAPENTIN 300 MG CAPSULE PO SCH ×3 (09:35→17:34)
[2020-01-24] MEDS: PIOGLITAZONE HCL 15 MG TABLET PO SCH (09:35)
[2020-01-24] MEDS: ENSURE ENLIVE CHOC 237 ML CAN PO SCH (09:35)
[2020-01-24] MEDS: LORATADINE 10 MG TABLET PO SCH (09:35)
[2020-01-24] MEDS: METFORMIN 500 MG TABLET PO SCH ×2 (09:35→17:34)
[2020-01-24] MEDS: LEVETIRACETAM (250 MG) 250 MG TABLET PO SCH (09:35)
[2020-01-24] MEDS: Z GUARD REMEDY 2 OZ OINT TP SCH (09:36)
[2020-01-24] MEDS: NYSTATIN TOP POWDER 15 GM BOTTLE TP SCH ×2 (09:36→17:33)
[2020-01-24] MEDS: MENTHOL/CETYLPYRD (CEPACOL) 1 LOZ LOZENGE PO PRN ×2 (09:42→13:30)
[2020-01-24 12:00] VITALS: BP 136/71
[2020-01-24 16:00] VITALS: BP 136/71
[2020-01-24] MEDS: MAGNESIUM HYDROXIDE 30 ML UDC PO PRN (17:32)
[2020-01-24] MEDS: DULOXETINE HCL 30 MG CAPSULE.DR PO SCH (17:34)
--- NOTE | 2020-01-24 18:30 | NUR ---
rn notes patient with no acute changes throughout the shift. breathing unlabored, still on the high flow oxygen at 40lpm at 40%fio2. denies any form pain at this time. all nursing needs attended. all concerns addressed accordingly. safety measures in place at all time. call light within reach
[2020-01-24 20:00] VITALS: BP 139/75
--- NOTE | 2020-01-24 20:00 | NUR ---
FUR OPERATOR NOTE PT IN BED AWAKE, A/O X 4, NO SOB, NO DISTRESS OR DISCOMFORT NOTED. DENIES PAIN. REMAIN ON HIGH FLOW O2 40L 40% FIO2 O2 SAT 89%, KEPT HOB ELEVATED. JAC #20 G SL INTACT AND PATENT. ALSO MIDLINE IN NAVI INTACT AND PATENT. SIDE RAILS UP X 2 AND CALL LIGHT WITHIN REACH. CONTINUE TO MONITOR HER. Addendum: 01/24/20 at 2021 by RAJ ELLIOTT RN ON TELE SR HR 98.
[2020-01-24] MEDS: ATORVASTATIN 10 MG TABLET PO SCH (22:02)
[2020-01-24] MEDS: ACETAMINOPHEN 325 MG TABLET PO PRN (22:25)
[2020-01-25] VITALS: BP_SYST 130; BP_SYST 139; BP_DIAS 70; BP_DIAS 88
[2020-01-25] MEDS: ALBUTEROL FS 2.5 MG/0.5 ML VIAL.NEB NEB SCH ×6 (00:15→20:16)
[2020-01-25] MEDS: IPRATROPIUM NEB FS 0.5 MG/2.5 ML AMPUL.NEB NEB SCH ×6 (00:15→20:16)
[2020-01-25 04:00] VITALS: BP 134/72
[2020-01-25] MEDS: methylPREDNISolone SOD SUCC 40 MG/ML VIAL IV SCH ×3 (05:42→21:31)
--- NOTE | 2020-01-25 06:40 | NUR ---
DOG FOOD SHREDDER OPERATOR NOTE PT IN BED ASLEEP. NO DISTRESS OR DISCOMFORT NOTED. DENIES PAIN. ON TELE SR. F/C INTACT AND PATENT DRAINING YELLOWISH COLOR URINE. SIDE RAILS UP X 2 AND CALL LIGHT WITHIN REACH. WILL ENDORSE TO DAY SHIFT NURSE FOR CONTINUE TO CARE.
--- NOTE | 2020-01-25 07:10 | NUR ---
RN OPENING NOTE: Received patient in bed. Awake, alert and oriented x4. Able to make needs known. Currently on nocturnal bipap and will have RT switch patient to high flow oxygen this AM. No SOB and not in respiratory distress, saturation noted @ 93%. Tele monitor showing sinus rhythm. No pain noted nor reported. Iv sites clean, dry, patent and intact. Amaral catheter in place and draining yellow urine. Call light in reach. Bed locked, low and at semi-gomze's position. Safety ensured and observed. Side rails up x3. Will continue to monitor.
[2020-01-25 08:00] VITALS: BP 139/78
[2020-01-25] MEDS: BLOOD SUGAR DIAGNOSTIC 1 EACH STRIP IN SCH ×4 (08:00→21:31)
[2020-01-25] MEDS: PANTOPRAZOLE 40 MG TABLET.DR PO SCH (08:35)
[2020-01-25] MEDS: INSULIN REGULAR, HUMAN 100 UNIT/ML 3 ML VIAL SQ PRN ×4 (08:35→22:40)
[2020-01-25] MEDS: GABAPENTIN 300 MG CAPSULE PO SCH ×3 (08:36→17:22)
[2020-01-25] MEDS: METFORMIN 500 MG TABLET PO SCH ×2 (08:36→17:22)
[2020-01-25] MEDS: LEVETIRACETAM (250 MG) 250 MG TABLET PO SCH (08:36)
[2020-01-25] MEDS: LINAGLIPTIN 5 MG TABLET PO SCH (08:36)
[2020-01-25] MEDS: ENSURE ENLIVE CHOC 237 ML CAN PO SCH (08:36)
[2020-01-25] MEDS: PIOGLITAZONE HCL 15 MG TABLET PO SCH (08:36)
[2020-01-25] MEDS: LORATADINE 10 MG TABLET PO SCH (08:36)
[2020-01-25] MEDS: NYSTATIN TOP POWDER 15 GM BOTTLE TP SCH ×2 (10:00→17:22)
[2020-01-25] MEDS: Z GUARD REMEDY 2 OZ OINT TP SCH (10:00)
[2020-01-25 11:06] LABS: ABG BASE EXCESS 5.2 mmol/L; ABG OXYGEN SATURATION 92.2 % (92.0-98.5); ABG PCO2 47.3 mmHg (35.0-45.0); ABG PH 7.427 (7.350-7.450); ABG PO2 60.8 mmHg (75.0-100.0); COHb 0.9 % (0.5-1.5); MetHb 0.2 % (0.0-1.5); O2Hb 91.2 % (94.0-97.0); SITE, ABG Right Radial; VENT MODE, BG NC 6 L
[2020-01-25 12:00] VITALS: BP 132/70
[2020-01-25] MEDS: ACETAMINOPHEN 325 MG TABLET PO PRN (13:50)
[2020-01-25 16:00] VITALS: BP 124/71
[2020-01-25] MEDS: DULOXETINE HCL 30 MG CAPSULE.DR PO SCH (17:22)
--- NOTE | 2020-01-25 19:10 | NUR ---
RN OPENING NOTES RECEIVED PT AWAKE IN BED. A/O X 4. DNI NOTED. ON TELE MONITORING NSR AT HR OF 98 AT THIS TIME. PT IS ON NASAL CANNULA 6L SATURATING AT 91%. PT HAS HX OF COPD AND IS TOLERATING NC O2 WELL. NO S/S OF SOB OR RESP DISTRESS. BREATHING IS EVEN AND UNLABORED AT THIS TIME. PT IS COOPERATIVE. UNABLE TO AMBULATE, HX INCLUDE MORBID OBESITY. PT HAS WHITE CATHETER DRAINING YELLOW URINE CLEAR FREE OF SEDIMENT. ON DIABETIC DIET. INDEPENDENT FEEDING. IV SITE LEFT UPPER ARM MIDLINE FLUSHED, PATENT. BED IS LOCKED WITH BED ALARM ON. CALL LIGHT WITHIN REACH WILL CONTINUE TO MONITOR.
--- NOTE | 2020-01-25 19:31 | NUR ---
RN CLOSING NOTE: Patient remains in bed. Awake, alert and oriented x4. Able to make needs known. ABG done on shift, currently on cont. o2 via Nc @ 6lpm. No SOB and not in respiratory distress, saturation noted @ 92%. Tele monitor showing sinus rhythm. No pain noted nor reported. Iv sites clean, dry, patent and intact. Amaral catheter in place and draining yellow urine. Call light in reach. Bed locked, low and at semi-gomez's position. Safety ensured and observed. Side rails up x3. Due medications given. Treatment given as ordered. Endorsed to oncoming shift for MARTINA.
[2020-01-25 20:00] VITALS: BP 137/74
--- NOTE | 2020-01-25 20:59 | NUR ---
REMOVED RIGHT UPPER ARM IV. OCCLUDED. CATHETER INTACT. HELD 2X2 GAUZE FOR 1MIN. NO S/S OF BLEEDING NOTED.
[2020-01-25 21:15] LABS: CALCIUM, SERUM 8.9 mg/dL (8.5-10.1); POTASSIUM 4.6 mmol/L (3.5-5.1)
[2020-01-25] MEDS: ATORVASTATIN 10 MG TABLET PO SCH (21:32)
[2020-01-26] VITALS: BP 139/88
[2020-01-26] MEDS: IPRATROPIUM NEB FS 0.5 MG/2.5 ML AMPUL.NEB NEB SCH ×6 (00:16→20:10)
[2020-01-26] MEDS: ALBUTEROL FS 2.5 MG/0.5 ML VIAL.NEB NEB SCH ×6 (00:16→20:10)
--- NOTE | 2020-01-26 01:35 | NUR ---
PT IS SLEEPING WITH BIPAP ON, SATURATING WELL AT 93%. WILL CONTINUE TO MONITOR.
--- NOTE | 2020-01-26 03:59 | NUR ---
PT REFUSES BED BED BATH AND SKIN CHECK. EXPLAINED RISKS AND BENEFITS X3 STILL REFUSED AT THIS TIME. PT MAY CONSIDER DURING DAY SHIFT. WILL FOLLOW UP.
[2020-01-26 04:00] VITALS: BP 146/74
[2020-01-26] MEDS: methylPREDNISolone SOD SUCC 40 MG/ML VIAL IV SCH ×3 (04:46→21:12)
--- NOTE | 2020-01-26 07:12 | NUR ---
RN CLOSING NOTES PT TOLERATED BIPAP THROUGHOUT NIGHT WHILE ASLEEP. SATURATING WELL 93% TOLERATING WELL NO S/S OF SOB OR RESP DISTRESS. BREATHING IS EVEN AND UNLABORED. STILL ON TELE MONITOR. SNR HR OF 89. PT DENIES BM. PT RESTED WELL THROUGHOUT NIGHT. NO SIGNIFICANT CHANGES. MEDS GIVEN ORDERED. PT DENIES PAIN AT THIS TIME. PT STILL DENIED BED BATH AND SKIN CHECK, Z GUARD LOTRIMIN AT THIS TIME. WILL ENDORSE TO AM SHIFT FOR CONTINUATION OF CARE. BED IS LOCKED. CALL LIGHT WITHIN REACH.
--- NOTE | 2020-01-26 07:15 | NUR ---
ms rn received on bed, awake,alert,oriented x4,not in any form of distress, respirations even and unlabored,no sob noted, patient still w/ low saturation, but tolerated, will monitor patient.
[2020-01-26 07:26] LABS: CALCIUM, SERUM 9.2 mg/dL (8.5-10.1); CREATININE 0.9 mg/dL (0.6-1.3); POTASSIUM 4.5 mmol/L (3.5-5.1)
[2020-01-26] MEDS: BLOOD SUGAR DIAGNOSTIC 1 EACH STRIP IN SCH ×4 (07:56→21:23)
[2020-01-26] MEDS: PANTOPRAZOLE 40 MG TABLET.DR PO SCH (07:57)
[2020-01-26] MEDS: INSULIN REGULAR, HUMAN 100 UNIT/ML 3 ML VIAL SQ PRN ×4 (07:59→21:26)
[2020-01-26 08:00] VITALS: BP 132/79
--- NOTE | 2020-01-26 08:30 | NUR ---
ms rodriguez breakfast served,due meds given,tolerated well.
[2020-01-26] MEDS: PIOGLITAZONE HCL 15 MG TABLET PO SCH (08:48)
[2020-01-26] MEDS: LEVETIRACETAM (250 MG) 250 MG TABLET PO SCH (08:48)
[2020-01-26] MEDS: GABAPENTIN 300 MG CAPSULE PO SCH ×3 (08:48→17:05)
[2020-01-26] MEDS: METFORMIN 500 MG TABLET PO SCH ×2 (08:48→17:05)
[2020-01-26] MEDS: LORATADINE 10 MG TABLET PO SCH (08:48)
[2020-01-26] MEDS: LINAGLIPTIN 5 MG TABLET PO SCH (08:48)
[2020-01-26] MEDS: ENSURE ENLIVE CHOC 237 ML CAN PO SCH (09:00)
[2020-01-26 10:11] LABS: ABG BASE EXCESS 3.9 mmol/L; ABG OXYGEN SATURATION 84.3 % (92.0-98.5); ABG PH 7.374 (7.350-7.450); ABG PO2 48.2 mmHg (75.0-100.0); COHb 1.3 % (0.5-1.5); MetHb 0.2 % (0.0-1.5); SITE, ABG Right Femoral; VENT MODE, BG 4 L NC
[2020-01-26 12:00] VITALS: BP 131/75
[2020-01-26] MEDS: Z GUARD REMEDY 2 OZ OINT TP SCH (14:13)
[2020-01-26] MEDS: NYSTATIN TOP POWDER 15 GM BOTTLE TP SCH ×2 (14:14→17:40)
[2020-01-26] MEDS: MENTHOL/CETYLPYRD (CEPACOL) 1 LOZ LOZENGE PO PRN (14:14)
--- NOTE | 2020-01-26 15:51 | NUR ---
ms rn on bed,no distress noted,all needs attended, but patient always refused to clean and repositioned.
[2020-01-26 16:00] VITALS: BP 129/77
[2020-01-26] MEDS: DULOXETINE HCL 30 MG CAPSULE.DR PO SCH (17:05)
[2020-01-26] MEDS: MAGNESIUM HYDROXIDE 30 ML UDC PO PRN (17:05)
--- NOTE | 2020-01-26 17:15 | NUR ---
ms rn on bed, no distress noted.
--- NOTE | 2020-01-26 19:04 | NUR ---
ms rn on bed, no distress noted, still patient does not want to be turned and clean.
--- NOTE | 2020-01-26 19:25 | NUR ---
RN NOTES RECEIVED PT ON BED AWAKE A/O X4 ON O2 VIA NC @ 5L, SPO2 89% NO SIGN AND SYMPTOMS OF RESPIRATORY DISTRESS MD AWARE OF LOW SPO2 VIA NC, PT STILL ON NOC BIPAP ORDER, WILL CONT TO MONITOR THE PT, TELE MONITOR READS SINUS RHYTHM 90'S, BED ON LOWEST POSITION AND LOCK SIDE RAILS UP X3, CALL LIGHT WITHIN REACH WILL CONT TO MONITOR THE PT
[2020-01-26 20:06] VITALS: BP 130/76
[2020-01-26] MEDS: ATORVASTATIN 10 MG TABLET PO SCH (21:12)
[2020-01-26] MEDS ORDERED: INSULIN GLARGINE, 100 UNIT/ML CARTRIDGE SQ SCH (22:00)
--- NOTE | 2020-01-26 22:34 | NUR ---
BLAINE NOTES REPORT GIVEN TO JAC VALLADARES FOR MARTINA Addendum: 01/26/20 at 2236 by SYLVESTER PUGH RN PASCALE BROTHERS RN NOT JAC RN Addendum: 01/26/20 at 2238 by SYLVESTER PUGH RN REPRT GIVEN TO CARLOS A VALLADARES FOR MARTINA
--- NOTE | 2020-01-26 22:53 | NUR ---
RN OPENING NOTE RECEIVED PT ON BED RESTING A/O X4 ON O2 VIA NC @ 5L, O2: 88% NO SIGN AND SYMPTOMS OF RESPIRATORY DISTRESS MD AWARE OF LOW SPO2 VIA NC, PT STILL ON NOC BIPAP ORDER,BED LOCKED IN LOW POSITION IMPLEMENT SAFETY MEASURE,CALL LIGHT WITHIN REACH CONTINUE TO MONITOR
[2020-01-27] VITALS (8 sets, daily range): BP systolic 123–149; BP diastolic 68–80
[2020-01-27] MEDS: methylPREDNISolone SOD SUCC 40 MG/ML VIAL IV SCH ×3 (04:10→21:00)
[2020-01-27] MEDS: IPRATROPIUM NEB FS 0.5 MG/2.5 ML AMPUL.NEB NEB SCH ×6 (04:20→20:03)
[2020-01-27] MEDS: ALBUTEROL FS 2.5 MG/0.5 ML VIAL.NEB NEB SCH ×6 (04:20→20:03)
--- NOTE | 2020-01-27 05:00 | NUR ---
RN NOTE PATIENT REFUSED TO BE CHANGED,AFTER 3 TIMES ATTEMPT EXPLAINED RISKS STILL REFUSED,CONTINUE TO MONITOR.
--- NOTE | 2020-01-27 06:45 | NUR ---
RN CLOSING NOTE PATIENT REMAINS ALERT ORIENTED X4 VERBALLY RESPONSIVE NO SOB NOT ACUTE DISTRESS NOTED,SHE IS ON 5L OXYGEN VIA NASAL CANNULA O2:91% ON BIPAP,IV SITE IS LEFT UPPER MID LINE INTACT PATENT,WHITE CATERER DRAINING URINE YELLOW AND CLEAR,ALL DUE MED GIVEN MD ORDERED,KEPT CALL LIGHT WITHIN REACH,BED IN LOW POSITON AND LOCKED IMPLEMENTED SAFETY MEASURE,ENDORSE NEXT COMING SHIFT FOR CONTINUATION OF CARE.
[2020-01-27 06:54] LABS: EOSINOPHILS % (AUTO) 0.1 % (0.0-6.0); HEMATOCRIT 36 % (33-45); HEMOGLOBIN 11.6 g/dL (11.5-14.8); LYMPHOCYTES # (AUTO) 0.5 /CMM (0.8-4.8); LYMPHOCYTES % (AUTO) 5.9 % (20.0-44.0); MEAN CORPUSCULAR HGB CONC 32 g/dl (31.0-36.0); MEAN CORPUSCULAR VOLUME 94 fL (82-100); MONOCYTES # (AUTO) 0.2 /CMM (0.1-1.30); MONOCYTES % (AUTO) 2.7 % (2.0-12.0); NEUTROPHILS # (AUTO) 7.3 /CMM (1.8-8.9); NEUTROPHILS % (AUTO) 91.3 % (43.0-81.0); PLATELET COUNT (AUTO) 141 /CMM (150-450); RED BLOOD CELL COUNT(AUTO) 3.88 MIL/uL (4.0-5.2)
[2020-01-27 06:55] LABS: CREATININE 0.9 mg/dL (0.6-1.3); POTASSIUM 4.6 mmol/L (3.5-5.1)
--- NOTE | 2020-01-27 07:30 | NUR ---
TRANSPORT TECH OPENING NOTES RECEIVED PT ON BED RESTING A/O X4. ON O2 VIA NC @ 5L, O2 SATURATION 89%. NOT IN ANY RESPIRATORY DISTRESS. MD AWARE OF CURRENT O2 SATURATION. BED LOCKED IN LOW POSITION. SAFETY PRECAUTION OBSERVED. CALL LIGHT LEFT WITHIN REACH. WILL CONTINUE TO MONITOR.
[2020-01-27] MEDS ORDERED: INFLUENZA VACCINE 2020-21 0.5 ML DISP.SYRIN IM ONE (08:00)
[2020-01-27] MEDS: BLOOD SUGAR DIAGNOSTIC 1 EACH STRIP IN SCH ×4 (08:00→21:14)
[2020-01-27] MEDS ORDERED: PNEUMOCOCCAL 23-VAL P-SAC VAC 0.5 ML VIAL SQ ONE (08:00)
[2020-01-27] MEDS: PANTOPRAZOLE 40 MG TABLET.DR PO SCH ×2 (08:05→09:00)
[2020-01-27] MEDS: GABAPENTIN 300 MG CAPSULE PO SCH ×3 (09:00→16:53)
[2020-01-27] MEDS: LEVETIRACETAM (250 MG) 250 MG TABLET PO SCH (09:00)
[2020-01-27] MEDS: METFORMIN 500 MG TABLET PO SCH ×2 (09:00→16:53)
[2020-01-27] MEDS: LINAGLIPTIN 5 MG TABLET PO SCH (09:00)
[2020-01-27] MEDS: PIOGLITAZONE HCL 15 MG TABLET PO SCH (09:00)
[2020-01-27] MEDS: LORATADINE 10 MG TABLET PO SCH (09:00)
[2020-01-27] MEDS: INSULIN REGULAR, HUMAN 100 UNIT/ML 3 ML VIAL SQ PRN (09:04)
[2020-01-27] MEDS: ENSURE ENLIVE CHOC 237 ML CAN PO SCH (09:09)
[2020-01-27] MEDS: NYSTATIN TOP POWDER 15 GM BOTTLE TP SCH ×2 (09:09→16:53)
[2020-01-27] MEDS: Z GUARD REMEDY 2 OZ OINT TP SCH (09:09)
[2020-01-27 09:51] LABS: LYMPHOCYTES % (MANUAL) 4 % (16-48); MONOCYTES % (MANUAL) 4 % (0-11.0); NEUTROPHILS % (MANUAL) 92 (42-76)
[2020-01-27] MEDS: MENTHOL/CETYLPYRD (CEPACOL) 1 LOZ LOZENGE PO PRN ×2 (12:49→19:16)
[2020-01-27] MEDS: MAGNESIUM HYDROXIDE 30 ML UDC PO PRN (12:55)
[2020-01-27] MEDS ORDERED: PRED20TA PO (13:12)
[2020-01-27] MEDS ORDERED: METF-440 PO (13:12)
[2020-01-27] MEDS ORDERED: INSU100I30 SQ (13:12)
--- NOTE | 2020-01-27 13:29 | NUR ---
TIRE SORTER NOTIFIED ABOUT DISCHARGE ,WORKING ON IT NEED HOSPITAL BED AT HOME,WILL NOTIFY RN ONCE ARRANGED,WILL CONTINUE TO FOLLL OW UP.
--- NOTE | 2020-01-27 15:38 | NUR ---
SPOKE WITH SHILPA CAR MECHANIC PENDING DISCHARGE FOR AM R/T CAREGIVER ISSUE,WILL CONTINUE TO FOLLOW UP.
[2020-01-27] MEDS: DULOXETINE HCL 30 MG CAPSULE.DR PO SCH (17:30)
--- NOTE | 2020-01-27 18:52 | NUR ---
LITHOSTRIPPER CLOSING NOTES PATIENT REMAINS ALERT ORIENTED X4, VERBALLY RESPONSIVE WITH NO SOB OR NOT ACUTE DISTRESS NOTED,SHE IS ON 5L OXYGEN VIA NASAL CANNULA O2 SAT 91%. IV SITE IS LEFT UPPER MID LINE INTACT PATENT,WHITE CATERER DRAINING URINE YELLOW AND CLEAR,ALL DUE MED GIVEN MD ORDERED, KEPT CALL LIGHT WITHIN REACH,BED IN LOW POSITON AND LOCKED IMPLEMENTED SAFETY MEASURE, WILL ENDORSE TO NEXT SHIFT FOR MARTINA.
--- NOTE | 2020-01-27 19:25 | NUR ---
RN NOTES RECEIVED PT ON BED AWAKE A/O X4 ON O2 VIA NC @ 5L, SPO2 89% NO SIGN AND SYMPTOMS OF RESPIRATORY DISTRESS MD AWARE OF LOW SPO2 VIA NC, PT STILL ON NOC BIPAP ORDER, WILL CONT TO MONITOR THE PT, TELE MONITOR READS SINUS RHYTHM 100'S, BED ON LOWEST POSITION AND LOCK SIDE RAILS UP X3, CALL LIGHT WITHIN REACH WILL CONT TO MONITOR THE PT
[2020-01-27] MEDS: ATORVASTATIN 10 MG TABLET PO SCH (21:03)
[2020-01-27] MEDS: *INSULIN REGULAR(HUMULIN R)HUM 100 UNIT/ML VIAL SQ PRN (21:20)
[2020-01-27] MEDS ORDERED: INSULIN GLARGINE, 100 UNIT/ML CARTRIDGE SQ SCH (22:00)
[2020-01-28] VITALS: BP 136/71
[2020-01-28] MEDS: IPRATROPIUM NEB FS 0.5 MG/2.5 ML AMPUL.NEB NEB SCH ×4 (00:04→11:17)
[2020-01-28] MEDS: ALBUTEROL FS 2.5 MG/0.5 ML VIAL.NEB NEB SCH ×4 (00:04→11:17)
--- NOTE | 2020-01-28 00:29 | NUR ---
BIPAP WAS PUT ON BY RT, SETTING PER MD ORDER, CURRENT SPO2 92% WILL CONT TO MONITOR
[2020-01-28] MEDS: methylPREDNISolone SOD SUCC 40 MG/ML VIAL IV SCH ×2 (04:11→12:52)
[2020-01-28 04:23] VITALS: BP 134/77
[2020-01-28 04:41] VITALS: BP 134/77
--- NOTE | 2020-01-28 06:10 | NUR ---
RN NOTES PT REFUSED TO BE CLEANED OFFER BED BATH 3X AND TELL THE RISK AND BENEFITS BUT STILL REFUSING WILL CONT TO MONITOR
[2020-01-28] MEDS: INSULIN REGULAR, HUMAN 100 UNIT/ML 3 ML VIAL SQ PRN ×2 (07:48→12:03)
[2020-01-28 08:00] VITALS: BP 141/78
--- NOTE | 2020-01-28 08:00 | NUR ---
BUILDING CONTRACTOR NOTE PATIENT IN ED ALL NEEDS ATTENDED, ALERT ORIENTED X3 , ON 5L NC NO SOB NOTED AT THIS TIME HAVING BREAKFAST , ON TELE MONITOR ST 84 . NAVI MID LINE IN PLACE AND FLUSHED WELL , BED IN LOWEST AND LOCKED POSITION SAFETY MEASURE OBSERVED, WILL MONITOR
[2020-01-28] MEDS: LINAGLIPTIN 5 MG TABLET PO SCH (08:05)
[2020-01-28] MEDS: LORATADINE 10 MG TABLET PO SCH (08:05)
[2020-01-28] MEDS: GABAPENTIN 300 MG CAPSULE PO SCH ×2 (08:05→12:52)
[2020-01-28] MEDS: LEVETIRACETAM (250 MG) 250 MG TABLET PO SCH (08:05)
[2020-01-28] MEDS: PIOGLITAZONE HCL 15 MG TABLET PO SCH (08:05)
[2020-01-28] MEDS: METFORMIN 500 MG TABLET PO SCH (08:05)
[2020-01-28] MEDS: BLOOD SUGAR DIAGNOSTIC 1 EACH STRIP IN SCH ×2 (08:07→12:05)
[2020-01-28] MEDS: ENSURE ENLIVE CHOC 237 ML CAN PO SCH (08:07)
[2020-01-28] MEDS: NYSTATIN TOP POWDER 15 GM BOTTLE TP SCH (09:45)
[2020-01-28] MEDS: Z GUARD REMEDY 2 OZ OINT TP SCH (09:46)
[2020-01-28] MEDS ORDERED: BISACODYL (5 MG) 5 MG TABLET.DR PO PRN (10:00)
--- NOTE | 2020-01-28 10:14 | NUR ---
SET UP PERSON NOTES CALLED DEMETRY DNP, PATIENT COMPLAINING OF CONSTIPATION. DEMETRY DNP WITH NEW ORDER FOR DULCOLAX 10 MG PO NOTED AND CARRIED OUT.
--- NOTE | 2020-01-28 11:49 | NUR ---
DROP HAMMER OPERATOR HELPER NOTES RECEIVED ORDER FROM DEMETRY DNP TO REMOVE WHITE CATHETER. URINE OUTPUT 650.
[2020-01-28 12:00] VITALS: BP 140/73
--- NOTE | 2020-01-28 12:00 | NUR ---
IN FLIGHT CREW MEMBER NOTE REFUSED TO DO PICTURE OF BODY UPON DISCHARGE 0NLY ALLOWED ON RT ARM, PATIENT WISH RESPECTED , EXPLAINED HOW IMPORTANT TO DO ,STATED I AM OK NO NEEDED, DONT WANT TO MOVE TO DO PICTURE
[2020-01-28 12:09] VITALS: BP 140/73
--- NOTE | 2020-01-28 12:29 | NUR ---
REAL ESTATE LEGAL SECRETARY NOTES CALLED [facility], [facility]. STATED MEDICATION PRESCRIPTION READY FOR PICK-UP.
--- NOTE | 2020-01-28 13:30 | NUR ---
CIRCLE SHEAR OPERATOR NOTES AMBULANCE AT BEDSIDE, REPORT GIVEN. MIDLINE REMOVED. DRY DRESSING APPLIED. NO BLEEDING NOTED. PATIENT ALERT AND ORIENTED. DISCHARGE INSTRUCTIONS GIVEN, UNDERSTOOD. PRESCRIPTION GIVEN AND EXPLAINED HOW TO TAKE. INSTRUCT PATIENT TO FOLLOW UP WITH PRIMARY CARE DR AND TAKE PRESCRIPTION ORDERED. SPOKE WITH INSTRUCTOR PAINTING MOON ABOUT BLOOD WORK. STATED SHE WILL MANAGE ORDERS. BELONGINGS CHECKED. EXPLAINED HOW TO TAKE HOME MEDICATION AND POSSIBLE SIDE EFFECT. [facility] AWARE AND MEDICATIONS READY FOR PICKUP. PATIENT TAKE HOME. NO SOB WITH O2 ON. LEFT HOSPITAL IN STABLE CONDITION.
[2020-01-28] MEDS ORDERED: INSULIN GLARGINE, 100 UNIT/ML CARTRIDGE SQ SCH (22:00)
== END 2020-01-28 13:17 | disposition hospice, home (50) | DRG 291 ==
LOC: ER 21:08 → ICU 23:37 → TELE-TD 01-04 02:28 → TELE1 01-05 08:36 → MEDSG1 01-10 08:03 → TELE-TD 01-10 16:36 → TELE1 01-13 07:19
PROVIDERS: ADMIT Registered Nurse; ATTEND Nurse Practitioner Acute Care
PROC: 5A09557 Assistance with Respiratory Ventilation, Greater than 96 Consecutive Hours, Continuous Positive Airway Pressure (ICD-10-PCS; principal; 2019-12-26)
PROC: 05HF33Z Insertion of Infusion Device into Left Cephalic Vein, Percutaneous Approach (ICD-10-PCS; 2020-01-04)
DX: I13.0 Hypertensive heart and chronic kidney disease with heart failure and stage 1 through stage 4 chronic kidney disease, or unspecified chronic kidney disease (principal); J96.21 Acute and chronic respiratory failure with hypoxia; N17.0 Acute kidney failure with tubular necrosis; R53.2 Functional quadriplegia; G92 Toxic encephalopathy; J96.22 Acute and chronic respiratory failure with hypercapnia; J44.1 Chronic obstructive pulmonary disease with (acute) exacerbation; E66.2 Morbid (severe) obesity with alveolar hypoventilation; Z68.45 Body mass index [BMI] 70 or greater, adult; D68.59 Other primary thrombophilia; E87.1 Hypo-osmolality and hyponatremia; E44.0 Moderate protein-calorie malnutrition; E87.5 Hyperkalemia; Z98.84 Bariatric surgery status; Z87.891 Personal history of nicotine dependence; Z79.4 Long term (current) use of insulin; Z79.899 Other long term (current) drug therapy; E11.65 Type 2 diabetes mellitus with hyperglycemia; E11.51 Type 2 diabetes mellitus with diabetic peripheral angiopathy without gangrene; E11.22 Type 2 diabetes mellitus with diabetic chronic kidney disease; N18.9 Chronic kidney disease, unspecified; Z79.51 Long term (current) use of inhaled steroids; Z51.5 Encounter for palliative care; F41.9 Anxiety disorder, unspecified; G40.909 Epilepsy, unspecified, not intractable, without status epilepticus; T38.0X5A Adverse effect of glucocorticoids and synthetic analogues, initial encounter; Y92.099 Unspecified place in other non-institutional residence as the place of occurrence of the external cause
CPT/HCPCS: 36410; 36415; 36600; 71045-TC; 80048-TC; 80053-TC; 80061-TC; 80076-TC; 81000-TC; 82436-TC; 82550-TC; 82570-TC; 82728-TC; 82803-TC; 82962-TC; 83605-TC; 83615-TC; 83735-TC; 83880; 83935-TC; 84100-TC; 84133-TC; 84155-TC; 84300-TC; 84443-TC; 84484-TC; 85025-TC; 85378-TC; 85610-TC; 85730-TC; 86140-TC; 87040-TC; 87070-TC; 87081-TC; 87086-TC; 90732; 93307-TC; 94660; 94760-TC; 94762-TC; 94799-TC; 97530-TC; A4217; A6403; A7526; C9113; G0378; J0456; J0696; J1650; J1815; J1885; J1940; J1956; J2920; J2930; J3490; J7030; J7050; J7060; Q2036; U0003

== ENCOUNTER 2020-12-13 11:16 | Inpatient (IN) | payer BC ==
[~2020-12-13] VITALS: Ht 172.7 cm; Wt 214.1 kg
[~2020-12-13 11:16] MED LIST changes: -AZIT250T PO; -DULO60CA45 PO; +INSU100I30 SQ; -PRED5TAB48 PO
[2020-12-13] MEDS ORDERED: ALBUTEROL FS 2.5 MG/3 ML VIAL.NEB ONE (11:29)
[2020-12-13] MEDS ORDERED: IPRATROPIUM NEB FS 0.5 MG/2.5 ML AMPUL.NEB ONE (11:29)
[2020-12-13] MEDS ORDERED: methylPREDNISolone SOD SUCC 125 MG/2ML VIAL IV ONE (11:30)
[2020-12-13] MEDS ORDERED: IPRATROPIUM NEB FS 0.5 MG/2.5 ML AMPUL.NEB NEB ONE (11:30)
[2020-12-13] MEDS ORDERED: Magnesium 1GM/D5W 100ML PREMIX 200 ML IV ONE ×2 (11:30→11:42)
[2020-12-13] MEDS ORDERED: ALBUTEROL FS 2.5 MG/3 ML VIAL.NEB NEB ONE (11:30)
--- NOTE | 2020-12-13 11:35 | NUR ---
AWILDA FROM HOME TO ER BED 5 AAOX4. SOB, TACHYPNEIC BUT ABLE TO CARRY ON A CONVERSATION. ON O2 VIA NON REBREATHER AT MAX 02. SATTING @ 90% AND PATIENT VERBALIZE DISTRESS ALLEVIATION. PT REPORTS THAT SHE STARTED TO FEELING SOB FOR THE PAST WEEK BUT WORSENED LAST NIGHT. PT IS A BASELINE O2 USER AT HOME. PT IS NOTED TACHYCARDIC. MD WAS AT THE BEDSIDE FOR EVAL. ORDERS RECEIVED, NOTED AND CARRIED OUT.
[2020-12-13] MEDS ORDERED: methylPREDNISolone SOD SUCC 125 MG/2ML VIAL ONE (11:41)
[2020-12-13] MEDS ORDERED: PANT40TA49 PO (11:47)
[2020-12-13] MEDS ORDERED: IPRA3AMP23 IH (11:56)
[2020-12-13] MEDS ORDERED: INSU100V27 SQ (11:56)
[2020-12-13] MEDS ORDERED: ATOR40TA PO (11:56)
[2020-12-13] MEDS ORDERED: POTA10TA10 PO (11:56)
[2020-12-13] MEDS ORDERED: TIOT18CA3 IH (11:56)
[2020-12-13] MEDS ORDERED: AMLO-212 PO (11:56)
[2020-12-13] MEDS ORDERED: DULO60CA45 PO (11:56)
[2020-12-13] MEDS ORDERED: ASPI-1169 PO (11:56)
[2020-12-13] MEDS ORDERED: FLUT1BLS IH (11:56)
[2020-12-13] MEDS ORDERED: ALLO100T PO (11:56)
[2020-12-13] MEDS ORDERED: INSU100V7 SQ (11:56)
[2020-12-13] MEDS ORDERED: LORA-258 PO (11:56)
[2020-12-13] MEDS ORDERED: ACET-2605 PO (11:56)
[2020-12-13] MEDS ORDERED: LISI10TA29 PO (11:56)
[2020-12-13 12:03] LABS: CALCIUM, SERUM 9.4 mg/dL (8.5-10.1); CHLORIDE 98 mmol/L (98-107); CREATININE 1.1 mg/dL (0.6-1.3); GLUCOSE 254 mg/dL (74-106); POTASSIUM 4.6 mmol/L (3.5-5.1); SODIUM SERUM 143 mmol/L (136-145); UREA NITROGEN, BLOOD 26 mg/dL (7-18)
--- NOTE | 2020-12-13 12:03 | NUR ---
MOVE SHEET SUBMITTED.
[2020-12-13 12:07] LABS: CARBON DIOXIDE 40 mmol/L (21-32)
[2020-12-13 12:14] LABS: BASOPHILS % (AUTO) 0.3 % (0.0-2.0); EOSINOPHILS % (AUTO) 2.3 % (0.0-6.0); HEMATOCRIT 36 % (33-45); HEMOGLOBIN 10.8 g/dL (11.5-14.8); LYMPHOCYTES # (AUTO) 1.6 K/uL (0.8-4.8); LYMPHOCYTES % (AUTO) 15.1 % (20.0-44.0); MEAN CORPUSCULAR HGB CONC 30 g/dl (31.0-36.0); MEAN CORPUSCULAR VOLUME 88 fL (82-100); MONOCYTES # (AUTO) 0.6 K/uL (0.1-1.30); MONOCYTES % (AUTO) 6.2 % (2.0-12.0); NEUTROPHILS % (AUTO) 76.1 % (43.0-81.0); PLATELET COUNT (AUTO) 199 K/uL (150-450); RED BLOOD CELL COUNT(AUTO) 4.07 MIL/uL (4.0-5.2); WHITE BLOOD COUNT (AUTO) 10.5 K/uL (4.3-11.0)
--- NOTE | 2020-12-13 12:21 | NUR ---
[facility] CALLED RECONSIGNMENT CLERK PAGED.
[2020-12-13] MEDS ORDERED: VANCOMYCIN 1 GM in IV D5W 250 ML IV ONE (12:30)
[2020-12-13] MEDS ORDERED: PIPERACILLIN /TAZOBACTAM 3.375 G in IV D5W 50 ML IV ONE (12:30)
--- NOTE | 2020-12-13 12:39 | NUR ---
COVID SWAB DONE AND SENT TO LAB
[2020-12-13] MEDS ORDERED: VANCOMYCIN 1 GM VIAL ONE (12:41)
[2020-12-13] MEDS ORDERED: PIPERACILLIN /TAZOBACTAM 3.375 G VIAL IV ONE (12:41)
[2020-12-13] MEDS ORDERED: MAGNESIUM HYDROXIDE 30 ML UDC PO PRN (13:30)
[2020-12-13] MEDS ORDERED: MAG HYDROX/AL HYDROX/SIMETH 30 ML UDC PO PRN (13:30)
[2020-12-13] MEDS ORDERED: Z GUARD REMEDY 2 OZ OINT TP PRN (13:30)
[2020-12-13] MEDS ORDERED: ZOLPIDEM TARTRATE 5 MG TABLET PO PRN (13:30)
[2020-12-13] MEDS ORDERED: ONDANSETRON HCL/PF 4 MG/2 ML VIAL IVP PRN (13:30)
[2020-12-13] MEDS ORDERED: *INSULIN REGULAR(HUMULIN R)HUM 100 UNIT/ML VIAL SQ PRN (14:00)
[2020-12-13] MEDS ORDERED: Medication Not On Formulary EA (Ipratropium/Albuterol Sulfate (Duoneb 2.5-0.5 Mg/3 Ml So IH PRN (14:00)
[2020-12-13] MEDS ORDERED: DEXTROSE 50%-WATER 50 ML DISP.SYRIN IV PRN ×2 (14:00→23:00)
[2020-12-13] MEDS ORDERED: INSULIN REGULAR, HUMAN 100 UNIT/ML 3 ML VIAL SQ PRN (14:00)
[2020-12-13] MEDS ORDERED: AZITHROMYCIN 250 MG TABLET PO ONE (17:10)
[2020-12-13] MEDS ORDERED: IPRATROPIUM NEB FS 0.5 MG/2.5 ML AMPUL.NEB IH PRN (17:30)
[2020-12-13] MEDS: BLOOD SUGAR DIAGNOSTIC 1 EACH STRIP VI SCH ×2 (17:30→22:22)
[2020-12-13] MEDS ORDERED: ALBUTEROL FS 2.5 MG/0.5 ML VIAL.NEB IH PRN (17:30)
--- NOTE | 2020-12-13 18:42 | NUR ---
GOT BED 112-1 AFTER SHIFT CHANGE.
--- NOTE | 2020-12-13 18:55 | NUR ---
pt in bed resting with eyes close. not in any distress. arrousable and responsive.
[2020-12-13] MEDS: IPRATROPIUM NEB FS 0.5 MG/2.5 ML AMPUL.NEB NEB SCH ×2 (19:30→23:30)
[2020-12-13] MEDS: ALBUTEROL FS 2.5 MG/3 ML VIAL.NEB NEB SCH ×2 (19:30→23:30)
--- NOTE | 2020-12-13 19:35 | NUR ---
report given to jennifer cormier for antoinette
--- NOTE | 2020-12-13 19:49 | NUR ---
PT TRANSPORTED TO UNIT ON GURNEY WITH EMT AND RN AT BEDSIDE W/ ACLS PROTOCOL. NAD NOTED DURING TRANSPORT.
--- NOTE | 2020-12-13 20:00 | NUR ---
RN NOTE PT ADMITTED FROM ER VIA GURNEY. REPORT RECEIVED FROM JOSE VALLADARES. PT IS A/0 X4, SOB NOTED WITH NRB MASK AT 15 L O2 SATURATIONS ABOVE 95% NO OTHER RESP. DISTRESS NOTED. PT IS UNABLE TO AMBULATE. WHITE CATHETER INSERTED BY CHANI SOL. PT ADMITTED TO TELEMETRY WITH DX OF COPD EXACERBATION. DENIES ANY PAIN AT THIS TIME. ALL BELONGINGS ACCOUNTED FOR. SKIN ASSESSED AND PICTURES PLACED IN CHART. SAFETY MEASURES IMPLEMENTED: BED LOCKED IN LOWEST POSITION, CALL LIGHT WITHIN REACH, SIDE RAILS UP X2. NO ACUTE DISTRESS NOTED AT THIS TIME.
[2020-12-13] MEDS ORDERED: AZITHROMYCIN 250 MG TABLET ONE (21:49)
[2020-12-13] MEDS: GABAPENTIN 300 MG CAPSULE PO SCH (21:52)
[2020-12-13 22:00] VITALS: BP 134/56
[2020-12-13] MEDS: INSULIN GLARGINE, 100 UNIT/ML CARTRIDGE SQ SCH (22:15)
--- NOTE | 2020-12-13 22:24 | NUR ---
RN NOTE POC GLUCOSE LEVEL OF 417 MG/DL, DR HERRERA CONTACTED. 10 UNITS OF REGULAR INSULIN GIVEN PER SLIDING SCALE ALONG WITH TIMED 28 UNITS OF LANTUS. AWAITING FURTHER MD ORDERS.
[2020-12-14] VITALS (22 sets, daily range): BP systolic 90–137; BP diastolic 39–88
--- NOTE | 2020-12-14 00:19 | NUR ---
RT NOTE TX NOT GIVEN DUE TO PENDING PCR RESULTS. BLAINE BALL AWARE. NO RESPIRATORY DISTRESS NOTED.
--- NOTE | 2020-12-14 01:50 | NUR ---
RT NOTE PATIENT FOUND ON 15LPM NONREBREATHER MASK. PATIENT WAS LETHARGIC. DUE TO COPD SWITCHED O2 DELIVERY TO 5LPM NASAL CANNULA TO MAINTAIN SPO2 AT 88%. ABG ORDER REQUESTED. MONITORING PATIENT AT THIS TIME.
--- NOTE | 2020-12-14 02:20 | NUR ---
RT NOTE ABG RESULTS REPORTED TO CHARGED NURSE. PATIENT STILL APPEARS SLEEPY BUT ABLE TO RESPOND TO VERBAL STIMULI AT THIS TIME. WAITING FOR FURTHER ORDERS.
[2020-12-14 02:33] LABS: ABG BASE EXCESS 8.1 mmol/L; ABG OXYGEN SATURATION 82.2 % (92.0-98.5); ABG PCO2 101.4 mmHg (35.0-45.0); ABG PH 7.203 (7.350-7.450); ABG PO2 48.4 mmHg (75.0-100.0); AaDO2 90.7 mmHg; COHb 1.1 % (0.5-1.5); MetHb 0.1 % (0.0-1.5); O2Hb 81.2 % (94.0-97.0); SITE, ABG Right Radial
--- NOTE | 2020-12-14 02:45 | NUR ---
PACK MASTER NOTE PT. DECREASING LOC AND O2 SATURATIONS. STAT ABG'S DRAWN WITH CO2 RESULT OF 101, DR BROWN AWARE AND RESCUE BIPAP ORDERED. PT. WILL BE TRANSFERRED TO ICU FOR MARTINA
--- NOTE | 2020-12-14 03:13 | NUR ---
MANUFACTURING ENGINEERING TECHNOLOGIST NOTE PT. TRANSFERRED VIA GURNEY TO ICU ROOM 255 VIA ACLS PROTOCOL. ALL BELONGINGS ACCOUNTED FOR. ALL MEDICATIONS AND PT. CHART TRANSFERRED. NEXT OF KIN IN PT'S CHART VINH JENSEN WAS CONTACTED REGARDING PT. STATUS BUT NO ANSWER. VOICEMAIL LEFT. BEDSIDE REPORT GIVEN TO SNOWBOARD DESIGNER NORBERT AND CHARGE NURSE CLIFTON. DR. WILEY AWARE OF PT'S STATUS AND ICU TRANSFER.
--- NOTE | 2020-12-14 03:25 | NUR ---
RT NOTE PLACED PT ON RESCUE BIPAP PER MD MARRERO ORDER. MASK SECURED WITH MEPILEX IN PLACE. RN NORBRET @ BEDSIDE. NO RESPIRATORY DISTRESS NOTED. SPO2 96%, HR 90. WILL CONTINUE TO MONITOR CLOSELY. BIPAP PLUGGED TO RED OUTLET. ALARMS ON AND AUDIBLE.
[2020-12-14] MEDS: ALBUTEROL FS 2.5 MG/3 ML VIAL.NEB NEB SCH ×6 (03:30→23:22)
[2020-12-14] MEDS: IPRATROPIUM NEB FS 0.5 MG/2.5 ML AMPUL.NEB NEB SCH ×6 (03:30→23:22)
--- NOTE | 2020-12-14 03:30 | NUR ---
RN NOTES 0300AM - RECEIVED A TRANSFERRED PATIENT FROM [facility] DUE TO ALOC AND DESATURATION. ABG RESULT CO2 101. PATIENT TRANSFER TO ICU FOR RESCUE BIPAP WITH RATE OF 15/5 RATE 18 FIO2 55%. SATURATION ON 96% AT THIS TIME. STRICTLY ON ISOLATION PRECAUTION DUE TO PENDING PCR. AFEBRILE. PATIENT IS ALTERED. RESPONSIVE TO PAIN STIMULI. CONNECTED TO MONITOR REVEALS ST. WHITE CATH INTACT AND PATENT VIA GRAVITY. IV SITE ON LH SL INTACT AND FLUSHED WELL. KEPT PT CLEAN AND COMFORTABLE IN BED. WILL CONTINUE TO MONITOR.
--- NOTE | 2020-12-14 04:00 | NUR ---
RN NOTES RAPID COVID TEST DONE MD ORDER.
[2020-12-14 04:48] LABS: BASOPHILS % (AUTO) 0.4 % (0.0-2.0); EOSINOPHILS % (AUTO) 0.1 % (0.0-6.0); HEMATOCRIT 32 % (33-45); HEMOGLOBIN 9.7 g/dL (11.5-14.8); LYMPHOCYTES # (AUTO) 0.6 K/uL (0.8-4.8); MEAN CORPUSCULAR HGB CONC 30 g/dl (31.0-36.0); MEAN CORPUSCULAR VOLUME 89 fL (82-100); MONOCYTES # (AUTO) 0.4 K/uL (0.1-1.30); MONOCYTES % (AUTO) 4.3 % (2.0-12.0); NEUTROPHILS # (AUTO) 8.5 K/uL (1.8-8.9); NEUTROPHILS % (AUTO) 89.2 % (43.0-81.0); PLATELET COUNT (AUTO) 175 K/uL (150-450); RED BLOOD CELL COUNT(AUTO) 3.59 MIL/uL (4.0-5.2); WHITE BLOOD COUNT (AUTO) 9.6 K/uL (4.3-11.0)
[2020-12-14 05:06] LABS: CALCIUM, SERUM 9.1 mg/dL (8.5-10.1); CREATININE 1.5 mg/dL (0.6-1.3)
[2020-12-14 05:06] LABS: ABG BASE EXCESS 10.5 mmol/L; ABG OXYGEN SATURATION 93.4 % (92.0-98.5); ABG PCO2 102.1 mmHg (35.0-45.0); ABG PH 7.224 (7.350-7.450); ABG PO2 73.8 mmHg (75.0-100.0); AaDO2 204.8 mmHg; COHb 0.6 % (0.5-1.5); MetHb 0.1 % (0.0-1.5); O2Hb 92.7 % (94.0-97.0); SITE, ABG Left Radial
[2020-12-14 05:10] LABS: POTASSIUM 6.4 mmol/L (3.5-5.1)
[2020-12-14] MEDS ORDERED: INSULIN REGULAR, HUMAN 100 UNIT/ML 3 ML VIAL IV STA (06:14)
[2020-12-14] MEDS ORDERED: SODIUM BICARBONATE SYR 50 MEQ/50 ML DISP.SYRIN IV STA (06:14)
--- NOTE | 2020-12-14 06:59 | NUR ---
RN NOTES 0515 AM - REPORTED BY LAB POTASSIUM 6.4 AND ABG RESULT OF PCO2 102.1 PO2 73 CALLED [facility] AWAITING FOR DR. QUACH TO CALL BACK. 0543 AM - EXCHANGE CALLED AND VERIFIED IF MD CALL BACK FOR THE 2ND TIME. STILL AWAITING 0608 AM- 3RD CALL FOR ONCALL SPOKE WITH DR. INEZ QUACH AND REPORTED POTASSIUM 6.4 WITH ORDER TO GIVE 10 UNIT INSULIN IVP AND 1 AMP BICARB SINCE THE PATIENT IS NPO AT THIS TIME. ALSO RESP THERAPY SPOKE TO MD REGARDING ABNORMAL ABG RESULT AFTER AN HOUR OF BIPAP WITH NEW ORDER TO INCREASE RATE TO 20/5 RATE OF 20 FIO2 35% NOTED AND CARRIED OUT ORDER.
[2020-12-14] MEDS ORDERED: PANTOPRAZOLE 40 MG TABLET.DR PO SCH (07:30)
[2020-12-14] MEDS: BLOOD SUGAR DIAGNOSTIC 1 EACH STRIP IN SCH ×4 (07:30→21:15)
--- NOTE | 2020-12-14 08:00 | NUR ---
RN NOTE PT FOUND LYING SUPINE DISPLAYING NO S/S OF ACUTE DISTRESS, PT CURRENTLY ENDORSES NO PAIN AND IS BREATHING EVENLY AND UNLABORED ON A BIPAP FIO2 35%. PT HAS RESPIRATORY DISTRESS WHEN BIPAP IS DISRUPTED. PT ON THE MONITOR. RN WILL ASSESS AND TREAT THROUGHOUT SHIFT.
[2020-12-14] MEDS: INSULIN REGULAR, HUMAN 100 UNIT/ML 3 ML VIAL SQ PRN ×3 (08:55→17:42)
[2020-12-14] MEDS ORDERED: FAMOTIDINE 40 MG TABLET PO SCH (09:00)
[2020-12-14] MEDS ORDERED: FUROSEMIDE 40 MG/4 ML VIAL IV SCH (09:00)
[2020-12-14] MEDS ORDERED: POTASSIUM CHLORIDE 10 MEQ TABLET.SA PO SCH (09:00)
[2020-12-14] MEDS ORDERED: FUROSEMIDE 40 MG TABLET PO SCH (09:00)
[2020-12-14 09:03] LABS: CALCIUM, SERUM 9.1 mg/dL (8.5-10.1); CREATININE 1.5 mg/dL (0.6-1.3); POTASSIUM 5.4 mmol/L (3.5-5.1)
[2020-12-14] MEDS: GABAPENTIN 300 MG CAPSULE PO SCH ×3 (09:04→17:42)
[2020-12-14] MEDS: FLUTICASONE/VILANTEROL 1 EACH BLST.W.DEV IH SCH (09:04)
[2020-12-14] MEDS: ASPIRIN 81 MG TAB.CHEW PO SCH (09:06)
[2020-12-14] MEDS: ATORVASTATIN 40 MG TABLET PO SCH (09:06)
[2020-12-14] MEDS: DULOXETINE HCL 30 MG CAPSULE.DR PO SCH (09:06)
[2020-12-14] MEDS: ALLOPURINOL 100 MG TABLET PO SCH (09:07)
[2020-12-14] MEDS: AZITHROMYCIN 250 MG TABLET PO SCH (09:08)
[2020-12-14] MEDS: AMLODIPINE BESYLATE 5 MG TABLET PO SCH (09:08)
[2020-12-14] MEDS: LISINOPRIL (10MG) 10 MG TABLET PO SCH (09:08)
[2020-12-14] MEDS: PANTOPRAZOLE 40 MG VIAL IV SCH (09:09)
[2020-12-14] MEDS: methylPREDNISolone SOD SUCC 40 MG/ML VIAL IV SCH (09:09)
--- NOTE | 2020-12-14 09:55 | NUR ---
WOUND CARE CONSULT: REVIEWED CHART, NURSING DOCUMENTATION AND PHOTOS WHICH INDICATE DISCOLORATION TO BUTTOCKS AND GROIN RASH, PRESENT ON ADMISSION. PT IS MORBIDLY OBESE. BARIMAX ETS AIR BED IS ON ORDER. RECOMMENDATIONS MADE FOR SKIN PROTECTION. DISCUSSED WITH NURSING STAFF. MD IN AGREEMENT WITH PLAN OF CARE.
--- NOTE | 2020-12-14 11:00 | NUR ---
RN NOTE DR LANGE INFORMED OF PT CRITICAL LAB CO2 43., K+ DOWN TO 5.4 FROM 6.4. UPDATED ON MOST RECENT ABG
[2020-12-14 11:40] LABS: ABG BASE EXCESS 10.2 mmol/L; ABG OXYGEN SATURATION 90.4 % (92.0-98.5); ABG PCO2 82.4 mmHg (35.0-45.0); ABG PH 7.296 (7.350-7.450); ABG PO2 60.3 mmHg (75.0-100.0); AaDO2 166.8 mmHg; MetHb 0.1 % (0.0-1.5); O2Hb 89.4 % (94.0-97.0); SITE, ABG Left Radial; VENT MODE, BG BIPAP 20/5
[2020-12-14] MEDS ORDERED: SODIUM POLYSTYRENE SULFONATE 15 G/60 ML BOTTLE PO ONE (13:00)
[2020-12-14 13:58] LABS: BILIRUBIN,URINE NEGATIVE (NEGATIVE); COLOR,URINE YELLOW (YELLOW); LEUKOCYTE ESTERASE ,URINE NEGATIVE (NEGATIVE); NITRITE, URINE NEGATIVE (NEGATIVE); PROTEIN,URINE 100 mg/dl (NEGATIVE); UGLUCOSE NEGATIVE (NEGATIVE); UROBILINOGEN,URINE 0.2 EU/dL (0.2)
--- NOTE | 2020-12-14 14:15 | NUR ---
MD COMMUNICATION RN SPOKE TO MD, INFORMED HIM THAT PT IS C/O THROAT PAIN. MD GAVE ORDERS: CEPACOL 1 LOZENGE PO PRN Q2H FOR SORE THROAT. RN READ BACK ORDER AND WILL ENTER DIRECTED.
--- NOTE | 2020-12-14 15:27 | NUR ---
RT NOTE: NEBULIZER TREATMENTS HELD DUE TO COVID 19 RULE OUT STATUS. WILL CONTINUE TO MONITOR.
[2020-12-14] MEDS: ACETAMINOPHEN 325 MG TABLET PO PRN (15:43)
[2020-12-14 15:51] LABS: BACTERIA,URINE Few /HPF (None Seen); HYALINE CASTS, URINE 0-2 /LPF (None Seen); RBC,URINE 51-80 /HPF (0-2); SQUAMOUS EPITHELIAL CELL,UR Few /HPF (None Seen)
[2020-12-14] MEDS: CLOTRIMAZOLE 1% 15 GM TUBE TP SCH (17:42)
--- NOTE | 2020-12-14 19:05 | NUR ---
RN NOTES PT IN BARIMAXX BED, SEMI FOWLERS POSITION, DISPLAYING NO S/S OF DISTRESS, BIPAP 20/5 35% FIO2, PT ON MINIMAL MODEL MASK. PT ENDORSES NO PAIN. L HAND 20G, IV PATIENT AND INTACT. WHITE CATH BELOW PT DRAINING BY GRAVITY. ST ON THE MONITOR. REPORT GIVEN TO NIGHT RN. PT ENDORSED IN STABLE CONDITION, ALL QUESTIONS ANSWERED.
--- NOTE | 2020-12-14 19:05 | NUR ---
RECEIVED PT ON BED AWAKE A//O X3 ON BIPAP SETTING PER MD FIO2 35% SPO2 89-92% MD IS AWARE, TELE MONITOR READS SINUS TACHY 100'S, HAVE LHAND #20 PATEN AND FLUSHED, BED ON LOWEST POSITION AND LOCKED SIDE RAILS UP X2 CALL LIGHT WITHIN REACH WILL CONT TO MONITOR
--- NOTE | 2020-12-14 19:27 | NUR ---
RCVD PT ON BIPAP 20/5, RATE 20, FIO2 45%. PT IS ALERT AND AWAKE. BREATHING TX NOT GIVEN DUE TO PENDING PCR COVID TEST RESULT. NO RESPIRATORY DISTRESS NOTED AT THIS TIME. RN SYLVESTER NOTIFIED . WILL CONTINUE TO MONITOR T/O SHIFT.
[2020-12-14] MEDS: MENTHOL/CETYLPYRD (CEPACOL) 1 LOZ LOZENGE PO PRN (19:53)
[2020-12-14] MEDS: INSULIN GLARGINE, 100 UNIT/ML CARTRIDGE SQ SCH (21:15)
[2020-12-14] MEDS: *INSULIN REGULAR(HUMULIN R)HUM 100 UNIT/ML VIAL SQ PRN (21:18)
[2020-12-15] VITALS (26 sets, daily range): BP systolic 80–155; BP diastolic 40–91
--- NOTE | 2020-12-15 01:46 | NUR ---
PT ON BED SLEEPING INTERMITTENTLY STILL ON BIPAP NO SIGN OF RESPIRATORY DISTRESS NOTED, ORAL HYDRATION OFFER FOR TIME TO TIME, WILL CONT TO MONITOR
[2020-12-15] MEDS: ALBUTEROL FS 2.5 MG/3 ML VIAL.NEB NEB SCH ×6 (03:30→23:28)
[2020-12-15] MEDS: IPRATROPIUM NEB FS 0.5 MG/2.5 ML AMPUL.NEB NEB SCH ×6 (03:30→23:27)
[2020-12-15 04:26] LABS: BASOPHILS % (AUTO) 0.1 % (0.0-2.0); HEMATOCRIT 40 % (33-45); HEMOGLOBIN 13.4 g/dL (11.5-14.8); LYMPHOCYTES # (AUTO) 0.6 K/uL (0.8-4.8); LYMPHOCYTES % (AUTO) 6.2 % (20.0-44.0); MEAN CORPUSCULAR HGB CONC 33 g/dl (31.0-36.0); MEAN CORPUSCULAR VOLUME 93 fL (82-100); MONOCYTES # (AUTO) 0.4 K/uL (0.1-1.30); MONOCYTES % (AUTO) 3.8 % (2.0-12.0); NEUTROPHILS # (AUTO) 8.6 K/uL (1.8-8.9); NEUTROPHILS % (AUTO) 89.9 % (43.0-81.0); PLATELET COUNT (AUTO) 153 K/uL (150-450); RED BLOOD CELL COUNT(AUTO) 4.31 MIL/uL (4.0-5.2); WHITE BLOOD COUNT (AUTO) 9.6 K/uL (4.3-11.0)
[2020-12-15 04:48] LABS: CREATININE 0.5 mg/dL (0.6-1.3)
--- NOTE | 2020-12-15 06:51 | NUR ---
PT ON BED ASLEEP STILL ON BIPAP SETTING PER MD FIO2 35% SPO2 88-90% NO SIGN AND SYMPTOMS OF RESPIRATORY DISTRESS, BEDSIDE MONITOR READS SINUS RHYTHM 90'S BED ON LOWEST POSITION AND LOCKED SIDE RAILS UP X2 CALL LIGHT WITHIN REACH WILL CONT TO MONITOR
--- NOTE | 2020-12-15 07:10 | NUR ---
RN NOTE PT FOUND IN SEMI FOWLERS POSITION DISPLAYING NO S/S OF ACUTE DISTRESS, BREATHING IS EVEN ON BIPAP 20/5 AT 20 RR ON 35% FIO2. PT ENDORSES NO PAIN AT THIS TIME. PT IS A&OX4, CALM AND COOPERATIVE. ST ON THE MONITOR. L HAND 20G, IV PATIENT AND INTACT. WHITE CATH IS PATIENT AND DRAINING BY GRAVITY. VSS, RN WILL MONITOR AND TREAT THROUGHOUT SHIFT.
[2020-12-15] MEDS: BLOOD SUGAR DIAGNOSTIC 1 EACH STRIP IN SCH ×4 (07:55→21:34)
--- NOTE | 2020-12-15 08:00 | NUR ---
RN NOTE: PT CODE STATUS PT A/Ox4. AFTER 30 MIN OF PT EDUCATION, ALL QUESTIONS BEING ANSWERED TO PT'S FULL SATISFACTION. PT STATES SHE WANTS TO BE FULL CODE ORDERED
[2020-12-15] MEDS: PANTOPRAZOLE 40 MG VIAL IV SCH (08:34)
[2020-12-15] MEDS: ATORVASTATIN 40 MG TABLET PO SCH (08:35)
[2020-12-15] MEDS: methylPREDNISolone SOD SUCC 40 MG/ML VIAL IV SCH (08:35)
[2020-12-15] MEDS: ALLOPURINOL 100 MG TABLET PO SCH (08:35)
[2020-12-15] MEDS: LISINOPRIL (10MG) 10 MG TABLET PO SCH (08:35)
[2020-12-15] MEDS: AMLODIPINE BESYLATE 5 MG TABLET PO SCH (08:35)
[2020-12-15] MEDS: ASPIRIN 81 MG TAB.CHEW PO SCH (08:35)
[2020-12-15] MEDS: GABAPENTIN 300 MG CAPSULE PO SCH ×3 (08:35→17:31)
[2020-12-15] MEDS: AZITHROMYCIN 250 MG TABLET PO SCH (08:35)
[2020-12-15] MEDS: DULOXETINE HCL 30 MG CAPSULE.DR PO SCH (08:36)
[2020-12-15] MEDS: MENTHOL/CETYLPYRD (CEPACOL) 1 LOZ LOZENGE PO PRN ×2 (08:36→23:30)
[2020-12-15] MEDS: FLUTICASONE/VILANTEROL 1 EACH BLST.W.DEV IH SCH (08:36)
[2020-12-15] MEDS: CLOTRIMAZOLE 1% 15 GM TUBE TP SCH ×2 (08:36→17:31)
[2020-12-15 09:39] LABS: ABG BASE EXCESS 16.9 mmol/L; ABG OXYGEN SATURATION 85.3 % (92.0-98.5); ABG PCO2 88.6 mmHg (35.0-45.0); ABG PH 7.334 (7.350-7.450); ABG PO2 53.4 mmHg (75.0-100.0); AaDO2 129.9 mmHg; COHb 0.6 % (0.5-1.5); MetHb 0.2 % (0.0-1.5); O2Hb 84.6 % (94.0-97.0); SITE, ABG Left Radial; VENT MODE, BG NASAL CANNULA
--- NOTE | 2020-12-15 09:45 | NUR ---
RN NOTE PER DR MCCRAY, 0915 ABG, CONT PT ON RESCUE NC 5L AND NOCTURNAL BIPAP. PT ON NC 5L SPO2 85-88%, NO S/S OF RESP DISTRESS OR SOB, BREATHING EVEN AND UNLABORED. PT LOOKS COMFORTABLE
[2020-12-15] MEDS: INSULIN REGULAR, HUMAN 100 UNIT/ML 3 ML VIAL SQ PRN ×2 (12:26→17:32)
--- NOTE | 2020-12-15 16:23 | NUR ---
RN NOTE RN ASSISTED PT WITH 2X BM, FIRST WAS HARD, DARK IN APPEARANCE, FORMED. THE SECOND WAS VERY LOOSE, BROWN. NOTED ALSO WAS VAGINAL BLEEDING. PT CLEANED EXTENSIVELY, Z GUARD AND OPTIFOAM APPLIED. WHITE CATH REMAINS INTACT DRAINING BY GRAVITY BELOW PATIENT.
--- NOTE | 2020-12-15 18:55 | NUR ---
MD COMMUNICATION RN SPOKE TO MD ABOUT PT VAGINAL BLEEDING. MD ACKNOWLEDGED, INFORMED RN TO MONITOR BLEEDING AND THAT HE WILL PLACE ORDERS TOMORROW MORNING. RN ACKNOWLEDGED.
--- NOTE | 2020-12-15 19:24 | NUR ---
RN NOTES REPORT GIVEN TO DIRECTOR WORKFORCE MANAGEMENT RN FOR MARTINA. ALL QUESTIONS ANSWERED. PT IN STABLE CONDITION, PT MAINTAINING 89% SPO2 ON 5L O2 NC. HOSPITAL SAFETY IN PLACE.
--- NOTE | 2020-12-15 19:40 | NUR ---
RN NOTES RECEIVED PATIENT WATCHING TV ON BED. NO ACUTE RESPIRATIORY DISTRESS. ON O2 5LPM VIA NC SATURATION BETWEEN 86-91% IV SITE ON LEFT HAND G 20 INTACT AND PATENT. PATIENT ASSISTED ON DINNER ATE 75% OF FOOD. [facility]. AFEBRILE. KEPT PT CLEAN AND COMFORTABLE IN BED. WILL CONTINUE TO MONITOR.
[2020-12-15] MEDS: *INSULIN REGULAR(HUMULIN R)HUM 100 UNIT/ML VIAL SQ PRN (21:33)
[2020-12-15] MEDS: INSULIN GLARGINE, 100 UNIT/ML CARTRIDGE SQ SCH (21:34)
--- NOTE | 2020-12-15 23:25 | NUR ---
RN NOTES BEDBATH DONE AND TOLERATED WELL. APTHALINA HAD 1 BM AND PRESENT WITH CLOTTED BLOOD COMING FROM HER VAGINA MD IS AWARE ABOUT IT
[2020-12-16] VITALS (23 sets, daily range): BP systolic 79–123; BP diastolic 35–78
[2020-12-16] MEDS: ALBUTEROL FS 2.5 MG/3 ML VIAL.NEB NEB SCH ×6 (03:42→23:14)
[2020-12-16] MEDS: IPRATROPIUM NEB FS 0.5 MG/2.5 ML AMPUL.NEB NEB SCH ×6 (03:42→23:14)
[2020-12-16 04:37] LABS: BASOPHILS % (AUTO) 0.2 % (0.0-2.0); EOSINOPHILS % (AUTO) 0.1 % (0.0-6.0); HEMATOCRIT 31 % (33-45); HEMOGLOBIN 9.6 g/dL (11.5-14.8); LYMPHOCYTES % (AUTO) 15.9 % (20.0-44.0); MEAN CORPUSCULAR HGB CONC 31 g/dl (31.0-36.0); MEAN CORPUSCULAR VOLUME 88 fL (82-100); MONOCYTES # (AUTO) 0.6 K/uL (0.1-1.30); MONOCYTES % (AUTO) 9.4 % (2.0-12.0); NEUTROPHILS # (AUTO) 4.5 K/uL (1.8-8.9); NEUTROPHILS % (AUTO) 74.4 % (43.0-81.0); PLATELET COUNT (AUTO) 207 K/uL (150-450); RED BLOOD CELL COUNT(AUTO) 3.53 MIL/uL (4.0-5.2); WHITE BLOOD COUNT (AUTO) 6.1 K/uL (4.3-11.0)
[2020-12-16 04:41] LABS: CALCIUM, SERUM 9.2 mg/dL (8.5-10.1); CREATININE 1.1 mg/dL (0.6-1.3); POTASSIUM 4.5 mmol/L (3.5-5.1)
--- NOTE | 2020-12-16 06:19 | NUR ---
RN NOTES PATIENT ASLEEP WELL. AFEBRILE. VSS. BIPAP STILL ON PER PATIETN REQUESTED. NO ACUTE RESPIRATORY DISTRESS. SR/ST ON MONITOR. BREATHING EVEN AND UNLABORED TOLERATED O2 SATURATION BETWEEN 85-91%. INCONTINENT CARE RENDERED. WHITE CATH REMAINED INTACT AND PATENT. VAGINAL CLOTTED BLEEDING PRESENT. ALL NEEDS ATTENDED. KEPT PT CLEAN AND DRY. WILL ENDORSED CONTINUITY OFCARE TO AM NURSE.
--- NOTE | 2020-12-16 08:00 | NUR ---
RN NOTES SEEN PATIENT ON BIPAP 20/5, FIO2-40% SETTING. NO ACUTE RESPIRATORY DISTRESS. PER Dr SHAZIA NOE [place], RECHECK ABG WITHIN TWO HR. ORDER TAKEN AND CARRIED OUT. BS-140 MG/DL, SEE PATIENT VIA HOSPITALIST, PATIENT HAS VAGINAL BLEEDING, PATIENT GOING TO HAVE OBGY CONSULTATION, WHITE DRAINING YELLOW COLOR WITH SEDIMENTS, PATIENT OBESE. KEEP HOB ELEVATED, CALL LIGHT WITHIN TO REACH. WILL FOLLOW UP.
[2020-12-16] MEDS: BLOOD SUGAR DIAGNOSTIC 1 EACH STRIP IN SCH ×4 (08:06→21:27)
[2020-12-16] MEDS: methylPREDNISolone SOD SUCC 40 MG/ML VIAL IV SCH (08:56)
[2020-12-16] MEDS: ATORVASTATIN 40 MG TABLET PO SCH (08:56)
[2020-12-16] MEDS: PANTOPRAZOLE 40 MG TABLET.DR PO SCH (08:56)
[2020-12-16] MEDS: AZITHROMYCIN 250 MG TABLET PO SCH (08:56)
[2020-12-16] MEDS: ASPIRIN 81 MG TAB.CHEW PO SCH (08:56)
[2020-12-16] MEDS: ALLOPURINOL 100 MG TABLET PO SCH (08:56)
[2020-12-16] MEDS: DULOXETINE HCL 30 MG CAPSULE.DR PO SCH (08:56)
[2020-12-16] MEDS: GABAPENTIN 300 MG CAPSULE PO SCH ×3 (08:56→18:20)
[2020-12-16] MEDS: CLOTRIMAZOLE 1% 15 GM TUBE TP SCH ×2 (08:58→18:20)
[2020-12-16] MEDS: FLUTICASONE/VILANTEROL 1 EACH BLST.W.DEV IH SCH (09:00)
[2020-12-16] MEDS: AMLODIPINE BESYLATE 5 MG TABLET PO SCH (09:18)
[2020-12-16] MEDS: INSULIN REGULAR, HUMAN 100 UNIT/ML 3 ML VIAL SQ PRN ×4 (09:20→21:34)
--- NOTE | 2020-12-16 10:28 | NUR ---
WOUND CARE CONSULT: PT SEEN FOR SKIN ASSESSMENT AND NOTED TO HAVE RASH WITH PEELING SKIN TO BILATERAL BUTTOCKS AND RASH TO LEFT BREASTFOLD WITH OPEN SKIN WELL VAGINAL BLEEDING WITH CLOTS. MD AWARE OF VAGINAL BLEEDING PER BEAD MAKER. RECOMMNDATIONS MADE FOR SKIN PROTECTION. DISCUSSED WITH NURSING STAFF. PT IS ON BARIMAX ETS AIR BED. MD IN AGREEMENT WITH PLAN OF CARE.
[2020-12-16] MEDS: LISINOPRIL (10MG) 10 MG TABLET PO SCH (11:37)
[2020-12-16] MEDS: MENTHOL/CETYLPYRD (CEPACOL) 1 LOZ LOZENGE PO PRN ×2 (11:37→21:27)
--- NOTE | 2020-12-16 11:40 | NUR ---
rn notes After ABG result get order to increase o2-6l. adjusted via RT, will follow up.
--- NOTE | 2020-12-16 13:20 | NUR ---
RN NOTES bs-252 MG/DL COVERAGE GIVEN, PATIENT EATING SELF,PATIENT DENIED PAIN AT THIS TIME., CALL LUIGHT WITHIN TO REACH. WILL MONITORING.
--- NOTE | 2020-12-16 13:25 | NUR ---
Performs deep breathing and coughing * Exhibits no adventitious breath sounds * Maintains adequate ventilation Addendum: 12/16/20 at 1329 by NISHA OVERTON RN Amended: Links added.
--- NOTE | 2020-12-16 13:29 | NUR ---
Understands anatomy and physiology * Describes reportable s/s * Understands treatment plan * Understands medication regime Addendum: 12/16/20 at 1329 by NISHA OVERTON RN Amended: Links added.
--- NOTE | 2020-12-16 18:42 | NUR ---
rn notes BS- 303 mg/dl coverage given, due medication administered, pm care done. patient tolerated dinner 60% self. refused pain. on o2-6lnc. , maximum assist with 3 peroneal, . Amaral draining with gravity. call light within to reach, endorsed oncoming nurse follow plan of care.
--- NOTE | 2020-12-16 19:48 | NUR ---
agricultural chemicals inspector.initial assessment. received the pt rest on the bed. awake, alert, follow commands. cardiac nurse showing nsr. with bbb, oxygen 6 l via nasal cannula. sat 96%. no acute distress noted. iv lt hand 20g saline lock. hob elevated. will continue to monitor vitals.
[2020-12-16] MEDS: INSULIN GLARGINE, 100 UNIT/ML CARTRIDGE SQ SCH (21:33)
[2020-12-16] MEDS: *INSULIN REGULAR(HUMULIN R)HUM 100 UNIT/ML VIAL SQ PRN (21:43)
[2020-12-17] VITALS (20 sets, daily range): BP systolic 108–142; BP diastolic 55–84
--- NOTE | 2020-12-17 00:26 | NUR ---
PT PLACED ON NOC BIPAP, NOTIFIED RN. Addendum: 12/17/20 at 0026 by JOSE ASTUDILLO RT Amended: Links added.
[2020-12-17] MEDS: MENTHOL/CETYLPYRD (CEPACOL) 1 LOZ LOZENGE PO PRN ×2 (00:56→09:04)
--- NOTE | 2020-12-17 02:43 | NUR ---
pt refused q2h turning.
--- NOTE | 2020-12-17 02:44 | NUR ---
pt refused q1h blood pressure check up
[2020-12-17] MEDS: ALBUTEROL FS 2.5 MG/3 ML VIAL.NEB NEB SCH ×6 (03:16→23:02)
[2020-12-17] MEDS: IPRATROPIUM NEB FS 0.5 MG/2.5 ML AMPUL.NEB NEB SCH ×6 (03:16→23:02)
--- NOTE | 2020-12-17 05:24 | NUR ---
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 am care given. remaining same bipap on. . afebrile. hob elevated. fc patent. urine draining. will continue to monitor vitals.
--- NOTE | 2020-12-17 07:30 | NUR ---
ADMINISTRATIVE ASSISTANT COORDINATOR OPENING NOTES Patient received in bed asleep and on BIPAP Vitals wnl. Left hand iv site free of infiltration and s/sx of infection Patient noted with f/c hanging to gravity with clear yellow urine. No c/o pain or discomfort. Will continue to monitor. Call light with in reach.
[2020-12-17] MEDS: BLOOD SUGAR DIAGNOSTIC 1 EACH STRIP IN SCH ×4 (08:02→21:27)
[2020-12-17] MEDS: INSULIN REGULAR, HUMAN 100 UNIT/ML 3 ML VIAL SQ PRN ×3 (08:03→17:56)
[2020-12-17] MEDS: DULOXETINE HCL 30 MG CAPSULE.DR PO SCH (08:47)
[2020-12-17] MEDS: ATORVASTATIN 40 MG TABLET PO SCH (08:47)
[2020-12-17] MEDS: PANTOPRAZOLE 40 MG TABLET.DR PO SCH (08:47)
[2020-12-17] MEDS: GABAPENTIN 300 MG CAPSULE PO SCH ×3 (08:47→17:56)
[2020-12-17] MEDS: ALLOPURINOL 100 MG TABLET PO SCH (08:47)
[2020-12-17] MEDS: ASPIRIN 81 MG TAB.CHEW PO SCH (08:47)
[2020-12-17] MEDS: AZITHROMYCIN 250 MG TABLET PO SCH (08:47)
[2020-12-17] MEDS: FLUTICASONE/VILANTEROL 1 EACH BLST.W.DEV IH SCH (08:48)
[2020-12-17] MEDS: AMLODIPINE BESYLATE 5 MG TABLET PO SCH (08:48)
[2020-12-17] MEDS: LISINOPRIL (10MG) 10 MG TABLET PO SCH (08:48)
[2020-12-17] MEDS: methylPREDNISolone SOD SUCC 40 MG/ML VIAL IV SCH (08:48)
[2020-12-17] MEDS: CLOTRIMAZOLE 1% 15 GM TUBE TP SCH ×2 (08:49→17:51)
--- NOTE | 2020-12-17 09:00 | NUR ---
Md Schultz in facility and informed ticket writer if there is excessive or moderate vaginal bleeding to place an order for transvaginal ultrasound. Patient cleaned and sanitary pads placed for monitoring.
[2020-12-17 09:13] LABS: CALCIUM, SERUM 9.1 mg/dL (8.5-10.1); CREATININE 0.9 mg/dL (0.6-1.3); POTASSIUM 4.4 mmol/L (3.5-5.1)
[2020-12-17 09:42] LABS: BASOPHILS % (AUTO) 0.2 % (0.0-2.0); EOSINOPHILS % (AUTO) 1.3 % (0.0-6.0); HEMATOCRIT 32 % (33-45); HEMOGLOBIN 9.6 g/dL (11.5-14.8); LYMPHOCYTES # (AUTO) 1.4 K/uL (0.8-4.8); MEAN CORPUSCULAR HGB CONC 30 g/dl (31.0-36.0); MEAN CORPUSCULAR VOLUME 88 fL (82-100); MONOCYTES # (AUTO) 0.5 K/uL (0.1-1.30); MONOCYTES % (AUTO) 9.1 % (2.0-12.0); NEUTROPHILS # (AUTO) 3.1 K/uL (1.8-8.9); NEUTROPHILS % (AUTO) 61.4 % (43.0-81.0); PLATELET COUNT (AUTO) 196 K/uL (150-450); RED BLOOD CELL COUNT(AUTO) 3.58 MIL/uL (4.0-5.2)
--- NOTE | 2020-12-17 10:00 | NUR ---
Patient provided morning care and turned and repositioned q2h and prn
--- NOTE | 2020-12-17 16:00 | NUR ---
No significant vaginal bleeding noted. Minimal spots noted on the pad.
[2020-12-17 16:48] LABS: ABG BASE EXCESS 10.4 mmol/L; ABG OXYGEN SATURATION 90.2 % (92.0-98.5); ABG PCO2 71.7 mmHg (35.0-45.0); ABG PH 7.344 (7.350-7.450); ABG PO2 63.1 mmHg (75.0-100.0); AaDO2 176.2 mmHg; MetHb 0.1 % (0.0-1.5); O2Hb 89.2 % (94.0-97.0); SITE, ABG Right Radial; VENT MODE, BG nasal cannula
--- NOTE | 2020-12-17 17:00 | NUR ---
Patient provided skin care and linen changed for pm
--- NOTE | 2020-12-17 18:39 | NUR ---
Patient refused to be turned for 1400 and 1800 times. Patient explained risks but refused.
--- NOTE | 2020-12-17 19:46 | NUR ---
agricultural appraiser. initial assessment. received the pt rest on the bed.mawake, alert, follow commands. rn critical care showing nsr. iv lt hand saline lock, hob elevated. oxygen 6 L via nasal cannula. sat 94%. fc patent. urine draining. hob elevatedwill continue to monitor vitals.
[2020-12-17] MEDS: INSULIN GLARGINE, 100 UNIT/ML CARTRIDGE SQ SCH (21:36)
[2020-12-17] MEDS: *INSULIN REGULAR(HUMULIN R)HUM 100 UNIT/ML VIAL SQ PRN (21:42)
[2020-12-18] VITALS (9 sets, daily range): BP systolic 102–132; BP diastolic 55–85
--- NOTE | 2020-12-18 | NUR ---
PLACED PT ON NOCTURNAL BIPAP, BLAINE CHAVARRIA NOTIFIED.
[2020-12-18] MEDS: IPRATROPIUM NEB FS 0.5 MG/2.5 ML AMPUL.NEB NEB SCH ×6 (03:22→23:41)
[2020-12-18] MEDS: ALBUTEROL FS 2.5 MG/3 ML VIAL.NEB NEB SCH ×6 (03:22→23:41)
[2020-12-18 04:50] LABS: BASOPHILS % (AUTO) 0.3 % (0.0-2.0); EOSINOPHILS % (AUTO) 0.6 % (0.0-6.0); HEMATOCRIT 31 % (33-45); HEMOGLOBIN 9.6 g/dL (11.5-14.8); LYMPHOCYTES # (AUTO) 1.2 K/uL (0.8-4.8); LYMPHOCYTES % (AUTO) 24.7 % (20.0-44.0); MEAN CORPUSCULAR HGB CONC 31 g/dl (31.0-36.0); MEAN CORPUSCULAR VOLUME 88 fL (82-100); MONOCYTES # (AUTO) 0.4 K/uL (0.1-1.30); MONOCYTES % (AUTO) 8.7 % (2.0-12.0); NEUTROPHILS # (AUTO) 3.3 K/uL (1.8-8.9); NEUTROPHILS % (AUTO) 65.7 % (43.0-81.0); PLATELET COUNT (AUTO) 206 K/uL (150-450); RED BLOOD CELL COUNT(AUTO) 3.55 MIL/uL (4.0-5.2)
[2020-12-18 04:59] LABS: CREATININE 0.9 mg/dL (0.6-1.3); POTASSIUM 4.7 mmol/L (3.5-5.1)
--- NOTE | 2020-12-18 06:40 | NUR ---
multicut line operator. am care pt refused, during shift no complication noted. bipapa off at 0600.during shift. no complication noted.oxygen 6 L VIA N/C. sat 96%. no acute distress noted. slasher runner showing nsr.
--- NOTE | 2020-12-18 07:00 | NUR ---
RN OPENING NOTES RECEIVED PT IN BED, AWAKE. A/O X4. ON O2 5L VIA NC SATURATION @90%. NO SOB OR ANY S/S OF ACUTE RESPIRATORY DISTRESS AT THIS TIME. IV ACCESS ON L HAND #20 INTACT, PATENT AND FLUSHED. NO PAIN REPORTED. SAFETY MEASURES IN PLACE. CALL LIGHT WITHIN REACH. BED LOCKED AND IN LOWEST POSITION WITH SIDE RAILS UP X3. WILL CONTINUE TO MONITOR.
--- NOTE | 2020-12-18 07:30 | NUR ---
RN NOTES BLOOD SUGAR OF 99. NO INSULIN COVERAGE.
[2020-12-18] MEDS: FLUTICASONE/VILANTEROL 1 EACH BLST.W.DEV IH SCH (08:21)
[2020-12-18] MEDS: BLOOD SUGAR DIAGNOSTIC 1 EACH STRIP IN SCH ×4 (08:21→22:42)
[2020-12-18] MEDS: DULOXETINE HCL 30 MG CAPSULE.DR PO SCH (08:22)
[2020-12-18] MEDS: PANTOPRAZOLE 40 MG TABLET.DR PO SCH (08:22)
[2020-12-18] MEDS: ASPIRIN 81 MG TAB.CHEW PO SCH (08:22)
[2020-12-18] MEDS: ATORVASTATIN 40 MG TABLET PO SCH (08:22)
[2020-12-18] MEDS: methylPREDNISolone SOD SUCC 40 MG/ML VIAL IV SCH ×2 (08:22→12:31)
[2020-12-18] MEDS: ALLOPURINOL 100 MG TABLET PO SCH (08:22)
[2020-12-18] MEDS: GABAPENTIN 300 MG CAPSULE PO SCH ×3 (08:22→17:39)
[2020-12-18] MEDS: CLOTRIMAZOLE 1% 15 GM TUBE TP SCH ×2 (08:23→17:39)
[2020-12-18] MEDS: LISINOPRIL (10MG) 10 MG TABLET PO SCH (08:28)
[2020-12-18] MEDS: AMLODIPINE BESYLATE 5 MG TABLET PO SCH (08:28)
--- NOTE | 2020-12-18 09:00 | NUR ---
RN NOTES TRANSFERRED PT TO [facility] ROOM 111-1 PER PROTOCOL. VS STABLE.
[2020-12-18] MEDS: INSULIN REGULAR, HUMAN 100 UNIT/ML 3 ML VIAL SQ PRN ×2 (12:35→17:45)
--- NOTE | 2020-12-18 18:54 | NUR ---
RN CLOSING NOTES NO SIGNIFICANT CHANGES THROUGHOUT THE SHIFT. NO SOB. NO PAIN REPORTED AT THIS TIME. ALL DUE MEDS GIVEN. NEEDS ATTENDED. KEPT CLEAN AND COMFORTABLE. SAFETY MEASURES IN PLACE. WILL ENDORSE TO NIGHT RN FOR MARTINA.
--- NOTE | 2020-12-18 19:57 | NUR ---
RN NOTE PATIENT AWAKE, ALERT, AND ORIENTED X4, ABLE TO MAKE NEEDS KNOWN. ON O2 6L VIA NASAL CANNULA, NO SIGNS OF RESPIRATORY DISTRESS. DENIES ANY PAIN AT THIS TIME. IV ACCESS ON LEFT HAND #20 PATENT AND INTACT. NO SIGNS OF INFILTRATION. BED LOCKED AND IN LOWEST POSITION. CALL LIGHT WITHIN REACH. ALL NEEDS ANTICIPATED.
[2020-12-18] MEDS: INSULIN GLARGINE, 100 UNIT/ML CARTRIDGE SQ SCH (22:45)
[2020-12-18] MEDS: *INSULIN REGULAR(HUMULIN R)HUM 100 UNIT/ML VIAL SQ PRN (22:45)
[2020-12-19] VITALS: BP 125/71
[2020-12-19] MEDS: MENTHOL/CETYLPYRD (CEPACOL) 1 LOZ LOZENGE PO PRN (00:12)
[2020-12-19] MEDS: LORAZEPAM 0.5 MG TABLET PO PRN (00:18)
[2020-12-19 04:00] VITALS: BP 140/65
[2020-12-19] MEDS: ALBUTEROL FS 2.5 MG/3 ML VIAL.NEB NEB SCH ×6 (04:28→23:30)
[2020-12-19] MEDS: IPRATROPIUM NEB FS 0.5 MG/2.5 ML AMPUL.NEB NEB SCH ×6 (04:28→23:28)
[2020-12-19 07:19] LABS: BASOPHILS % (AUTO) 0.1 % (0.0-2.0); HEMATOCRIT 30 % (33-45); HEMOGLOBIN 9.3 g/dL (11.5-14.8); LYMPHOCYTES # (AUTO) 1.3 K/uL (0.8-4.8); LYMPHOCYTES % (AUTO) 26.1 % (20.0-44.0); MEAN CORPUSCULAR HGB CONC 32 g/dl (31.0-36.0); MEAN CORPUSCULAR VOLUME 87 fL (82-100); MONOCYTES # (AUTO) 0.4 K/uL (0.1-1.30); MONOCYTES % (AUTO) 8.1 % (2.0-12.0); NEUTROPHILS # (AUTO) 3.2 K/uL (1.8-8.9); NEUTROPHILS % (AUTO) 64.7 % (43.0-81.0); PLATELET COUNT (AUTO) 201 K/uL (150-450); RED BLOOD CELL COUNT(AUTO) 3.38 MIL/uL (4.0-5.2); WHITE BLOOD COUNT (AUTO) 4.9 K/uL (4.3-11.0)
--- NOTE | 2020-12-19 07:22 | NUR ---
RN NOTE PATIENT CURRENTLY RESTING IN BED. CONTINUES ON BIPAP. IV ACCESS ON LEFT HAND #20 PATENT AND INTACT. NO SIGNS OF INFILTRATION. ALL DUE MEDS GIVEN ORDERED. ALL NEEDS ATTENDED PROMPTLY. BED LOCKED AND IN LOWEST POSITION. CALL LIGHT WITHIN REACH. ENDORSED TO AM SHIFT.
[2020-12-19 07:30] LABS: CALCIUM, SERUM 9.1 mg/dL (8.5-10.1); CREATININE 0.9 mg/dL (0.6-1.3); POTASSIUM 4.2 mmol/L (3.5-5.1)
[2020-12-19] MEDS: BLOOD SUGAR DIAGNOSTIC 1 EACH STRIP IN SCH ×4 (07:40→22:01)
[2020-12-19] MEDS: methylPREDNISolone SOD SUCC 40 MG/ML VIAL IV SCH (08:41)
[2020-12-19] MEDS: DULOXETINE HCL 30 MG CAPSULE.DR PO SCH (08:42)
[2020-12-19] MEDS: ASPIRIN 81 MG TAB.CHEW PO SCH (08:42)
[2020-12-19] MEDS: ATORVASTATIN 40 MG TABLET PO SCH (08:42)
[2020-12-19] MEDS: PANTOPRAZOLE 40 MG TABLET.DR PO SCH (08:43)
[2020-12-19] MEDS: ALLOPURINOL 100 MG TABLET PO SCH (08:43)
[2020-12-19] MEDS: GABAPENTIN 300 MG CAPSULE PO SCH ×3 (08:43→17:13)
[2020-12-19] MEDS: FLUTICASONE/VILANTEROL 1 EACH BLST.W.DEV IH SCH (08:44)
[2020-12-19] MEDS: AMLODIPINE BESYLATE 5 MG TABLET PO SCH (08:44)
[2020-12-19] MEDS: LISINOPRIL (10MG) 10 MG TABLET PO SCH (08:44)
[2020-12-19 10:07] VITALS: BP 134/64
[2020-12-19] MEDS: CLOTRIMAZOLE 1% 15 GM TUBE TP SCH ×2 (11:23→17:52)
[2020-12-19] MEDS: INSULIN REGULAR, HUMAN 100 UNIT/ML 3 ML VIAL SQ PRN (13:57)
[2020-12-19 14:41] VITALS: BP 120/52
[2020-12-19 16:18] VITALS: BP 120/52
[2020-12-19 20:00] VITALS: BP 140/70
--- NOTE | 2020-12-19 20:13 | NUR ---
RN NOTE PATIENT AWAKE, ALERT, AND ORIENTED X4. ABLE TO MAKE NEEDS KNOWN. CONTINUES ON O2 6L VIA NASAL CANNULA. NO SIGNS OF SHORTNESS OF BREATH. WHITE CATH DRAINING VIA GRAVITY. IV ACCESS ON LEFT HAND # 20 PATENT AND INTACT. DENIES ANY PAIN. BED LOCKED AND IN LOWEST POSITION. CALL LIGHT WITHIN REACH. ALL NEEDS ANTICIPATED.
[2020-12-19] MEDS: *INSULIN REGULAR(HUMULIN R)HUM 100 UNIT/ML VIAL SQ PRN (22:06)
[2020-12-19] MEDS: INSULIN GLARGINE, 100 UNIT/ML CARTRIDGE SQ SCH (22:07)
[2020-12-20] VITALS (8 sets, daily range): BP systolic 124–142; BP diastolic 60–82
[2020-12-20] MEDS: LORAZEPAM 0.5 MG TABLET PO PRN (00:19)
[2020-12-20] MEDS: IPRATROPIUM NEB FS 0.5 MG/2.5 ML AMPUL.NEB NEB SCH ×7 (03:30→23:22)
[2020-12-20] MEDS: ALBUTEROL FS 2.5 MG/3 ML VIAL.NEB NEB SCH ×7 (03:30→23:22)
[2020-12-20 06:57] LABS: BASOPHILS % (AUTO) 0.1 % (0.0-2.0); EOSINOPHILS % (AUTO) 1.9 % (0.0-6.0); HEMATOCRIT 35 % (33-45); HEMOGLOBIN 10.7 g/dL (11.5-14.8); LYMPHOCYTES # (AUTO) 1.5 K/uL (0.8-4.8); LYMPHOCYTES % (AUTO) 25.4 % (20.0-44.0); MEAN CORPUSCULAR HGB CONC 31 g/dl (31.0-36.0); MEAN CORPUSCULAR VOLUME 88 fL (82-100); MONOCYTES # (AUTO) 0.4 K/uL (0.1-1.30); MONOCYTES % (AUTO) 7.4 % (2.0-12.0); NEUTROPHILS # (AUTO) 3.9 K/uL (1.8-8.9); NEUTROPHILS % (AUTO) 65.2 % (43.0-81.0); PLATELET COUNT (AUTO) 225 K/uL (150-450); RED BLOOD CELL COUNT(AUTO) 3.96 MIL/uL (4.0-5.2); WHITE BLOOD COUNT (AUTO) 5.9 K/uL (4.3-11.0)
[2020-12-20 07:05] LABS: CREATININE 0.9 mg/dL (0.6-1.3)
--- NOTE | 2020-12-20 07:12 | NUR ---
RN NOTE PATIENT IN BED, ALERT AND ORIENTED X4. ON O2 5L VIA NASAL CANNULA. NO SOB NOTED. ALL NEEDS ATTENDED PROMPTLY. BED LOCKED AND IN LOWEST POSITION. CALL LIGHT WITHIN REACH. WILL ENDORSE TO AM SHIFT.
[2020-12-20] MEDS: BLOOD SUGAR DIAGNOSTIC 1 EACH STRIP IN SCH ×4 (07:49→22:31)
[2020-12-20] MEDS: GABAPENTIN 300 MG CAPSULE PO SCH ×3 (08:13→17:07)
[2020-12-20] MEDS: ATORVASTATIN 40 MG TABLET PO SCH (08:13)
[2020-12-20] MEDS: ALLOPURINOL 100 MG TABLET PO SCH (08:14)
[2020-12-20] MEDS: ASPIRIN 81 MG TAB.CHEW PO SCH (08:14)
[2020-12-20] MEDS: DULOXETINE HCL 30 MG CAPSULE.DR PO SCH (08:14)
[2020-12-20] MEDS: ACETAMINOPHEN 325 MG TABLET PO PRN ×2 (08:14→17:54)
[2020-12-20] MEDS: AMLODIPINE BESYLATE 5 MG TABLET PO SCH (08:16)
[2020-12-20] MEDS: LISINOPRIL (10MG) 10 MG TABLET PO SCH (08:18)
[2020-12-20] MEDS: methylPREDNISolone SOD SUCC 40 MG/ML VIAL IV SCH (08:20)
[2020-12-20] MEDS: CLOTRIMAZOLE 1% 15 GM TUBE TP SCH ×2 (09:04→17:45)
[2020-12-20] MEDS: PANTOPRAZOLE 40 MG TABLET.DR PO SCH (09:04)
[2020-12-20] MEDS: *INSULIN REGULAR(HUMULIN R)HUM 100 UNIT/ML VIAL SQ PRN ×2 (12:44→17:27)
--- NOTE | 2020-12-20 14:58 | NUR ---
RN NOTES RECEIVED PATIENT IN BED SLEEPING , EASY TO AROUSE, NO SOB, NC ON 5 LPM O2 STATS READ 96%, IV PATENT INTACT LEFT UPPER ARM, F/C INTACT DRAINING CLEAR YELLOW URINE, REPOSITIONED FOR COMFORT PROVIDED BREAKFAST AND GAVE AM MEDICATIONS NO ASPIRATION NOTED, CALL LIGHT IN REACH.
[2020-12-20] MEDS ORDERED: METH4TAB3 PO (15:03)
[2020-12-20] MEDS ORDERED: PANT40TA2 PO (15:03)
[2020-12-20] MEDS: FLUTICASONE/VILANTEROL 1 EACH BLST.W.DEV IH SCH (15:55)
--- NOTE | 2020-12-20 18:36 | NUR ---
RN NOTES MD ORDERS TO TRANSFER PT FOR HOME CARE, MD ORDER TO D/C CONFIRMED, F/C WILL BE D/C BEFORE TRANSFER, ALL MD ORDERS CARRIED OUT , OXYGEN ON 4 LPM OXYGEN MAINTAINING BETWEEN 90-94%, TEAM MEMBERS HELPED TO MOVE PATIENT FOR A DIAPER CHANGE AND CLEANING, PATIENT REPOSITIONED FOR COMFORT , PILLOWS PLACE IN AREAS TO RELIEVE PRESSURE FROM BUTTOCKS , HEELS, AND FOREARMS, NO C/O PAIN, NO SOB , NO DISTRESS NOTED, IV D/C BEFORE TRANSFER, REDNESS NOTED UNDER STOMACH FOLDS, REDNESS NOTED BI-LATERALLY BUTTOCKS UPPER AND LOWER AREAS AND COCCYX AREA REDNESS NOTED, BREASTS BI-LATERALLY HAVE REDNESS NOTED, LOTION OINTMENT ORDERED APPLIED TO ALL AREAS , CALL LIGHT IN REACH, NO C/O PAIN .
--- NOTE | 2020-12-20 19:49 | NUR ---
RN NOTE [facility] EMT CAME, UNABLE TO TRANSPORT PT TO HOME DUE TO GURNEY SAFETY ISSUE. NOTIFIED DEVOPS ARCHITECT SHILPA. WILL NOTIFY
--- NOTE | 2020-12-20 20:00 | NUR ---
RN NOTE DISCHARGE CANCELLED, EXPLAINED TO PT. NOT IN ANY DISTRESS, CONTINUE ON O2. PT REFUSED TO GET IV REINSERTED. NO DUE IV MEDS TONIGHT. WITH WHITE IN PLACE, DRAINING CLEAR YELLOW URINE. WILL CONTINUE TO MONITOR. ALL SAFETY IN PLACE.
--- NOTE | 2020-12-20 20:54 | NUR ---
RN NOTE STUDENT AFFAIRS DEAN MD DR KRISHNAN NOTIFIED REGARDING PT CANCELLED D/C DUE TO TRANSPORTATION.
--- NOTE | 2020-12-20 22:15 | NUR ---
RN NOTE RECEIVED HAND-OFF REPORT FROM RNFLORY, FOR CONTINUITY OF CARE. PT AWAKE IN BED, A/O X4, DENIES ANY PAIN AT THIS TIME. ON O2@4LPM VIA NC. PT DENIES ANY SOB. F/C IN PLACE, DRAINING CLEAR YELLOW URINE. REPOSITIONED FOR COMFORT AND HEAD OF BED ELEVATED. PT IN NO ACUTE DISTRESS. SAFETY MEASURES IN PLACE, BED IN LOWEST LOCKED POSITION, S/R UPX2, CALL LIGHT AND TABLE WITHIN EASY REACH. WILL CONT TO MONITOR.
[2020-12-20] MEDS: INSULIN REGULAR, HUMAN 100 UNIT/ML 3 ML VIAL SQ PRN (22:37)
[2020-12-20] MEDS: INSULIN GLARGINE, 100 UNIT/ML CARTRIDGE SQ SCH (22:39)
[2020-12-21] VITALS: BP 140/60
[2020-12-21] MEDS: ALBUTEROL FS 2.5 MG/3 ML VIAL.NEB NEB SCH ×4 (03:30→15:21)
[2020-12-21] MEDS: IPRATROPIUM NEB FS 0.5 MG/2.5 ML AMPUL.NEB NEB SCH ×4 (03:30→15:22)
[2020-12-21] MEDS: BLOOD SUGAR DIAGNOSTIC 1 EACH STRIP IN SCH ×3 (07:04→17:10)
--- NOTE | 2020-12-21 07:10 | NUR ---
RN CLOSING NOTE PT AWAKE IN BED, A/OX4, DENIES ANY PAIN/DISCOMFORT AT THIS TIME. ON O2 @4LPM VIA NC. NO SOB NOTED. PT FOR D/C HOME TODAY AND VERBALIZES UNDERSTANDING OF DC. NO ACUTE EVENTS DURING THE NIGHT. ALL NEEDS ATTENDED TO. WILL ENDORSE TO NEXT SHIFT NURSE.
--- NOTE | 2020-12-21 07:30 | NUR ---
RN NOTES PT FOUND IN SEMI FOWLERS POSITION DISPLAYING NO S/S OF DISTRESS, PT ENDORSES NO PAIN AND IS BREATHING EVEN AND UNLABORED. PT IN [facility] BED WATCHING TV. VSS, WILL CONTINUE TO MONITOR. SAFETY MEASURES IN PLACE, BED LOCKED AND IN LOWEST POSITION, SIDE RAILS UP, CALL LIGHT WITHIN REACH, PT INSTRUCTED TO CALL FOR ASSISTANCE.
[2020-12-21 08:00] VITALS: BP 119/52
[2020-12-21] MEDS: ALLOPURINOL 100 MG TABLET PO SCH (08:53)
[2020-12-21] MEDS: methylPREDNISolone SOD SUCC 40 MG/ML VIAL IV SCH (08:53)
[2020-12-21] MEDS: CLOTRIMAZOLE 1% 15 GM TUBE TP SCH ×2 (08:53→16:59)
[2020-12-21] MEDS: FLUTICASONE/VILANTEROL 1 EACH BLST.W.DEV IH SCH (08:53)
[2020-12-21] MEDS: AMLODIPINE BESYLATE 5 MG TABLET PO SCH (08:54)
[2020-12-21] MEDS: ATORVASTATIN 40 MG TABLET PO SCH (08:54)
[2020-12-21] MEDS: GABAPENTIN 300 MG CAPSULE PO SCH ×3 (08:54→16:59)
[2020-12-21 08:55] VITALS: BP 119/52
[2020-12-21] MEDS: LISINOPRIL (10MG) 10 MG TABLET PO SCH (08:55)
[2020-12-21] MEDS: PANTOPRAZOLE 40 MG TABLET.DR PO SCH (08:55)
[2020-12-21] MEDS: DULOXETINE HCL 30 MG CAPSULE.DR PO SCH (08:55)
[2020-12-21] MEDS: ASPIRIN 81 MG TAB.CHEW PO SCH (08:55)
[2020-12-21] MEDS: INSULIN REGULAR, HUMAN 100 UNIT/ML 3 ML VIAL SQ PRN ×2 (12:18→17:15)
--- NOTE | 2020-12-21 18:15 | NUR ---
DISCHARGE NOTE PT DISCHARGED TO HOME VIA [facility]. REPORT GIVEN TO ATTENDING EMTDONG IN UNIT 121. PT HAS 4L O2 NC. PT IS CURRENTLY A&OX4 DISPLAYING NO S/S OF DISTRESS, PT ENDORSES NO PAIN AND IS BREATHING EVEN AND UNLABORED. VSS. Addendum: 12/21/20 at 1830 by RUDY CHU RN F/C REMOVED, IV REMOVED (DAY BEFORE), ID REMOVED. PT LEFT IN STABLE CONDITION.
== END 2020-12-21 19:50 | disposition home or self-care (01) | DRG 189 ==
LOC: ER 11:16 → TRANSITION 16:46 → TELE1 19:35 → ICU 12-14 02:59 → TELE1 12-18 08:55 → MEDSG1 12-20 13:04
PROVIDERS: ADMIT Family Medicine; ATTEND Student in an Organized Health Care Education/Training Program
PROC: 5A09557 Assistance with Respiratory Ventilation, Greater than 96 Consecutive Hours, Continuous Positive Airway Pressure (ICD-10-PCS; principal; 2020-12-14)
DX: J96.21 Acute and chronic respiratory failure with hypoxia (principal); N17.0 Acute kidney failure with tubular necrosis; J44.1 Chronic obstructive pulmonary disease with (acute) exacerbation; I50.32 Chronic diastolic (congestive) heart failure; E66.2 Morbid (severe) obesity with alveolar hypoventilation; J93.82 Other air leak; E87.2 Acidosis; J96.22 Acute and chronic respiratory failure with hypercapnia; I11.0 Hypertensive heart disease with heart failure; Z87.891 Personal history of nicotine dependence; Z20.822 Contact with and (suspected) exposure to COVID-19; F32.9 Major depressive disorder, single episode, unspecified; Z98.84 Bariatric surgery status; Z79.82 Long term (current) use of aspirin; Z79.899 Other long term (current) drug therapy; Z79.4 Long term (current) use of insulin; Z79.51 Long term (current) use of inhaled steroids; D63.8 Anemia in other chronic diseases classified elsewhere; M10.9 Gout, unspecified; F41.9 Anxiety disorder, unspecified; E11.65 Type 2 diabetes mellitus with hyperglycemia; E86.9 Volume depletion, unspecified; E87.5 Hyperkalemia; E11.42 Type 2 diabetes mellitus with diabetic polyneuropathy; T50.2X5A Adverse effect of carbonic-anhydrase inhibitors, benzothiadiazides and other diuretics, initial encounter; Y92.9 Unspecified place or not applicable; Z90.49 Acquired absence of other specified parts of digestive tract
CPT/HCPCS: 36415; 36600; 71045-TC; 80048-TC; 80061-TC; 81001; 82570-TC; 82803-TC; 82962-TC; 83880; 84100-TC; 84484-TC; 85025-TC; 87081-TC; 93307-TC; 94760-TC; 94762-TC; 94799-TC; A7526; C9113; G0378; J1815; J1940; J2543; J2920; J2930; J3370; J3475; J3490; J7060; U0003